=== PATIENT | female | born 1975 | race Caucasian/White ===

== ENCOUNTER 2019-08-21 17:31 | Observation (INO) | payer OTHER, SELFPAY ==
--- NOTE | ~2019-08-21 | CT_ITS ---
EXAMINATION: CT brain wo con INDICATION: Headache COMPARISON: None TECHNIQUE: Standard unenhanced head CT. The dose-length product (DLP) was 605.33 mGy-cm. The mA was a djusted according to patient size. Iterative reconstruction technique was employed. FINDINGS: There is no intracranial hemorrhage, acute infarction, or abnormal mass lesion. The ventric les are normal. There is no abnormal mass effect or midline shift. The fischer-white matter differentiat ion is normal. The basal cisterns are patent. The orbits are normal. The paranasal sinuses, mastoids and calvarium are normal. IMPRESSION: 1. No acute intracranial abnormality. Reviewed, dictated and finalized at location A.
--- NOTE | ~2019-08-21 | US_ITS ---
EXAMINATION: US renal BI DATE: 08/22/2019 07:49 INDICATION: Acute renal insufficiency TECHNIQUE: Multiple ultrasound grayscale images of the kidneys were obtained. COMPARISON: None. FINDINGS: The right kidney measures 9.3 x 5.2 x 5.4 cm. The left kidney measures 9.8 x 5.4 x 4.9 cm. The kidney s demonstrate normal echogenicity. There is no hydronephrosis in either kidney. No stones identified . Bladder appears normal but is partially decompressed which mildly limits evaluation. IMPRESSION: 1. Normal kidneys without hydronephrosis. Reviewed, dictated and finalized at location A.
[2019-08-21 17:35] VITALS: BP 182/90; PULSE 83; RESP 20; TEMP 36.7; O2SAT 100
--- NOTE | 2019-08-21 18:02 | ED.GENADULT ---
HPI - General Adult General Chief complaint: Unspecified <Nikolas Lyn PA-C - Last Filed: 08/21/19 19:54> Stated complaint: abnormal labs <Nikolas Lyn PA-C - Last Filed: 08/21/19 19:54> Time Seen by Provider: 08/21/19 17:54 <Nikolas Lyn PA-C - Last Filed: 08/21/19 19:54> Source: patient and family <CIAN Gaytan Last Filed: 08/21/19 19:54> Mode of arrival: ambulatory <Nikolas Lyn PA-C - Last Filed: 08/21/19 19:54> Limitations: no limitations <Nikolas yLn PA-C - Last Filed: 08/21/19 19:54> History of Present Illness HPI narrative: Patient is a 43-year-old female who presents from home after signing out AMA from the hospital today patient had gone and for having had nausea and vomiting for over a week noting multiple episodes of emesis a day noting that she is also been taking approximately 6 Aleve per day patient on arrival to emergency department notes that she signed out AMA was told him that she was in acute renal failure at the other hospital patient. Patient denies any current pain or similar occurrence in the past. Patient denies any hematemesis rectal bleeding or melena. <Nikolas Lyn PA-C - Last Filed: 08/21/19 19:54> Related Data Home medications: Home Medications Medication Instructions Recorded Confirmed No Home Medications 08/21/19 08/21/19 <Nikolas Lyn PA-C - Last Filed: 08/21/19 19:54> Allergies/adverse reactions: Allergies Allergy/AdvReac Type Severity Reaction Status Date / Time meperidine Allergy Mild NAUSEA/VOMI Verified 11/11/18 13:57 TING <Nikolas Lyn PA-C - Last Filed: 08/21/19 19:54> Review of Systems Review of Systems: All systems reviewed & are unremarkable except as noted in HPI and below <Nikolas Lyn PA-C - Last Filed: 08/21/19 19:54> PMFSH Past Medical History Medical History: Medical History (Updated 08/22/19 @ 13:48 by Yoselin Laureano PA-C) Hyperlipidemia <Nikolas Lyn PA-C - Last Filed: 08/21/19 19:54> Family History Family History: Family History Father Hypertension <Nikolas Lyn PA-C - Last Filed: 08/21/19 19:54> Social History Social History: Social History Smoking packs per day: 1.5 Smoking cigarettes per day: 30.0 Years smoked: 22 Smoking pack-years: 33.00 Smoking status: Current every day smoker Tobacco type: cigarettes Alcohol intake: current Drinks per week: 16 Substance use: current Substance use type: marijuana Last use: 08/21/2019 Gender identity (if verbalized by the patient): Female Spiritual care concerns: No <CAIN Gaytan Last Filed: 08/21/19 19:54> Exam Narrative: Exam Narrative: GENERAL: Well-appearing, well-nourished, and in no acute distress. HEAD: Normocephalic, atraumatic. EYES: PERRLA and EOMI. ENT: Nares clear, no rhinorrhea or epistaxis. Mucous membranes moist. CHEST: Clear to auscultation. No respiratory distress. No wheezes rales or rhonchi HEART: Regular rate and rhythm. No murmur heard. Normal peripheral pulses. ABDOMEN: Soft, nontender, nondistended EXTREMITIES: Normal range of motion. No edema. SKIN: Warm, dry, no rash. NEURO: No focal deficits. Alert and oriented x3. Cranial nerves II through XII grossly intact PSYCH: Normal mood and affect. <CAIN Gaytan Last Filed: 08/21/19 19:54> Course Course Emergency Course: Patient in the room at this time aware of case findings treatment plan and diagnosis agreeing to come into hospital for nephrology consult admitted to the hospitalist service will have ultrasound in the morning with continued evaluation <CAIN Gaytan Last Filed: 08/21/19 19:54> CERTIFIED PHLEBOTOMIST/PA Physician Supervision For this patient encounter, I reviewed the CERTIFIED PHLEBOTOMIST or PA documentation, treatment pl
[2019-08-21] MEDS: SODIUM CHLORIDE 0.9% IV 1,000 ML 999 ML IV CONT (18:12)
[2019-08-21 18:15] LABS: Basophils Absolute Auto 0.1 K/mm3 (0.0-0.1); Basophils Percent Auto 0.8 % (0.2-1.2); Eosinophils Absolute Auto 0.1 K/mm3 (0-0.3); Eosinophils Percent Auto 0.8 % (0-4.4); Hematocrit 51.5 % (37.0-47.0); Hemoglobin 17.8 g/dL (12.0-15.0); Immature Granulocyte Absolute 0.06 K/mm3 (0.00-0.031); Immature Granulocyte Percent A 0.4 % (0-0.5); Lymphocytes Absolute Auto 2.77 K/mm3 (0.9-3.2); Lymphocytes Percent Auto 19.1 % (18.3-44.2); Mean Corpuscular HGB Conc 34.6 g/dl (32-36); Mean Corpuscular Hemoglobin 34.6 pg (26-34); Mean Corpuscular Volume 100.2 fl (80-100); Mean Platelet Volume 10.7 fl (7.4-10.4); Monocytes Absolute Auto 1.1 K/mm3 (0.1-0.6); Monocytes Percent Auto 7.5 % (2.6-8.5); Neutrophils Absolute Auto 10.4 K/mm3 (1.3-6.7); Neutrophils Percent Auto 71.4 % (45.5-73.1); Platelet Count Result 294 k/mm3 (150-375); Red Blood Count 5.14 M/mm3 (4.2-5.4); White Blood Count 14.5 K/mm3 (4.5-10.0)
[2019-08-21 18:20] LABS: Add Urine Microscopic? YES; Appearance Urine Clear (Clear); Bacteria Urine Trace /hpf; Bilirubin Urine Negative (Negative); Blood Urine Negative (Negative); Color Urine Yellow (Yellow); Glucose Urine UA Negative (Negative); Ketones Urine Negative (Negative); Leukocyte Esterase Ur Trace LEU/UL (Negative); Mucus Urine Rare /lpf; Nitrate Urine Negative (Negative); Protein Urine Negative (Negative); RBC Urine 0-2 /hpf (0-2); Specific Grav Ur 1.012 (1.001-1.035); Squamous Epithelial Cell Urine Many /hpf (Few); Urobilinogen Urine Negative mg/dL (<2.0); WBC Urine 21-30 /hpf
[2019-08-21 18:24] LABS: INR 0.9; Prothrombin Time 12.2 Seconds (11.1-14.7)
[2019-08-21 18:25] LABS: Partial Thromboplastin Time 24.8 SECONDS (22.3-36.8)
[2019-08-21 18:27] LABS: Lactic Acid Reflex 0.9 mmol/L (0.7-2.1)
[2019-08-21 18:28] LABS: Alanine Aminotransferase 15 U/L (4-35); Albumin Level 4.6 g/dL (3.5-5.1); Alkaline Phosphatase 79 U/L (38-126); Aspartate Amino Transferase 35 U/L (14-36); Bilirubin,Total 1.4 mg/dL (0.2-1.3); Blood Urea Nitrogen 20 mg/dL (7-17); Calcium 12.8 mg/dL (8.4-10.2); Carbon Dioxide 30 mmol/L (22-30); Chloride 100 mmol/L (98-107); Estimated CRCL calculation 16 ml/min; Estimated Glomerular Filt Rate 15; Glucose 94 mg/dL (65-105); Lipase 199 U/L (23-300); Potassium 2.8 mmol/L (3.4-5.0); Sodium 138 mmol/L (137-145)
[2019-08-21 18:30] VITALS: BP 188/83; PULSE 59; RESP 20; O2SAT 100
--- NOTE | 2019-08-21 19:10 | ECG_ITS ---
Measurements Intervals Artie Rate: 66 P: 68 KS: 160 QRS: 32 QRSD: 93 T: 51 QT: 398 QTc: 417 Interpretive Statements SINUS RHYTHM NORMAL ECG Electronically Signed On 08-22-2019 6:45:18 CDT by Madhu Black D.O.
[2019-08-21] MEDS: hydrALAZINE HCL 20 MG/ML VIAL 10 MG IV PUSH (19:25)
[2019-08-21 19:30] VITALS: BP 162/69; PULSE 64; RESP 16; O2SAT 100
[2019-08-21 20:15] VITALS: BP 165/90; PULSE 80; RESP 15; O2SAT 99
[2019-08-21 20:33] VITALS: BP 174/80; PULSE 74; RESP 16; TEMP 36.5; O2SAT 100
[2019-08-21 20:39] VITALS: BMI 17.9
--- NOTE | 2019-08-21 20:45 | ADMGEN ---
This patient, Kavita Rosen, was admitted to Medical Room 342-01. Patient/family oriented to hospital policies and general routines including ID bracelet, bed and alarms, visiting hours, pain management, procedures, bathroom and other care routines, personal items, smoking policy, room service/diet, and visiting hours. Valuables list has been completed. Information on how to activate the Rapid Response Team has been discussed. Patient/Family are encouraged to report perceived risks to care and to ask questions if they do not understand what they are told or what they should do.
[2019-08-21 20:59] VITALS: PULSE 80
[2019-08-21] MEDS: FAMOTIDINE 20 MG/2 ML VIAL IV PUSH (22:07)
[2019-08-22] VITALS (13 sets, daily range): BP systolic 144–179; BP diastolic 75–91; PULSE 58–89; RESP 14–16; TEMP 36.6–37.1; O2SAT 98–100; BMI 17.9
[2019-08-22] MEDS: hydrALAZINE HCL 20 MG/ML VIAL 10 MG IV PUSH (01:11)
[2019-08-22] MEDS: SODIUM CHLORIDE 0.9% IV 1,000 ML 150 ML IV CONT ×2 (01:11→08:29)
--- NOTE | 2019-08-22 01:34 | PM.IMHP ---
H&P: HPI History of Present Illness Chief complaint: Acute kidney injury, hypokalemia Narrative: This is a pleasant 43 year old female with known hyperlipidemia who presented to the hospital after having nausea and vomiting for the past week. She relates that over 1 week ago she started to have daily migraine headaches and has been taking up to 6 Aleve tablets daily. She was previously taking 4 Aleve tablets daily for chronic back pain for months. The pateint was apparently seen at [facility] earlier and told she was in acute renal failure and signed out AMA. She denies having any previous history of kidney issues, diabetes, or recent exposure to contrast material. Tonight she also denies any fever, chills, shortness of breath, chest pain, abdominal pain, dysuria, hematuria, or LE swelling. The patient was also found to have severely elevated blood pressure today in the ER and treated with Hydralazine. She has no previous history of high blood pressure. She denies any decreased urine output lately. The patient has been admitted to the hospital for acute renal failure and nephrology has been consulted. Review of Systems Review of Systems: All systems reviewed & are unremarkable except as noted in HPI and below [facility] Past Medical History Medical History (Updated 08/22/19 @ 03:32 by Giuseppe Subramanian MD) Hyperlipidemia Family History Family History Father Hypertension Social History Social History Smoking packs per day: 1.5 Smoking cigarettes per day: 30.0 Years smoked: 22 Smoking pack-years: 33.00 Smoking status: Current every day smoker Tobacco type: cigarettes Alcohol intake: current Drinks per week: 16 Substance use: current Substance use type: marijuana Last use: 08/21/2019 Gender identity (if verbalized by the patient): Female Spiritual care concerns: No Meds Home Medications and Allergies Home Medications Medication Instructions Recorded Confirmed Type No Home Medications 08/21/19 08/21/19 History Allergies Allergy/AdvReac Type Severity Reaction Status Date / Time meperidine Allergy Mild NAUSEA/VOMI Verified 11/11/18 13:57 TING Vital Signs Vital Signs - 24 hr 08/21/19 17:35 08/21/19 18:30 08/21/19 19:30 Temperature 36.7 C Pulse Rate 83 59 L 64 Respiratory Rate 20 20 16 Blood Pressure 182/90 H 188/83 H 162/69 H Pulse Oximetry 100 100 100 08/21/19 20:15 08/21/19 20:33 08/21/19 20:59 Temperature 36.5 C Pulse Rate 80 74 80 Respiratory Rate 15 16 Blood Pressure 165/90 H 174/80 H Pulse Oximetry 99 100 08/22/19 00:00 08/22/19 01:06 Temperature Pulse Rate 63 Respiratory Rate Blood Pressure 178/88 H Pulse Oximetry Exam Const: General: cooperative, no acute distress, alert and awake Nutritional Appearance: well nourished Orientation/consciousness: patient oriented x3 HENMT: Head: normal to inspection General nose exam: Normal external nose present Face and sinus: normal facial exam Mouth: Yes Normal oral and palatal mucosa present and Yes oropharynx normal Eyes: Pupils: Equal, round and reactive pupils present EOM: EOMs intact bilaterally Neck: Neck: supple and no JVD Thyroid: thyroid normal Lymphatic: lymphadenopathy not noted Resp: Effort & Inspection: normal respiratory effort Auscultation: clear to auscultation bilaterally Cardio: Rate: regular rate Rhythm: regular rhythm Heart sounds: no murmurs GI: Inspection: normal to inspection Auscultation: normal bowel sounds Skin: General skin exam: normal color and no rashes or lesions noted Neuro: General: patient oriented x3 Cranial nerves: Yes CN's II-XII intact bilaterally and Yes Equal, round and reactive pupils present Speech: normal speech Motor exam (neuro): 5/5 motor strength present throughout Sensory Exam: normal sensation Extrem: Gen
[2019-08-22 01:37] LABS: Magnesium 1.8 mg/dL (1.6-2.3); Potassium 3.5 mmol/L (3.4-5.0)
[2019-08-22 05:56] LABS: Basophils Absolute Auto 0.1 K/mm3 (0.0-0.1); Eosinophils Absolute Auto 0.1 K/mm3 (0-0.3); Eosinophils Percent Auto 1.9 % (0-4.4); Hematocrit 40.2 % (37.0-47.0); Hemoglobin 13.7 g/dL (12.0-15.0); Immature Granulocyte Absolute 0.06 K/mm3 (0.00-0.031); Immature Granulocyte Percent A 0.9 % (0-0.5); Lymphocytes Absolute Auto 1.72 K/mm3 (0.9-3.2); Lymphocytes Percent Auto 24.6 % (18.3-44.2); Mean Corpuscular HGB Conc 34.1 g/dl (32-36); Mean Corpuscular Hemoglobin 34.2 pg (26-34); Mean Corpuscular Volume 100.2 fl (80-100); Mean Platelet Volume 10.4 fl (7.4-10.4); Monocytes Absolute Auto 0.7 K/mm3 (0.1-0.6); Monocytes Percent Auto 10.3 % (2.6-8.5); Neutrophils Absolute Auto 4.3 K/mm3 (1.3-6.7); Neutrophils Percent Auto 61.3 % (45.5-73.1); Platelet Count Result 225 k/mm3 (150-375); Red Blood Count 4.01 M/mm3 (4.2-5.4); Red Cell Distribution Width 13.9 % (11.5-14.5)
[2019-08-22 06:41] LABS: Blood Urea Nitrogen 19 mg/dL (7-17); Calcium 10.1 mg/dL (8.4-10.2); Carbon Dioxide 21 mmol/L (22-30); Chloride 110 mmol/L (98-107); Estimated CRCL calculation 16 ml/min; Estimated Glomerular Filt Rate 16; Glucose 78 mg/dL (65-105); Potassium 3.2 mmol/L (3.4-5.0); Sodium 138 mmol/L (137-145)
[2019-08-22] MEDS: LORAZEPAM INJ 2 MG/ML VIAL 1 MG IV PUSH (07:31)
[2019-08-22] MEDS: FAMOTIDINE 20 MG/2 ML VIAL IV PUSH ×2 (08:04→20:15)
[2019-08-22] MEDS: THIAMINE HCL 200 MG/2 ML VIAL 100 MG IV PUSH (08:04)
[2019-08-22] MEDS: POTASSIUM CHLORIDE 20 MEQ TABLET 40 MEQ PO (08:04)
[2019-08-22 10:54] LABS: Ethanol < 10 mg/dL (<10)
[2019-08-22 12:04] LABS: Amphetamine Screen Urine Negative (Negative); Barbiturate Screen Urine Negative (Negative); Benzodiazepines Screen Urine Negative (Negative); Cannabinoid Screen Urine Positive (Negative); Cocaine Screen Urine Negative (Negative); Methadone Screen Urine Negative (Negative); Opiate Screen Urine Negative (Negative); Phencyclidine Screen Urine Negative (Negative)
--- NOTE | 2019-08-22 13:21 | PM.IMPN ---
Progress Note: A&P Assessment and Plan (1) Acute kidney injury: Code(s): N17.9 - Acute kidney failure, unspecified Status: Acute Assessment and Plan: Cr 3.2; suspect multifactorial may be related to recent N/V, NSAIDs. Unsure of chronicity; does not appear she has had any lab work in quite some time. Renal ultrasound is unremarkable. Nephrology consulted - appreciate recommendations. Continue IV hydration, avoid nephrotoxic agents and trend renal function. (2) Headache: Code(s): R51 - Headache Status: Acute Assessment and Plan: Patient notes intermittent headaches over the last 2 weeks. She reports light sensitivity and associated nausea and vomiting consistent with migraine. Denies history of migraines in the past. CT brain shows no acute intracranial findings. Negative meningeal signs, no leukocytosis or fever. Continue supportive care with IV hydration, tylenol, zofran. (3) Elevated blood pressure reading: Code(s): R03.0 - Elevated blood-pressure reading, without diagnosis of hypertension Status: Acute Assessment and Plan: May be longstanding uncontrolled HTN? Patient does not have a PCP. May be elevated secondary to pain. Continue IV hydralazine PRN for now and monitor BP; may very well need oral antihypertensives initiated prior to discharge. (4) Abnormal urinalysis: Code(s): R82.90 - Unspecified abnormal findings in urine Status: Acute Assessment and Plan: With many squamous cells may represent contamination. Patient asymptomatic. No antibiotics indicated at this time; urine culture pending. (5) Alcohol abuse: Code(s): F10.10 - Alcohol abuse, uncomplicated Status: Chronic Assessment and Plan: CIWA protocol. Thiamine supplementation; benzos PRN for high CIWA. No evidence of withdrawal today. (6) Acute hypokalemia: Code(s): E87.6 - Hypokalemia Status: Acute Assessment and Plan: Still low at 3.2 this morning and replaced. Recheck in AM. Subjective Date/time seen: 08/22/19 0930 Interval history: Ms. Rosen is a 43yo F admitted for acute renal failure. Patient complains of a headache today. She reports significant intermittent headaches over the last 2 weeks with associated nausea and vomiting. Relays no relieving or aggravating factors but has taken up to 8 tabs of Aleve daily over the last 2 weeks. She denies nausea or vomiting today. She is having trouble staying awake during my encounter. She was seen at [facility] ED this week (she cannot tell me which day) and apparently left AMA from the ED. Waiting to review records. Reports she does not have a PCP. Review of Systems Review of Systems: Narrative: Twelve systems were reviewed with pertinent positives and negatives as per HPI. Exam Narrative: Exam Narrative: General: Female resting in bed in no acute distress, falls asleep between my questions. HEENT: Normocephalic, EOMI, oral mucosa moist. Cardiovascular: Rate and rhythm are regular. Respiratory: Lungs clear to auscultation all [place]. Non-labored breathing. Abdomen: Soft, non-tender, non-distended, bowel sounds present. Extremities: Peripheral pulses intact. No edema. Neuro: No focal neurological deficits. Speech is clear. Objective Data Vital Signs Vital Signs: Last Vital Signs Temp 97.9 F 08/22/19 06:00 Pulse 69 08/22/19 12:00 Resp 16 08/22/19 08:04 BP 154/91 H 08/22/19 06:00 Pulse Ox 98 08/22/19 08:04 Intake/Output Intake/Output: Intake & Output 08/19/19 08/20/19 08/21/19 08/22/19 23:59 23:59 23:59 23:59 Intake Total 1100 1990 Output Total 1125 Balance 1100 865 Meds/Results Medications: Active Medications Generic Name Dose Route Start Last Admin Trade Name Kev Nelson
--- NOTE | 2019-08-22 15:24 | PM.CNNEP ---
Assessment and Plan Assessment and plan (1) Acute kidney injury: Code(s): N17.9 - Acute kidney failure, unspecified Status: Acute (2) Acute hypokalemia: Code(s): E87.6 - Hypokalemia Status: Acute (3) Uncontrolled hypertension: Code(s): I10 - Essential (primary) hypertension Status: Acute (4) Nausea and vomiting: Qualifiers: Vomiting Intractability: unspecified Vomiting type: unspecified Qualified Code(s): R11.2 - Nausea with vomiting, unspecified Code(s): R11.2 - Nausea with vomiting, unspecified Status: Acute Assessment and Plan: . Additional Plan Kavita has acute renal failure as evidence by labs on admission. I am not entirely clear what precipitated this issue but given her history of recent high dose NAID use, the possibility of acute/chronic intersitital nephritis is of concern. However, given her elevated blood pressure on presentation to the ER, it is also possible this may be playing a role (although the renal failure in of itself could also cause high blood pressure as well). Her urinalysis is concerning for a possible urinary tract infection so a urine culture is pending. If her urine culture is negative and her blood pressure is better controlled, I am considering giving the patient steroids on the presumptive diagnosis of acute interstitial nephritis. If she does indeed have acute interstitial nephritis, is difficult to say how fast she would respond to the steroids in general. Is her kidney function continues to deteriorate, I will proceed with ordering an extensive serological evaluation to rule out any type of intrinsic, infiltrative, or inflammatory kidney disorder that may be present as well. As already mentioned, the patient was quite insistent that she needed to go home and I did try to explain to her the seriousness of her medical problems with regard to her renal failure and the possibility that it could get worse or her overall clinical condition could deteriorate as well particularly if she left the hospital and her kidney function continue to deteriorate. She seemed to voiced understanding but still was somewhat insistent that she want to go home. I will continue follow patient with you while she remains hospitalized and make further recommendations during hospital course Thank you for allowing me to participate in the care this patient. History of Present Illness Reason for Consult Consult date: 08/22/19 Reason for consult: acute renal failure Chief Complaint Chief complaint: Acute kidney injury, hypokalemia History of Present Illness Narrative: The patient is a 43 year old female with a past medical history as outlined below who presented [facility] ER with complaints of nausea and vomiting. She relates the above symptoms for the last week in association with persistent headache/migraine. Due to the migraine/headaches, she reports taking up to 6 Aleve tablets daily. Prior to this, she was taking 4 Aleve tablets daily for chronic back pain for several months. Apparently, she was at [facility] earlier for the same above symptoms and was told she was in acute renal failure but she signed out AMA prior to further evaluation of her kidney dysfunction. At the behest of her family, she presented to [facility] ER for further evaluation of this issue. Prior to being told about her current renal dysfunction, the patient reports no previous history of kidney disease or kidney failure. She denies any history of hypertension, diabetes, coronary artery disease, congestive heart failure, peripheral vascular disease, liver disease, pulmonary disorders, or any autoimmune disease. She denies any history of foamy urine, CVA/flank pain, urinary incontinence, dysuria, hematuria, or nephrolithiasis. Workup and evaluation in the emergency room found the patient be quite hypertensive on presentation and routine blood test demonstr
[2019-08-22] MEDS: PANTOPRAZOLE 40 MG TABLET PO (15:25)
[2019-08-22] MEDS: SODIUM CHLORIDE 0.9% IV 1,000 ML 125 ML IV CONT ×2 (15:40→23:12)
[2019-08-22 15:53] LABS: Creatinine Urine 34.3 mg/dL; Total Protein Urine Random 18 mg/dL
[2019-08-22 16:01] LABS: Sodium Urine Random 55 meq/L
[2019-08-23] VITALS: PULSE 61
[2019-08-23 04:00] VITALS: PULSE 63
[2019-08-23 04:26] VITALS: BP 177/81; PULSE 70; RESP 20; TEMP 36.9; O2SAT 99
[2019-08-23] MEDS: hydrALAZINE HCL 20 MG/ML VIAL 10 MG IV PUSH (04:33)
[2019-08-26 15:31] LABS: Myoglobin, Urine <27 mcg/L (<28)
== END 2019-08-23 05:47 | disposition left against medical advice (07) ==
LOC: ANHED 19:07 → ANH3MED 22:01
PROVIDERS: Emergency Medicine Emergency Medical Services; Family Medicine; Internal Medicine Nephrology; Admitting Provider Internal Medicine; Emergency Provider General Practice; Visit Provider Physician Assistant
DX: N17.9 Acute kidney failure, unspecified (principal); E78.5 Hyperlipidemia, unspecified; F17.210 Nicotine dependence, cigarettes, uncomplicated; E87.6 Hypokalemia; R11.2 Nausea with vomiting, unspecified; I10 Essential (primary) hypertension; F10.10 Alcohol abuse, uncomplicated; F12.10 Cannabis abuse, uncomplicated; R82.90 Unspecified abnormal findings in urine; R51 Headache; Z79.899 Other long term (current) drug therapy
CPT/HCPCS: 36415; 70450; 76775; 80048; 80053; 80069; 80307; 81001; 81003; 82570; 82595; 83520; 83605; 83690; 83735; 83874; 84132; 84155; 84156; 84165; 84166; 84300; 85025; 85610; 85730; 85999; 86021; 86038; 86160; 86334; 86335; 87081; 87086; 87088; 87880; 93005; 96361; 96365; 96374; 96375; 96376; 99285; A9270; G0378; G0379; J0131; J0360; J2060; J2270; J2405; J3411; J3475; J3480; J7030; J7512

== ENCOUNTER 2019-08-23 08:31 | Observation (INO) | payer OTHER, SELFPAY ==
[2019-08-23] VITALS (11 sets, daily range): BP systolic 154–232; BP diastolic 69–120; PULSE 64–87; RESP 16–18; TEMP 36.1–36.5; O2SAT 99–100; BMI 18.3
--- NOTE | 2019-08-23 08:44 | ED.GENADULT ---
HPI - General Adult General Chief complaint: Unspecified Stated complaint: Left AMA today, Request Readmission Time Seen by Provider: 08/23/19 08:32 Source: RN notes reviewed History of Present Illness HPI narrative: Patient presents emergency department from home for renal failure. Patient states that she was admitted to the hospital 2 days ago and just left AGAINST MEDICAL ADVICE approximately 2 hours ago from the hospital. She states she left AMA at that time because she missed her children 1 to go home and see them. She states that her significant other stated that she needed to come back for further evaluation this patient returned. She states she is willing to stay she denies any alcohol use or drug use when she returned home she states she did smoke cigarettes she denies any fevers or chills chest pain shortness of breath abdominal pain nausea or vomiting or any other symptom Related Data Home Medications Medication Instructions Recorded Confirmed No Home Medications 08/21/19 08/21/19 Allergies Allergy/AdvReac Type Severity Reaction Status Date / Time meperidine AdvReac Mild Hives Verified 08/23/19 08:44 Review of Systems Review of Systems: Narrative: Gen.: Denies fevers or chills ENT: Denies congestion Respiratory: Denies shortness of breath or cough CV: Denies chest pain or palpitations GI: Denies abdominal pain nausea, emesis or diarrhea see HPI Musculoskeletal: Denies back pain or muscle pain Neuro: Denies numbness, tingling, weakness or focal weakness Skin: Denies rash Except as documented, all other systems reviewed and negative PMFSH Past Medical History Medical History Hyperlipidemia Social History Social History Smoking packs per day: 1.5 Smoking cigarettes per day: 30.0 Years smoked: 22 Smoking pack-years: 33.00 Smoking status: Current every day smoker Tobacco type: cigarettes Alcohol intake: current Drinks per week: 16 Substance use: current Substance use type: marijuana Last use: 08/21/2019 Gender identity (if verbalized by the patient): Female Spiritual care concerns: No Exam Narrative: Exam Narrative: APPEARANCE: No acute distress, nontoxic, resting in bed EYES: EOMI HEENT: Normocephalic, atraumatic, OMM RESPIRATORY: No respiratory distress Clear to auscultation bilaterally with no rhonchi wheezing or rales. CARDIOVASCULAR: Regular rate and rhythm without murmurs rubs or gallops. ABDOMINAL: Soft, nontender, nondistended, no rebound or guarding MUSCULOSKELETAl: Moves all extremities. No clubbing, cyanosis or edema. NEURO: Awake and alert. Following commands, speech normal, no focal deficits SKIN:: Warm, dry. No rashes lesions or abrasions PSYCHIATRIC: Normal affect/mood, Course Course Emergency Course: Reviewed old records Discussed with Dr. santiago presentation work-up states he will see patient on the floor recommends no fluids at this time Discussed Dr Monroe presentation work-up. Agrees with admission at this time Discussed with patient and family results of workup and diagnosis. Discussed need for admission. Patient and family understand and agree to current treatment plan Vital Signs Vital signs: Vital Signs Temperature 97.4 F L 08/23/19 08:36 Pulse Rate 75 08/23/19 08:36 Respiratory Rate 18 08/23/19 08:36 Blood Pressure 189/83 H 08/23/19 08:36 Pulse Oximetry 100 08/23/19 08:36 Temperature 97.4 F L 08/23/19 08:36 Pulse Rate 87 08/23/19 08:41 Respiratory Rate 18 08/23/19 08:36 Blood Pressure 189/83 H 08/23/19 08:36 Pulse Oximetry 100 08/23/19 08:36 Medical Decision Making Vital Signs Vital Signs: Vital Signs Temperature 97.4 F L 08/23/19 08:36 Pulse Rate 75 08/23/19 08:36 Respiratory Rate 18 08/23/19 08:36 Blood Pressure 189/83 H 08/23/19 08:36 Pulse Oximetry 100 08/23/19 08
[2019-08-23 08:51] LABS: Basophils Absolute Auto 0.1 K/mm3 (0.0-0.1); Basophils Percent Auto 0.6 % (0.2-1.2); Eosinophils Percent Auto 0.3 % (0-4.4); Hemoglobin 14.2 g/dL (12.0-15.0); Immature Granulocyte Absolute 0.04 K/mm3 (0.00-0.031); Immature Granulocyte Percent A 0.4 % (0-0.5); Lymphocytes Absolute Auto 1.14 K/mm3 (0.9-3.2); Lymphocytes Percent Auto 11.7 % (18.3-44.2); Mean Corpuscular HGB Conc 33.8 g/dl (32-36); Mean Corpuscular Hemoglobin 34.2 pg (26-34); Mean Corpuscular Volume 101.2 fl (80-100); Mean Platelet Volume 10.3 fl (7.4-10.4); Monocytes Absolute Auto 0.9 K/mm3 (0.1-0.6); Monocytes Percent Auto 8.9 % (2.6-8.5); Neutrophils Absolute Auto 7.6 K/mm3 (1.3-6.7); Neutrophils Percent Auto 78.1 % (45.5-73.1); Platelet Count Result 247 k/mm3 (150-375); Red Blood Count 4.15 M/mm3 (4.2-5.4); Red Cell Distribution Width 14.4 % (11.5-14.5); White Blood Count 9.8 K/mm3 (4.5-10.0)
[2019-08-23 09:18] LABS: Ethanol < 10 mg/dL (<10)
[2019-08-23 09:22] LABS: Add Urine Microscopic? NO; Appearance Urine Clear (Clear); Bilirubin Urine Negative (Negative); Blood Urine Negative (Negative); Color Urine Straw (Yellow); Glucose Urine UA Negative (Negative); Ketones Urine Negative (Negative); Leukocyte Esterase Ur Negative LEU/UL (Negative); Nitrate Urine Negative (Negative); Protein Urine Negative (Negative); Urobilinogen Urine Negative mg/dL (<2.0)
[2019-08-23 09:36] LABS: Alanine Aminotransferase 13 U/L (4-35); Albumin Level 3.7 g/dL (3.5-5.1); Alkaline Phosphatase 56 U/L (38-126); Aspartate Amino Transferase 26 U/L (14-36); Bilirubin,Total 0.6 mg/dL (0.2-1.3); Blood Urea Nitrogen 16 mg/dL (7-17); Calcium 9.8 mg/dL (8.4-10.2); Carbon Dioxide 20 mmol/L (22-30); Chloride 114 mmol/L (98-107); Estimated CRCL calculation 17 ml/min; Estimated Glomerular Filt Rate 17; Glucose 80 mg/dL (65-105); Potassium 3.4 mmol/L (3.4-5.0); Sodium 142 mmol/L (137-145)
--- NOTE | 2019-08-23 10:43 | P.PNNP_ITS ---
Progress Note: A&P Assessment and Plan (1) Acute kidney injury: Code(s): N17.9 - Acute kidney failure, unspecified Status: Acute Assessment and Plan: * etiology not clear * suspicion falls on acute/chronic interstitial nephritis given heavy use of NSAIDs therapy for the last several months * however, it could also be related to hypertension as it is unclear how long this has been present * furthermore -- is this really TRIP or did she have component of CKD as well?? - will try to obtain any old records, if available * urine sediment is bland * will check serologies (but acute glomerulonephritis/vasculitis/autoimmune disorder seems unlikely with no blood or protein on urinalysis) * start trial of steroids on the assumption of interstitial nephritis * if kidney function deteriorates or fails to improve, consider renal biopsy (although BP would need to better controlled first) (2) Acute hypokalemia: Code(s): E87.6 - Hypokalemia Status: Acute Assessment and Plan: * replete as needed * follow trend (3) Uncontrolled hypertension: Code(s): I10 - Essential (primary) hypertension Status: Acute Assessment and Plan: * unclear how long this has been an issue * would start oral BP medications - nifedipine xl 30mg qday * IV hydralazine PRN as well * suspect may need another agent Will continue to follow Additional Plan PLEASE SEE MY CONSULTATION FROM YESTERDAY (08/22/19) Subjective Date/time seen: 08/23/19 10:43 Patient apparently left against medical advice early this AM but then returned to ER at the urging of her family given her renal failure; no apparent issues or problems to report at this time. Exam Narrative: Exam Narrative: General: WD/WN female in NAD Heart: normal S1 and S2; no rub Lungs: clear to auscultation Abdomen: soft, nontender, nondistended, positive bowel sounds Extremities: no cyanosis or clubbing; no edema Skin: warm and dry Objective Data Vital Signs Vital Signs: Vital Signs Temp Pulse Resp BP Pulse Ox 08/23/19 08:41 87 08/23/19 08:36 36.3 C L 75 18 189/83 H 100 Labs Labs: Laboratory Tests 08/23/19 08:44 08/23/19 09:14
--- NOTE | 2019-08-23 11:35 | ADMGEN ---
This patient, Kavita Rosen, was admitted to 2 Medical Room 250-01. Patient/family oriented to hospital policies and general routines including ID bracelet, bed and alarms, visiting hours, pain management, procedures, bathroom and other care routines, personal items, smoking policy, room service/diet, and visiting hours. Valuables list has been completed. Information on how to activate the Rapid Response Team has been discussed. Patient/Family are encouraged to report perceived risks to care and to ask questions if they do not understand what they are told or what they should do.
[2019-08-23] MEDS: hydrALAZINE HCL 20 MG/ML VIAL 10 MG IV PUSH ×2 (13:42→20:33)
--- NOTE | 2019-08-23 14:47 | PM.IMHP ---
H&P: HPI History of Present Illness Chief complaint: Left AMA this morning Narrative: Date of Service 08/23/19 1430 The supervising physician for this history and physical is Dr. Maximino Montalvo. Ms. Rosen is a 43yo F who presents to the ED for evaluation after leaving AMA early this morning. She was admitted yesterday for acute renal failure when Cr was 3.3 on arrival. She was seen by Dr Meng yesterday during her previous admission and he again has agreed to see her in consultation. She complains of intermittent headaches over the last 2 weeks that were previously accompanied by nausea and vomiting. She complains of a headache this afternoon but notes the nausea and vomiting have resolved. She denies any head trauma, neck pain, vision changes, speech changes, arm or leg weakness, or trouble ambulating. She reports taking Aleve daily for a long period of time due to back aches and pains, and more recently was taking up to 8 tablets of Aleve daily due to these headaches. Blood pressures are again noted to be elevated, up to 204/100 this afternoon. She denies a previous history of hypertension but notes she has not been to a doctor in quite some time. She is being admitted again for evaluation and management of acute renal failure and I suspect she may require a 2 midnight stay for same. Review of Systems Review of Systems: Narrative: She describes significant headache, intermittent headaches over the last 2 weeks. She denies any chest pain, shortness of breath, cough, fevers or chills, or sick contacts at home. She denies any nausea, vomiting, diarrhea, constipation, hematochezia, or melena. Last BM was this morning. No dysuria or hematuria. No chest pain or shortness of breath. Twelve systems were reviewed with pertinent positives and negatives as per HPI. [facility] Past Medical History Medical History (Updated 08/23/19 @ 15:43 by Yoselin Laureano PA-C) Elevated blood pressure reading Surgical History Surgical History (Updated 08/23/19 @ 15:22 by Yoselin Laureano PA-C) H/O dilation and curettage History of ear surgery 2002 - Patient reports a surgery to R ear Family History Family History (Updated 08/23/19 @ 15:22 by Yoselin Laureano PA-C) Father Hypertension Sibling Diabetes mellitus Grandparent Esophageal cancer Social History Social History (Updated 08/23/19 @ 15:26 by Yoselin Laureano PA-C) Social History: Ms. Rosen lives at home in [place] with her significant other, Pete, and her two teenage sons. 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 She reports drinking 4 shots of Fireball whiskey every night and her last drink was 08/20/19. She reports using marijuana daily, mostly by smoking but also sometimes ingestion. She smokes 1.5 packs per day since age 20yo. She does not have a primary care provider. She designates Pete to be her surrogate decision maker and wishes to be full code status. Smoking packs per day: 1.5 Smoking cigarettes per day: 30.0 Years smoked: 23 Smoking pack-years: 34.50 Smoking status: Current every day smoker Tobacco type: cigarettes Alcohol intake: current Drinks per week: 28 Alcohol use details: 4 shots per day Substance use: current Substance use type: marijuana Last use: 08/20/2019 Living arrangements: with family Occupation/Education: unemployed Gender identity (if verbalized by the patient): Female Spiritual care concerns: No Meds Home Medications and Allergies Home Medications Medication Instructions Recorded Confirmed Type No Home Medications 08/21/19 08/23/19 History Allergies Allergy/AdvReac Type Severity Reaction Status Date / Time meperidine AdvReac Mild Hives Verified 08/23/19 11:46 Vital Signs Vital Signs - 24 hr 08/23/19 08:36 08/23/19 08:41 08/23/19 12:00 Temperature 97.4 F L 97.6 F Pulse Rate 75 87 66 Respiratory Rate 18 16 Blood Pressure 189/83 H 154/78 H
[2019-08-23] MEDS: ONDANSETRON INJ 4 MG/2 ML VIAL IV PUSH ×2 (15:20→17:37)
[2019-08-23] MEDS: NIFEdipine 30 MG TAB.ER.24 PO (15:33)
[2019-08-23] MEDS: LORAZEPAM 0.5 MG TABLET PO ×2 (17:06→19:25)
[2019-08-23] MEDS: POTASSIUM CHLORIDE 20 MEQ TABLET 40 MEQ PO (18:18)
[2019-08-23] MEDS: METOPROLOL TARTRATE 25 MG TABLET PO (18:18)
[2019-08-23] MEDS: predniSONE 20 MG, predniSONE 10 MG 30 MG PO (18:18)
[2019-08-23] MEDS: ACETAMINOPHEN 325 MG TABLET 650 MG PO (20:31)
[2019-08-23 22:20] LABS: Amphetamine Screen Urine Negative (Negative); Barbiturate Screen Urine Negative (Negative); Benzodiazepines Screen Urine Negative (Negative); Cannabinoid Screen Urine Positive (Negative); Cocaine Screen Urine Negative (Negative); Methadone Screen Urine Negative (Negative); Opiate Screen Urine Positive (Negative); Phencyclidine Screen Urine Negative (Negative)
[2019-08-24] VITALS (7 sets, daily range): BP systolic 156–178; BP diastolic 74–92; PULSE 64–88; RESP 16–18; TEMP 36.2–36.8; O2SAT 100
[2019-08-24] MEDS: ACETAMINOPHEN 325 MG TABLET 650 MG PO ×2 (00:47→06:03)
[2019-08-24] MEDS: SODIUM CHLORIDE 0.9% IV 1,000 ML 100 ML IV CONT (02:30)
[2019-08-24] MEDS: ONDANSETRON INJ 4 MG/2 ML VIAL IV PUSH (03:38)
[2019-08-24] MEDS: METOPROLOL TARTRATE 25 MG TABLET PO (04:51)
[2019-08-24 06:00] LABS: Basophils Percent Auto 0.5 % (0.2-1.2); Hematocrit 39.5 % (37.0-47.0); Hemoglobin 13.3 g/dL (12.0-15.0); Immature Granulocyte Absolute 0.03 K/mm3 (0.00-0.031); Immature Granulocyte Percent A 0.4 % (0-0.5); Lymphocytes Absolute Auto 0.91 K/mm3 (0.9-3.2); Lymphocytes Percent Auto 10.8 % (18.3-44.2); Mean Corpuscular HGB Conc 33.7 g/dl (32-36); Mean Corpuscular Hemoglobin 34.1 pg (26-34); Mean Corpuscular Volume 101.3 fl (80-100); Mean Platelet Volume 10.4 fl (7.4-10.4); Monocytes Absolute Auto 0.5 K/mm3 (0.1-0.6); Monocytes Percent Auto 6.4 % (2.6-8.5); Neutrophils Absolute Auto 6.9 K/mm3 (1.3-6.7); Neutrophils Percent Auto 81.9 % (45.5-73.1); Platelet Count Result 206 k/mm3 (150-375); Red Cell Distribution Width 14.2 % (11.5-14.5); White Blood Count 8.5 K/mm3 (4.5-10.0)
[2019-08-24 06:09] LABS: Blood Urea Nitrogen 15 mg/dL (7-17); Calcium 9.4 mg/dL (8.4-10.2); Carbon Dioxide 18 mmol/L (22-30); Chloride 114 mmol/L (98-107); Estimated CRCL calculation 19 ml/min; Estimated Glomerular Filt Rate 19; Glucose 74 mg/dL (65-105); Magnesium 1.6 mg/dL (1.6-2.3); Potassium 3.8 mmol/L (3.4-5.0); Sodium 140 mmol/L (137-145)
[2019-08-24 06:13] LABS: Complement C3 54 mg/dL (88-165)
[2019-08-24] MEDS: predniSONE 20 MG, predniSONE 10 MG 30 MG PO ×2 (08:51→16:55)
[2019-08-24] MEDS: NIFEdipine 30 MG TAB.ER.24 PO (08:51)
[2019-08-24] MEDS: MAGNESIUM SULF 2 GM/WATER 50ML 2 GM/50 ML BAG IVPB (09:16)
--- NOTE | 2019-08-24 09:52 | PM.IMPN ---
Progress Note: A&P Assessment and Plan (1) Acute renal insufficiency: Code(s): N28.9 - Disorder of kidney and ureter, unspecified Status: Acute Assessment and Plan: Cr improved to 2.7 this AM. Fluids were briefly started by printing supplies sales representative early this AM 2/2 vomiting; stop IV fluids. Again appreciate Dr Meng's input. He has started oral prednisone and ordered further studies. Suspect could be multifactorial related to NSAIDs, elevated BP. Unsure if HTN contributed to TRIP or vice versa. Renal ultrasound from 08/21 is unremarkable. (2) Uncontrolled hypertension: Code(s): I10 - Essential (primary) hypertension Status: Acute Assessment and Plan: Unsure of chronicity. Continue nifedipine; systolics 170s this AM prior to AM meds, improved to 150s with oral CCB. Metoprolol given last night, will see if we can hold off on both oral drugs for now and monitor her response to nifedipine first. Continue IV hydralazine PRN. Will monitor BP closely and adjust treatment as needed. (3) Headache: Qualifiers: Headache chronicity pattern: episodic headache Headache type: unspecified Intractability: not intractable Qualified Code(s): R51 - Headache Code(s): R51 - Headache Status: Acute Assessment and Plan: She initially described headaches over the last 2 weeks, on further questioning has been actually having headaches for a long time , worse in last week. CT brain on arrival previous admission demonstrates no acute intracranial abnormality. No focal neurological deficits. May be related to elevated BP vs. migraines. Continue supportive care with antiemetics and analgesia. (4) Acute hypokalemia: Code(s): E87.6 - Hypokalemia Status: Acute Assessment and Plan: Stable at 3.8 this AM. Mg 1.6 and replaced. Monitor electrolytes. (5) Alcohol abuse: Code(s): F10.10 - Alcohol abuse, uncomplicated Status: Chronic Assessment and Plan: Patient reports 4 shots per day of whiskey. Last drink 08/19. No signs or symptoms of acute withdrawal. I think this anxiety is more baseline than acute. She denies ever having symptoms of withdrawal, including seizures, in the past. Monitor with CIWA protocol, folic acid and thiamine supplementation, benzodiazepine PRN for elevated CIWA/agitation. (6) Tobacco dependence: Code(s): F17.200 - Nicotine dependence, unspecified, uncomplicated Status: Chronic Assessment and Plan: Smoking cessation advised. Patient expresses desire to quit. Declines nicotine patch. (7) Marijuana use: Code(s): F12.90 - Cannabis use, unspecified, uncomplicated Status: Chronic Assessment and Plan: Patient smokes marijuana daily. Discussed that her N/V may be related to marijuana use. Subjective Date/time seen: 08/24/19 09:00 Interval history: Ms. Rosen is a 43yo F admitted for acute renal insufficiency and hypertension. Some issues overnight with elevated blood pressures, headache with associated nausea and vomiting. She is feeling much better this morning. She rates her headache this AM at a 2/10 and no nausea at this time. No chest pain, shortness of breath, or cough. Spoke with her significant other, Pete, on speakerphone in the room during my encounter and provided an update with the patient's permission. Review of Systems Review of Systems: Narrative: Headache improved. N/V resolved. No chest pain. Twelve systems were reviewed with pertinent positives and negatives as per HPI. Exam Narrative: Exam Narrative: General: Well-appearing, thin female resting sitting up in bed in no acute distress. Anxious but pleasant. HEENT: Normocephalic, atraumatic, EOMI, oral mucosa moist. Neck:
--- NOTE | 2019-08-24 16:29 | PM.PNNEP ---
Progress Note: A&P Assessment and Plan (1) Acute kidney injury: Code(s): N17.9 - Acute kidney failure, unspecified Status: Acute Assessment and Plan: etiology not clear suspicion falls on acute/chronic interstitial nephritis given heavy use of NSAIDs therapy for the last several months however, it could also be related to hypertensive nephrosclerosis as it is unclear how long her blood pressure has been poorly controlled furthermore -- is this really TRIP or did she have component of CKD as well?? - no records as has not seen a physician or had blood work that she can recall urine sediment is bland follow-up on serologies (but acute glomerulonephritis/vasculitis/autoimmune disorder seems unlikely with no blood or protein on urinalysis) started trial of steroids on the assumption of interstitial nephritis if kidney function deteriorates or fails to improve, consider renal biopsy (although BP would need to better controlled first) (2) Acute hypokalemia: Code(s): E87.6 - Hypokalemia Status: Acute Assessment and Plan: replete as needed follow trend (3) Uncontrolled hypertension: Code(s): I10 - Essential (primary) hypertension Status: Acute Assessment and Plan: unclear how long this has been an issue on nifedipine IV hydralazine PRN as well suspect may need another agent Patient states that she is leaving and asking me for BP medication prescriptions -- I do not feel comfortable giving her blood pressure medication prescriptions since I am told she is leaving against medical advise since there is no official discharge order (I personally do not think she should be discharged at this time since I am unclear if her kidney function will improve and what medication regimen she really needs to keep her BP controlled). Subjective Date/time seen: 08/24/19 16:29 The patient appears to be doing reasonably well -- however, she want to leave/go home much as she did on her last admission. BP does appear to be doing somewhat better as is kidney function by vitals and labs; she was dressed and ready to leave on my visit (although she did not tell me that she was not being discharged). Exam Narrative: Exam Narrative: General: WD/WN female in NAD Heart: normal S1 and S2; no rub Lungs: clear to auscultation Abdomen: soft, nontender, nondistended, positive bowel sounds Extremities: no cyanosis or clubbing; no edema Skin: warm and dry Objective Data Vital Signs Vital Signs: Vital Signs Temp Pulse Resp BP Pulse Ox 08/24/19 14:00 36.8 C 68 16 168/74 H 100 08/24/19 10:00 36.2 C L 64 16 156/78 H 100 08/24/19 06:00 36.2 C L 70 16 174/88 H 100 08/24/19 04:51 68 08/24/19 02:00 36.2 C L 68 16 169/82 H 100 08/23/19 21:59 158/70 H 08/23/19 20:35 36.1 C L 64 18 180/88 H 100 08/23/19 18:18 76 08/23/19 18:00 36.4 C L 75 18 176/84 H 100 Intake/Output Intake/Output: Intake & Output 08/21/19 08/22/19 08/23/19 08/24/19 23:59 23:59 23:59 23:59 Intake Total 810 1490 Output Total 600 1300 Balance 210 190 Meds/Results Medications: Active Medications Generic Name Dose Route Start Last Admin Trade Name Freq PRN Reason Stop Dose Admin Acetaminophen 650 mg 08/23/19 14:48 08/24/19 06:03 Tylenol Tablet PO 650 mg Q4H PRN Administration Pain Rated 5 or Less Acetaminophen/Codeine Phosphate 1 tab 08/23/19 17:45 08/24/19 03:38 Tylenol #3 PO 1 tab Q4H PRN Administration pain of 6 or greater Hydralazine HCl 10 mg 08/23/19 12:24 08/23/19 20:33 Apresoline Hcl Inj IV PUSH 10 mg Q6H PRN Administration Blood Pressure - High Lorazepam 0.5 mg 08/23/19 16:55 08/23/19 17:06 Ativan Tab PO 0.5 mg Q6H PRN Administration Anxiety Nifedipine 30 mg 08/23/19 14:00 08/24/19 08:51 Procardia Xl PO 30 mg QAM CARRIE Administration Ondansetron HCl 4 mg 05
[2019-08-25] VITALS (8 sets, daily range): BP systolic 151–180; BP diastolic 83–91; PULSE 54–86; RESP 14–19; TEMP 36.5–36.8; O2SAT 97–100
[2019-08-25 06:20] LABS: Albumin Level 4.1 g/dL (3.5-5.1); Blood Urea Nitrogen 16 mg/dL (7-17); Calcium 9.1 mg/dL (8.4-10.2); Carbon Dioxide 20 mmol/L (22-30); Chloride 109 mmol/L (98-107); Estimated CRCL calculation 22 ml/min; Estimated Glomerular Filt Rate 22; Glucose 98 mg/dL (65-105); Phosphorus 2.7 mg/dL (2.5-4.5); Potassium 3.5 mmol/L (3.4-5.0); Sodium 138 mmol/L (137-145)
--- NOTE | 2019-08-25 09:50 | PC.NURSE ---
Patient refused to have a morning assessment performed. Gave morning medications, flushed IV and was informed by the patient to leave.
--- NOTE | 2019-08-25 09:50 | PM.IMPN ---
Progress Note: A&P Assessment and Plan (1) Acute renal insufficiency: Code(s): N28.9 - Disorder of kidney and ureter, unspecified Status: Acute Assessment and Plan: She is very upset. I explained in detail that I am not comfortable discharging her today based on her creatinine and blood pressure and that it would be safest to keep her overnight until we see more improvement. I explain that if she would like to leave against medical advise today, that she would not be given any prescriptions, including the antihypertensives she needs. I discussed at length the risks of her leaving. When I ask if she will allow me to perform a physical examination, she refuses. She tells me she is not able to sleep here, she feels she is being tortured stuck in the room , and that the deodorant is terrible . She is tearful, agitated, and tells me to leave the room. It should be noted that Ms. Rosen left AMA from [facility] ED 08/20; left AMA from admission here at [facility] 08/22. She is alert and oriented x3 but her insight and judgment regarding her medical conditions are quite poor despite repeat teaching. Improving - Creatinine improved to 2.4 this AM from 3.3 on arrival. Again appreciate Dr Meng's input. He has started oral prednisone and ordered further studies. Suspect could be multifactorial related to NSAIDs, elevated BP. Unsure if HTN contributed to TRIP or vice versa. Agree with Dr Meng that it is also possible she may have an undiagnosed component of CKD, no previous labs for comparison. Renal ultrasound from 08/21 is unremarkable. (2) Uncontrolled hypertension: Code(s): I10 - Essential (primary) hypertension Status: Acute Assessment and Plan: Unsure of chronicity. Continue nifedipine and added back metoprolol this AM. Continue IV hydralazine PRN. Will monitor BP closely and adjust treatment as needed. (3) Headache: Qualifiers: Headache chronicity pattern: episodic headache Headache type: unspecified Intractability: not intractable Qualified Code(s): R51 - Headache Code(s): R51 - Headache Status: Acute Assessment and Plan: CT brain on arrival previous admission demonstrates no acute intracranial abnormality. No focal neurological deficits. May be related to elevated BP vs. migraines. Continue supportive care with antiemetics and analgesia. (4) Acute hypokalemia: Code(s): E87.6 - Hypokalemia Status: Acute Assessment and Plan: K 3.5 this AM. Monitor. (5) Alcohol abuse: Code(s): F10.10 - Alcohol abuse, uncomplicated Status: Chronic Assessment and Plan: Patient reports 4 shots per day of whiskey. Last drink 08/19. No signs or symptoms of acute withdrawal. I think this anxiety is more baseline than acute. She denies ever having symptoms of withdrawal, including seizures, in the past. Monitor with CIWA protocol, folic acid and thiamine supplementation, benzodiazepine PRN for elevated CIWA/agitation. (6) Tobacco dependence: Code(s): F17.200 - Nicotine dependence, unspecified, uncomplicated Status: Chronic Assessment and Plan: Smoking cessation advised. Patient expresses desire to quit. Declines nicotine patch. (7) Marijuana use: Code(s): F12.90 - Cannabis use, unspecified, uncomplicated Status: Chronic Assessment and Plan: Patient smokes marijuana daily. Discussed that her N/V may be related to marijuana use. Subjective Date/time seen: 08/25/19 09:50 Interval history: Ms. Rosen is a 43yo F admitted for acute renal insufficiency and hypertension. No acute events overnight. See above. Review of Systems Review of Systems: ROS unobtainable: Yes unobtainable due to medical conditio
[2019-08-25] MEDS: predniSONE 20 MG, predniSONE 10 MG 30 MG PO ×2 (09:51→16:19)
[2019-08-25] MEDS: METOPROLOL TARTRATE 25 MG TABLET PO ×2 (09:51→21:05)
[2019-08-25] MEDS: NIFEdipine 30 MG TAB.ER.24 PO (09:51)
--- NOTE | 2019-08-25 09:51 | PC.NURSE ---
Educated patient on new medication metoprolol and need to take her blood pressure medications with her elevated blood pressure. Patient angry with this RN and Patricia Baird, Graduate Nurse at bedside and requested we leave room and leave her alone . Reinforced need for patient to remain hospitalized with kidney function and elevated blood pressure.
--- NOTE | 2019-08-25 12:34 | PC.NURSE ---
Left message with Yoselin MCKEON in regards to the patients complaint of a headache over the left eye. Patient reports it feels like a sharp shooting pain over my eye . Message was left for PRN pain medication since patient received Tylenol with Codeine for pain at 1056.
--- NOTE | 2019-08-25 12:45 | PC.NURSE ---
Received a phone call from LINDA Cardoso due to the patient getting sick with [place] and Ativan we will not be able to give either as a PRN medication for the patient's reported headache. Yoselin also stated that with the patient's elevated kidney values the patient is not able to receive NSAIDs at this time. Gave the patient an ice pack to help with the pain and informed the patient she could receive the next dose of Tylenol with codeine at the 4 hour mariia but at this time there is nothing that we can give her. The patient became distraught and began crying. Comfort measures were provided, darkened the room and helped apply the ice pack for pain management.
--- NOTE | 2019-08-25 13:31 | PM.PNNEP ---
Progress Note: A&P Assessment and Plan (1) Acute kidney injury: Code(s): N17.9 - Acute kidney failure, unspecified Status: Acute Assessment and Plan: etiology not clear suspicion falls on acute/chronic interstitial nephritis given heavy use of NSAIDs therapy for the last several months however, it could also be related to hypertensive nephrosclerosis as it is unclear how long her blood pressure has been poorly controlled furthermore -- is this really TRIP or did she have component of CKD as well?? - no records as has not seen a physician or had recent blood work that she can recall urine sediment is bland follow-up on serologies (but acute glomerulonephritis/vasculitis/autoimmune disorder seems unlikely with no blood or protein on urinalysis) started trial of steroids on the assumption of interstitial nephritis creatinine has improved to some degree (2) Acute hypokalemia: Code(s): E87.6 - Hypokalemia Status: Acute Assessment and Plan: replete as needed follow trend (3) Uncontrolled hypertension: Code(s): I10 - Essential (primary) hypertension Status: Acute Assessment and Plan: unclear how long this has been an issue on nifedipine IV hydralazine PRN as well suspect may need another agent Will continue to follow. Subjective Date/time seen: 08/25/19 12:31 As noted wanted to leave the hospital yesterday as well as today but was quite upset when she was told that if she left, it would be against medical advice; states she has a pain in her left eye now that is coming and going. Exam Narrative: Exam Narrative: General: WD/WN female in NAD Heart: normal S1 and S2; no rub Lungs: clear to auscultation Abdomen: soft, nontender, nondistended, positive bowel sounds Extremities: no cyanosis or clubbing; no edema Skin: warm and intact Objective Data Vital Signs Vital Signs: Vital Signs Temp Pulse Resp BP Pulse Ox 08/25/19 10:00 36.8 C 54 L 14 164/91 H 100 08/25/19 09:51 86 08/25/19 06:00 36.5 C 70 16 179/90 H 100 08/25/19 02:00 36.7 C 56 L 16 180/83 H 99 08/24/19 22:00 36.6 C 68 16 170/92 H 100 08/24/19 17:30 36.6 C 88 18 178/88 H 100 08/24/19 14:00 36.8 C 68 16 168/74 H 100 Intake/Output Intake/Output: Intake & Output 08/22/19 08/23/19 08/24/19 08/25/19 23:59 23:59 23:59 23:59 Intake Total 810 2696 668 Output Total 600 2200 Balance 210 496 668 Meds/Results Medications: Active Medications Generic Name Dose Route Start Last Admin Trade Name Freq PRN Reason Stop Dose Admin Acetaminophen 650 mg 08/23/19 14:48 08/24/19 06:03 Tylenol Tablet PO 650 mg Q4H PRN Administration Pain Rated 5 or Less Acetaminophen/Codeine Phosphate 1 tab 08/23/19 17:45 08/25/19 10:56 Tylenol #3 PO 1 tab Q4H PRN Administration pain of 6 or greater Hydralazine HCl 10 mg 08/23/19 12:24 08/23/19 20:33 Apresoline Hcl Inj IV PUSH 10 mg Q6H PRN Administration Blood Pressure - High Lorazepam 0.5 mg 08/23/19 16:55 08/23/19 17:06 Ativan Tab PO 0.5 mg Q6H PRN Administration Anxiety Metoprolol Tartrate 25 mg 08/25/19 09:00 08/25/19 09:51 Lopressor PO 25 mg Q12HR CARRIE Administration Nifedipine 30 mg 08/23/19 14:00 08/25/19 09:51 Procardia Xl PO 30 mg QAM CARRIE Administration Ondansetron HCl 4 mg 08/23/19 14:48 08/24/19 03:38 Zofran Inj IV PUSH 4 mg Q6H PRN Administration Nausea And Vomiting Prednisone 20 mg/ Prednisone 30 mg 08/23/19 17:00 08/25/19 09:51 10 mg PO 30 mg BID CARRIE Administration Labs Labs: Laboratory Tests 08/24/19 05:19 08/25/19 05:04
[2019-08-25] MEDS: ACETAMINOPHEN 325 MG TABLET 650 MG PO (19:48)
[2019-08-26] VITALS (9 sets, daily range): BP systolic 153–200; BP diastolic 81–102; PULSE 49–70; RESP 16–17; TEMP 36.4–37.1; O2SAT 99–100
[2019-08-26 05:36] LABS: Albumin Level 3.7 g/dL (3.5-5.1); Blood Urea Nitrogen 16 mg/dL (7-17); Calcium 8.5 mg/dL (8.4-10.2); Carbon Dioxide 23 mmol/L (22-30); Chloride 110 mmol/L (98-107); Estimated CRCL calculation 25 ml/min; Estimated Glomerular Filt Rate 26; Glucose 96 mg/dL (65-105); Magnesium 1.9 mg/dL (1.6-2.3); Phosphorus 2.4 mg/dL (2.5-4.5); Sodium 138 mmol/L (137-145)
[2019-08-26] MEDS: MORPHINE SULFATE 2 MG/ML INJ IV PUSH (05:53)
[2019-08-26] MEDS: hydrALAZINE HCL 20 MG/ML VIAL 10 MG IV PUSH ×2 (06:07→10:49)
[2019-08-26] MEDS: METOPROLOL TARTRATE 25 MG TABLET PO (08:16)
[2019-08-26] MEDS: predniSONE 20 MG, predniSONE 10 MG 30 MG PO (08:16)
[2019-08-26] MEDS: NIFEdipine 30 MG TAB.ER.24 PO (08:16)
--- NOTE | 2019-08-26 09:02 | PM.PNNEP ---
Progress Note: A&P Assessment and Plan (1) Acute kidney injury: Code(s): N17.9 - Acute kidney failure, unspecified Status: Acute Assessment and Plan: etiology not clear suspicion falls on acute/chronic interstitial nephritis given heavy use of NSAIDs therapy for the last several months however, it could also be related to hypertensive nephrosclerosis as it is unclear how long her blood pressure has been poorly controlled furthermore -- is this really TRIP or did she have component of CKD as well?? - no records as has not seen a physician or had recent blood work that she can recall urine sediment is bland follow-up on serologies (but acute glomerulonephritis/vasculitis/autoimmune disorder seems unlikely with no blood or protein on urinalysis) started trial of steroids on the assumption of interstitial nephritis creatinine has been improving -- due to steroids versus better BP control? (2) Uncontrolled hypertension: Code(s): I10 - Essential (primary) hypertension Status: Acute Assessment and Plan: unclear how long this has been an issue on nifedipine and metoprolol - will change nifedipine to bid dosing IV hydralazine PRN suspect may need another agent Will continue to follow. (3) Acute hypokalemia: Code(s): E87.6 - Hypokalemia Status: Acute Assessment and Plan: replete as needed follow trend Would not be opposed to discharge later today if BP continues to improve -- continues current BP medications on discharge along with steroid taper over the next 10 days (which would complete two weeks total). Will continue to follow. Subjective Date/time seen: 08/26/19 09:02 BP still elevated but she has yet to receive her AM BP medications; otherwise, no apparent distress voiced at this timle Exam Narrative: Exam Narrative: General: WD/WN female in NAD Heart: normal S1 and S2; no rub Lungs: clear to auscultation Abdomen: soft, nontender, nondistended, positive bowel sounds Extremities: no cyanosis or clubbing; no edema Skin: No rash or nodules Objective Data Vital Signs Vital Signs: Vital Signs Temp Pulse Resp BP Pulse Ox 08/26/19 08:21 60 185/84 H 08/26/19 08:16 60 08/26/19 06:05 200/93 H 08/26/19 05:40 36.4 C 63 16 178/90 H 99 08/26/19 02:00 36.6 C 49 L 16 172/81 H 99 08/25/19 22:00 36.6 C 66 16 165/87 H 97 08/25/19 21:05 66 08/25/19 18:00 36.6 C 65 15 162/85 H 100 08/25/19 14:00 36.8 C 58 L 19 151/91 H 100 08/25/19 10:00 36.8 C 54 L 14 164/91 H 100 08/25/19 09:51 86 Intake/Output Intake/Output: Intake & Output 08/23/19 08/24/19 08/25/19 08/26/19 23:59 23:59 23:59 23:59 Intake Total 810 2696 1413 400 Output Total 600 2200 Balance 304 272 1474 400 Meds/Results Medications: Active Medications Generic Name Dose Route Start Last Admin Trade Name Freq PRN Reason Stop Dose Admin Acetaminophen 650 mg 08/23/19 14:48 08/25/19 19:48 Tylenol Tablet PO 650 mg Q4H PRN Administration Pain Rated 5 or Less Acetaminophen/Codeine Phosphate 1 tab 08/23/19 17:45 08/26/19 03:30 Tylenol #3 PO 1 tab Q4H PRN Administration pain of 6 or greater Hydralazine HCl 10 mg 08/23/19 12:24 08/26/19 06:07 Apresoline Hcl Inj IV PUSH 10 mg Q6H PRN Administration Blood Pressure - High Lorazepam 0.5 mg 08/23/19 16:55 08/23/19 17:06 Ativan Tab PO 0.5 mg Q6H PRN Administration Anxiety Metoprolol Tartrate 25 mg 08/25/19 09:00 08/26/19 08:16 Lopressor PO 25 mg Q12HR CARRIE Administration Nifedipine 30 mg 08/26/19 17:00 Procardia Xl PO BID CARRIE Ondansetron HCl 4 mg 08/23/19 14:48 08/24/19 03:38 Zofran Inj IV PUSH 4 mg Q6H PRN Administration Nausea And Vomiting Prednisone 20 mg/ Prednisone 30 mg 08/23/19 17:00 08/26/19 08:16 10 mg PO 30 mg BID CARRIE Administration Labs Labs:
--- NOTE | 2019-08-26 17:51 | PM.DS ---
DS: Admitting Diagnosis Admitting Diagnosis Admitting Diagnosis: Disorder of kidney and ureter, unspecified DS: Discharge Diagnosis Discharge Diagnosis (1) Acute renal insufficiency: Code(s): N28.9 - Disorder of kidney and ureter, unspecified Status: Acute Assessment and Plan: Date of Service 08/26/19: Ms. Rosen is a 43yo F who presented to the ED after leaving AMA earlier in the morning. She was admitted due to uncontrolled hypertension and acute renal insufficiency. She presented to ER 08/21/19 and was admitted overnight for same, left against medical advice 08/22 and walked home. A few hours later her brought her back to the ED to receive treatment. Her Cr improved from 3.3 to 2.1 prior to discharge. She noted taking high doses of Aleve due to headaches. She was again seen by Dr Meng and started on oral prednisone with the suspicion of interstitial nephritis secondary to NSAID therapy. Blood pressures were elevated up to 200s systolic and she was started on oral antihypertensives which she responded well to. Since patient does not have a PCP, the chronicity of her elevated blood pressures and renal dysfunction is unclear. Ms. Rosen uses tobacco and marijuana daily in addition to 4 shots of whiskey each night. She was educated on the importance of smoking cessation and cutting back on alcohol consumption. Patient was quite anxious and noted multiple times she was interested in again leaving AMA. Many detailed discussions were held with the patient regarding the importance of proper treatment of her hypertension and renal dysfunction to prevent subsequent complications. She is alert and oriented x3 but her insight and judgment regarding her medical conditions are quite poor despite repeat teaching. She was given a list of PCPs in the area and I stressed the importance of her calling as soon as possible to establish care for further management of hypertension and monitoring kidney function. She was hemodynamically stable for discharge 08/26/19 with an improved BP of 153/85 and improvement in Cr. She was given instructions to obtain repeat BMP in 1 week. Consultations: -- Nephrology - Dr Meng Improving - Creatinine improved to 2.1 this AM from 3.3 on arrival. Again appreciate Dr Meng's input. He has started oral prednisone and ordered further studies. Suspect could be multifactorial related to NSAIDs, elevated BP. Unsure if HTN contributed to TRIP or vice versa. Agree with Dr Meng that it is also possible she may have an undiagnosed component of CKD, no previous labs for comparison. Renal ultrasound from 08/21 is unremarkable. (2) Uncontrolled hypertension: Code(s): I10 - Essential (primary) hypertension Status: Acute Assessment and Plan: Unsure of chronicity. Started on nifedipine and added metoprolol to which she responded well. Instructed patient to get a BP cuff for home and record a log to show PCP. (3) Headache: Qualifiers: Headache type: unspecified Headache chronicity pattern: episodic headache Intractability: not intractable Qualified Code(s): R51 - Headache Code(s): R51 - Headache Status: Acute Assessment and Plan: CT brain on arrival previous admission demonstrates no acute intracranial abnormality. No focal neurological deficits. May be related to elevated BP vs. migraines. (4) Acute hypokalemia: Code(s): E87.6 - Hypokalemia Status: Acute Assessment and Plan: Low on arrival and replaced. K stable at 4.0 day of discharge. (5) Alcohol abuse: Code(s): F10.10 - Alcohol abuse, uncomplicated Status: Chronic Assessment and Plan: Patient reports 4 shots per day of whiskey. Last drink 08/19. No signs or symptoms of acute withdrawal. I think this anxiety is more b
[2019-08-26 21:13] LABS: ANCA Screen Negative (Negative)
[2019-08-28 05:00] LABS: Albumin 3.6 g/dL (3.8-4.8); Alpha 1 Globulin 0.3 g/dL (0.2-0.3); Alpha 2 Globulin 0.5 g/dL (0.5-0.9); Beta 1 Globulin 0.3 g/dL (0.4-0.6); Gamma Globulin 0.7 g/dL (0.8-1.7); Protein, Total 5.6 g/dL (6.1-8.1)
[2019-08-28 08:37] LABS: Anti Glomerular Basement Memb <1.0 AI (<1.0)
[2019-08-29 01:20] LABS: Creatinine, Random Urine 24 mg/dL (20-275); Total Protein/Creatinine Ratio 667 mg/g creat (21-161)
[2019-08-30 02:24] LABS: Cryoglobulin, QL Negative (Negative)
== END 2019-08-26 13:19 | disposition home or self-care (01) ==
LOC: ANHED 10:06 → ANH2MED 13:22
PROVIDERS: Internal Medicine Nephrology; Admitting Provider Family Medicine; Emergency Provider Emergency Medicine; Visit Provider Physician Assistant
DX: N28.9 Disorder of kidney and ureter, unspecified (principal); I10 Essential (primary) hypertension; R51 Headache; E87.6 Hypokalemia; F10.10 Alcohol abuse, uncomplicated; F12.90 Cannabis use, unspecified, uncomplicated; F17.210 Nicotine dependence, cigarettes, uncomplicated; Z79.1 Long term (current) use of non-steroidal anti-inflammatories (NSAID)
CPT/HCPCS: 36415; 80048; 80053; 80069; 80307; 81003; 82570; 82595; 83520; 83735; 84155; 84156; 84165; 84166; 85025; 86021; 86038; 86160; 86334; 86335; 96361; 96365; 96374; 96375; 96376; 99285; A9270; G0378; G0379; J0131; J0360; J2270; J2405; J3475; J7030; J7512

== ENCOUNTER 2019-09-03 07:28 | Outpatient (CLI) | payer OTHER, SELFPAY ==
[2019-09-03 08:27] LABS: Albumin Level 4.4 g/dL (3.5-5.1); Blood Urea Nitrogen 29 mg/dL (7-17); Calcium 9.1 mg/dL (8.4-10.2); Carbon Dioxide 26 mmol/L (22-30); Chloride 107 mmol/L (98-107); Estimated Glomerular Filt Rate 41; Glucose 62 mg/dL (65-105); Phosphorus 2.1 mg/dL (2.5-4.5); Potassium 4.7 mmol/L (3.4-5.0); Sodium 140 mmol/L (137-145)
[2019-09-03 08:55] LABS: Creatinine Urine 34.3 mg/dL; Total Protein Urine Random 115 mg/dL
== END 2019-09-03 07:29 | disposition home or self-care (01) ==
PROVIDERS: Referring Provider Internal Medicine Nephrology; Visit Provider Physician Assistant
DX: N28.9 Disorder of kidney and ureter, unspecified (principal)
CPT/HCPCS: 36415; 80069; 82570; 84156

== ENCOUNTER 2019-09-18 09:52 | Outpatient (CLI) | payer OTHER, SELFPAY ==
[2019-09-18 10:31] LABS: Albumin Level 4.5 g/dL (3.5-5.1); Blood Urea Nitrogen 24 mg/dL (7-17); Calcium 9.8 mg/dL (8.4-10.2); Carbon Dioxide 29 mmol/L (22-30); Chloride 103 mmol/L (98-107); Estimated Glomerular Filt Rate 41; Glucose 87 mg/dL (65-105); Phosphorus 3.4 mg/dL (2.5-4.5); Potassium 4.6 mmol/L (3.4-5.0); Sodium 136 mmol/L (137-145)
[2019-09-18 11:04] LABS: Creatinine Urine 155.5 mg/dL; Total Protein Urine Random 14 mg/dL
== END 2019-09-18 09:53 | disposition home or self-care (01) ==
LOC: ANHLAB 09:55
PROVIDERS: PCP Family Medicine; Visit Provider Internal Medicine Nephrology
DX: N17.8 Other acute kidney failure (principal); N18.3 Chronic kidney disease, stage 3 (moderate)
CPT/HCPCS: 36415; 80069; 82570; 84156

== ENCOUNTER 2019-12-19 07:53 | Outpatient (CLI) | payer OTHER, SELFPAY ==
--- NOTE | ~2019-12-19 | XR_ITS ---
XR cervical spine 4-5V 12/19/2019 08:45 Indication: Neck pain Procedure: 4 view cervical spine Comparison: No prior studies for comparison. Findings: Normal cervical alignment. No fracture or traumatic malalignment. No prevertebral soft tiss ue swelling. Odontoid process within normal limits. Lung apices are normal. Impression: 1: No significant abnormality of the cervical spine. Reviewed, dictated and finalized at location B. Impression: 1: No significant abnormality of the cervical spine.
[2019-12-19 08:37] LABS: Basophils Absolute Auto 0.1 K/mm3 (0.0-0.1); Eosinophils Absolute Auto 0.2 K/mm3 (0-0.3); Eosinophils Percent Auto 3.2 % (0-4.4); Hematocrit 40.6 % (37.0-47.0); Hemoglobin 14.1 g/dL (12.0-15.0); Immature Granulocyte Absolute 0.03 K/mm3 (0.00-0.031); Immature Granulocyte Percent A 0.4 % (0-0.5); Immature Reticulocyte Fraction 9.2 % (3.0-15.9); Lymphocytes Absolute Auto 1.74 K/mm3 (0.9-3.2); Lymphocytes Percent Auto 25.2 % (18.3-44.2); Mean Corpuscular HGB Conc 34.7 g/dl (32-36); Mean Corpuscular Hemoglobin 35.5 pg (26-34); Mean Corpuscular Volume 102.3 fl (80-100); Mean Platelet Volume 9.6 fl (7.4-10.4); Monocytes Absolute Auto 0.6 K/mm3 (0.1-0.6); Monocytes Percent Auto 8.3 % (2.6-8.5); Neutrophils Absolute Auto 4.3 K/mm3 (1.3-6.7); Neutrophils Percent Auto 61.9 % (45.5-73.1); Platelet Count Result 249 k/mm3 (150-375); Red Blood Count 3.97 M/mm3 (4.2-5.4); Red Cell Distribution Width 11.5 % (11.5-14.5); Reticulocyte Hemoglobin Conten 38.7 pg (28.2-35.7); Reticulocyte Percent 1.54 % (0.7-4.3); Reticulocytes Absolute 0.06 B/L (32.2-175.7); White Blood Count 6.9 K/mm3 (4.5-10.0)
[2019-12-19 08:39] LABS: Add Urine Microscopic? YES; Appearance Urine Cloudy (Clear); Bacteria Urine Trace /hpf; Bilirubin Urine Negative (Negative); Blood Urine Negative (Negative); Color Urine Yellow (Yellow); Glucose Urine UA Negative (Negative); Ketones Urine Negative (Negative); Leukocyte Esterase Ur Negative LEU/UL (NEGATIVE); Nitrate Urine Negative (Negative); Protein Urine 1+ mg/dL (Negative); RBC Urine 0-2 /hpf (0-2); Specific Grav Ur 1.017 (1.001-1.035); Squamous Epithelial Cell Urine Many /hpf (Few); Urobilinogen Urine Negative mg/dL (<2.0); WBC Urine 0-3 /hpf (0-3)
[2019-12-19 08:48] LABS: Alanine Aminotransferase 15 U/L (4-35); Albumin Level 4.4 g/dL (3.5-5.1); Alkaline Phosphatase 59 U/L (38-126); Anion Gap 5 mmol/L (8-16); Aspartate Amino Transferase 27 U/L (14-36); Bilirubin,Total 0.5 mg/dL (0.2-1.3); Blood Urea Nitrogen 20 mg/dL (7-17); CRP < 0.5 mg/dL (<1.0); Calcium 9.6 mg/dL (8.4-10.2); Carbon Dioxide 28 mmol/L (22-30); Chloride 105 mmol/L (98-107); Cholesterol 228 mg/dL (0-200); Creatine Kinase 51 U/L (30-135); Estimated Glomerular Filt Rate 50; Glucose 77 mg/dL (65-105); HDL Direct 94 mg/dL; Lactate Dehydrogenase 329 U/L (313-618); Potassium 4.1 mmol/L (3.4-5.0); Sodium 138 mmol/L (137-145); Triglycerides 128 mg/dL (<150); Uric Acid 4.6 mg/dL (2.5-7.5)
[2019-12-19 08:57] LABS: LDL Cholesterol Direct 121 mg/dL; Transferrin 300 mg/dL (206-381)
[2019-12-19 09:09] LABS: Erythrocyte Sedimentation Rate 5 mm/hr (0-20)
[2019-12-19 09:11] LABS: Iron 116 ug/dL (37-170)
[2019-12-19 09:16] LABS: Total Triiodothyronine (T3) 0.94 NG/ML (0.97-1.69)
[2019-12-19 09:21] LABS: Percent Iron Saturation 29 % (20-50)
[2019-12-19 09:32] LABS: Vitamin D 25 Hydroxy 32.6 ng/mL
[2019-12-19 09:34] LABS: Creatinine Urine 123.3 mg/dL
[2019-12-19 09:39] LABS: MALB Creatinine Ratio 33.3 mg/g (0-30); Microalbumin Urine Random 41.1 mg/L (0-16.7)
[2019-12-19 09:46] LABS: Hepatitis B Surface Antigen Negative (Negative)
[2019-12-19 09:48] LABS: Complement C3 72 mg/dL (88-165); Rheumatoid Factor < 8.6 IU/ML (<12)
[2019-12-19 09:51] LABS: Folic Acid 5.1 ng/mL (2.76->20)
[2019-12-19 10:04] LABS: Hepatitis C Virus Antibody Negative (Negative)
[2019-12-19 11:26] LABS: Free T4 Free Thyroxine 0.82 ng/mL (0.78-2.19)
[2019-12-23 20:19] LABS: Scleroderma 70 Antibody <1.0
[2019-12-23 21:38] LABS: Anti Centromere B Antibody <1.0; Chromatin Antibody <1.0; RNP Antibodies <1.0; SS-A <1.0; SS-B <1.0
[2019-12-24 00:11] LABS: Anti Cyclic Citrullinated Pept <16 Units (<20)
[2019-12-24 10:14] LABS: Vitamin B6 30.7 ng/mL (2.1-21.7)
[2019-12-24 10:47] LABS: Histone Antibody <1.0 U (<1.0)
[2019-12-24 19:18] LABS: Alpha-Tocopherol 16.1 mg/L (5.7-19.9); Beta-Gamma Tocopherol 1.3 mg/L (<=4.3)
[2019-12-25 13:01] LABS: Complement Total CH50 41 U/mL (31-60)
[2019-12-27 13:38] LABS: Vitamin B2 6.8 nmol/L (6.2-39.0)
== END 2019-12-19 07:54 | disposition home or self-care (01) ==
LOC: ANHLAB 07:55
PROVIDERS: PCP Family Medicine; Visit Provider Nurse Practitioner
DX: M54.2 Cervicalgia (principal)
CPT/HCPCS: 36415; 72050; 80053; 80061; 81001; 82043; 82306; 82550; 82607; 82728; 82746; 83516; 83540; 83550; 83615; 84207; 84252; 84425; 84439; 84443; 84446; 84466; 84480; 84550; 85025; 85046; 85652; 86038; 86140; 86160; 86162; 86200; 86225; 86235; 86430; 86803; 87340

== ENCOUNTER 2020-01-10 09:41 | Outpatient (CLI) | payer OTHER, SELFPAY ==
[2020-01-10 10:47] LABS: Potassium 4.7 mmol/L (3.4-5.0)
[2020-01-10 10:54] LABS: Albumin Level 4.6 g/dL (3.5-5.1); Anion Gap 7 mmol/L (8-16); Blood Urea Nitrogen 22 mg/dL (7-17); Calcium 9.7 mg/dL (8.4-10.2); Carbon Dioxide 29 mmol/L (22-30); Chloride 106 mmol/L (98-107); Estimated Glomerular Filt Rate 49; Glucose 80 mg/dL (65-105); Phosphorus 3.2 mg/dL (2.5-4.5); Sodium 142 mmol/L (137-145)
[2020-01-10 11:47] LABS: Creatinine Urine 95.1 mg/dL; Total Protein Urine Random 15 mg/dL
== END 2020-01-10 09:42 | disposition home or self-care (01) ==
PROVIDERS: PCP Family Medicine; Visit Provider Internal Medicine Nephrology
DX: I12.9 Hypertensive chronic kidney disease with stage 1 through stage 4 chronic kidney disease, or unspecified chronic kidney disease (principal); N18.30 Chronic kidney disease, stage 3 unspecified; N17.8 Other acute kidney failure
CPT/HCPCS: 36415; 80069; 82570; 84156

== ENCOUNTER 2020-04-16 06:54 | Outpatient (NON) | payer OTHER, SELFPAY ==
[2020-04-16 18:47] LABS: SARS-CoV-2 RNA PCR Negative
== END 2020-04-16 06:55 ==
LOC: ANHCOVIDDT 06:54
PROVIDERS: PCP Family Medicine; Visit Provider Family Medicine
DX: Z20.822 Contact with and (suspected) exposure to COVID-19 (principal)
CPT/HCPCS: C9803; U0003; U0005

== ENCOUNTER 2020-04-28 01:05 | Emergency (ER) | payer OTHER, SELFPAY ==
[2020-04-28 01:12] VITALS: BP 175/92; PULSE 75; RESP 16; TEMP 36.8; O2SAT 100
--- NOTE | 2020-04-28 01:41 | ECG_ITS ---
Measurements Intervals [place] Rate: 69 P: 46 MA: 151 QRS: 43 QRSD: 86 T: 46 QT: 397 QTc: 426 Interpretive Statements SINUS RHYTHM BASELINE ARTIFACT- I, III, AVL, AVF, V2-V4 BORDERLINE ECG Electronically Signed On 04-28-2020 6:30:55 VASCULAR TECHNOLOGIST SONOGRAPHER by Madhu Black D.O.
[2020-04-28] MEDS: METOPROLOL TARTRATE 25 MG TABLET PO (01:57)
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
[2020-04-28 02:25] LABS: Basophils Absolute Auto 0.1 K/mm3 (0.0-0.1); Basophils Percent Auto 0.7 % (0.2-1.2); Eosinophils Absolute Auto 0.1 K/mm3 (0-0.3); Eosinophils Percent Auto 1.2 % (0-4.4); Hematocrit 41.7 % (37.0-47.0); Hemoglobin 14.6 g/dL (12.0-15.0); Immature Granulocyte Absolute 0.02 K/mm3 (0.00-0.031); Immature Granulocyte Percent A 0.3 % (0-0.5); Lymphocytes Absolute Auto 1.88 K/mm3 (0.9-3.2); Lymphocytes Percent Auto 28.2 % (18.3-44.2); Mean Corpuscular Hemoglobin 34.8 pg (26-34); Mean Corpuscular Volume 99.5 fl (80-100); Monocytes Absolute Auto 0.8 K/mm3 (0.1-0.6); Monocytes Percent Auto 11.5 % (2.6-8.5); Neutrophils Absolute Auto 3.9 K/mm3 (1.3-6.7); Neutrophils Percent Auto 58.1 % (45.5-73.1); Platelet Count Result 221 k/mm3 (150-375); Red Blood Count 4.19 M/mm3 (4.2-5.4); Red Cell Distribution Width 12.3 % (11.5-14.5); White Blood Count 6.7 K/mm3 (4.5-10.0)
[2020-04-28 02:44] LABS: Alanine Aminotransferase 16 U/L (4-35); Alkaline Phosphatase 68 U/L (38-126); Anion Gap 7 mmol/L (8-16); Aspartate Amino Transferase 29 U/L (14-36); Bilirubin,Total 0.2 mg/dL (0.2-1.3); Blood Urea Nitrogen 18 mg/dL (7-17); Calcium 9.2 mg/dL (8.4-10.2); Carbon Dioxide 26 mmol/L (22-30); Chloride 104 mmol/L (98-107); Estimated CRCL calculation 51 ml/min; Estimated Glomerular Filt Rate > 60; Glucose 90 mg/dL (65-105); Potassium 3.5 mmol/L (3.4-5.0); Sodium 137 mmol/L (137-145)
[2020-04-28 02:46] LABS: Add Urine Microscopic? YES; Appearance Urine Clear (Clear); Bacteria Urine Trace /hpf; Bilirubin Urine Negative (Negative); Blood Urine Negative (Negative); Color Urine Straw (Yellow); Glucose Urine UA Negative (Negative); Ketones Urine Negative (Negative); Leukocyte Esterase Ur Negative LEU/UL (Negative); Mucus Urine Rare /lpf; Nitrate Urine Negative (Negative); Protein Urine 2+ mg/dL (Negative); RBC Urine 0-2 /hpf (0-2); Specific Grav Ur 1.013 (1.001-1.035); Squamous Epithelial Cell Urine Many /hpf (Few); Urobilinogen Urine Negative mg/dL (<2.0); WBC Urine 0-3 /hpf
[2020-04-28 02:57] LABS: Troponin I < 0.012 ng/mL (0.000-0.034)
[2020-04-28 03:09] LABS: Albumin Level 4.2 g/dL (3.5-5.1)
[2020-04-28 03:17] VITALS: BP 138/86; PULSE 78; RESP 16; TEMP 36.7; O2SAT 100
== END 2020-04-28 03:18 | disposition home or self-care (01) ==
PROVIDERS: Emergency Provider Emergency Medicine; Family Provider Internal Medicine; PCP Family Medicine
DX: I10 Essential (primary) hypertension (principal); F17.210 Nicotine dependence, cigarettes, uncomplicated
CPT/HCPCS: 36415; 80053; 81001; 84484; 85025; 93005; 99284; A9270

== ENCOUNTER 2020-07-05 10:34 | Emergency (ER) | payer OTHER, SELFPAY ==
--- NOTE | 2020-07-05 10:43 | ED.EAR ---
HPI - Ear Problem General Chief complaint: Ear Stated complaint: ear pain Source: patient, RN notes reviewed and old records reviewed Mode of arrival: ambulatory Limitations: no limitations History of Present Illness HPI Narrative: 44 year old female who presents to [facility] care with complaints of muffled hearing to her right ear for one month duration and pain to right ear which started last night. Patient states history of tympanoplasty to her right ear in 2002. Patient states that she has felt feverish and has taken Tylenol, can not take any Ibuprofen or Aleve because of her kidneys. Patient states that she continues to use tobacco daily but has cut use to 1/2 pack daily down from 1 1/2 per day. states that she drinks alcohol daily, no longer uses Marijuana because she can't afford the cost. Patient states that she has noted some yellowish drainage from her ear. MD Complaint: ear pain Location: right ear Duration: constant Severity: severe (8/10 sharp) Relieving factors: nothing Discharge from ear: Reports yes - purulent Associated symptoms ear: fever and decreased hearing Treatment prior to arrival: none Related Data Home Medications Medication Instructions Recorded Confirmed nifedipine 30 mg PO DAILY 07/05/20 07/05/20 Allergies Allergy/AdvReac Type Severity Reaction Status Date / Time meperidine AdvReac Mild Hives Verified 07/05/20 10:43 Review of Systems Review of Systems: Narrative: CONSTITUTIONAL: Reports that she has felt feverish, chills, or sweats. EYES: Denies visual changes, redness, or discharge. ENT: Denies rhinorrhea, congestion, sore throat, positive right ear otalgia. CARDIOVASCULAR: Denies chest pain, palpitations, or edema. RESPIRATORY: Denies cough or dyspnea. GASTROINTESTINAL: Denies abdominal pain, nausea, vomiting, or diarrhea. GENITOURINARY: Denies dysuria or hematuria. SKIN: Denies rash or itching. MUSCULOSKELETAL: Denies back pain, joint pain, or myalgia. NEUROLOGIC: Denies headache, numbness, or weakness. PSYCHIATRIC: Denies anxiety or depression. All systems reviewed & are unremarkable except as noted in HPI and below PMFSH Past Medical History Medical History (Updated 07/05/20 @ 11:13 by Brii Negrete NP) Elevated blood pressure reading Marijuana use Renal insufficiency Surgical History Surgical History H/O dilation and curettage History of ear surgery 2002 - Patient reports a surgery to R ear Family History Family History Father Hypertension Sibling Diabetes mellitus Grandparent Esophageal cancer Social History Social History (Updated 07/05/20 @ 14:37 by Brii Negrete NP) Social History: Ms. Rosen lives at home in [place] with her significant other, Pete, and her two teenage sons. 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 She reports drinking 4 shots of Fireball whiskey every night and her last drink was 08/20/19. She reports using marijuana daily, mostly by smoking but also sometimes ingestion. She smokes 1.5 packs per day since age 20yo. She does not have a primary care provider. She designates Pete to be her surrogate decision maker and wishes to be full code status. Smoking packs per day: 1.5 Smoking cigarettes per day: 30.0 Years smoked: 23 Smoking pack-years: 34.50 Smoking status: Current every day smoker Tobacco type: cigarettes Alcohol intake: current Drinks per week: 28 Alcohol use details: states daily tobacco use Substance use: former Substance use type: marijuana Other substance usage details: 07/05/2020 not using marijuana due to cost Last use: 08/20/2019 Living arrangements: with family Gender identity (if verbalized by the patient): Female Spiritual care concerns: No Comments At time of signature, agree with nursing past medical, surgical, social and fam
[2020-07-05 10:44] VITALS: BP 134/76; PULSE 69; RESP 12; TEMP 37.4; O2SAT 100
== END 2020-07-05 11:14 | disposition home or self-care (01) ==
PROVIDERS: Emergency Provider Registered Nurse; PCP Family Medicine
DX: H66.011 Acute suppurative otitis media with spontaneous rupture of ear drum, right ear (principal); F17.210 Nicotine dependence, cigarettes, uncomplicated
CPT/HCPCS: 99213; G0463

== ENCOUNTER 2020-07-08 13:07 | Outpatient (CLI) | payer OTHER, SELFPAY | END 2020-07-08 13:08 | disposition home or self-care (01) | LOC: ANHCOVIDVC 13:07 | PROVIDERS: PCP Family Medicine | DX: Z23 Encounter for immunization (principal) | CPT/HCPCS: 0001A; 91300 ==

== ENCOUNTER 2020-07-12 17:24 | Emergency (ER) | payer OTHER, SELFPAY ==
--- NOTE | 2020-07-12 18:48 | PC.NURSE ---
Patient walked out of ED without difficulty. Patient states I am not staying any longer.
== END 2020-07-12 18:48 | disposition left against medical advice (07) ==
PROVIDERS: PCP Family Medicine
DX: Z53.21 Procedure and treatment not carried out due to patient leaving prior to being seen by health care provider (principal)
CPT/HCPCS: 99199

== ENCOUNTER 2020-07-13 07:38 | Emergency (ER) | payer OTHER, SELFPAY ==
[2020-07-13] VITALS (9 sets, daily range): BP systolic 109–139; BP diastolic 68–102; PULSE 62–96; RESP 13–18; TEMP 36.3–36.8; O2SAT 97–100
--- NOTE | ~2020-07-13 | CT_ITS ---
EXAMINATION: CT abdomen pelvis w con EXAM DATE: 07/13/2020 08:47 INDICATION: Low abdominal pain with rectal bleeding. Hematochezia. Nausea. TECHNIQUE: Spiral CT of the abdomen and pelvis was performed following intravenous injection of 100 m L Omnipaque 350. Axial, coronal and sagittal images of the abdomen and pelvis were reviewed. The do se-length product (DLP) for this examination was 158.80 mGy-cm. The exposure was tailored according to patient size (auto mA exposure control), and iterative reconstruction (ASIR) was used as additiona l dose reduction technique. There is no prior study for comparison. FINDINGS: There is hepatic steatosis without suspicious focal lesion identified. Spleen, adrenal glan ds, pancreas are unremarkable. Gallbladder is unremarkable. No biliary obstruction. Portal and spl enic veins are patent. Kidneys enhance symmetrically. There is no hydronephrosis. The uterus is a nteverted and morphologically normal. The bladder is unremarkable. There is no retroperitoneal or pelvic lymphadenopathy. There is mild scattered arteriosclerotic disease. The appendix is normal. The stomach and small bowel are unremarkable. There is severe edema of the descending and sigmoid colon, consistent with colitis. There is mild scattered aortic arterial sclero sis but mesenteric vessels enhance as expected, no evidence of thrombus or occlusion. No pneumatosis intestinalis. No free intraperitoneal gas. The heart is normal in size. There are no pericardial o r pleural effusions. Mild basilar emphysema. The bones are unremarkable. IMPRESSION: 1. Severe descending and sigmoid colonic colitis, most likely infectious etiology. 2. Hepatic steatosis. 3. Mild emphysema. Reviewed, dictated and finalized at location A. IMPRESSION: 1. Severe descending and sigmoid colonic colitis, most likely infectious etiol ogy. 2. Hepatic steatosis. 3. Mild emphysema.
--- NOTE | 2020-07-13 08:17 | ED.ABDPAIN ---
HPI - Abdominal Pain General Chief Complaint: Abdominal Pain Stated Complaint: abd pain Time Seen by Provider: 07/13/20 07:50 Source: patient Mode of arrival: ambulatory Limitations: no limitations History of Present Illness HPI narrative: 44 years old white female presents to the ED with lower abdominal pain started 24 hours ago. Sharp, constant, associated with rectal bleeding, possible bloody diarrhea. Patient denies any fever, chills, nausea, vomiting. Patient been on Augmentin for ear infection for the last 6 days. Patient denies history of abdominal surgery, she does smoke, drink and use marijuana occasionally Related Data Home Medications Medication Instructions Recorded Confirmed nifedipine 30 mg PO DAILY 07/05/20 07/13/20 Allergies Allergy/AdvReac Type Severity Reaction Status Date / Time meperidine Allergy Mild Hives Verified 07/13/20 08:45 Review of Systems Review of Systems: Narrative: CONSTITUTIONAL: Denies fever, chills, or sweats. EYES: Denies visual changes, redness, or discharge. ENT: Denies rhinorrhea, congestion, sore throat, or otalgia. CARDIOVASCULAR: Denies chest pain, palpitations, or edema. RESPIRATORY: Denies cough or dyspnea. GASTROINTESTINAL: Denies abdominal pain, nausea, vomiting, or diarrhea. GENITOURINARY: Denies dysuria or hematuria. SKIN: Denies rash or itching. MUSCULOSKELETAL: Denies back pain, joint pain, or myalgia. NEUROLOGIC: Denies headache, numbness, or weakness. PSYCHIATRIC: Denies anxiety or depression. [facility] Past Medical History Medical History Elevated blood pressure reading Marijuana use Renal insufficiency Surgical History Surgical History H/O dilation and curettage History of ear surgery 2002 - Patient reports a surgery to R ear Family History Family History Father Hypertension Sibling Diabetes mellitus Grandparent Esophageal cancer Social History Social History Social History: Ms. Rosen lives at home in [place] with her significant other, Pete, and her two teenage sons. 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 She reports drinking 4 shots of Fireball whiskey every night and her last drink was 08/20/19. She reports using marijuana daily, mostly by smoking but also sometimes ingestion. She smokes 1.5 packs per day since age 20yo. She does not have a primary care provider. She designates Pete to be her surrogate decision maker and wishes to be full code status. Smoking packs per day: 1.5 Smoking cigarettes per day: 30.0 Years smoked: 23 Smoking pack-years: 34.50 Smoking status: Current every day smoker Tobacco type: cigarettes Alcohol intake: current Drinks per week: 28 Substance use: former Substance use type: marijuana Other substance usage details: 07/05/2020 not using marijuana due to cost Last use: 08/20/2019 Gender identity (if verbalized by the patient): Female Spiritual care concerns: No Exam Narrative: Exam Narrative: General appearance: Well-developed, well-nourished Skin: Normal color Head: Normocephalic, nontraumatic Eyes: Clear conjunctiva ENT: Oropharynx normal, ears normal, nose normal Neck: Supple, nontender Chest and respiratory: Airway patent, no respiratory distress, no accessory muscle use Heart: Regular rate/rhythm Abdomen: Soft, severe tenderness across lower abdomen, no organomegaly, quiet bowel sounds, rectal exam showed rectal exam showed fresh red blood with liquid stool, no hemorrhoids Vascular: Normal peripheral pulses, normal capillary refill. Musculoskeletal: Normal range of motion, nontender back Neurologic: Alert and oriented ?3, [employer] is normal as tested, no gross motor deficit
[2020-07-13 08:29] LABS: Alanine Aminotransferase 28 U/L (4-35); Albumin Level 4.5 g/dL (3.5-5.1); Alkaline Phosphatase 85 U/L (38-126); Anion Gap 5 mmol/L (8-16); Aspartate Amino Transferase 39 U/L (14-36); Bilirubin,Total 0.7 mg/dL (0.2-1.3); Blood Urea Nitrogen 17 mg/dL (7-17); Calcium 9.5 mg/dL (8.4-10.2); Carbon Dioxide 26 mmol/L (22-30); Chloride 106 mmol/L (98-107); Estimated CRCL calculation 47 ml/min; Estimated Glomerular Filt Rate 54; Glucose 129 mg/dL (65-105); Lipase 49 U/L (23-300); Potassium 3.9 mmol/L (3.4-5.0); Sodium 137 mmol/L (137-145)
[2020-07-13] MEDS: SODIUM CHLORIDE 0.9% IV 1,000 ML 999 ML IV CONT (08:31)
[2020-07-13] MEDS: ONDANSETRON INJ 4 MG/2 ML VIAL IV PUSH (08:32)
[2020-07-13] MEDS: HYDROmorphone HCL INJ (*CRX) 1 MG/ML SYR 0.5 MG IV PUSH (08:34)
[2020-07-13 08:37] LABS: Add Urine Microscopic? YES; Appearance Urine Cloudy (Clear); Bilirubin Urine Negative (Negative); Blood Urine Negative (Negative); Color Urine Amber (Yellow); Glucose Urine UA Negative (Negative); Ketones Urine Negative (Negative); Leukocyte Esterase Ur Trace LEU/UL (Negative); Nitrate Urine Negative (Negative); Protein Urine 2+ mg/dL (Negative); Specific Grav Ur 1.023 (1.001-1.035); Urobilinogen Urine Negative mg/dL (<2.0)
--- NOTE | 2020-07-13 08:40 | PC.NURSE ---
Pt to CT at this time.
[2020-07-13 08:47] LABS: Lactic Acid Reflex 1.2 mmol/L (0.7-2.1)
[2020-07-13 08:47] LABS: RBC Urine 0-2 /hpf (0-2)
[2020-07-13 08:48] LABS: Squamous Epithelial Cell Urine Few /hpf (Few)
[2020-07-13 09:13] LABS: Basophils Percent Auto 0.4 % (0.2-1.2); Eosinophils Absolute Auto 0.1 K/mm3 (0-0.3); Hematocrit 44.1 % (37.0-47.0); Hemoglobin 15.3 g/dL (12.0-15.0); Immature Granulocyte Absolute 0.04 K/mm3 (0.00-0.031); Immature Granulocyte Percent A 0.4 % (0-0.5); Lymphocytes Absolute Auto 1.32 K/mm3 (0.9-3.2); Lymphocytes Percent Auto 13.2 % (18.3-44.2); Mean Corpuscular HGB Conc 34.7 g/dl (32-36); Mean Corpuscular Hemoglobin 35.4 pg (26-34); Mean Corpuscular Volume 102.1 fl (80-100); Mean Platelet Volume 9.3 fl (7.4-10.4); Monocytes Absolute Auto 0.9 K/mm3 (0.1-0.6); Monocytes Percent Auto 9.2 % (2.6-8.5); Neutrophils Absolute Auto 7.6 K/mm3 (1.3-6.7); Neutrophils Percent Auto 75.8 % (45.5-73.1); Platelet Count Result 265 k/mm3 (150-375); Red Blood Count 4.32 M/mm3 (4.2-5.4); Red Cell Distribution Width 13.2 % (11.5-14.5)
[2020-07-13] MEDS: metroNIDAZOLE 500 MG/ISO 100ML 500 MG/100 ML BAG 100 MG IVPB (10:07)
--- NOTE | 2020-07-13 11:20 | PC.NURSE ---
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 Dr. Loera made aware, will discuss further with pt.
== END 2020-07-13 11:50 | disposition left against medical advice (07) ==
LOC: ANHED 09:28 → ANH3MEDSUR 11:29
PROVIDERS: Emergency Provider Emergency Medicine; PCP Family Medicine
DX: K52.9 Noninfective gastroenteritis and colitis, unspecified (principal); K76.0 Fatty (change of) liver, not elsewhere classified; J43.9 Emphysema, unspecified; F17.210 Nicotine dependence, cigarettes, uncomplicated
CPT/HCPCS: 36415; 74177; 80053; 81001; 81025; 83605; 83690; 85025; 96361; 96365; 96375; 99284; J1170; J2405; J7030; Q9967

== ENCOUNTER 2020-07-24 11:00 | Outpatient (CLI) | payer OTHER, SELFPAY ==
[2020-07-24 11:46] LABS: Albumin Level 4.3 g/dL (3.5-5.1); Anion Gap 8 mmol/L (8-16); Blood Urea Nitrogen 15 mg/dL (7-17); Calcium 9.1 mg/dL (8.4-10.2); Carbon Dioxide 27 mmol/L (22-30); Chloride 106 mmol/L (98-107); Estimated Glomerular Filt Rate > 60; Glucose 115 mg/dL (65-105); Phosphorus 3.3 mg/dL (2.5-4.5); Potassium 3.3 mmol/L (3.4-5.0); Sodium 141 mmol/L (137-145)
[2020-07-24 11:56] LABS: Parathyroid Intact 65.1 pg/mL (7.5-53.5)
[2020-07-24 12:24] LABS: Creatinine Urine 116.1 mg/dL; Total Protein Urine Random 93 mg/dL
[2020-07-24 12:31] LABS: Vitamin D 25 Hydroxy 18.6 ng/mL
== END 2020-07-24 11:01 | disposition home or self-care (01) ==
PROVIDERS: PCP Family Medicine; Visit Provider Internal Medicine Nephrology
DX: I12.9 Hypertensive chronic kidney disease with stage 1 through stage 4 chronic kidney disease, or unspecified chronic kidney disease (principal); N18.30 Chronic kidney disease, stage 3 unspecified; R80.8 Other proteinuria
CPT/HCPCS: 36415; 80069; 82306; 82570; 83970; 84156

== ENCOUNTER 2020-07-30 16:08 | Outpatient (CLI) | payer OTHER, SELFPAY | END 2020-07-30 16:09 | disposition home or self-care (01) | LOC: ANHCOVIDVC 16:09 | PROVIDERS: PCP Family Medicine | DX: Z23 Encounter for immunization (principal) | CPT/HCPCS: 0002A; 91300 ==

== ENCOUNTER → 2020-11-02 07:09 | Outpatient (CLI) | payer OTHER, SELFPAY ==
[2020-11-02 18:17] LABS: SARS-CoV-2 RNA PCR Negative
== END ==
PROVIDERS: PCP Family Medicine; Visit Provider Family Medicine
DX: R68.89 Other general symptoms and signs (principal); Z20.822 Contact with and (suspected) exposure to COVID-19
CPT/HCPCS: C9803; U0003; U0005

== ENCOUNTER 2020-11-16 12:15 | Emergency (ER) | payer OTHER, SELFPAY ==
[2020-11-16 12:23] VITALS: BP 134/76; PULSE 78; RESP 17; TEMP 36.8; O2SAT 100
--- NOTE | 2020-11-16 13:12 | ED.GENADULT ---
HPI - General Adult General Chief complaint: Upper Respiratory Infection Stated complaint: sore throat Source: patient Mode of arrival: ambulatory Limitations: no limitations Related Data Home Medications Medication Instructions Recorded Confirmed nifedipine 30 mg PO DAILY 07/05/20 11/16/20 Allergies Allergy/AdvReac Type Severity Reaction Status Date / Time meperidine Allergy Mild Hives Verified 07/13/20 08:45 Review of Systems Review of Systems: Denies fever, poor p.o. intake, myalgias, flu-like symptoms, ear drainage, sinus trouble, headache, nasal congestion, rhinorrhea, lymphadenopathy, dizziness, LOC, inability to swallow, drooling, hoarseness, halitosis, abdominal pain, nausea, vomiting, cough, wheezing, sob, chest pain, heart murmurs, and heart palpations. [facility] Past Medical History Medical History Elevated blood pressure reading Marijuana use Renal insufficiency Surgical History Surgical History H/O dilation and curettage History of ear surgery 2002 - Patient reports a surgery to R ear Family History Family History Father Hypertension Sibling Diabetes mellitus Grandparent Esophageal cancer Social History Social History Social History: Ms. Rosen lives at home in [place] with her significant other, Pete, and her two teenage sons. 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 She reports drinking 4 shots of Fireball whiskey every night and her last drink was 08/20/19. She reports using marijuana daily, mostly by smoking but also sometimes ingestion. She smokes 1.5 packs per day since age 20yo. She does not have a primary care provider. She designates Pete to be her surrogate decision maker and wishes to be full code status. Smoking packs per day: 1.5 Smoking cigarettes per day: 30.0 Years smoked: 23 Smoking pack-years: 34.50 Smoking status: Current every day smoker Tobacco type: cigarettes Alcohol intake: current Drinks per week: 28 Alcohol use details: states daily tobacco use Substance use: former Substance use type: marijuana Other substance usage details: 07/05/2020 not using marijuana due to cost Last use: 08/20/2019 Gender identity (if verbalized by the patient): Female Spiritual care concerns: No Comments I have reviewed and agree with the patient's past medical, surgical, social, and family hx as documented by the RN. There is no relevant family history pertinent to the presenting complaint. Exam Narrative: GENERAL: Well-appearing, well-nourished, and in no acute distress. HEAD: Normocephalic, atraumatic. No sinus tenderness or facial swelling appreciated. EYES: PERRLA and EOMI. No evidence of erythema, swelling, or drainage. ENT: Bilateral external ears and ear canals normal. Bilateral TMs are normal. No TM perforation. Nares clear, no rhinorrhea or epistaxis. Bilateral turbinates without erythema/ swelling. Uvula is midline without erythema and swelling. No evidence of petechial rash, cobblestoning, ulcers, exudates, peritonsillar abscess, tenting, or drooling. Breath odor and voice normal. Bilateral tonsils are moderately erythematous and edematous.Buccal mucosa is moist and pink. Multiple creamy white lesions appreciated on dorsal surface and tip of tongue and hard palate. Creamy white lesions easily scrape off revealing scant bleeding consistent with oral candidiasis. Oral candidiasis appears to be moderate. NECK: Supple. No Lymphadenopathy or nuchal rigidity appreciated. CHEST: Bilateral lung heaton are clear to auscultation. No respiratory distress. No evidence of cough or pleuritic cp upon examination. HEART: Regular rate and rhythm. No murmur, gallop, or rub heard. EXTREMITIES: Norm
== END 2020-11-16 13:25 | disposition home or self-care (01) ==
PROVIDERS: Emergency Provider Nurse Practitioner Family; PCP Family Medicine
DX: B37.0 Candidal stomatitis (principal); F17.210 Nicotine dependence, cigarettes, uncomplicated
CPT/HCPCS: 87081; 87880; 99213; G0463

== ENCOUNTER 2020-12-14 10:35 | Emergency (ER) | payer OTHER, SELFPAY ==
[2020-12-14 10:48] VITALS: BP 120/84; PULSE 79; RESP 18; TEMP 36.7; O2SAT 99
--- NOTE | 2020-12-14 11:15 | ED.URI ---
HPI - URI/Sore Throat General Chief Complaint: Upper Respiratory Infection Stated Complaint: Sore Throat,Ear Pain,Diarrhea Time Seen by Provider: 12/14/20 10:59 Source: patient and RN notes reviewed Mode of arrival: ambulatory Limitations: no limitations History of Present Illness HPI Narrative: Patient presents today complaining of 1 month history of sore throat and thrush, diarrhea with watery stool 2-3 times per day, body aches, headache, right ear pain. Patient was seen at [facility] on 11/16/2020 for same complaints. At that time she was diagnosed with thrush and placed on nystatin. Patient states overall symptoms have improved very slightly, but the rest of her symptoms persist. She denies fever, abdominal pain, blood or mucus in her stool. Reports she vomited once yesterday, but has been able to keep down food and drink since the vomiting episode. Patient states she has attempted to call her doctor's office several times over the past month to make appointment, but has been unable to get into contact with anyone. MD elicited complaint: sore throat and other (Body aches, headache, diarrhea, oral pain) Related Data Home Medications Medication Instructions Recorded Confirmed nifedipine 30 mg PO DAILY 07/05/20 12/14/20 Allergies Allergy/AdvReac Type Severity Reaction Status Date / Time meperidine Allergy Mild Hives Verified 12/14/20 11:03 Review of Systems Review of Systems: CONSTITUTIONAL: Denies fever, chills, or sweats.+ Body aches EYES: Denies visual changes, redness, or discharge. ENT: Denies rhinorrhea, congestion, or otalgia.+ Sore throat, right ear pain, tongue pain CARDIOVASCULAR: Denies chest pain, palpitations, or edema. RESPIRATORY: Denies cough or dyspnea. GASTROINTESTINAL: Denies abdominal pain, nausea. + Vomiting, diarrhea GENITOURINARY: Denies dysuria or hematuria. SKIN: Denies rash, itching, or wounds. MUSCULOSKELETAL: Denies back pain, joint pain, or myalgia. NEUROLOGIC: Denies numbness, tingling, or weakness+ headache. PSYCH: Denies depression or anxiety. [facility] Past Medical History Medical History Elevated blood pressure reading Marijuana use Renal insufficiency Surgical History Surgical History H/O dilation and curettage History of ear surgery 2002 - Patient reports a surgery to R ear Family History Family History Father Hypertension Sibling Diabetes mellitus Grandparent Esophageal cancer Social History Social History Social History: Ms. Rosen lives at home in [place] with her significant other, Pete, and her two teenage sons. 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 She reports drinking 4 shots of Fireball whiskey every night and her last drink was 08/20/19. She reports using marijuana daily, mostly by smoking but also sometimes ingestion. She smokes 1.5 packs per day since age 20yo. She does not have a primary care provider. She designates Pete to be her surrogate decision maker and wishes to be full code status. Smoking packs per day: 1.5 Smoking cigarettes per day: 30.0 Years smoked: 23 Smoking pack-years: 34.50 Smoking status: Current every day smoker Tobacco type: cigarettes Alcohol intake: current Drinks per week: 28 Alcohol use details: states daily tobacco use Substance use: former Substance use type: marijuana Other substance usage details: 07/05/2020 not using marijuana due to cost Last use: 08/20/2019 Gender identity (if verbalized by the patient): Female Spiritual care concerns: No Comments At time of signature, I have reviewed and agree with nursing past medical, surgical, social and family history unless otherwise noted. Please see nursing chart for jorge luist
== END 2020-12-14 11:39 | disposition home or self-care (01) ==
PROVIDERS: Emergency Provider Nurse Practitioner; PCP Family Medicine
DX: H65.01 Acute serous otitis media, right ear (principal); B37.0 Candidal stomatitis; R19.7 Diarrhea, unspecified; F17.210 Nicotine dependence, cigarettes, uncomplicated
CPT/HCPCS: 87081; 87880; 99213; G0463

== ENCOUNTER → 2020-12-15 08:17 | Outpatient (CLI) | payer OTHER, SELFPAY ==
[2020-12-15 22:41] LABS: SARS-CoV-2 RNA PCR Negative
== END ==
PROVIDERS: PCP Family Medicine; Visit Provider Family Medicine
DX: Z20.822 Contact with and (suspected) exposure to COVID-19 (principal)
CPT/HCPCS: C9803; U0003; U0005

== ENCOUNTER 2020-12-21 10:05 | Outpatient (CLI) | payer OTHER, SELFPAY ==
[2020-12-21 10:53] LABS: Basophils Absolute Auto 0.1 K/mm3 (0.0-0.1); Eosinophils Absolute Auto 0.1 K/mm3 (0-0.3); Eosinophils Percent Auto 1.6 % (0-4.4); Hemoglobin 16.7 g/dL (12.0-15.0); Immature Granulocyte Absolute 0.02 K/mm3 (0.00-0.031); Immature Granulocyte Percent A 0.3 % (0-0.5); Lymphocytes Absolute Auto 1.89 K/mm3 (0.9-3.2); Lymphocytes Percent Auto 32.9 % (18.3-44.2); Mean Corpuscular HGB Conc 34.8 g/dl (32-36); Mean Corpuscular Hemoglobin 36.7 pg (26-34); Mean Corpuscular Volume 105.5 fl (80-100); Monocytes Absolute Auto 0.7 K/mm3 (0.1-0.6); Monocytes Percent Auto 11.5 % (2.6-8.5); Neutrophils Percent Auto 52.7 % (45.5-73.1); Platelet Count Result 205 k/mm3 (150-375); Red Blood Count 4.55 M/mm3 (4.2-5.4); Red Cell Distribution Width 12.9 % (11.5-14.5); White Blood Count 5.7 K/mm3 (4.5-10.0)
[2020-12-21 11:07] LABS: Alanine Aminotransferase 90 U/L (4-35); Albumin Level 4.3 g/dL (3.5-5.1); Alkaline Phosphatase 101 U/L (38-126); Anion Gap 12 mmol/L (8-16); Aspartate Amino Transferase 199 U/L (14-36); Bilirubin,Total 0.7 mg/dL (0.2-1.3); Blood Urea Nitrogen 7 mg/dL (7-17); Calcium 9.1 mg/dL (8.4-10.2); Carbon Dioxide 26 mmol/L (22-30); Chloride 104 mmol/L (98-107); Cholesterol 179 mg/dL (0-200); Estimated Glomerular Filt Rate > 60; Glucose 67 mg/dL (65-110); HDL Direct 75 mg/dL; Potassium 4.4 mmol/L (3.4-5.0); Sodium 142 mmol/L (137-145); Triglycerides 442 mg/dL (<150)
[2020-12-21 11:17] LABS: LDL Cholesterol Direct 70 mg/dL
[2020-12-21 11:47] LABS: Free T4 Free Thyroxine 0.69 ng/mL (0.78-2.19); Vitamin D 25 Hydroxy 36.1 ng/mL
[2020-12-21 11:48] LABS: HIV 1/2 Ab P24 Ag Result Negative (Negative)
[2020-12-21 11:55] LABS: Prealbumin 56.2 mg/dL (17.6-36.0)
[2020-12-21 11:56] LABS: Hepatitis B Surface Antigen Negative (Negative)
[2020-12-21 12:01] LABS: HAV RESULT Negative (Negative); Hepatitis B Core IgM Result Negative (Negative)
[2020-12-21 12:13] LABS: Hepatitis C Virus Antibody Negative (Negative)
[2020-12-21 13:32] LABS: Hemoglobin A1C 4.5 % (<5.7)
[2020-12-21 15:09] LABS: Rapid Plasma Reagin Non-Reactive (NonReactive)
[2020-12-24 08:49] LABS: Endomysial Ab (IgA) Screen Negative (Negative)
[2020-12-29 13:33] LABS: Tissue Transglutaminase IgA Ab <1.0 U/mL (<15.0)
[2021-01-20 15:07] LABS: Endomysial Additional Testing Not Indicated
== END 2020-12-21 10:06 | disposition home or self-care (01) ==
LOC: ANHLAB 10:07
PROVIDERS: PCP Family Medicine; Visit Provider Family Medicine
DX: K90.9 Intestinal malabsorption, unspecified (principal); Z11.3 Encounter for screening for infections with a predominantly sexual mode of transmission; Z00.00 Encounter for general adult medical examination without abnormal findings
CPT/HCPCS: 36415; 80053; 80061; 80074; 82306; 83036; 83516; 84134; 84439; 84443; 84480; 85025; 86255; 86592; 86695; 86696; 86703; G0432

== ENCOUNTER 2021-01-08 12:48 | Outpatient (RCR) | payer OTHER, SELFPAY ==
[2021-01-07 13:21] LABS: Albumin Level 4.1 g/dL (3.5-5.1); Anion Gap 5 mmol/L (8-16); Blood Urea Nitrogen 10 mg/dL (7-17); Calcium 8.9 mg/dL (8.4-10.2); Carbon Dioxide 29 mmol/L (22-30); Chloride 106 mmol/L (98-107); Estimated Glomerular Filt Rate > 60; Glucose 87 mg/dL (65-110); Phosphorus 3.5 mg/dL (2.5-4.5); Potassium 3.8 mmol/L (3.4-5.0); Sodium 140 mmol/L (137-145)
[2021-01-08 13:35] LABS: Creatinine Urine 239.8 mg/dL; Total Protein Urine Random 26 mg/dL; Ur Ttl Prot Creatinine Ratio 0.11 mg/mg (0-0.20)
== END 2021-04-07 23:59 | disposition home or self-care (01) ==
LOC: ANHLAB 12:48
PROVIDERS: PCP Family Medicine; Visit Provider Internal Medicine Nephrology
DX: N18.2 Chronic kidney disease, stage 2 (mild) (principal); I12.9 Hypertensive chronic kidney disease with stage 1 through stage 4 chronic kidney disease, or unspecified chronic kidney disease
CPT/HCPCS: 36415; 80069; 82570; 84156

== ENCOUNTER 2021-02-04 07:27 | Emergency (ER) | payer OTHER, SELFPAY ==
--- NOTE | ~2021-02-04 | US_ITS ---
EXAMINATION: US venous doppler [facility] DATE: 02/04/2021 08:14 INDICATION: Lower limb swelling TECHNIQUE: Grayscale ultrasound images without and with compression and Doppler ultrasound images of the bilateral lower extremity veins were obtained. COMPARISON: None. FINDINGS: The visualized portions of right common femoral vein, profunda (deep) femoral vein, femoral vein, pop liteal vein, posterior tibial veins, peroneal veins, gastrocnemius vein and greater saphenous vein ou tflow are patent. The visualized portions of left common femoral vein, profunda femoral vein, femoral vein, popliteal v ein, posterior tibial veins, peroneal veins, gastrocnemius vein and greater saphenous vein outflow ar e patent. IMPRESSION: 1. No deep venous thrombosis in either lower limb. Reviewed, dictated and finalized at location A.
[2021-02-04 07:48] VITALS: BP 118/87; PULSE 74; RESP 14; TEMP 36.9; O2SAT 100
[2021-02-04 08:39] LABS: Basophils Absolute Auto 0.1 K/mm3 (0.0-0.1); Basophils Percent Auto 1.3 % (0.2-1.2); Eosinophils Absolute Auto 0.1 K/mm3 (0-0.3); Eosinophils Percent Auto 2.5 % (0-4.4); Hematocrit 42.8 % (37.0-47.0); Immature Granulocyte Absolute 0.02 K/mm3 (0.00-0.031); Immature Granulocyte Percent A 0.4 % (0-0.5); Lymphocytes Percent Auto 28.6 % (18.3-44.2); Mean Corpuscular Hemoglobin 37.6 pg (26-34); Mean Corpuscular Volume 107.3 fl (80-100); Mean Platelet Volume 9.9 fl (7.4-10.4); Monocytes Absolute Auto 0.7 K/mm3 (0.1-0.6); Monocytes Percent Auto 13.3 % (2.6-8.5); Neutrophils Absolute Auto 2.8 K/mm3 (1.3-6.7); Neutrophils Percent Auto 53.9 % (45.5-73.1); Platelet Count Result 229 k/mm3 (150-375); Red Blood Count 3.99 M/mm3 (4.2-5.4); Red Cell Distribution Width 12.7 % (11.5-14.5); White Blood Count 5.3 K/mm3 (4.5-10.0)
[2021-02-04 08:47] LABS: INR 0.8; Partial Thromboplastin Time 25.6 SECONDS (22.3-36.8); Prothrombin Time 10.7 Seconds (11.1-14.7)
[2021-02-04 08:50] LABS: Alanine Aminotransferase 41 U/L (4-35); Albumin Level 4.4 g/dL (3.5-5.1); Alkaline Phosphatase 90 U/L (38-126); Anion Gap 9 mmol/L (8-16); Aspartate Amino Transferase 69 U/L (14-36); Bilirubin,Total 0.7 mg/dL (0.2-1.3); Blood Urea Nitrogen 8 mg/dL (7-17); Calcium 9.8 mg/dL (8.4-10.2); Carbon Dioxide 26 mmol/L (22-30); Chloride 105 mmol/L (98-107); Estimated CRCL calculation 59 ml/min; Estimated Glomerular Filt Rate > 60; Glucose 61 mg/dL (65-110); Potassium 3.2 mmol/L (3.4-5.0); Sodium 140 mmol/L (137-145)
[2021-02-04 09:01] VITALS: BP 101/69; PULSE 72; RESP 12; O2SAT 100
--- NOTE | 2021-02-04 09:07 | ED.GENADULT ---
HPI - General Adult General Chief complaint: Extremity Injury, Lower Stated complaint: leg pain/numbness Time Seen by Provider: 02/04/21 07:34 History of Present Illness HPI narrative: Patient is a 45-year-old female who presents to the ER with swelling to her legs bilaterally. Worsening over the last week. Patient works 12 hours a day standing and then goes home and lives in a car with her feet in a seated position. She has no chest pain or chest pressure or shortness of breath. No history of CHF, denies orthopnea. No fevers or chills or sweats. She notes that her feet and legs have tingling where the swelling is and has become pink. She is concerned she may have some frostbite. No blisters or vesicles. No involvement of the hands. Related Data Home Medications Medication Instructions Recorded Confirmed nifedipine 30 mg PO DAILY 07/05/20 12/14/20 Allergies Allergy/AdvReac Type Severity Reaction Status Date / Time meperidine Allergy Mild Hives Verified 12/14/20 11:03 Review of Systems Review of Systems: All systems reviewed & are unremarkable except as noted in HPI and below Constitutional: Constitutional: Denies chills, Denies fever(s) and Denies weakness ENT: Denies nasal congestion and Denies sore throat Cardiovascular: Cardiovascular: Denies chest pain and Denies radiating jaw, neck or arm pain Respiratory: Respiratory: Denies cough, Denies dyspnea and Denies wheezing Musculoskeletal: Musculoskeletal: Denies arthralgias and Denies joint swelling Comments: Leg edema Integumentary/Breasts: Skin/Breast: Reports erythema, Denies rash and Denies skin ulcer Neurologic: Denies focal weakness and Denies numbness Comments: Paresthesia of the feet and legs [facility] Past Medical History Medical History Elevated blood pressure reading Marijuana use Renal insufficiency Surgical History Surgical History H/O dilation and curettage History of ear surgery 2002 - Patient reports a surgery to R ear Family History Family History Father Hypertension Sibling Diabetes mellitus Grandparent Esophageal cancer Social History Social History Social History: Ms. Rosen lives at home in [place] with her significant other, Pete, and her two teenage sons. 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 She reports drinking 4 shots of Fireball whiskey every night and her last drink was 08/20/19. She reports using marijuana daily, mostly by smoking but also sometimes ingestion. She smokes 1.5 packs per day since age 20yo. She does not have a primary care provider. She designates Pete to be her surrogate decision maker and wishes to be full code status. Smoking packs per day: 1.5 Smoking cigarettes per day: 30.0 Years smoked: 23 Smoking pack-years: 34.50 Smoking status: Current every day smoker Tobacco type: cigarettes Alcohol intake: current Drinks per week: 28 Alcohol use details: states daily tobacco use Substance use: former Substance use type: marijuana Other substance usage details: 07/05/2020 not using marijuana due to cost Last use: 08/20/2019 Gender identity (if verbalized by the patient): Female Spiritual care concerns: No Exam Narrative: GENERAL: Well-appearing, well-nourished, and in no acute distress. HEAD: Normocephalic, atraumatic. CHEST: Clear to auscultation. No respiratory distress. HEART: Regular rate and rhythm. Normal peripheral pulses. EXTREMITIES: Normal range of motion. 2+ edema. [place] tissue to the feet bilaterally extending to the shins. No warmth. SKIN: Warm, dry, no rash. NEURO: No focal deficits. Alert and oriented x3. PSYCH: Normal mood and affect. Course Course Emergency Course: D
== END 2021-02-04 09:25 | disposition home or self-care (01) ==
PROVIDERS: Emergency Provider Emergency Medicine; PCP Family Medicine
DX: R60.0 Localized edema (principal); F17.210 Nicotine dependence, cigarettes, uncomplicated
CPT/HCPCS: 36415; 80053; 85025; 85610; 85730; 93970; 99284

== ENCOUNTER 2021-05-09 17:21 | Emergency (ER) | payer OTHER, SELFPAY ==
[2021-05-09 17:31] VITALS: BP 142/72; PULSE 88; RESP 18; TEMP 36.8; O2SAT 100
--- NOTE | 2021-05-09 17:55 | ED.SKABFB ---
HPI - Skin/Abscess/Foreign Bdy General Chief complaint: Skin/Abscess/Foreign Body Stated complaint: Rectum pain Time Seen by Provider: 05/09/21 17:35 Source: patient, RN notes reviewed and old records reviewed Mode of arrival: ambulatory Limitations: no limitations History of Present Illness HPI narrative: 45-year-old female who presents to [facility] with 1 and half week duration of large sore lesion on the inner aspect of her left buttock which has opened and is draining with a foul odor. Patient also has some drying scabbed areas on her lower buttock area with no open wounds noted. Patient states that area on left inner buttock is very painful, it measure [id number] with inner tissue red with no drainage noted at present. Patient reports that she has been putting Neosporin ointment on area, denies any known fevers, chills, or sweats. MD complaint: abscess/boil and lesion (scabbed) Onset (ago): day(s) (10) Related Data Home Medications Medication Instructions Recorded Confirmed nifedipine 30 mg PO DAILY 07/05/20 05/09/21 Allergies Allergy/AdvReac Type Severity Reaction Status Date / Time meperidine Allergy Intermediate Hives Verified 05/09/21 17:36 Review of Systems Review of Systems: CONSTITUTIONAL: Denies fever, chills, or sweats. EYES: Denies visual changes, redness, or discharge. ENT: Denies rhinorrhea, congestion, sore throat, or otalgia. CARDIOVASCULAR: Denies chest pain, palpitations, or edema. RESPIRATORY: Denies cough or dyspnea. GASTROINTESTINAL: Denies abdominal pain, nausea, vomiting, or diarrhea. GENITOURINARY: Denies dysuria or hematuria. SKIN: Positive for open abscess to left inner buttock and scabbed lesions on lower buttock. no active drainage noted, MUSCULOSKELETAL: Denies back pain, joint pain, or myalgia. NEUROLOGIC: Denies headache, numbness, or weakness. PSYCHIATRIC: Denies anxiety or depression. All systems reviewed & are unremarkable except as noted in HPI and below PMFSH Past Medical History Medical History Elevated blood pressure reading Marijuana use Renal insufficiency Surgical History Surgical History H/O dilation and curettage History of ear surgery 2002 - Patient reports a surgery to R ear Family History Family History Father Hypertension Sibling Diabetes mellitus Grandparent Esophageal cancer Social History Social History Social History: Ms. Rosen lives at home in [place] with her significant other, Pete, and her two teenage sons. 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 She reports drinking 4 shots of Fireball whiskey every night and her last drink was 08/20/19. She reports using marijuana daily, mostly by smoking but also sometimes ingestion. She smokes 1.5 packs per day since age 20yo. She does not have a primary care provider. She designates Pete to be her surrogate decision maker and wishes to be full code status. Smoking packs per day: 1.5 Smoking cigarettes per day: 30.0 Years smoked: 23 Smoking pack-years: 34.50 Smoking status: Current every day smoker Tobacco type: cigarettes Alcohol intake: current Drinks per week: 28 Alcohol use details: states daily tobacco use Substance use: former Substance use type: marijuana Other substance usage details: 07/05/2020 not using marijuana due to cost Last use: 08/20/2019 Gender identity (if verbalized by the patient): Female Spiritual care concerns: No Exam Narrative: GENERAL: Well-appearing, well-nourished, and in no acute distress. HEAD: Normocephalic, atraumatic. EYES: PERRLA and EOMI. ENT: Nares clear, no rhinorrhea or epistaxis. Mucous membranes moist. NECK: Supple. no lymphadenopathy CHEST: Clear to auscultat
== END 2021-05-09 18:07 | disposition home or self-care (01) ==
PROVIDERS: Emergency Provider Registered Nurse; PCP Family Medicine
DX: L02.31 Cutaneous abscess of buttock (principal); F17.210 Nicotine dependence, cigarettes, uncomplicated
CPT/HCPCS: 99213; G0463

== ENCOUNTER 2021-05-10 16:22 | Outpatient (CLI) | payer OTHER, SELFPAY ==
[2021-05-10 17:23] LABS: INR 0.9; Prothrombin Time 11.9 Seconds (11.1-14.7)
[2021-05-10 17:26] LABS: Alanine Aminotransferase 28 U/L (4-35); Albumin Level 4.7 g/dL (3.5-5.1); Alkaline Phosphatase 96 U/L (38-126); Anion Gap 12 mmol/L (8-16); Aspartate Amino Transferase 56 U/L (14-36); Bilirubin,Total 0.5 mg/dL (0.2-1.3); Blood Urea Nitrogen 16 mg/dL (7-17); Calcium 9.3 mg/dL (8.4-10.2); Carbon Dioxide 23 mmol/L (22-30); Chloride 103 mmol/L (98-107); Estimated Glomerular Filt Rate > 60; Glucose 94 mg/dL (65-110); Potassium 3.6 mmol/L (3.4-5.0); Sodium 138 mmol/L (137-145)
[2021-05-10 17:32] LABS: Basophils Absolute Auto 0.1 K/mm3 (0.0-0.1); Basophils Percent Auto 0.8 % (0.2-1.2); Eosinophils Absolute Auto 0.1 K/mm3 (0-0.3); Eosinophils Percent Auto 0.9 % (0-4.4); Hematocrit 43.1 % (37.0-47.0); Hemoglobin 14.6 g/dL (12.0-15.0); Immature Granulocyte Absolute 0.02 K/mm3 (0.00-0.031); Immature Granulocyte Percent A 0.2 % (0-0.5); Lymphocytes Absolute Auto 2.25 K/mm3 (0.9-3.2); Lymphocytes Percent Auto 24.6 % (18.3-44.2); Mean Corpuscular HGB Conc 33.9 g/dl (32-36); Mean Corpuscular Hemoglobin 35.1 pg (26-34); Mean Corpuscular Volume 103.6 fl (80-100); Mean Platelet Volume 9.6 fl (7.4-10.4); Monocytes Absolute Auto 0.8 K/mm3 (0.1-0.6); Monocytes Percent Auto 8.4 % (2.6-8.5); Neutrophils Percent Auto 65.1 % (45.5-73.1); Platelet Count Result 276 k/mm3 (150-375); Red Blood Count 4.16 M/mm3 (4.2-5.4); Red Cell Distribution Width 12.8 % (11.5-14.5); White Blood Count 9.1 K/mm3 (4.5-10.0)
[2021-05-10 19:01] LABS: Iron 117 ug/dL (37-170)
[2021-05-10 19:10] LABS: Percent Iron Saturation 27 % (20-50)
[2021-05-10 20:31] LABS: Hepatitis B Surface Antigen Negative (Negative)
[2021-05-10 20:36] LABS: HAV RESULT Negative (Negative)
[2021-05-10 20:54] LABS: Hepatitis B Surface Anti Res Positive; Hepatitis C Virus Antibody Negative (Negative)
[2021-05-12 05:11] LABS: GGT 220 U/L (3-55)
[2021-05-12 14:20] LABS: Alpha-1-Antitrypsin, QN 164 mg/dL (83-199); Ceruloplasmin 33 mg/dL (18-53)
[2021-05-14 05:18] LABS: Hepatitis B Core Ab Total Nonreactive (Nonreactive)
[2021-05-14 23:47] LABS: Actin Antibody (IgG) <20 U (<20)
== END 2021-05-10 16:23 | disposition home or self-care (01) ==
LOC: ANHLAB 16:29
PROVIDERS: PCP Family Medicine
DX: R74.8 Abnormal levels of other serum enzymes (principal)
CPT/HCPCS: 36415; 80053; 82103; 82105; 82248; 82390; 82728; 82977; 83516; 83540; 83550; 85025; 85610; 86038; 86704; 86706; 86709; 86803; 87340

== ENCOUNTER 2021-05-12 08:35 | Outpatient (CLI) | payer OTHER, SELFPAY ==
--- NOTE | ~2021-05-12 | US_ITS ---
EXAMINATION: US abdomen complete EXAM DATE: 05/12/2021 09:11 INDICATION: elevated liver enzymes. TECHNIQUE: Multiple grayscale and Doppler images of the complete abdomen were obtained (by a technolo gist who performed the scan) and subsequently reviewed. Comparison is made to prior examination from 08/22/2019. FINDINGS: The abdominal aorta is normal in caliber. Visualized portion IVC is patent. The pancreatic head a nd body are normal in appearance. The pancreatic tail is not visualized. There is echogenic liver parenchyma, hepatic steatosis. There are no focal liver lesions identified. There is no evidence of intrahepatic biliary duct dilation. Portal venous flow was seen in the he patopedal, normal direction and has normal Doppler waveform. Common bile duct measures 5 mm, which is normal. The gallbladder wall is normal in thickness, with ex pected amount of distention. No sonographic evidence of pericholecystic fluid. There is no cholelit hiases. Technologist performing exam reports patient did not demonstrate sonographic Allen's sign. Please note that this sign is less reliable in patients who have received pain medication. Right kidney: There is normal contour and echogenicity. It measures 10.5 x 4.6 x 4.3 centimeters. There are no focal renal lesions identified. There is no hydronephrosis. Left kidney: There is normal contour and echogenicity. It measures 9.8 x 4.0 x 3.9 centimeters. Th ere are no focal renal lesions identified. There is no hydronephrosis. The spleen measures 8 centimeters and is morphologically normal. IMPRESSION: Hepatic steatosis. Reviewed, dictated and finalized at location B. NG SUPERVISOR IMPRESSION: Hepatic steatosis.
== END 2021-05-12 08:36 | disposition home or self-care (01) ==
PROVIDERS: PCP Family Medicine
DX: R74.8 Abnormal levels of other serum enzymes (principal); K76.0 Fatty (change of) liver, not elsewhere classified
CPT/HCPCS: 76700

== ENCOUNTER 2021-12-09 10:03 | Emergency (ER) | payer BC, OTHER, SELFPAY ==
--- NOTE | 2021-12-09 10:10 | ED.GENADULT ---
HPI - General Adult General Chief complaint: Upper Respiratory Infection Stated complaint: Vomiting,Sore Throat,Fatigue Time Seen by Provider: 12/09/21 10:06 History of Present Illness HPI narrative: Mrs Rosen is a 45 y/o female. PMHx Current everyday cigarette smoker, Marijuana use, HTN, TRIP. Presents to local [facility] clinic today with acute complaints of CANTU, Sore throat, cough, nasal congestion, and subjective fever at home. Manifestations ongoing now for > 1 week. No focal weakness, visual changes, or syncope. Mild nasal congestion. 'White' productive cough. Denies chest pain, palpitations, dyspnea. Client endorses a mild and intermittent degree of N/V/D, none since last HS. No abdominal pain, flank pain, urinary concerns. No hematuria or bloody stool. She is unsure of potential ill contacts or viral illness. She is without additional acute c/o upon PE. Related Data Home Medications Medication Instructions Recorded Confirmed nifedipine 30 mg tablet,extended 30 mg PO DAILY 07/05/20 12/09/21 release Allergies Allergy/AdvReac Type Severity Reaction Status Date / Time meperidine Allergy Intermediate Hives Verified 12/09/21 10:25 Review of Systems Review of Systems: CONSTITUTIONAL: + fever. No chills, sweats. EYES: Denies visual changes, redness, discharge. ENT: + rhinorrhea, congestion, sore throat. No otalgia. CARDIOVASCULAR: Denies chest pain, palpitations, edema. RESPIRATORY: Denies dyspnea, wheezing. + cough GASTROINTESTINAL: Denies abdominal pain. + N/V/D. GENITOURINARY: Denies dysuria, hematuria, abnormal discharge SKIN: Denies rash or itching. MUSCULOSKELETAL: Denies acute back pain, joint pain, or myalgia. NEUROLOGIC: + CANTU, Denies numbness, or focal weakness. PSYCHIATRIC: Denies anxiety or depression. [facility] Past Medical History Medical History Elevated blood pressure reading Marijuana use Renal insufficiency Surgical History Surgical History H/O dilation and curettage History of ear surgery 2002 - Patient reports a surgery to R ear Family History Family History Father Hypertension Sibling Diabetes mellitus Grandparent Esophageal cancer Social History Social History Social History: Ms. Rosen lives at home in [place] with her significant other, Pete, and her two teenage sons. 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 She reports drinking 4 shots of Fireball whiskey every night and her last drink was 08/20/19. She reports using marijuana daily, mostly by smoking but also sometimes ingestion. She smokes 1.5 packs per day since age 20yo. She does not have a primary care provider. She designates Pete to be her surrogate decision maker and wishes to be full code status. Smoking packs per day: 1.5 Smoking cigarettes per day: 30.0 Years smoked: 23 Smoking pack-years: 34.50 Smoking status: Current every day smoker Tobacco type: cigarettes Alcohol intake: current Drinks per week: 28 Alcohol use details: states daily tobacco use Substance use: former Substance use type: marijuana Other substance usage details: 07/05/2020 not using marijuana due to cost Last use: 08/20/2019 Gender identity (if verbalized by the patient): Female Spiritual care concerns: No Exam Narrative: GENERAL: This is a well-nourished, well-developed adult, in no apparent distress. HEAD: normocephalic, atraumatic. EYES: PERRL. Sclera clear/white. No nystagmus. EARS: External ears normal, auditory canals clear and without drainage, TMs normal. NOSE: External nose normal. Positive Rhinorrhea, no obstruction, nares patent. THROAT: Mucous membranes moist, posterior pharynx is erythematous. No exudates. NECK: Neck supple, non
[2021-12-09 10:14] VITALS: BP 104/72; PULSE 84; RESP 16; TEMP 36.4; O2SAT 100
== END 2021-12-09 11:04 | disposition home or self-care (01) ==
PROVIDERS: Emergency Provider Nurse Practitioner Adult Health; PCP Family Medicine
DX: J06.9 Acute upper respiratory infection, unspecified (principal); B34.9 Viral infection, unspecified; Z20.822 Contact with and (suspected) exposure to COVID-19; F17.210 Nicotine dependence, cigarettes, uncomplicated; F12.90 Cannabis use, unspecified, uncomplicated; I10 Essential (primary) hypertension
CPT/HCPCS: 87081; 87426; 87804; 87880; 99213; C9803; G0463

== ENCOUNTER 2021-12-15 16:52 | Inpatient (IN) | payer BC, OTHER, SELFPAY ==
[2021-12-15] VITALS (17 sets, daily range): BP systolic 89–119; BP diastolic 62–89; PULSE 65–88; RESP 9–23; TEMP 36.2–36.9; O2SAT 84–100; BMI 18.8; BMI 19.7
--- NOTE | ~2021-12-15 | US_ITS ---
EXAMINATION: US carotid duplex BI DATE: 12/16/2021 12:49 INDICATION: Syncope TECHNIQUE: Grayscale, color Doppler, and pulsed Doppler images of the cervical carotid arteries were obtained. The degree of vessel stenosis is placed in one of the following categories: normal, <50%, 5 0-69%, >=70% but less than near-occlusion, near-occlusion, or total occlusion. Note that percent sten osis relative to normal distal artery lumen diameter is indirectly measured from velocity measurement s as described by Eldon, et al. Radiology 2003; [id number]. COMPARISON: None. FINDINGS: RIGHT: The right common carotid artery (CCA) peak systolic velocity (PSV) is 58 cm/s. The right internal car otid artery (ICA) PSV is 76 cm/s. The right ICA end-diastolic velocity (EDV) is 361.3 cm/s. The right ICA/CCA PSV ratio is 1.1. Grayscale and color Doppler images demonstrate no appreciable stenosis or plaque in the ICA. The external carotid artery (ECA) PSV is 69 cm/s. There is antegrade flow in the r ight vertebral artery. LEFT: The left CCA PSV is 65 cm/s. The left ICA PSV is 73 cm/s. The left ICA EDV is 38 cm/s. The left ICA/C CA PSV ratio is 1.1. Grayscale and color Doppler images yield an estimate of <50% diameter reduction from minimal plaque in the ICA. The ECA PSV is 64 cm/s. There is antegrade flow in the left vertebral artery. IMPRESSION: 1. No evident plaque or stenosis in the right internal carotid artery. 2. <50% stenosis from minimal plaque in the left internal carotid artery. Reviewed, dictated and finalized at [facility].
--- NOTE | ~2021-12-15 | MR_ITS ---
EXAMINATION: MR hip LT wo con DATE: 12/17/2021 15:24 INDICATION: Possible AVN, left hip TECHNIQUE: Magnetic resonance imaging (MRI) of the pelvis and left hip hip was performed without intr avenous contrast. COMPARISON: CT abdomen and pelvis 12/15/2021 FINDINGS: Bones/cartilage: Serpiginous low signal T2 abnormality, with associated 10 x 18 mm subchondral T2 hyperintensity and T 1 hypointensity in the superior and anterior aspect of the left femoral head and superficial subtle c ortical irregularity. Otherwise no suspicious focal or diffuse marrow signal. Labrum: Degenerative signal change in the bilateral jun. Linear defect in the left anterior labrum, likely tear. No definite labral defect seen on the right although this exam was not tailored to evaluate the right labrum. Fluid: No significant joint effusion or bursal fluid collection. Soft tissues: Small volume free pelvic fluid, within physiologic range. Normal appendix. 2.4 cm simple right ovaria n cyst. 2.3 cm circumscribed right adnexal lesion, hyperintense on T1, hypointense on T2, correspondi ng to the calcified adnexal mass on CT at [facility] representing an exophytic fibroid. IMPRESSION: 1. Findings most consistent with a small focus of AVN in the superoanterior left femoral head, with s ubtle cortical irregularity concerning for early cortical collapse. 2. No evidence of AVN in the contralateral hip or the acetabula. Reviewed, dictated and finalized at [facility]. IMPRESSION: 1. Findings most consistent with a small focus of AVN in the superoanterior lef t femoral head, with subtle cortical irregularity concerning for early cortical collapse. 2. No evidence of AVN in the contralateral hip or the acetabula.
--- NOTE | ~2021-12-15 | CT_ITS ---
EXAMINATION: CT brain wo con DATE: 12/15/2021 18:32 INDICATION: Fall. Head injury. Loss of consciousness. TECHNIQUE: Computed tomography (CT) of the head was performed without intravenous contrast. The mA wa s adjusted according to patient size. Iterative reconstruction technique was employed. Exam dose: 60 5.33 mGy-cm total exam DLP. COMPARISON: 08/21/2019 CT brain FINDINGS: No intracranial mass lesion or hemorrhage or cerebrovascular accident. No midline shift or mass effect. Normal ventricular size. No subdural or epidural hematoma is detected. No skull fracture or bone destruction. Included mastoid air cells and paranasal sinuses are normally developed and aerated. IMPRESSION: No significant abnormality Reviewed, dictated and finalized at [facility]. Reviewed, dictated and finalized at [facility]. IMPRESSION: No significant abnormality
--- NOTE | ~2021-12-15 | CT_ITS ---
EXAMINATION: CT abdomen pelvis w con DATE: 12/15/2021 18:33 INDICATION: Epigastric abdominal pain, nausea and vomiting. Weakness. Fall. TECHNIQUE: Computed tomography (CT) of the abdomen and pelvis was performed without intravenous contr ast. Automated exposure control and iterative reconstruction technique were employed. Exam dose: 231 .57 mGy-cm total exam DLP. COMPARISON: 05/12/2021 complete abdominal ultrasound 07/13/2020 CT abdomen pelvis FINDINGS: The lung bases are clear. Normal heart size. No pericardial or pleural effusion. Diffuse hepatic steatosis. No hepatic, splenic, pancreatic, adrenal or renal space-occupying mass les ion is detected Approximately 3 mm nonobstructing upper pole left renal calculus. Adjacent subtle pinpoint nonobstruc ting upper pole left renal calculus is also suggested. No other urinary tract calculus or hydroureter onephrosis. There is atherosclerotic calcification of the abdominal aorta and iliac and femoral arter ies. No abdominal aortic aneurysm. No intraperitoneal or retroperitoneal or pelvic mass lesion or melissa nopathy or ascites. Small sliding hiatal hernia Normal appendix. Slight sigmoid diverticulosis; no evidence of diverticulitis. No bowel obstruction, bowel wall thickening, pneumatosis or intraperitoneal free air. Approximately 1.3 x 1 2 cm right adnexal prominently calcified soft tissue mass, possibly a serosal f ibroid. The uterus and ovaries and adnexal areas are otherwise unremarkable. The urinary bladder is unremarkable. Small fat-containing umbilical hernia. There is a new approximately 3.4 mm deep x 15 x 7 mm wide subcortical lucent defect of the left humer al head with surrounding sclerosis, benign in appearance, which may be secondary to avascular necrosi s. Consider MR hip examination as clinically appropriate. No suspicious osteolytic or osteoblastic lesions are noted otherwise. 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 Reviewed, dictated and finalized at [facility].
--- NOTE | 2021-12-15 16:54 | ECG_ITS ---
Measurements Intervals [place] Rate: 72 P: 17 TX: 115 QRS: 24 QRSD: 89 T: -25 QT: 459 QTc: 503 Interpretive Statements SINUS RHYTHM WITH SHORT TX INTERVAL INCOMPLETE RIGHT BUNDLE BRANCH BLOCK ST-T WAVE ABNORMALITY IN ANTEROLAT/INF LEADS BASELINE ARTIFACT- I, II, III, AVR, AVL, AVF, V6 ABNORMAL ECG COMPARED TO ECG 04/28/2020 01:56:37 NO SIGNIFICANT CHANGES Electronically Signed On 12-15-2021 21:36:43 CDT by Madhu Black D.O.
[2021-12-15 17:31] LABS: Basophils Absolute Auto 0.1 K/mm3 (0.0-0.1); Basophils Percent Auto 0.6 % (0.2-1.2); Eosinophils Percent Auto 0.4 % (0-4.4); Hematocrit 41.8 % (37.0-47.0); Hemoglobin 15.5 g/dL (12.0-15.0); Immature Granulocyte Absolute 0.03 K/mm3 (0.00-0.031); Immature Granulocyte Percent A 0.4 % (0-0.5); Lymphocytes Absolute Auto 2.09 K/mm3 (0.9-3.2); Lymphocytes Percent Auto 24.6 % (18.3-44.2); Mean Corpuscular HGB Conc 37.1 g/dl (32-36); Mean Corpuscular Hemoglobin 38.8 pg (26-34); Mean Corpuscular Volume 104.5 fl (80-100); Mean Platelet Volume 9.8 fl (7.4-10.4); Monocytes Absolute Auto 0.9 K/mm3 (0.1-0.6); Monocytes Percent Auto 10.5 % (2.6-8.5); Neutrophils Absolute Auto 5.4 K/mm3 (1.3-6.7); Neutrophils Percent Auto 63.5 % (45.5-73.1); Platelet Count Result 196 k/mm3 (150-375); Red Cell Distribution Width 12.8 % (11.5-14.5); White Blood Count 8.5 K/mm3 (4.5-10.0)
--- NOTE | 2021-12-15 17:31 | ED.SYNCOPE ---
HPI - Syncope General Chief Complaint: Syncope Stated Complaint: SYNCOPAL EVENT, FACIAL INJURY, N/V,COUGH X1WK Time Seen by Provider: 12/15/21 17:23 History of Present Illness HPI narrative: Patient is a 45-year-old female here for evaluation after syncope episode earlier today. Patient states that she was going from seated to standing outside today, when she suddenly felt unwell with some pain under her left ribs and passed out, striking her head against pavement. This was an unwitnessed syncopal event, patient is unsure how long she was out for, but she regained consciousness without intervention. States that she went inside, sat down for a little bit, and continued to feel weak, so decided to be evaluated. States that over the past week she has also felt generally weak, has had decreased p.o. intake, nausea,vomiting, cough. She was told by an urgent care that she had an upper respiratory infection and was given a Z-Steven and prednisone without improvement of her symptoms. COVID test was negative. She is a daily drinker, no history of withdrawal sz or symptoms. Tetanus is UTD. Related Data Home Medications Medication Instructions Recorded Confirmed nifedipine 30 mg tablet,extended 30 mg PO DAILY 07/05/20 12/15/21 release azithromycin 250 mg tablet See Rx Instructions .Route .COMPLEX 12/15/21 12/15/21 (Zithromax Z-Steven) Allergies Allergy/AdvReac Type Severity Reaction Status Date / Time meperidine Allergy Intermediate Hives Verified 12/15/21 17:33 Review of Systems Review of Systems: Gen: Reports weakness and syncope. Eyes: Denies eye pain or visual change ENT: Denies congestion Respiratory: Denies shortness of breath or cough CV: Denies chest pain or palpitations GI: Denies abdominal pain nausea, emesis or diarrhea : denies burning, urgency, frequency or hematuria Musculoskeletal: Denies back pain or muscle pain Neuro: Denies numbness, tingling, weakness or focal weakness Skin: Denies rash Except as documented, all other systems reviewed and negative [facility] Past Medical History Medical History (Updated 12/16/21 @ 12:12 by Annetta Tsai PA-C) Alcohol abuse Alcoholic fatty liver Essential hypertension Marijuana use Tobacco dependence Surgical History Surgical History H/O dilation and curettage History of ear surgery 2002 - Patient reports a surgery to R ear Family History Family History (Updated 12/15/21 @ 22:10 by Fiordaliza West DO) Father Hypertension Sibling Diabetes mellitus Grandparent Esophageal cancer Social History Social History (Updated 12/15/21 @ 23:24 by Fiordaliza West DO) Social History: She lives with her father and stepmother. She has 2 sons age 19 and 21. She drinks 2-4 shot today. She reports using marijuana daily, mostly by smoking but also sometimes ingestion. She smokes 1.5 packs per day since age 20yo but has cut down to 1 pack of cigarettes per day. She does not have a primary care provider. Code status: Full code Surrogate decision maker: Father Smoking packs per day: 1.5 Smoking cigarettes per day: 30.0 Years smoked: 25 Smoking pack-years: 37.50 Smoking status: Current every day smoker Tobacco type: cigarettes Alcohol intake: current Drinks per week: 12 Alcohol use details: states daily tobacco use Substance use: never Substance use type: marijuana Other substance usage details: 07/05/2020 not using marijuana due to cost Last use: 08/20/2019 Gender identity (if verbalized by the patient): Female Spiritual care concerns: No Exam Narrative: APPEARANCE: Well appearing, no pain in distress, well-nourished. Head: Normocephalic and atraumatic. EYES: PERRLA/EOMI, conjunctivae clear NOSE: No nasal drainage EARS: External ear normal in appearance THROAT: tooth 8-9 are chipped in center, top of teeth 25-24 chipped. Oropharynx is clear. Mucous membranes
[2021-12-15 17:51] LABS: Alanine Aminotransferase 65 U/L (6-35); Albumin Level 4.1 g/dL (3.5-5.1); Alkaline Phosphatase 125 U/L (38-126); Anion Gap 17 mmol/L (8-16); Aspartate Amino Transferase 162 U/L (14-36); Bilirubin,Total 2.8 mg/dL (0.2-1.3); Blood Urea Nitrogen 8 mg/dL (7-17); Calcium 9.3 mg/dL (8.4-10.2); Carbon Dioxide 32 mmol/L (22-30); Chloride 80 mmol/L (98-107); Estimated CRCL calculation 42 ml/min; Estimated Glomerular Filt Rate 49; Glucose 104 mg/dL (65-110); Potassium 2.4 mmol/L (3.4-5.0); Sodium 129 mmol/L (137-145)
[2021-12-15] MEDS: ASPIRIN 81 MG CHEWABLE TABLET 324 MG PO (17:51)
[2021-12-15] MEDS: ONDANSETRON INJ 4 MG/2 ML VIAL IV PUSH (17:51)
[2021-12-15 18:18] LABS: Lipase 35 U/L (23-300)
[2021-12-15 18:36] LABS: Troponin I 0.042 ng/mL (0.000-0.034)
[2021-12-15] MEDS: POTASSIUM CHLORIDE INJ 40 MEQ in SODIUM CHLORIDE 0.9% IV 500 ML 130 MEQ IVPB (18:53)
[2021-12-15] MEDS: SODIUM CHLORIDE 0.9% IV 1,000 ML 999 ML IV CONT ×3 (18:53→22:40)
[2021-12-15 19:16] LABS: Alveolar/Arterial O2 Gradient 46.5 mmHg; Base Excess ABG 5.5 mEq/l (+/-2.0); Fractional Inspired Oxygen 21 %; HCO3 ABG 28.4 mEq/l (22.0-26.0); Oxygen Content ABG 18.1 %vol (16.0-22.0); Oxygen Saturation ABG 93.3 % (95.0-100.0); PCO2 ABG 36.2 mmHg (35.0-45.0); PO2 ABG 59.9 mmHg (80.0-100.0); PO2 FiO2 Ratio Arterial Blood 2.85 %; Total Hemoglobin 14.7 g/dL (12.0-18.0)
[2021-12-15 19:18] LABS: Device ROOM AIR; Modified Allen's Test Pass; Oxyhemoglobin 87.6 % THb (90.0-100.0); Site Drawn RIGHT RADIAL; pH ABG 7.513 (7.350-7.450)
[2021-12-15] MEDS: POTASSIUM CHLORIDE 20 MEQ PACKET (FOR LIQUID) PO (19:19)
[2021-12-15 19:23] LABS: Partial Thromboplastin Time 26.2 SECONDS (22.3-36.8)
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
[2021-12-15 20:21] LABS: Ethanol < 10 mg/dL (<10)
[2021-12-15 20:22] LABS: Magnesium 1.4 mg/dL (1.6-2.3); Phosphorus 3.2 mg/dL (2.5-4.5)
[2021-12-15 20:43] LABS: Troponin I 0.044 ng/mL (0.000-0.034)
[2021-12-15 21:22] LABS: Lactic Acid Reflex 5.6 mmol/L (0.7-2.0)
--- NOTE | 2021-12-15 21:25 | ADMGEN ---
This patient, Kavita Rosen, was admitted to IMU Room 214-01. Patient/family oriented to hospital policies and general routines including ID bracelet, bed and alarms, visiting hours, pain management, procedures, bathroom and other care routines, personal items, smoking policy, room service/diet, and visiting hours. Information on how to activate the Rapid Response Team has been discussed. Patient/Family are encouraged to report perceived risks to care and to ask questions if they do not understand what they are told or what they should do.
[2021-12-15] MEDS: POTASSIUM CHLORIDE 20 MEQ TABLET PO (22:30)
[2021-12-15] MEDS: PANTOPRAZOLE SODIUM IV 40 MG VIAL IV PUSH (22:32)
[2021-12-15] MEDS: traMADol HCL (*CRX) 50 MG TABLET PO (22:37)
[2021-12-15] MEDS: THIAMINE HCL 200 MG/2 ML VIAL 100 MG IV PUSH (22:38)
[2021-12-15] MEDS: ENOXAPARIN 60 MG/0.6 ML SYRINGE 50 MG SUB-Q (22:40)
[2021-12-15] MEDS: NICOTINE (*PBKC) 21 MG PATCH 1 PATCH TRANSDERM (22:45)
[2021-12-15] MEDS: BELLADONNA ALK/PHENOB ELIX 10 ML, MAG HYDROX/ALUMINUM HYD/SIMETH 30 ML, LIDOCAINE HCL 2... PO (22:55)
[2021-12-15] MEDS: MAGNESIUM SULF 4 GM/WATER100ML 4 GM/100 ML BAG IVPB (23:06)
[2021-12-16] VITALS (10 sets, daily range): BP systolic 91–117; BP diastolic 56–78; PULSE 59–78; RESP 18–20; TEMP 36.2–36.9; O2SAT 94–100; BMI 19.7
--- NOTE | 2021-12-16 | ECHO_ITS ---
Patient Info Name: Kavita Rosen Age: 45 years : 1975 Gender: Female Ht: 64 in Wt: 114 lbs BSA: 1.52 m2 HR: 64 bpm BP: 91 / 61 mmHg Heart Rhythm: Sinus Rhythm Technical Quality: Good Exam Date: 12/16/2021 2:17 PM Exam Location: [facility] Patient Status: Inpatient Admit Date: 12/15/2021 Staff Ordering Physician: Mary Wagner MD Family Reunification Specialist: Aliya Carranza RDCS Attending Provider: Mary Wagner MD Exam Type: CA echo doppler color flow Study Info Indications R55 - Syncope and collapse Complete two-dimensional, color flow and Doppler transthoracic echocardiogram is performed. Summary 1. Complete two-dimensional, color flow and Doppler transthoracic echocardiogram is performed. 2. Unremarkable 2D /Doppler echocardiogram. Left Ventricle Left ventricular chamber dimension is normal. Left ventricular systolic function is normal, estimated at 60-65%. The left ventricular diastolic function is normal. Right Ventricle Right ventricular chamber dimension is normal. Left Atria Left atrial chamber dimension is normal. Right Atria Right atrial chamber dimension is normal. Aortic Valve The aortic valve is normal. Pulmonic Valve The pulmonic valve is normal. Mitral Valve The mitral valve has normal leaflets. Tricuspid Valve The tricuspid valve leaflets are normal. Pericardium/Pleural The pericardium appears normal. Aorta The aortic root size at the sinus of Valsalva is normal. Left Ventricular Outflow Tract Name Value Normal LVOT 2D LVOT Diameter 1.9 cm LVOT Doppler LVOT Peak Gradient 4 mmHg LVOT Mean Gradient 2 mmHg LVOT VTI 21 cm LVOT VTI/AV VTI Ratio 0.8 LVOT Stroke Volume 56 ml LVOT CO 3.6 l/min LVOT CI 2.3 l/min/m2 Pulmonic Valve Name Value Normal RVOT Doppler RVOT Peak Gradient 2 mmHg PV Doppler PV Peak Gradient 2 mmHg Mitral Valve Name Value Normal MV Doppler MV Decel [place] 426 cm/s2 MV PHT 61 ms MV Area (PHT) 3.6 cm2 4.0-5.0 MV Diastolic Function MV E Peak Velocity 90 cm/s MV A Peak Velocity 70 cm/s
[2021-12-16 00:05] LABS: Reflex Lactic Acid Yes or No Add Lactic
[2021-12-16 00:18] LABS: Anion Gap 11 mmol/L (8-16); Blood Urea Nitrogen 7 mg/dL (7-17); Calcium 7.4 mg/dL (8.4-10.2); Carbon Dioxide 22 mmol/L (22-30); Chloride 100 mmol/L (98-107); Estimated CRCL calculation 58 ml/min; Estimated Glomerular Filt Rate > 60; Glucose 95 mg/dL (65-110); Potassium 3.4 mmol/L (3.4-5.0); Sodium 133 mmol/L (137-145)
[2021-12-16 00:34] LABS: Troponin I 0.041 ng/mL (0.000-0.034)
[2021-12-16 03:52] LABS: Lactic Acid 3.1 mmol/L (0.7-2.0)
[2021-12-16 05:33] LABS: Basophils Percent Auto 0.7 % (0.2-1.2); Eosinophils Percent Auto 0.5 % (0-4.4); Hematocrit 30.8 % (37.0-47.0); Hemoglobin 11.1 g/dL (12.0-15.0); Immature Granulocyte Absolute 0.01 K/mm3 (0.00-0.031); Immature Granulocyte Percent A 0.2 % (0-0.5); Lymphocytes Absolute Auto 1.92 K/mm3 (0.9-3.2); Lymphocytes Percent Auto 34.5 % (18.3-44.2); Mean Corpuscular Hemoglobin 39.5 pg (26-34); Mean Corpuscular Volume 109.6 fl (80-100); Monocytes Absolute Auto 0.7 K/mm3 (0.1-0.6); Monocytes Percent Auto 13.1 % (2.6-8.5); Neutrophils Absolute Auto 2.8 K/mm3 (1.3-6.7); Platelet Count Result 147 k/mm3 (150-375); Red Blood Count 2.81 M/mm3 (4.2-5.4); Red Cell Distribution Width 12.8 % (11.5-14.5); White Blood Count 5.6 K/mm3 (4.5-10.0)
[2021-12-16 05:49] LABS: Alanine Aminotransferase 43 U/L (6-35); Albumin Level 2.4 g/dL (3.5-5.1); Alkaline Phosphatase 88 U/L (38-126); Anion Gap 5 mmol/L (8-16); Aspartate Amino Transferase 106 U/L (14-36); Bilirubin,Total 2.5 mg/dL (0.2-1.3); Blood Urea Nitrogen 7 mg/dL (7-17); Calcium 7.1 mg/dL (8.4-10.2); Carbon Dioxide 24 mmol/L (22-30); Chloride 105 mmol/L (98-107); Estimated CRCL calculation 53 ml/min; Estimated Glomerular Filt Rate > 60; Glucose 77 mg/dL (65-110); Magnesium 3.3 mg/dL (1.6-2.3); Potassium 3.5 mmol/L (3.4-5.0); Sodium 134 mmol/L (137-145)
[2021-12-16 06:49] LABS: Folic Acid 3.7 ng/mL (2.76->20)
[2021-12-16] MEDS: POTASSIUM PHOS/SODIUM PHOS 250 MG TABLET PO (09:14)
[2021-12-16] MEDS: PANTOPRAZOLE SODIUM IV 40 MG VIAL IV PUSH ×2 (09:15→19:48)
[2021-12-16] MEDS: POTASSIUM CHLORIDE 20 MEQ PACKET (FOR LIQUID) 40 MEQ PO (09:16)
[2021-12-16] MEDS: THIAMINE HCL 200 MG/2 ML VIAL 100 MG IV PUSH (09:34)
[2021-12-16 11:58] LABS: Hepatitis B Surface Antigen Negative (Negative)
[2021-12-16 12:14] LABS: Hepatitis C Virus Antibody Negative (Negative)
[2021-12-16 13:02] LABS: SPREG INTERNAL CONTROL Positive; Serum Qual hCG Negative
[2021-12-16 14:01] LABS: Hepatitis B Core IgM Result Negative (Negative)
--- NOTE | 2021-12-16 14:03 | PM.CNCAR ---
Assessment and Plan Assessment and plan (1) Syncope: Qualifiers: Syncope type: unspecified Qualified Code(s): R55 - Syncope and collapse Code(s): R55 - Syncope and collapse Status: Acute Plan This is a 45-year-old lady who has a history of alcoholism hypertension who has been drinking heavily as well. She has some sort of gastrointestinal illness for tumor 3 weeks with nausea poor p.o. intake. She had a syncopal episode at her home from which she spontaneously recovered. She has some nonspecific T-wave abnormalities on her ECG as well as a significant level of hypokalemia and on presentation. That has been corrected with intravenous potassium. No arrhythmias have been seen on telemetry thus far that would explain this event. An echocardiogram will be done later today for further evaluation of this. At this point I would recommend simple conservative supportive care and I will determine if any further cardiac investigation is necessary pending any abnormality seen on telemetry and her echocardiographic findings. Efren Hoffmann MD [facility] History of Present Illness History of Present Illness Consult date/time: 12/16/21 14:03 Reason For Visit: hypokalemia, troponin elevation Narrative: This is a 45-year-old woman I am seeing at the request of the hospitalist because of hypokalemia and elevation of her troponin. She came to the hospital yesterday after experiencing a syncopal episode at her parent's home which is somewhere in [place]. She does not have any prior cardiac problems that she is aware of. She does have a history of hypertension and alcoholism. She has been feeling poorly for about 2 weeks or so with a lot of nausea and difficulty keeping down much food or fluid. She has not had any diarrhea she thinks she has had a fever off and on but has really taken her temperature. Denies any history of palpitations chest pain orthopnea PND or edema. She has never had a syncopal episode previously. She states that she was at her parent's home and was outside the front porch to have a cigarette. She suddenly felt poorly and can not describe any more than that and then the next thing she recalls she was waking up after falling face 1st onto the concrete porch. She has some trauma to her lips because of this. She out awakened and went in the house and told her mother about this she put her in the private car and brought her over here at [facility] for evaluation. Upon arrival here she was somewhat argumentative and otherwise was hemodynamically stable. Her electrocardiogram shows sinus rhythm with some nonspecific T-wave abnormalities. Her lab data was remarkable for significant hypokalemia at 2.4. She had troponin levels done for some reason that are mom modestly elevated just barely out of normal range at 0.4 but are all flat. In this setting I am seeing her in consultation she is on telemetry in room 214 has had nothing but normal sinus rhythm since arrival. Since arrival her potassium has been supplemented she has been given some IV fluids her potassium level is now 3.5. She does not have any other complaints at this time. An echocardiogram has been ordered which has not yet been performed. She has a history of cigarette smoking as mentioned above she also drinks 4-6 alcoholic beverages daily. Review of Systems Constitutional: Constitutional: Reports no additional constitutional complaints Eyes: Eyes: Reports no additional eye complaints ENT: Reports system reviewed and no additional complaints, except as documented Cardiovascular: Cardiovascular: Reports no additional cardiovascular complaints Respiratory: Respiratory: Reports cough Gastrointestinal: Gastrointestinal: Reports nausea Musculoskeletal: Musculoskeletal: Reports no additional musculoskeletal complaints Integumentary/Breasts: Skin/Breast: Reports system reviewed and no additional complaints, except as docu Neurologic: Re
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
[2021-12-16 14:37] LABS: HAV RESULT Negative (Negative)
[2021-12-16] MEDS: traMADol HCL (*CRX) 50 MG TABLET PO ×2 (15:05→21:52)
--- NOTE | 2021-12-16 15:46 | PM.CNOR ---
Assessment and Plan Assessment and plan (1) Avascular necrosis of left femoral head: Code(s): M87.052 - Idiopathic aseptic necrosis of left femur Status: Acute (2) Alcohol abuse: Code(s): F10.10 - Alcohol abuse, uncomplicated Status: Chronic (3) Tobacco dependence: Code(s): F17.200 - Nicotine dependence, unspecified, uncomplicated Status: Chronic (4) Acute kidney injury: Code(s): N17.9 - Acute kidney failure, unspecified Status: Acute History of Present Illness HPI Consult date: 12/16/21 Chief complaint: hypokalemia, troponin elevation Narrative: Patient found to have a lesion on the left femoral head as an incidental finding on a CT scan performed in the emergency department. Denies hip pain. No trauma. Some back pain and intermittent leg pain. Examination Patient is alert and oriented. Thin. No tenderness about the hip. No mass or lesions. Full painless range of motion. Normal leg lengths. No atrophy. Skin without rash or lesions. Bearing full weight without gait aids. No limp. Negative Trendelenburg. Diagnostics I reviewed the CT scan and agree that there is a defect at the femoral head subchondral bone concerning for avascular necrosis. Impression Likely avascular necrosis left hip. Risk factors include alcoholism. Currently asymptomatic. I recommend an MRI to characterize the extent of the lesion, and confirm the diagnosis. Depending on the findings, treatment modalities can be considered to prevent progression and possible femoral head collapse. Review of Systems Review of Systems: All systems reviewed & are unremarkable except as noted in HPI and below PMFSH Past Medical History Medical History (Updated 12/16/21 @ 14:37 by Gonsalo Lund MD) Alcohol abuse Alcoholic fatty liver Essential hypertension Marijuana use Nausea and vomiting in adult Tobacco dependence Surgical History Surgical History H/O dilation and curettage History of ear surgery 2002 - Patient reports a surgery to R ear Family History Family History (Updated 12/15/21 @ 22:10 by Fiordaliza West DO) Father Hypertension Sibling Diabetes mellitus Grandparent Esophageal cancer Social History Social History (Updated 12/15/21 @ 23:24 by Fiordaliza West DO) Social History: She lives with her father and stepmother. She has 2 sons age 19 and 21. She drinks 2-4 shot today. She reports using marijuana daily, mostly by smoking but also sometimes ingestion. She smokes 1.5 packs per day since age 20yo but has cut down to 1 pack of cigarettes per day. She does not have a primary care provider. Code status: Full code Surrogate decision maker: Father Smoking packs per day: 1.5 Smoking cigarettes per day: 30.0 Years smoked: 25 Smoking pack-years: 37.50 Smoking status: Current every day smoker Tobacco type: cigarettes Alcohol intake: current Drinks per week: 12 Alcohol use details: states daily tobacco use Substance use: never Substance use type: marijuana Other substance usage details: 07/05/2020 not using marijuana due to cost Last use: 08/20/2019 Gender identity (if verbalized by the patient): Female Spiritual care concerns: No Meds Home Medications and Allergies Home Medications Medication Instructions Recorded Confirmed Type metoprolol tartrate 25 mg tablet 25 mg PO BID #60 tabs 04/28/20 12/15/21 Rx nifedipine 30 mg tablet,extended 30 mg PO DAILY 07/05/20 12/15/21 History release promethazine 25 mg tablet 25 mg PO TID PRN nausea and 12/09/21 12/15/21 Rx vomiting #10 tabs azithromycin 250 mg tablet See Rx Instructions .Route .COMPLEX 12/15/21 12/15/21 History (Zithromax Z-Steven) Allergies Allergy/AdvReac Type Severity Reaction Status Date / Time meperidine Allergy Intermediate Hives Verified 12/15/21 17:33 Vital Signs Vital S
--- NOTE | 2021-12-16 17:16 | PM.IMPN ---
Progress Note: A&P Assessment and Plan (1) Syncope: Qualifiers: Syncope type: unspecified Qualified Code(s): R55 - Syncope and collapse Code(s): R55 - Syncope and collapse Status: Acute Assessment and Plan: Possibly due to orthostasis versus cardiac event. Patient does have QT prolongation and several electrolyte abnormality sec could contribute to cardiac arrhythmia. 12/16/2021 interval history: 45-year-old female with history of alcohol abuse was brought emergency depart after she had syncopal episode with collapse striking her face and injury to bridge of the nose and lips, patient states he was sitting on the floor when she stood up patient fell forward to her face most likely orthostatic hypotension due to alcohol and poor p.o. intake, to further evaluate patient had bilateral carotid ultrasound essentially normal, patient also has elevated tropes very mild and flat seen by cardiology does not recommend any ischemic workup, patient with abdominal pain nausea or vomit seen by GI suspect esophagitis secondary to excessive alcohol recommending PPI and antiemetic, on CT scan of the abdomen incidental finding avascular necrosis of left femoral head patient has no complaint of hip pain seen by orthopedic surgeon ordered MRI of the hip to further evaluate and further recommendation to follow. (2) Elevated troponin: Code(s): R77.8 - Other specified abnormalities of plasma proteins Status: Acute Assessment and Plan: Elevated troponin with ST changes in lateral leads. Will continue to trend troponins. Cardiology has been consulted. Patient received 1 dose of therapeutic Lovenox in the ER. (3) Lactic acidosis: Code(s): E87.2 - Acidosis Status: Acute Assessment and Plan: Likely due to combination of starvation ketosis and alcoholic acidosis. Will give aggressive IV fluid hydration. (4) Acute hypokalemia: Code(s): E87.6 - Hypokalemia Status: Acute Assessment and Plan: The patient received 40 mEq of IV potassium in the ER in 20 mEq p.o.. I have ordered another 20 mg potassium and will repeat a level had midnight. Will check magnesium and phosphorus level. (5) QT prolongation: Code(s): R94.31 - Abnormal electrocardiogram [ECG] [EKG] Status: Acute Assessment and Plan: Possibly related to the patient's multiple electrolyte abnormalities. Could be a contributing factor to the patient's syncopal episode. Will avoid QT prolonging medications. Will repeat EKG in a.m.. (6) Dysphagia: Code(s): R13.10 - Dysphagia, unspecified Status: Acute Assessment and Plan: Dysphagia with sensation of globus with reports of what sounds like some GERD symptoms. Will consult GI for further recommendations. Will place patient on Protonix IV q.12 hours. (7) Acute kidney injury: Code(s): N17.9 - Acute kidney failure, unspecified Status: Acute Assessment and Plan: Due to volume depletion. Will give 1 L fluid bolus and continue maintenance fluids. Repeat electrolyte panel in a.m.. (8) Alcohol abuse: Code(s): F10.10 - Alcohol abuse, uncomplicated Status: Chronic Assessment and Plan: Will place patient on CIWA protocol. Librium as needed for symptoms of withdrawal. Thiamine supplementation. Will check B12 folate level in a.m.. (9) Alcoholic fatty liver: Code(s): K70.0 - Alcoholic fatty liver Status: Acute Assessment and Plan: Patient has elevated transaminases likely due to chronic alcoholic fatty liver disease and given increased transaminases from baseline likely some component of acute alcohol intoxication. Will repeat CMP in a.m.. (10) Tobacco dependence: Code(s): F17.200 - Nicotine dependence, unspecified, uncomplicated Status: Chronic Assessment and Plan: Tobacco cessation education has been provided. Nicotine patch will be made
[2021-12-16] MEDS: ACETAMINOPHEN 500 MG TABLET PO (19:47)
[2021-12-16] MEDS: chlordiazePOXIDE (*CRX) 25 MG CAPSULE PO (21:52)
[2021-12-17] VITALS (12 sets, daily range): BP systolic 122–131; BP diastolic 74–82; PULSE 64–76; RESP 16–20; TEMP 36.1–36.4; O2SAT 98–100
[2021-12-17] MEDS: NICOTINE (*PBKC) 21 MG PATCH 1 PATCH TRANSDERM (01:04)
[2021-12-17 04:43] LABS: Hematocrit 32.2 % (37.0-47.0); Hemoglobin 11.5 g/dL (12.0-15.0); Mean Corpuscular HGB Conc 35.7 g/dl (32-36); Mean Corpuscular Volume 109.2 fl (80-100); Mean Platelet Volume 9.7 fl (7.4-10.4); Platelet Count Result 132 k/mm3 (150-375); Red Blood Count 2.95 M/mm3 (4.2-5.4); Red Cell Distribution Width 12.9 % (11.5-14.5); White Blood Count 5.1 K/mm3 (4.5-10.0)
[2021-12-17 04:59] LABS: Alanine Aminotransferase 35 U/L (6-35); Albumin Level 2.5 g/dL (3.5-5.1); Alkaline Phosphatase 79 U/L (38-126); Anion Gap 8 mmol/L (8-16); Aspartate Amino Transferase 67 U/L (14-36); Bilirubin,Total 1.7 mg/dL (0.2-1.3); Blood Urea Nitrogen 5 mg/dL (7-17); Calcium 7.2 mg/dL (8.4-10.2); Carbon Dioxide 26 mmol/L (22-30); Chloride 100 mmol/L (98-107); Estimated CRCL calculation 61 ml/min; Estimated Glomerular Filt Rate > 60; Glucose 74 mg/dL (65-110); Magnesium 2.2 mg/dL (1.6-2.3); Potassium 3.4 mmol/L (3.4-5.0); Sodium 134 mmol/L (137-145)
[2021-12-17 05:52] LABS: SARS-CoV-2 RNA PCR Negative
--- NOTE | 2021-12-17 06:15 | PC.NURSE ---
This patient, Kavita Rosen, was transferred to [facility] in [place] on 12/17/21 at 0612. Personal belongings sent with patient. Report given to ERWIN Bradshaw. Appropriate documentation sent with patient.
[2021-12-17] MEDS: traMADol HCL (*CRX) 50 MG TABLET PO ×3 (06:36→20:04)
--- NOTE | 2021-12-17 06:42 | PC.NURSE ---
This patient, Kavita Rosen, was received from [ IMU] on 12/17/21 at 0642. Patient/family oriented to unit policies and routines
[2021-12-17] MEDS: chlordiazePOXIDE (*CRX) 25 MG CAPSULE PO ×3 (07:00→20:17)
--- NOTE | 2021-12-17 09:01 | ECG_ITS ---
Measurements Intervals [place] Rate: 63 P: 59 VT: 155 QRS: 26 QRSD: 88 T: 3 QT: 462 QTc: 476 Interpretive Statements SINUS RHYTHM NONSPECIFIC ST & T-WAVE ABNORMALITY- ANTEROLAT/INF LEADS BASELINE WANDER- I, II BORDERLINE ECG COMPARED TO ECG 12/15/2021 17:31:15 NO SIGNIFICANT CHANGES Electronically Signed On 12-17-2021 10:16:11 CDT by Madhu Black D.O.
[2021-12-17] MEDS: THIAMINE HCL 200 MG/2 ML VIAL 100 MG IV PUSH (09:02)
[2021-12-17] MEDS: POTASSIUM CHLORIDE 20 MEQ TABLET 40 MEQ PO (09:03)
[2021-12-17] MEDS: PANTOPRAZOLE SODIUM IV 40 MG VIAL IV PUSH ×2 (09:03→20:04)
--- NOTE | 2021-12-17 11:01 | PM.PNCARD ---
Progress Note: A&P Assessment and Plan (1) Syncope: Qualifiers: Syncope type: unspecified Qualified Code(s): R55 - Syncope and collapse Code(s): R55 - Syncope and collapse Status: Acute Plan 45-year-old lady who has long history of alcoholism presenting with after a syncopal episode and couple of weeks a very poor p.o. intake. Also hypokalemic on admission. No dysrhythmias that would explain this event have been noticed. Echocardiogram has been requested and has not yet been performed. No other specific cardiac recommendations or concerns at this time Efren Hoffmann MD [facility] Subjective Date/time seen: Date of service: 12/17/21 11:02 Interval history: Follow-up visit in this 45-year-old lady with: Syncopal episode occurring in the setting of a lot of nausea poor p.o. intake for several weeks because of excessive ethanol consumption. Patient also found to be significantly hypokalemic on admission. Has been stable since admission no active cardiovascular complaints. Echocardiogram is pending. Exam Const: General: comfortable and no acute distress Other: Well-developed well-nourished 45-year-old woman visiting with mother HENMT: Mouth: Yes moist mucous membranes Eyes: Sclera: sclerae normal Pupils: Equal, round and reactive pupils present Neck: Neck: supple and no JVD Resp: Effort & Inspection: normal respiratory effort Auscultation: clear to auscultation bilaterally Cardio: Rate: regular rate Rhythm: regular rhythm Other: PMI nondisplaced no murmur no gallop GI: GI Palp: Yes Soft to palpation Auscultation: normal bowel sounds Skin: General skin exam: normal color Neuro: Other: Alert and oriented x3 Extrem: Other: No edema Objective Data Vital Signs Vital Signs: Vital Signs - 24 hr 12/16/21 12:00 12/16/21 12:00 12/16/21 14:00 Temperature 36.3 C L Pulse Rate 59 L 66 72 Pulse Rate [Bilateral Pedal (Dorsalis Pedis) Palpation] Respiratory Rate 18 Blood Pressure 117/72 Pulse Oximetry 98 Oxygen Delivery 12/16/21 16:00 12/16/21 20:35 12/16/21 20:00 Temperature 36.2 C L 36.4 C Pulse Rate 72 65 Pulse Rate [Bilateral Pedal (Dorsalis Pedis) Palpation] Respiratory Rate 18 18 Blood Pressure 109/78 109/64 Pulse Oximetry 99 100 Oxygen Delivery Room Air 12/17/21 00:00 12/17/21 04:44 12/17/21 06:37 Temperature 36.2 C L 36.4 C L Pulse Rate 72 70 Pulse Rate [Bilateral Pedal (Dorsalis Pedis) Palpation] 64 Respiratory Rate 18 16 Blood Pressure 123/74 131/82 Pulse Oximetry 100 99 Oxygen Delivery 12/17/21 10:07 Temperature Pulse Rate Pulse Rate [Bilateral Pedal (Dorsalis Pedis) Palpation] Respiratory Rate Blood Pressure Pulse Oximetry 98 Oxygen Delivery Room Air Intake/Output Intake/Output: Intake & Output 12/14/21 12/15/21 12/16/21 12/17/21 23:59 23:59 23:59 23:59 Intake Total 2520 1450 138 Output Total 400 Balance 2520 1050 138 Meds/Results Medications: Active Medications Generic Name Dose Route Start Last Admin Trade Name Freq PRN Reason Stop Dose Admin Acetaminophen 500 mg 12/15/21 22:12 12/16/21 19:47 Acetaminophen 500 Mg Tablet PO 500 mg Q6H PRN Administration Mild Pain (1-3) or Fever Chlordiazepoxide HCl 25 mg 12/15/21 20:13 12/17/21 07:00 Chlordiazepoxide (*Crx) 25 Mg Capsule PO 25 mg Q6H PRN Administration Withdrawal Nicotine 1 patch 12/15/21 20:12 12/17/21 01:04 Nicotine (*Pbkc) 21 Mg Patch TRANSDERM 1 patch QAM PRN Administration Nicotine withdrawal Pantoprazole Sodium 40 mg 12/15/21 21:40 12/17/21 09:03 Pantoprazole Sodium Iv 40 Mg Vial IV PUSH 40 mg Q12HR CARRIE Administration Perflutren Lipid Microsphere 0 ml 12/16/21 11:36 Perflutren Lipid Microspheres 1.5 Ml Vial Diluted To 10 Ml Total Volume IV PUSH 12/18/21 11:37 ONCE PRN adequate visualization Protocol Thiamine HCl 100 mg 12/15/21
--- NOTE | 2021-12-17 11:57 | PM.IMPN ---
Progress Note: A&P Assessment and Plan (1) Syncope: Qualifiers: Syncope type: unspecified Qualified Code(s): R55 - Syncope and collapse Code(s): R55 - Syncope and collapse Status: Acute Assessment and Plan: Possibly due to orthostasis versus cardiac event. Patient does have QT prolongation and several electrolyte abnormality sec could contribute to cardiac arrhythmia. 12/17/2021 interval history: 45-year-old female with history of alcohol abuse was brought emergency depart after she had syncopal episode with collapse striking her face and injury to bridge of the nose and lips, patient states she was sitting on the floor when she stood up patient fell forward to her face most likely orthostatic hypotension due to alcohol and poor p.o. intake, to further evaluate patient had bilateral carotid ultrasound essentially normal,cardiac echo is pending, patient also has elevated tropes very mild and flat seen by cardiology does not recommend any ischemic workup, patient with abdominal pain nausea or vomit seen by GI suspect esophagitis secondary to excessive alcohol recommending PPI and antiemetic, on CT scan of the abdomen incidental finding avascular necrosis of left femoral head patient has no complaint of hip pain seen by orthopedic surgeon ordered MRI of the hip to further evaluate and further recommendation to follow. (2) Elevated troponin: Code(s): R77.8 - Other specified abnormalities of plasma proteins Status: Acute Assessment and Plan: Elevated troponin with ST changes in lateral leads. Will continue to trend troponins. Cardiology has been consulted. Patient received 1 dose of therapeutic Lovenox in the ER. (3) Lactic acidosis: Code(s): E87.2 - Acidosis Status: Acute Assessment and Plan: Likely due to combination of starvation ketosis and alcoholic acidosis. Will give aggressive IV fluid hydration. (4) Acute hypokalemia: Code(s): E87.6 - Hypokalemia Status: Acute Assessment and Plan: The patient received 40 mEq of IV potassium in the ER in 20 mEq p.o.. I have ordered another 20 mg potassium and will repeat a level had midnight. Will check magnesium and phosphorus level. (5) QT prolongation: Code(s): R94.31 - Abnormal electrocardiogram [ECG] [EKG] Status: Acute Assessment and Plan: Possibly related to the patient's multiple electrolyte abnormalities. Could be a contributing factor to the patient's syncopal episode. Will avoid QT prolonging medications. Will repeat EKG in a.m.. (6) Dysphagia: Code(s): R13.10 - Dysphagia, unspecified Status: Acute Assessment and Plan: Dysphagia with sensation of globus with reports of what sounds like some GERD symptoms. Will consult GI for further recommendations. Will place patient on Protonix IV q.12 hours. (7) Acute kidney injury: Code(s): N17.9 - Acute kidney failure, unspecified Status: Acute Assessment and Plan: Due to volume depletion. Will give 1 L fluid bolus and continue maintenance fluids. Repeat electrolyte panel in a.m.. (8) Alcohol abuse: Code(s): F10.10 - Alcohol abuse, uncomplicated Status: Chronic Assessment and Plan: Will place patient on CIWA protocol. Librium as needed for symptoms of withdrawal. Thiamine supplementation. Will check B12 folate level in a.m.. (9) Alcoholic fatty liver: Code(s): K70.0 - Alcoholic fatty liver Status: Acute Assessment and Plan: Patient has elevated transaminases likely due to chronic alcoholic fatty liver disease and given increased transaminases from baseline likely some component of acute alcohol intoxication. Will repeat CMP in a.m.. (10) Tobacco dependence: Code(s): F17.200 - Nicotine dependence, unspecified, uncomplicated Status: Chronic Assessment and Plan: Tobacco cessation education has been provided. N
--- NOTE | 2021-12-17 12:32 | WPDGIPROGNO ---
Progress Note: A&P Assessment and Plan (1) Nausea and vomiting in adult: Code(s): R11.2 - Nausea with vomiting, unspecified Status: Acute Assessment and Plan: probably from alcohol abuse, wonder if could have esophagitis, ulcer, etc also poor oral intake better here with medical treatment iv protonix egd on Sunday (2) Anorexia: Code(s): R63.0 - Anorexia Status: Acute Assessment and Plan: alcoholism and starvation encourage to eat hypokalemia resolved (3) Lactic acidosis: Code(s): E87.2 - Acidosis Status: Acute Assessment and Plan: improved (4) Alcohol abuse: Code(s): F10.10 - Alcohol abuse, uncomplicated Status: Chronic Assessment and Plan: will need treatment thiamine, monitor for withdrawal (5) Alcoholic fatty liver: Code(s): K70.0 - Alcoholic fatty liver Status: Acute (6) Elevated liver enzymes: Code(s): R74.8 - Abnormal levels of other serum enzymes Status: Acute Assessment and Plan: coming down (7) Acute hypokalemia: Code(s): E87.6 - Hypokalemia Status: Acute Subjective Date/time seen: 12/17/21 12:32 Interval history: no more nausea but still abdominal discomfort, complaining of pain around her mouth (she has facial injury from recent fall), still poor appetite but trying to eat more. Family members at bedside Review of Systems Review of Systems: All systems reviewed & are unremarkable except as noted in HPI and below Exam Const: Other: Appears older than stated age, thin body habitus HENMT: Other: Bruising swelling to upper and lower lip, broken front tooth, mucous membranes are dry, no oral pharyngeal erythema Eyes: Other: Pupils are equal and reactive, no scleral icterus Neck: Neck: supple Chest: Other: Abrasion to left shoulder, no reproducible tenderness palpation Resp: Other: Decreased breath sounds at the bases bilaterally, wheezing anteriorly Cardio: Other: Regular rate, regular rhythm GI: Other: Distended, generalized tenderness, normoactive bowel sounds Skin: Other: The bleeding is swelling to upper and lower lips, abrasion to left anterior chest Neuro: Other: Alert oriented, speech is clear but slow, no facial asymmetry, moves all extremities equally Extrem: Other: No clubbing, cyanosis or edema Psych: Other: Flat affect, poor attitude, judgment insight poor Objective Data Vital Signs Vital Signs: Vital Signs - 24 hr 12/16/21 14:00 12/16/21 16:00 12/16/21 20:35 Temperature 97.1 F L 97.6 F Pulse Rate 72 72 65 Pulse Rate [Bilateral Pedal (Dorsalis Pedis) Palpation] Respiratory Rate 18 18 Blood Pressure 109/78 109/64 Pulse Oximetry 99 100 Oxygen Delivery 12/16/21 20:00 12/17/21 00:00 12/17/21 04:44 Temperature 97.2 F L Pulse Rate 72 Pulse Rate [Bilateral Pedal (Dorsalis Pedis) Palpation] 64 Respiratory Rate 18 Blood Pressure 123/74 Pulse Oximetry 100 Oxygen Delivery Room Air 12/17/21 06:37 12/17/21 10:07 Temperature 97.5 F L Pulse Rate 70 Pulse Rate [Bilateral Pedal (Dorsalis Pedis) Palpation] Respiratory Rate 16 Blood Pressure 131/82 Pulse Oximetry 99 98 Oxygen Delivery Room Air Intake/Output Intake/Output: Intake & Output 12/14/21 12/15/21 12/16/21 12/17/21 23:59 23:59 23:59 23:59 Intake Total 2520 1450 138 Output Total 400 Balance 2520 1050 138 Meds/Results Medications: Active Medications Generic Name Dose Route Start Last Admin Trade Name Freq PRN Reason Stop Dose Admin Acetaminophen 500 mg 12/15/21 22:12 12/16/21 19:47 Acetaminophen 500 Mg Tablet PO 500 mg Q6H PRN Administration Mild Pain (1-3) or Fever Chlordiazepoxide HCl 25 mg 12/15/21 20:13 12/17/21 07:00 Chlordiazepoxide (*Crx) 25 Mg Capsule PO 25 mg Q6H PRN Administration Withdrawal Nicotine 1 patch 12/15/21 20:12 12/17/21 01:04 Nicotine (*Pbkc)
[2021-12-17] MEDS: ALBUTEROL SULFATE NEB 2.5 MG/3 ML INH INHALATION (20:51)
[2021-12-18] VITALS (8 sets, daily range): BP systolic 111–139; BP diastolic 69–79; PULSE 64–108; RESP 18–20; TEMP 35.8–36.4; O2SAT 96–99
[2021-12-18] MEDS: chlordiazePOXIDE (*CRX) 25 MG CAPSULE PO ×3 (05:26→19:12)
[2021-12-18] MEDS: traMADol HCL (*CRX) 50 MG TABLET PO ×3 (05:26→19:08)
[2021-12-18 06:34] LABS: Hematocrit 35.9 % (37.0-47.0); Hemoglobin 12.5 g/dL (12.0-15.0); Mean Corpuscular HGB Conc 34.8 g/dl (32-36); Mean Corpuscular Hemoglobin 39.1 pg (26-34); Mean Corpuscular Volume 112.2 fl (80-100); Mean Platelet Volume 10.1 fl (7.4-10.4); Platelet Count Result 150 k/mm3 (150-375); Red Cell Distribution Width 12.9 % (11.5-14.5); White Blood Count 5.4 K/mm3 (4.5-10.0)
[2021-12-18 06:50] LABS: Alanine Aminotransferase 33 U/L (6-35); Albumin Level 2.8 g/dL (3.5-5.1); Alkaline Phosphatase 88 U/L (38-126); Anion Gap 10 mmol/L (8-16); Aspartate Amino Transferase 65 U/L (14-36); Bilirubin,Total 1.8 mg/dL (0.2-1.3); Blood Urea Nitrogen 5 mg/dL (7-17); Calcium 7.7 mg/dL (8.4-10.2); Carbon Dioxide 29 mmol/L (22-30); Chloride 97 mmol/L (98-107); Estimated CRCL calculation 61 ml/min; Estimated Glomerular Filt Rate > 60; Glucose 72 mg/dL (65-110); Magnesium 1.6 mg/dL (1.6-2.3); Sodium 136 mmol/L (137-145)
--- NOTE | 2021-12-18 09:34 | WPDGIPROGNO ---
Progress Note: A&P Assessment and Plan (1) Nausea and vomiting in adult: Code(s): R11.2 - Nausea with vomiting, unspecified Status: Acute Assessment and Plan: probably from alcohol abuse, wonder if could have esophagitis, ulcer, etc also poor oral intake iv protonix egd tomorrow (2) Anorexia: Code(s): R63.0 - Anorexia Status: Acute Assessment and Plan: alcoholism and starvation encourage to eat hypokalemia resolved egd in am (3) Alcohol abuse: Code(s): F10.10 - Alcohol abuse, uncomplicated Status: Chronic Assessment and Plan: advise to quit and get help as outpatient thiamine, monitor for withdrawal (4) Alcoholic fatty liver: Code(s): K70.0 - Alcoholic fatty liver Status: Acute (5) Elevated liver enzymes: Code(s): R74.8 - Abnormal levels of other serum enzymes Status: Acute Assessment and Plan: coming down from alcohol abuse hepatitis panel negative (6) Acute hypokalemia: Code(s): E87.6 - Hypokalemia Status: Acute Assessment and Plan: treated Subjective Date/time seen: 12/18/21 09:34 Interval history: still nauseous with epigastric discomfort and poor appetite, she is anxious Review of Systems Review of Systems: All systems reviewed & are unremarkable except as noted in HPI and below Exam Const: Other: Appears older than stated age, thin body habitus HENMT: Other: Bruising swelling to upper and lower lip, broken front tooth, mucous membranes are dry, no oral pharyngeal erythema Eyes: Other: Pupils are equal and reactive, no scleral icterus Neck: Neck: supple Resp: Auscultation: clear to auscultation bilaterally Cardio: Other: Regular rate, regular rhythm GI: GI Palp: Yes Soft to palpation and No Guarding due to palpation present (GI) Auscultation: normal bowel sounds Skin: Other: trauma in upper and lower lips, abrasion to left anterior chest Neuro: Other: Alert oriented, speech is clear, no facial asymmetry, moves all extremities equally Extrem: Other: No clubbing, cyanosis or edema Psych: Other: Flat affect Objective Data Vital Signs Vital Signs: Vital Signs - 24 hr 12/17/21 10:07 12/17/21 12:00 12/17/21 13:56 Temperature 97.0 F L Pulse Rate 65 Pulse Rate [Bilateral Pedal (Dorsalis Pedis) Palpation] 76 Respiratory Rate 20 Blood Pressure 122/77 Pulse Oximetry 98 100 Oxygen Delivery Room Air 12/17/21 16:00 12/17/21 20:00 12/17/21 20:42 Temperature Pulse Rate 72 Pulse Rate [Bilateral Pedal (Dorsalis Pedis) Palpation] 72 72 Respiratory Rate 16 Blood Pressure Pulse Oximetry Oxygen Delivery 12/17/21 20:53 12/17/21 23:16 12/17/21 23:59 Temperature 97.4 F L Pulse Rate 74 68 Pulse Rate [Bilateral Pedal (Dorsalis Pedis) Palpation] 68 Respiratory Rate 16 17 Blood Pressure 129/79 Pulse Oximetry 98 Oxygen Delivery 12/18/21 04:00 12/18/21 08:00 12/18/21 08:00 Temperature 96.4 F L Pulse Rate 66 Pulse Rate [Bilateral Pedal (Dorsalis Pedis) Palpation] 68 80 Respiratory Rate 18 Blood Pressure 139/78 Pulse Oximetry 98 Oxygen Delivery Intake/Output Intake/Output: Intake & Output 12/15/21 12/16/21 12/17/21 12/18/21 23:59 23:59 23:59 23:59 Intake Total 2520 1450 496 218 Output Total 400 Balance 2520 1050 496 218 Meds/Results Medications: Active Medications Generic Name Dose Route Start Last Admin Trade Name Freq PRN Reason Stop Dose Admin Acetaminophen 500 mg 12/15/21 22:12 12/16/21 19:47 Acetaminophen 500 Mg Tablet PO 500 mg Q6H PRN Administration Mild Pain (1-3) or Fever Albuterol 2.5 mg 12/17/21 14:33 12/17/21 20:51 Albuterol Sulfate Neb 2.5 Mg/3 Ml Inh INHALATION 2.5 mg Q6HRT PRN Administration Shortness Of Breath Chlordiazepoxide HCl 25 mg 12/15/21 20:13 12/18/21 05:26 Chlordiazepoxide (*Crx) 25 Mg Capsule PO 25 mg
[2021-12-18] MEDS: NICOTINE (*PBKC) 21 MG PATCH 1 PATCH TRANSDERM (09:40)
[2021-12-18] MEDS: ACETAMINOPHEN 500 MG TABLET PO (09:43)
[2021-12-18] MEDS: MAGNESIUM OXIDE 400 MG TABLET PO (09:43)
[2021-12-18] MEDS: PANTOPRAZOLE 40 MG TABLET PO (11:54)
[2021-12-18] MEDS: THIAMINE HCL 100 MG TABLET PO (11:54)
[2021-12-18] MEDS: ALBUTEROL SULFATE NEB 2.5 MG/3 ML INH INHALATION (12:00)
--- NOTE | 2021-12-18 12:28 | PM.IMPN ---
Progress Note: A&P Assessment and Plan (1) Syncope: Qualifiers: Syncope type: unspecified Qualified Code(s): R55 - Syncope and collapse Code(s): R55 - Syncope and collapse Status: Acute Assessment and Plan: Possibly due to orthostasis versus cardiac event. Patient does have QT prolongation and several electrolyte abnormality sec could contribute to cardiac arrhythmia. 12/18/2021 interval history: 45-year-old female with history of alcohol abuse was brought emergency depart after she had syncopal episode with collapse striking her face and injury to bridge of the nose and lips, patient states she was sitting on the floor when she stood up patient fell forward to her face most likely orthostatic hypotension due to alcohol and poor p.o. intake, to further evaluate patient had bilateral carotid ultrasound essentially normal,cardiac echo showed normal LV function with EF of 65%, patient also has elevated tropes very mild and flat seen by cardiology does not recommend any ischemic workup, patient with abdominal pain nausea or vomit seen by GI suspect esophagitis secondary to excessive alcohol recommending PPI and antiemetic, patient is tolerating her diet, on CT scan of the abdomen incidental finding avascular necrosis of left femoral head patient has no complaint of hip pain seen by orthopedic surgeon ordered MRI of the hip which showed similar results as CT scan of the hip, patient will be seen by her orthopedic and further recommendation to follow. (2) Elevated troponin: Code(s): R77.8 - Other specified abnormalities of plasma proteins Status: Acute Assessment and Plan: Elevated troponin with ST changes in lateral leads. Will continue to trend troponins. Cardiology has been consulted. Patient received 1 dose of therapeutic Lovenox in the ER. (3) Lactic acidosis: Code(s): E87.2 - Acidosis Status: Acute Assessment and Plan: Likely due to combination of starvation ketosis and alcoholic acidosis. Will give aggressive IV fluid hydration. (4) Acute hypokalemia: Code(s): E87.6 - Hypokalemia Status: Acute Assessment and Plan: The patient received 40 mEq of IV potassium in the ER in 20 mEq p.o.. I have ordered another 20 mg potassium and will repeat a level had midnight. Will check magnesium and phosphorus level. (5) QT prolongation: Code(s): R94.31 - Abnormal electrocardiogram [ECG] [EKG] Status: Acute Assessment and Plan: Possibly related to the patient's multiple electrolyte abnormalities. Could be a contributing factor to the patient's syncopal episode. Will avoid QT prolonging medications. Will repeat EKG in a.m.. (6) Dysphagia: Code(s): R13.10 - Dysphagia, unspecified Status: Acute Assessment and Plan: Dysphagia with sensation of globus with reports of what sounds like some GERD symptoms. Will consult GI for further recommendations. Will place patient on Protonix IV q.12 hours. (7) Acute kidney injury: Code(s): N17.9 - Acute kidney failure, unspecified Status: Acute Assessment and Plan: Due to volume depletion. Will give 1 L fluid bolus and continue maintenance fluids. Repeat electrolyte panel in a.m.. (8) Alcohol abuse: Code(s): F10.10 - Alcohol abuse, uncomplicated Status: Chronic Assessment and Plan: Will place patient on CIWA protocol. Librium as needed for symptoms of withdrawal. Thiamine supplementation. Will check B12 folate level in a.m.. (9) Alcoholic fatty liver: Code(s): K70.0 - Alcoholic fatty liver Status: Acute Assessment and Plan: Patient has elevated transaminases likely due to chronic alcoholic fatty liver disease and given increased transaminases from baseline likely some component of acute alcohol intoxication. Will repeat CMP in a.m.. (10) Tobacco dependence: Code(s): F17.200 - Nicotine dependen
[2021-12-19] VITALS (13 sets, daily range): BP systolic 103–141; BP diastolic 67–88; PULSE 64–87; RESP 12–18; TEMP 36.1–36.9; O2SAT 96–100
[2021-12-19] MEDS: traMADol HCL (*CRX) 50 MG TABLET PO ×3 (06:22→20:35)
[2021-12-19] MEDS: chlordiazePOXIDE (*CRX) 25 MG CAPSULE PO ×3 (06:22→20:35)
[2021-12-19 07:28] LABS: Hematocrit 35.2 % (37.0-47.0); Mean Corpuscular HGB Conc 34.1 g/dl (32-36); Mean Corpuscular Hemoglobin 38.5 pg (26-34); Mean Corpuscular Volume 112.8 fl (80-100); Platelet Count Result 159 k/mm3 (150-375); Red Blood Count 3.12 M/mm3 (4.2-5.4); Red Cell Distribution Width 13.3 % (11.5-14.5); White Blood Count 5.5 K/mm3 (4.5-10.0)
[2021-12-19 07:39] LABS: Alanine Aminotransferase 29 U/L (6-35); Albumin Level 2.6 g/dL (3.5-5.1); Alkaline Phosphatase 83 U/L (38-126); Anion Gap 5 mmol/L (8-16); Aspartate Amino Transferase 55 U/L (14-36); Bilirubin,Total 1.1 mg/dL (0.2-1.3); Blood Urea Nitrogen 7 mg/dL (7-17); Calcium 8.2 mg/dL (8.4-10.2); Carbon Dioxide 30 mmol/L (22-30); Chloride 100 mmol/L (98-107); Estimated CRCL calculation 61 ml/min; Estimated Glomerular Filt Rate > 60; Glucose 75 mg/dL (65-110); Magnesium 1.4 mg/dL (1.6-2.3); Sodium 135 mmol/L (137-145)
[2021-12-19] MEDS: NICOTINE (*PBKC) 21 MG PATCH 1 PATCH TRANSDERM (08:06)
[2021-12-19] MEDS: MAGNESIUM OXIDE 400 MG TABLET PO (08:06)
[2021-12-19] MEDS: THIAMINE HCL 100 MG TABLET PO (08:06)
[2021-12-19] MEDS: PANTOPRAZOLE 40 MG TABLET PO (08:06)
[2021-12-19] MEDS: MAGNESIUM SULF 2 GM/WATER 50ML 2 GM/50 ML BAG IVPB (10:05)
[2021-12-19] MEDS: SODIUM CHLORIDE 0.9% IV 1,000 ML 100 ML IV CONT ×2 (10:05→20:36)
--- NOTE | 2021-12-19 11:01 | WPDANESEPPF ---
Anes - Initial Pre Proc Eval Procedure: Operation Date: 12/19/21 13:00 Proposed Procedures p Esophagogastroduodenoscopy EGD - Gonsalo Lund MD Date/Time: 12/19/21 11:01 Surgeon: Mary Wagner MD Pre Op Diagnosis: hypokalemia, troponin elevation Patient Data Age: 45 Gender: F Height: 1.63 m Weight: 54.4 kg Last Vital Signs Temp 97.0 F L 12/19/21 10:50 Pulse 75 12/19/21 10:50 Resp 18 12/19/21 10:50 BP 141/88 H 12/19/21 10:50 Pulse Ox 100 12/19/21 10:50 O2 Del Method Room Air 12/19/21 10:50 Allergies Allergy/AdvReac Type Severity Reaction Status Date / Time meperidine Allergy Intermediate Hives Verified 12/19/21 10:49 Home Medications Medication Instructions Recorded Confirmed Type metoprolol tartrate 25 mg tablet 25 mg PO BID #60 tabs 04/28/20 12/19/21 Rx nifedipine 30 mg tablet,extended 30 mg PO DAILY 07/05/20 12/19/21 History release promethazine 25 mg tablet 25 mg PO TID PRN nausea and 12/09/21 12/19/21 Rx vomiting #10 tabs azithromycin 250 mg tablet See Rx Instructions .Route .COMPLEX 12/15/21 12/19/21 History (Zithromax Z-Steven) Laboratory Tests 12/19/21 12/19/21 06:39 06:39 WBC 5.5 K/mm3 K/mm3 (4.5-10.0) RBC 3.12 M/mm3 L M/mm3 (4.2-5.4) Hgb 12.0 g/dL g/dL (12.0-15.0) Hct 35.2 % L % (37.0-47.0) MCV 112.8 fl H fl (80-100) MCH 38.5 pg H pg (26-34) MCHC 34.1 g/dl g/dl (32-36) RDW 13.3 % % (11.5-14.5) Plt Count 159 k/mm3 k/mm3 (150-375) MPV 10.0 fl fl (7.4-10.4) Sodium 135 mmol/L L mmol/L (137-145) Potassium 4.0 mmol/L mmol/L (3.4-5.0) Chloride 100 mmol/L mmol/L (98-107) Carbon Dioxide 30 mmol/L mmol/L (22-30) Anion Gap 5 mmol/L L mmol/L (8-16) BUN 7 mg/dL mg/dL (7-17) Creatinine 0.90 mg/dL mg/dL (0.7-1.0) Estim Creat Clear Calc 61 ml/min ml/min Estimated GFR > 60 (59 - ) Glucose 75 mg/dL mg/dL (65-110) Calcium 8.2 mg/dL L mg/dL (8.4-10.2) Magnesium 1.4 mg/dL L mg/dL (1.6-2.3) Total Bilirubin 1.1 mg/dL mg/dL (0.2-1.3) AST 55 U/L H U/L (14-36) ALT 29 U/L U/L (6-35) Alkaline Phosphatase 83 U/L U/L (38-126) Total Protein 5.0 g/dL L g/dL (6.3-8.2) Albumin 2.6 g/dL L g/dL (3.5-5.1) Patient hx anesthesia problems: none Family hx anesthesia problems: none Results Review: All pre-operative results and documents have been reviewed as part of the pre-operative evaluation. [facility] Past Medical History Medical History (Updated 12/17/21 @ 12:34 by Gonsalo Lund MD) Alcohol abuse Alcoholic fatty liver Anorexia Elevated liver enzymes Essential hypertension Marijuana use Nausea and vomiting in adult Tobacco dependence Surgical History Surgical History H/O dilation and curettage History of ear surgery 2002 - Patient reports a surgery to R ear Family History Family History (Updated 12/15/21 @ 22:10 by Fiordaliza West DO) Father Hypertension Sibling Diabetes mellitus Grandparent Esophageal cancer Social History Social History (Updated 12/15/21 @ 23:24 by Fiordaliza West DO) Social History: She lives with her father and stepmother. She has 2 sons age 19 and 21. She drinks 2-4 shot today. She reports using marijuana daily, mostly by smoking but also sometimes ingestion. She smokes 1.5 packs per day since age 20yo but has cut down to 1 pack of cigarettes per day. She does not have a primary care provider. Code status: Full code Surrogate decision maker: Father Smoking packs per day: 1.5 Smoking cigarettes per day: 30.0 Years smoked: 25 Smoking pack-years: 37.50 Smoking status: Current every day smoker Tobacco type: cigarettes Alcohol intake: current Drinks per week: 12 Alcohol use
[2021-12-19] MEDS: LACTATED RINGERS 1,000 ML 150 ML IV CONT (11:04)
--- NOTE | 2021-12-19 11:54 | PCNFU ---
Nutrition Follow-Up Complete: Inadequate oral intake related to nausea and vomiting as evidenced by admitting diagnosis. Goal:Tolerate diet order with intakes improved to at least 50% - Pt was meeting goal, now is NPO Pt current nutrition is NPO. Nutrition recommendation: Advance diet as medically able Last recorded weight is 54.4 kg. Bowel Motility:+2 12/16/21; +0 12/17/21 Labs Reviewed: Alb 2.6, Na 135 Meds Noted: Librium, Protonix, Thiamine Skin: WNL Additional Notes: Had EGD, mild gastritis found. Monitor diet advancement, intakes, labs. Follow up in 3 days.
--- NOTE | 2021-12-19 16:20 | PM.IMPN ---
Progress Note: A&P Assessment and Plan (1) Syncope: Qualifiers: Syncope type: unspecified Qualified Code(s): R55 - Syncope and collapse Code(s): R55 - Syncope and collapse Status: Acute Assessment and Plan: Possibly due to orthostasis versus cardiac event. Patient does have QT prolongation and several electrolyte abnormality sec could contribute to cardiac arrhythmia. 12/19/2021 interval history: 45-year-old female with history of alcohol abuse was brought emergency depart after she had syncopal episode with collapse striking her face and injury to bridge of the nose and lips, patient states she was sitting on the floor when she stood up patient fell forward to her face most likely orthostatic hypotension due to alcohol and poor p.o. intake, to further evaluate patient had bilateral carotid ultrasound essentially normal,cardiac echo showed normal LV function with EF of 65%, patient also has elevated tropes very mild and flat seen by cardiology does not recommend any ischemic workup, patient with abdominal pain nausea or vomit seen by GI suspect esophagitis secondary to excessive alcohol recommending PPI and antiemetic, patient is tolerating her diet, Patient had EGD today it did not show significant gastritis or any sourse of bleeding, on CT scan of the abdomen incidental finding avascular necrosis of left femoral head patient has no complaint of hip pain seen by orthopedic surgeon ordered MRI of the hip which showed similar results as CT scan of the hip, patient will be seen by her orthopedic and further recommendation to follow (2) Elevated troponin: Code(s): R77.8 - Other specified abnormalities of plasma proteins Status: Acute Assessment and Plan: Elevated troponin with ST changes in lateral leads. Will continue to trend troponins. Cardiology has been consulted. Patient received 1 dose of therapeutic Lovenox in the ER. (3) Lactic acidosis: Code(s): E87.2 - Acidosis Status: Acute Assessment and Plan: Likely due to combination of starvation ketosis and alcoholic acidosis. Will give aggressive IV fluid hydration. (4) Acute hypokalemia: Code(s): E87.6 - Hypokalemia Status: Acute Assessment and Plan: The patient received 40 mEq of IV potassium in the ER in 20 mEq p.o.. I have ordered another 20 mg potassium and will repeat a level had midnight. Will check magnesium and phosphorus level. (5) QT prolongation: Code(s): R94.31 - Abnormal electrocardiogram [ECG] [EKG] Status: Acute Assessment and Plan: Possibly related to the patient's multiple electrolyte abnormalities. Could be a contributing factor to the patient's syncopal episode. Will avoid QT prolonging medications. Will repeat EKG in a.m.. (6) Dysphagia: Code(s): R13.10 - Dysphagia, unspecified Status: Acute Assessment and Plan: Dysphagia with sensation of globus with reports of what sounds like some GERD symptoms. Will consult GI for further recommendations. Will place patient on Protonix IV q.12 hours. (7) Acute kidney injury: Code(s): N17.9 - Acute kidney failure, unspecified Status: Acute Assessment and Plan: Due to volume depletion. Will give 1 L fluid bolus and continue maintenance fluids. Repeat electrolyte panel in a.m.. (8) Alcohol abuse: Code(s): F10.10 - Alcohol abuse, uncomplicated Status: Chronic Assessment and Plan: Will place patient on CIWA protocol. Librium as needed for symptoms of withdrawal. Thiamine supplementation. Will check B12 folate level in a.m.. (9) Alcoholic fatty liver: Code(s): K70.0 - Alcoholic fatty liver Status: Acute Assessment and Plan: Patient has elevated transaminases likely due to chronic alcoholic fatty liver disease and given increased transaminases from baseline likely some component of acute alcohol intoxication. Will repeat C
[2021-12-20] VITALS (9 sets, daily range): BP systolic 110–133; BP diastolic 79–97; PULSE 60–89; RESP 16–20; TEMP 36.1–37; O2SAT 96–97
[2021-12-20 06:22] LABS: Hematocrit 34.7 % (37.0-47.0); Hemoglobin 11.8 g/dL (12.0-15.0); Mean Corpuscular Hemoglobin 38.3 pg (26-34); Mean Corpuscular Volume 112.7 fl (80-100); Mean Platelet Volume 9.9 fl (7.4-10.4); Platelet Count Result 164 k/mm3 (150-375); Red Blood Count 3.08 M/mm3 (4.2-5.4); Red Cell Distribution Width 13.2 % (11.5-14.5); White Blood Count 4.7 K/mm3 (4.5-10.0)
[2021-12-20 06:40] LABS: Alanine Aminotransferase 24 U/L (6-35); Albumin Level 2.3 g/dL (3.5-5.1); Alkaline Phosphatase 75 U/L (38-126); Anion Gap 6 mmol/L (8-16); Aspartate Amino Transferase 48 U/L (14-36); Bilirubin,Total 0.9 mg/dL (0.2-1.3); Blood Urea Nitrogen 4 mg/dL (7-17); Calcium 7.6 mg/dL (8.4-10.2); Carbon Dioxide 29 mmol/L (22-30); Chloride 102 mmol/L (98-107); Estimated CRCL calculation 55 ml/min; Estimated Glomerular Filt Rate > 60; Glucose 74 mg/dL (65-110); Magnesium 1.6 mg/dL (1.6-2.3); Potassium 4.1 mmol/L (3.4-5.0); Sodium 137 mmol/L (137-145)
[2021-12-20] MEDS: NICOTINE (*PBKC) 21 MG PATCH 1 PATCH TRANSDERM (08:27)
[2021-12-20] MEDS: THIAMINE HCL 100 MG TABLET PO (08:27)
[2021-12-20] MEDS: PANTOPRAZOLE 40 MG TABLET PO (08:27)
[2021-12-20] MEDS: MAGNESIUM OXIDE 400 MG TABLET PO (08:27)
[2021-12-20] MEDS: traMADol HCL (*CRX) 50 MG TABLET PO (08:30)
[2021-12-20] MEDS: ALBUTEROL SULFATE NEB 2.5 MG/3 ML INH INHALATION ×2 (08:40→15:00)
[2021-12-20] MEDS: SODIUM CHLORIDE 0.9% IV 1,000 ML 100 ML IV CONT (09:20)
--- NOTE | 2021-12-20 10:19 | WPDANESPN ---
Anes - Prog Note Post-Op Date/Time: 12/20/21 10:19 Cardiovascular status: normal Respiratory status: normal Airway patency: baseline Mental status: baseline Post-Op hydration status: normal Vital Signs: Last Vital Signs Temp 98.6 F 12/20/21 05:18 Pulse 65 12/20/21 09:00 Resp 16 12/20/21 09:00 BP 131/80 12/20/21 05:18 Pulse Ox 97 12/20/21 05:18 O2 Del Method Room Air 12/19/21 11:43 Pain Score (VAS): 5 I/O: Intake & Output 12/19/21 12/20/21 12/20/21 23:59 07:59 15:59 Intake Total 1480 1250 240 Balance 1480 1250 240 Laboratory Tests 12/20/21 06:00 12/20/21 06:00 12/20/21 12/20/21 06:00 06:00 WBC 4.7 RBC 3.08 L Hgb 11.8 L Hct 34.7 L MCV 112.7 H MCH 38.3 H MCHC 34.0 RDW 13.2 Plt Count 164 MPV 9.9 Sodium 137 Potassium 4.1 Chloride 102 Carbon Dioxide 29 Anion Gap 6 L BUN 4 L Creatinine 1.00 Estim Creat Clear Calc 55 Estimated GFR > 60 Glucose 74 Calcium 7.6 L Magnesium 1.6 Total Bilirubin 0.9 AST 48 H ALT 24 Alkaline Phosphatase 75 Total Protein 5.0 L Albumin 2.3 L Post-procedural complaints: none Patient Feedback: Patient satisfied with anesthetic care.
[2021-12-20] MEDS: ACETAMINOPHEN 500 MG TABLET PO (12:15)
--- NOTE | 2021-12-20 12:56 | PM.IMPN ---
Progress Note: A&P Assessment and Plan (1) Syncope: Qualifiers: Syncope type: unspecified Qualified Code(s): R55 - Syncope and collapse Code(s): R55 - Syncope and collapse Status: Acute Assessment and Plan: Possibly due to orthostasis versus cardiac event. Patient does have QT prolongation and several electrolyte abnormality sec could contribute to cardiac arrhythmia. 12/20/2021 interval history: 45-year-old female with history of alcohol abuse was brought emergency depart after she had syncopal episode with collapse striking her face and injury to bridge of the nose and lips, patient states she was sitting on the floor when she stood up patient fell forward to her face most likely orthostatic hypotension due to alcohol and poor p.o. intake, to further evaluate patient had bilateral carotid ultrasound essentially normal,cardiac echo showed normal LV function with EF of 65%, patient also has elevated tropes very mild and flat seen by cardiology does not recommend any ischemic workup, patient with abdominal pain nausea or vomit seen by GI suspect esophagitis secondary to excessive alcohol recommending PPI and antiemetic, patient is tolerating her diet, Patient had EGD it did not show significant gastritis or any source of bleeding, on CT scan of the abdomen incidental finding avascular necrosis of left femoral head patient has complaint of left hip pain LLQ was seen by orthopedic surgeon ordered MRI of the hip which showed similar results as CT scan of the hip, patient will be seen by her orthopedic and further recommendation to follow (2) Elevated troponin: Code(s): R77.8 - Other specified abnormalities of plasma proteins Status: Acute Assessment and Plan: Elevated troponin with ST changes in lateral leads. Will continue to trend troponins. Cardiology has been consulted. Patient received 1 dose of therapeutic Lovenox in the ER. (3) Lactic acidosis: Code(s): E87.2 - Acidosis Status: Acute Assessment and Plan: Likely due to combination of starvation ketosis and alcoholic acidosis. Will give aggressive IV fluid hydration. (4) Acute hypokalemia: Code(s): E87.6 - Hypokalemia Status: Acute Assessment and Plan: The patient received 40 mEq of IV potassium in the ER in 20 mEq p.o.. I have ordered another 20 mg potassium and will repeat a level had midnight. Will check magnesium and phosphorus level. (5) QT prolongation: Code(s): R94.31 - Abnormal electrocardiogram [ECG] [EKG] Status: Acute Assessment and Plan: Possibly related to the patient's multiple electrolyte abnormalities. Could be a contributing factor to the patient's syncopal episode. Will avoid QT prolonging medications. Will repeat EKG in a.m.. (6) Dysphagia: Code(s): R13.10 - Dysphagia, unspecified Status: Acute Assessment and Plan: Dysphagia with sensation of globus with reports of what sounds like some GERD symptoms. Will consult GI for further recommendations. Will place patient on Protonix IV q.12 hours. (7) Acute kidney injury: Code(s): N17.9 - Acute kidney failure, unspecified Status: Acute Assessment and Plan: Due to volume depletion. Will give 1 L fluid bolus and continue maintenance fluids. Repeat electrolyte panel in a.m.. (8) Alcohol abuse: Code(s): F10.10 - Alcohol abuse, uncomplicated Status: Chronic Assessment and Plan: Will place patient on CIWA protocol. Librium as needed for symptoms of withdrawal. Thiamine supplementation. Will check B12 folate level in a.m.. (9) Alcoholic fatty liver: Code(s): K70.0 - Alcoholic fatty liver Status: Acute Assessment and Plan: Patient has elevated transaminases likely due to chronic alcoholic fatty liver disease and given increased transaminases from baseline likely some component of acute alcohol intoxication. Will rep
--- NOTE | 2021-12-20 13:00 | WPDGIPROGNO ---
Progress Note: A&P Assessment and Plan (1) Anorexia: Code(s): R63.0 - Anorexia Status: Acute Assessment and Plan: no major findings in egd only mild gastritis, ppi daily encourage to eat more she is an alcoholic will follow [place], call if questions (2) Elevated liver enzymes: Code(s): R74.8 - Abnormal levels of other serum enzymes Status: Acute Assessment and Plan: coming down (3) Nausea and vomiting in adult: Code(s): R11.2 - Nausea with vomiting, unspecified Status: Acute Assessment and Plan: antiemetics prn (4) Alcohol abuse: Code(s): F10.10 - Alcohol abuse, uncomplicated Status: Chronic (5) Alcoholic fatty liver: Code(s): K70.0 - Alcoholic fatty liver Status: Acute Subjective Date/time seen: 12/20/21 13:00 Interval history: egd with mild gastritis and small HH, no other findings. She is still complaining of headache, feeling weak and some nausea. Review of Systems Review of Systems: All systems reviewed & are unremarkable except as noted in HPI and below Exam Const: Other: Appears older than stated age, thin body habitus HENMT: Other: Bruising swelling to upper and lower lip, broken front tooth, mucous membranes are dry, no oral pharyngeal erythema Eyes: Other: Pupils are equal and reactive, no scleral icterus Neck: Neck: supple Resp: Auscultation: clear to auscultation bilaterally Cardio: Other: Regular rate, regular rhythm GI: GI Palp: Yes Soft to palpation and No Guarding due to palpation present (GI) Auscultation: normal bowel sounds Skin: Other: trauma in upper and lower lips, abrasion to left anterior chest Neuro: Other: Alert oriented, speech is clear, no facial asymmetry, moves all extremities equally Extrem: Other: No clubbing, cyanosis or edema Psych: Other: Flat affect Objective Data Vital Signs Vital Signs: Vital Signs - 24 hr 12/19/21 14:00 12/19/21 16:00 12/19/21 21:20 Temperature 97 F L 98.4 F Pulse Rate 78 76 Pulse Rate [Bilateral Pedal (Dorsalis Pedis) Palpation] 78 Respiratory Rate 12 18 Blood Pressure 133/87 103/67 Pulse Oximetry 98 96 Oxygen Delivery 12/19/21 20:00 12/20/21 00:00 12/20/21 04:00 Temperature Pulse Rate Pulse Rate [Bilateral Pedal (Dorsalis Pedis) Palpation] 64 60 60 Respiratory Rate Blood Pressure Pulse Oximetry Oxygen Delivery 12/20/21 05:18 12/20/21 08:40 12/20/21 09:00 Temperature 98.6 F Pulse Rate 66 66 65 Pulse Rate [Bilateral Pedal (Dorsalis Pedis) Palpation] Respiratory Rate 18 16 16 Blood Pressure 131/80 Pulse Oximetry 97 Oxygen Delivery 12/20/21 08:00 12/20/21 08:00 Temperature Pulse Rate Pulse Rate [Bilateral Pedal (Dorsalis Pedis) Palpation] Respiratory Rate Blood Pressure 133/97 H Pulse Oximetry 96 Oxygen Delivery Room Air Intake/Output Intake/Output: Intake & Output 12/17/21 12/18/21 12/19/21 12/20/21 23:59 23:59 23:59 23:59 Intake Total 569 137 2485 1610 Balance 864 354 1927 1610 Meds/Results Medications: Active Medications Generic Name Dose Route Start Last Admin Trade Name Freq PRN Reason Stop Dose Admin Acetaminophen 500 mg 12/15/21 22:12 12/20/21 12:15 Acetaminophen 500 Mg Tablet PO 500 mg Q6H PRN Administration Mild Pain (1-3) or Fever Albuterol 2.5 mg 12/17/21 14:33 12/20/21 08:40 Albuterol Sulfate Neb 2.5 Mg/3 Ml Inh INHALATION 2.5 mg Q6HRT PRN Administration Shortness Of Breath Chlordiazepoxide HCl 25 mg 12/15/21 20:13 12/19/21 20:35 Chlordiazepoxide (*Crx) 25 Mg Capsule PO 25 mg Q6H PRN Administration Withdrawal Sodium Chloride 1,000 mls @ 100 mls/hr 12/19/21 09:00 12/20/21 09:20 Normal Saline Iv IV CONT 100 mls/hr .Q10H CARRIE Administration Magnesium Oxide 400 mg 12/18/21 09:00 12/20/21 08:27 Magnesium Oxide 400 Mg Tablet PO 400 mg QAM CARRIE Administr
[2021-12-20] MEDS: chlordiazePOXIDE (*CRX) 25 MG CAPSULE PO (14:25)
--- NOTE | 2021-12-20 15:48 | PM.PNORT ---
Progress Note: A&P Assessment and Plan (1) Avascular necrosis of left femoral head: Code(s): M87.052 - Idiopathic aseptic necrosis of left femur Status: Acute Assessment and Plan: The MRI shows a small avascular necrosis lesion in the left femoral head. No definite collapse. Her hip pain is most likely soft tissue pain resulting from a recent fall with contusion. She has no history of significant prior hip or groin pain. The AVN may indeed be asymptomatic at this time. I discussed the condition with the patient and her family. The time line for progression of disease is quite varied. No further treatment is indicated at this time. If she develops progressive arthritis in the future, total hip arthroplasty may be indicated. Follow-up x-rays in 6 months recommended. Subjective Subjective Date/Time Seen: 12/20/21 15:48 Objective Data Vital Signs Vital Signs: Vital Signs - 24 hr 12/19/21 16:00 12/19/21 21:20 12/19/21 20:00 Temperature 36.9 C Pulse Rate 76 Pulse Rate [Bilateral Pedal (Dorsalis Pedis) Palpation] 78 64 Respiratory Rate 18 Blood Pressure 103/67 Pulse Oximetry 96 Oxygen Delivery 12/20/21 00:00 12/20/21 04:00 12/20/21 05:18 Temperature 37.0 C Pulse Rate 66 Pulse Rate [Bilateral Pedal (Dorsalis Pedis) Palpation] 60 60 Respiratory Rate 18 Blood Pressure 131/80 Pulse Oximetry 97 Oxygen Delivery 12/20/21 08:40 12/20/21 09:00 12/20/21 08:00 Temperature Pulse Rate 66 65 Pulse Rate [Bilateral Pedal (Dorsalis Pedis) Palpation] Respiratory Rate 16 16 Blood Pressure 133/97 H Pulse Oximetry Oxygen Delivery 12/20/21 08:00 12/20/21 12:00 12/20/21 14:00 Temperature 36.1 C L Pulse Rate 89 Pulse Rate [Bilateral Pedal (Dorsalis Pedis) Palpation] 89 Respiratory Rate 20 Blood Pressure 110/79 110/79 Pulse Oximetry 96 97 Oxygen Delivery Room Air Intake/Output Intake/Output: Intake & Output 12/17/21 12/18/21 12/19/21 12/20/21 23:59 23:59 23:59 23:59 Intake Total 642 605 6722 1610 Balance 299 571 0574 1610 Meds/Results Medications: Active Medications Generic Name Dose Route Start Last Admin Trade Name Abhishekq PRN Reason Stop Dose Admin Acetaminophen 500 mg 12/15/21 22:12 12/20/21 12:15 Acetaminophen 500 Mg Tablet PO 500 mg Q6H PRN Administration Mild Pain (1-3) or Fever Albuterol 2.5 mg 12/17/21 14:33 12/20/21 08:40 Albuterol Sulfate Neb 2.5 Mg/3 Ml Inh INHALATION 2.5 mg Q6HRT PRN Administration Shortness Of Breath Chlordiazepoxide HCl 25 mg 12/15/21 20:13 12/20/21 14:25 Chlordiazepoxide (*Crx) 25 Mg Capsule PO 25 mg Q6H PRN Administration Withdrawal Sodium Chloride 1,000 mls @ 100 mls/hr 12/19/21 09:00 12/20/21 09:20 Normal Saline Iv IV CONT 100 mls/hr .Q10H CARRIE Administration Magnesium Oxide 400 mg 12/18/21 09:00 12/20/21 08:27 Magnesium Oxide 400 Mg Tablet PO 400 mg QAM CARRIE Administration Nicotine 1 patch 12/15/21 20:12 12/20/21 08:27 Nicotine (*Pbkc) 21 Mg Patch TRANSDERM 1 patch QAM PRN Administration Nicotine withdrawal Ondansetron HCl 4 mg 12/19/21 14:51 Ondansetron Inj 4 Mg/2 Ml Vial IV PUSH Q6H PRN Nausea And Vomiting Pantoprazole Sodium 40 mg 12/18/21 09:00 12/20/21 08:27 Pantoprazole 40 Mg Tablet PO 40 mg QAM CARRIE Administration Thiamine HCl 100 mg 12/18/21 09:00 12/20/21 08:27 Thiamine Hcl 100 Mg Tablet PO 100 mg QAM CARRIE Administration Tramadol HCl 50 mg 12/15/21 22:12 12/20/21 08:30 Tramadol Hcl (*Crx) 50 Mg Tablet PO 50 mg Q6H PRN Administration Pain Rated 4-10 Radiology Results: ITS Impressions Head CT 12/15/21 18:34 IMPRESSION: No significant abnormality Abdomen/Pelvis CT 12/15/21 18:36 IMPRESSION: Hepatic steatosis Nonobstructive minimal left nephrolithiasis Small sliding hiatal hernia Normal appendix Minimal sigmoid d
--- NOTE | 2021-12-20 16:09 | P.DS_ITS ---
DS: Admitting Diagnosis Discharge Date 12/20/2021 Admitting Diagnosis syncope DS: Discharge Diagnosis Discharge Diagnosis (1) Syncope: Qualifiers: Syncope type: unspecified Qualified Code(s): R55 - Syncope and collapse Code(s): R55 - Syncope and collapse Status: Acute Assessment and Plan: Possibly due to orthostasis versus cardiac event. Patient does have QT prolongation and several electrolyte abnormality sec could contribute to cardiac arrhythmia. 12/20/2021 interval history: 45-year-old female with history of alcohol abuse was brought emergency depart after she had syncopal episode with collapse striking her face and injury to bridge of the nose and lips, patient states she was sitting on the floor when she stood up patient fell forward to her face most likely orthostatic hypotension due to alcohol and poor p.o. intake, to further evaluate patient had bilateral carotid ultrasound essentially normal,cardiac echo showed normal LV function with EF of 65%, patient also has elevated tropes very mild and flat seen by cardiology does not recommend any ischemic workup, patient with abdominal pain nausea or vomit seen by GI suspect esophagitis secondary to excessive alcohol recommending PPI and antiemetic, patient is tolerating her diet, Patient had EGD it did not show significant gastritis or any source of bleeding, on CT scan of the abdomen incidental finding avascular necrosis of left femoral head patient has complaint of left hip pain LLQ was seen by orthopedic surgeon ordered MRI of the hip which showed similar results as CT scan of the hip, patient will be seen by her orthopedic and further recommendation to follow (2) Elevated troponin: Code(s): R77.8 - Other specified abnormalities of plasma proteins Status: Acute Assessment and Plan: Elevated troponin with ST changes in lateral leads. Will continue to trend troponins. Cardiology has been consulted. Patient received 1 dose of therapeutic Lovenox in the ER. (3) Lactic acidosis: Code(s): E87.2 - Acidosis Status: Acute Assessment and Plan: Likely due to combination of starvation ketosis and alcoholic acidosis. Will give aggressive IV fluid hydration. (4) Acute hypokalemia: Code(s): E87.6 - Hypokalemia Status: Acute Assessment and Plan: The patient received 40 mEq of IV potassium in the ER in 20 mEq p.o.. I have ordered another 20 mg potassium and will repeat a level had midnight. Will check magnesium and phosphorus level. (5) QT prolongation: Code(s): R94.31 - Abnormal electrocardiogram [ECG] [EKG] Status: Acute Assessment and Plan: Possibly related to the patient's multiple electrolyte abnormalities. Could be a contributing factor to the patient's syncopal episode. Will avoid QT prolonging medications. Will repeat EKG in a.m.. (6) Dysphagia: Code(s): R13.10 - Dysphagia, unspecified Status: Acute Assessment and Plan: Dysphagia with sensation of globus with reports of what sounds like some GERD symptoms. Will consult GI for further recommendations. Will place patient on Protonix IV q.12 hours. (7) Acute kidney injury: Code(s): N17.9 - Acute kidney failure, unspecified Status: Acute Assessment and Plan: Due to volume depletion. Will give 1 L fluid bolus and continue maintenance fluids. Repeat electrolyte panel in a.m.. (8) Alcohol abuse: Code(s): F10.10 - Alcohol abuse, uncomplicated Status: Chronic Assessment and Plan: Will mayra
== END 2021-12-20 17:00 | disposition home or self-care (01) | DRG 423 ==
LOC: ANHED 19:33 → ANHIMU 20:55 → ANH3MEDSUR 12-17 06:26
PROVIDERS: Internal Medicine; Internal Medicine Gastroenterology; Physician Assistant; Admitting Provider Family Medicine; Emergency Provider Emergency Medicine; PCP Family Medicine; Visit Provider Family Medicine
PROC: 0DJ08ZZ Inspection of Upper Intestinal Tract, Via Natural or Artificial Opening Endoscopic (ICD-10-PCS; CPT 43235; principal; 2021-12-19 13:00)
DX: E88.89 Other specified metabolic disorders (principal); N17.9 Acute kidney failure, unspecified; E87.2 Acidosis; K70.0 Alcoholic fatty liver; M87.052 Idiopathic aseptic necrosis of left femur; R13.10 Dysphagia, unspecified; E87.6 Hypokalemia; E86.0 Dehydration; E87.1 Hypo-osmolality and hyponatremia; I95.1 Orthostatic hypotension; R63.0 Anorexia; T73.0XXA Starvation, initial encounter; F10.20 Alcohol dependence, uncomplicated; R94.31 Abnormal electrocardiogram [ECG] [EKG]; Z20.822 Contact with and (suspected) exposure to COVID-19; R77.8 Other specified abnormalities of plasma proteins; S01.511A Laceration without foreign body of lip, initial encounter; I10 Essential (primary) hypertension; F17.210 Nicotine dependence, cigarettes, uncomplicated; K44.9 Diaphragmatic hernia without obstruction or gangrene; K29.70 Gastritis, unspecified, without bleeding; S00.81XA Abrasion of other part of head, initial encounter; W18.09XA Striking against other object with subsequent fall, initial encounter; K21.9 Gastro-esophageal reflux disease without esophagitis; S40.212A Abrasion of left shoulder, initial encounter
CPT/HCPCS: 36415; 36600; 70450; 73721; 74177; 80048; 80053; 80074; 80307; 82607; 82746; 82805; 83605; 83690; 83735; 84100; 84484; 84703; 85025; 85027; 85610; 85730; 88305; 93005; 93306; 93880; 94640; 96361; 96374; 99285; A9270; C9113; C9803; J1650; J2405; J2704; J3411; J3475; J3480; J7030; J7040; J7120; Q9967; U0003; U0005

== ENCOUNTER 2022-02-10 15:56 | Outpatient (CLI) | payer BC, OTHER, SELFPAY ==
--- NOTE | ~2022-02-10 | XR_ITS ---
XR knee LT min 4V DATE: 02/10/2022 16:31 INDICATION: Left knee pain TECHNIQUE: Standing AP, lateral and PA views. [place] view. COMPARISON: None FINDINGS: No fracture or dislocation or significant joint effusion. Joint spaces are well preserved. No radiopaque intra-articular loose body or chondrocalcinosis. No periosteal reaction or bone destruc tion. IMPRESSION: No significant abnormality Reviewed, dictated and finalized at location A. PERSON IMPRESSION: No significant abnormality
== END 2022-02-10 15:57 | disposition home or self-care (01) ==
PROVIDERS: PCP Family Medicine; Visit Provider Nurse Practitioner Adult Health
DX: M25.562 Pain in left knee (principal)
CPT/HCPCS: 73564

== ENCOUNTER 2022-03-28 09:59 | Inpatient (IN) | payer OTHER, BC, SELFPAY ==
[2022-03-28] VITALS (19 sets, daily range): BP systolic 89–104; BP diastolic 46–83; PULSE 73–118; RESP 14–25; TEMP 36.3–36.4; O2SAT 97–100
--- NOTE | ~2022-03-28 | US_ITS ---
EXAMINATION: US paracentesis abd w/image DATE: 03/30/2022 11:27 INDICATION: Ascites. TECHNIQUE: The procedure and its risks and benefits were discussed with the patient. Potential risks discussed included bleeding and infection. The skin was prepped and draped in sterile fashion. 1% lid ocaine was used for local anesthesia. Under ultrasound guidance, a 5 Fr catheter with trochar was adv anced into the ascites in the infrahepatic lateral right mid abdomen. Fluid was aspirated into vacuum bottles. The catheter was removed, and a dressing was applied. There were no immediate complications . FINDINGS: Ultrasound images demonstrate ascites and the catheter within the fluid. IMPRESSION: 1. Successful ultrasound-guided paracentesis yielding 400 mL of dark yellowish-orange fluid. Reviewed, dictated and finalized at location A. MOWER REPA[employer] MECH[employer]IC IMPRESSION: 1. Successful ultrasound-guided paracentesis yielding 400 mL of dark yellowish -orange fluid.
--- NOTE | ~2022-03-28 | CT_ITS ---
EXAMINATION: CT abdomen pelvis w con INDICATION: Abdominal pain TECHNIQUE: Computed tomographic images of the abdomen and pelvis were obtained after the administrati on of 100 cc of Omnipaque 350 intravenous contrast. The dose-length product (DLP) was 217.98 mGy-cm. Automated exposure control and iterative reconstruction technique were employed. COMPARISON: 12/15/2021 FINDINGS: There are small pleural effusions. There is dependent atelectasis of the visualized lung ba ses. Smooth interlobular septal thickening is seen in the left lung base, suggestive of mild pulmonar y edema. There is diffuse wall thickening of the distal esophagus. The liver is diffusely low in atte nuation when compared with the spleen. There is an area of sparing in liver segment IVb. There is wal l thickening of the gallbladder. Also seen is wall thickening of the ascending and transverse colon. The spleen, pancreas, and adrenal glands are normal. There is mild periportal lymphadenopathy. A carlyle ateral draining vein is now seen exiting the anterior aspect of the left hepatic lobe and coursing in to the anterior abdominal wall. The kidneys are unremarkable. There is no free intraperitoneal gas or evidence of bowel obstruction. There is calcified atherosclerosis of the aorta and many of the other arteries. The appendix is normal. There is a small to moderate volume of pelvic ascites. There is a chronic mobile calcified pelvic density now residing in the left pelvis. IMPRESSION: 1. Diffusely low attenuation of the liver which could reflect steatosis or hepatitis. 2. Wall thickening of the ascending and transverse colon and gallbladder which may be due to liver di sease. 3. Small to moderate volume of pelvic ascites. 4. Small pleural effusions with mild pulmonary edema seen in the left lower lobe. 5. Diffuse wall thickening of the distal esophagus with esophageal varices, consistent with liver dis ease. Reviewed, dictated and finalized at location B. EL LOGGER IMPRESSION: 1. Diffusely low attenuation of the liver which could reflect steatosis or hepa titis. 2. Wall thickening of the ascending and transverse colon and gallbladder which may be due to liver disease. 3. Small to moderate volume of pelvic ascites. 4. Small pleural effusions with mild pulmonary edema seen in the left lower lob e. 5. Diffuse wall thickening of the distal esophagus with esophageal varices, con sistent with liver disease.
--- NOTE | 2022-03-28 10:03 | ECG_ITS ---
Measurements Intervals [place] Rate: 94 P: 88 CA: 132 QRS: 17 QRSD: 83 T: -31 QT: 465 QTc: 583 Interpretive Statements SINUS RHYTHM BASELINE ARTIFACT NONSPECIFIC ST AND T-WAVE ABNORMALITY ABNORMAL ECG COMPARED TO ECG 12/17/2021 09:21:46 NO SIGNIFICANT CHANGES Electronically Signed On 03-28-2022 17:54:30 COAL SCREENER by Shivam Barnes M.D.
[2022-03-28 10:20] LABS: Basophils Absolute Auto 0.1 K/mm3 (0.0-0.1); Basophils Percent Auto 0.4 % (0.2-1.2); Eosinophils Percent Auto 0.2 % (0-4.4); Hematocrit 37.8 % (37.0-47.0); Hemoglobin 13.4 g/dL (12.0-15.0); Immature Granulocyte Absolute 0.05 K/mm3 (0.00-0.031); Immature Granulocyte Percent A 0.4 % (0-0.5); Lymphocytes Absolute Auto 1.57 K/mm3 (0.9-3.2); Lymphocytes Percent Auto 13.3 % (18.3-44.2); Mean Corpuscular HGB Conc 35.4 g/dl (32-36); Mean Corpuscular Hemoglobin 38.3 pg (26-34); Mean Platelet Volume 10.4 fl (7.4-10.4); Monocytes Absolute Auto 1.1 K/mm3 (0.1-0.6); Monocytes Percent Auto 9.3 % (2.6-8.5); Neutrophils Percent Auto 76.4 % (45.5-73.1); Platelet Count Result 181 k/mm3 (150-375); Red Cell Distribution Width 12.9 % (11.5-14.5); White Blood Count 11.8 K/mm3 (4.5-10.0)
[2022-03-28 10:31] LABS: Alanine Aminotransferase 43 U/L (6-35); Albumin Level 3.8 g/dL (3.5-5.1); Alkaline Phosphatase 229 U/L (38-126); Anion Gap 14 mmol/L (8-16); Aspartate Amino Transferase 139 U/L (14-36); Bilirubin,Total 5.4 mg/dL (0.2-1.3); Blood Urea Nitrogen 22 mg/dL (7-17); Calcium 8.6 mg/dL (8.4-10.2); Carbon Dioxide 36 mmol/L (22-30); Chloride 78 mmol/L (98-107); Estimated Glomerular Filt Rate 33; Glucose 109 mg/dL (65-110); Potassium < 2.0 mmol/L (3.4-5.0); Sodium 128 mmol/L (137-145)
[2022-03-28] MEDS: ONDANSETRON INJ 4 MG/2 ML VIAL IV PUSH ×3 (10:53→20:26)
[2022-03-28 10:54] LABS: Atypical Lymphocytes Present; Hypochromasia 1+ (NORMAL); Macrocytosis 1+ (NORMAL); Platelet Estimate Adequate (Adequate); Schistocytes None Seen (NORMAL)
[2022-03-28] MEDS: POTASSIUM CHLORIDE INJ 40 MEQ in SODIUM CHLORIDE 0.9% IV 500 ML 130 MEQ IVPB ×2 (10:59→17:21)
[2022-03-28] MEDS: SODIUM CHLORIDE 0.9% IV 1,000 ML 999 ML IV CONT ×2 (11:11→15:40)
[2022-03-28] MEDS: LORazepam INJ (*CRX) 2 MG/ML VIAL 1 MG IV PUSH ×2 (11:11→20:27)
[2022-03-28 11:20] LABS: Magnesium 1.6 mg/dL (1.6-2.3)
[2022-03-28 11:21] LABS: Ethanol 41 mg/dL (<10)
[2022-03-28 11:41] LABS: Influenza A QL RT-PCR Negative (Negative); Influenza B QL RT-PCR Negative (Negative); SARS-CoV-2 RNA PCR Negative
--- NOTE | 2022-03-28 12:07 | ED.GENADULT ---
HPI - General Adult General Chief complaint: Syncope Stated complaint: sick , syncope Time Seen by Provider: 03/28/22 10:36 Source: patient Mode of arrival: ambulatory Limitations: no limitations History of Present Illness HPI narrative: 46-year-old with a history of alcoholism, recurrent hypokalemia here with complaints of recurrent syncopal episodes. Patient states that she drinks about fifth of hard liquor daily. She also complains of abdominal pain, nausea. No significant vomiting but has diarrhea. She denies any fever or chills. She states that she has 3 shots prior to coming to the ER. Related Data Home Medications Medication Instructions Recorded Confirmed nifedipine 30 mg tablet,extended 30 mg PO DAILY 07/05/20 12/19/21 release Allergies Allergy/AdvReac Type Severity Reaction Status Date / Time meperidine Allergy Intermediate Hives Verified 03/28/22 10:52 Review of Systems Review of Systems: All systems reviewed & are unremarkable except as noted in HPI and below Constitutional: Constitutional: Reports no additional constitutional complaints Eyes: Eyes: Reports no additional eye complaints ENT: Reports system reviewed and no additional complaints, except as documented Cardiovascular: Cardiovascular: Reports no additional cardiovascular complaints Respiratory: Respiratory: Reports no additional respiratory complaints Gastrointestinal: Gastrointestinal: Reports as per HPI Musculoskeletal: Musculoskeletal: Reports no additional musculoskeletal complaints Integumentary/Breasts: Skin/Breast: Reports system reviewed and no additional complaints, except as docu Neurologic: Reports system reviewed and no additional complaints, except as documented Psychiatric: Psychiatric: Reports no additional psychiatric complaints Endocrine: Endocrine: Reports no additional endocrine complaints PMFSH Past Medical History Medical History Alcohol abuse Alcoholic fatty liver Anorexia Elevated liver enzymes Essential hypertension Marijuana use Nausea and vomiting in adult Tobacco dependence Surgical History Surgical History H/O dilation and curettage History of ear surgery 2002 - Patient reports a surgery to R ear Family History Family History Father Hypertension Sibling Diabetes mellitus Grandparent Esophageal cancer Social History Social History Social History: She lives with her father and stepmother. She has 2 sons age 19 and 21. She drinks 2-4 shot today. She reports using marijuana daily, mostly by smoking but also sometimes ingestion. She smokes 1.5 packs per day since age 20yo but has cut down to 1 pack of cigarettes per day. She does not have a primary care provider. Code status: Full code Surrogate decision maker: Father Smoking packs per day: 1.5 Smoking cigarettes per day: 30.0 Years smoked: 25 Smoking pack-years: 37.50 Smoking status: Current every day smoker Tobacco type: cigarettes Alcohol intake: current Drinks per week: 12 Alcohol use details: states daily tobacco use Substance use: never Substance use type: marijuana Other substance usage details: 07/05/2020 not using marijuana due to cost Last use: 08/20/2019 Gender identity (if verbalized by the patient): Female Spiritual care concerns: No Exam Narrative: GENERAL: Well-appearing, and in anxious, HEAD: Normocephalic, atraumatic. EYES: PERRLA and EOMI. NECK: Supple. CHEST: Clear to auscultation. No respiratory distress. HEART: Regular rate and rhythm. No murmur heard. Normal peripheral pulses. ABDOMEN: Soft, nontender, nondistended, normal active bowel sounds. EXTREMITIES: Normal range of motion. No edema. SKIN: Warm, dry, no rash. NEURO: No focal deficits. Ericka
[2022-03-28] MEDS: MORPHINE SULFATE (*CRX) 4 MG/ML INJ IV PUSH ×2 (12:09→14:00)
[2022-03-28] MEDS: SODIUM CHLORIDE 0.9% IV 1,000 ML 125 ML IV CONT ×2 (14:00→17:21)
--- NOTE | 2022-03-28 15:15 | PM.IMHP ---
H&P: HPI History of Present Illness Date/Time: 03/28/22 15:15 Chief Complaint: Weakness, possible loss of consciousness. Narrative: This is a 46-year-old female smoker with history of alcohol abuse, hypertension, and syncope who presented to the emergency department for evaluation of weakness and possible loss of consciousness. She has not felt well for several weeks with intermittent nausea and vomiting and occasional diarrhea. She has been having problems with heartburn which is unusual for her and she endorses abdominal bloating as well. She has not been eating or drinking much aside from alcohol due to her symptoms. Over the last week she has been getting lightheaded and dizzy and today she believes that she passed out, falling forward into her bed. It is my understanding that she stood up to go into her room and she felt extremely weak and lightheaded and woke up on the bed. She denies fever, chills, sweats, chest pain, pleuritic pain, shortness a breath, hematemesis, and melena. She drinks a 5th of fireball a day and she last drank at 07:00. Workup in the ED was significant for an acute kidney injury likely due to dehydration and multiple electrolyte abnormalities including a sodium of 128 and a potassium of less than 2.0. Her LFTs were elevated as well. Blood pressures have been persistently soft but are improving with IV fluids. She is being admitted in this setting for further treatment. Review of Systems Review of Systems: Twelve systems were reviewed. She denies recent cold and flu symptoms. She has been having a cough but she attributes that to a burning sensation that she has in her throat. No known sick contacts. She denies dysuria. She has had some chills but no fever or sweats. She has no known history of alcohol withdrawal seizures. She denies tremors, sweats, and hallucinations. No melena or hematemesis. Except as documented, all other systems were reviewed and are negative PMF Past Medical History Medical History (Updated 03/28/22 @ 21:31 by Miriam Galvan PA-C) Alcohol abuse Alcoholic fatty liver Anorexia Essential hypertension Marijuana use Tobacco dependence Surgical History Surgical History (Updated 03/28/22 @ 15:26 by Miriam Galvan PA-C) History of dilation and curettage History of ear surgery 2002 - Patient reports a surgery to R ear History of esophagogastroduodenoscopy (12/2021) Gastritis, hiatal hernia. Family History Family History Father Hypertension Sibling Diabetes mellitus Grandparent Esophageal cancer Social History Social History (Updated 03/28/22 @ 21:28 by Miriam Galvan PA-C) Social History: Code status: Full code Surrogate decision maker: Almaz Salamanca, stepmother. Smoking packs per day: 3 Smoking cigarettes per day: 60.0 Years smoked: 30 Smoking pack-years: 90.00 Smoking status: Current every day smoker Tobacco type: cigarettes Alcohol intake: current Alcohol use details: Drinks about a 5th of fireball a day. Substance use: current Substance use type: marijuana Lack of Transportation: No Lack of Food: Never True Current Housing: I Have Housing Concerned About Future Housing: No Difficulty Paying Gas/Electric Bills: No Difficulty Paying for Meds: No Currently Unemployed: No Education: High School Diploma/GED Difficulty w/ Childcare or Family Care: No Additional living arrangements comments: Stays with parents most of the time. Additional occupation/education comments: Not currently employed. Spiritual care concerns: No Meds Home Medications and Allergies Home Medications Medication Instructions Recorded Confirmed Type metoprolol tartrate 25 mg tablet 25 mg PO BID #60 tabs 04/28/20 03/28/22 Rx nifedipine 30 mg tablet,extended 30 mg PO DAILY 07/05/20 03/28/22 History release promethazine 25 mg tablet 25 mg PO TID PRN nausea and
[2022-03-28 15:58] LABS: INR 1.2; Prothrombin Time 14.2 Seconds (11.1-14.7)
[2022-03-28 15:59] LABS: Partial Thromboplastin Time 28.7 SECONDS (22.3-36.8)
[2022-03-28 16:00] LABS: Anion Gap 7 mmol/L (8-16); Blood Urea Nitrogen 21 mg/dL (7-17); Calcium 7.3 mg/dL (8.4-10.2); Carbon Dioxide 34 mmol/L (22-30); Chloride 92 mmol/L (98-107); Estimated Glomerular Filt Rate 41; Glucose 111 mg/dL (65-110); Magnesium 1.3 mg/dL (1.6-2.3); Potassium 2.2 mmol/L (3.4-5.0); Sodium 133 mmol/L (137-145)
--- NOTE | 2022-03-28 16:03 | PC.NURSE ---
Provider called and message left with KCL level.
[2022-03-28] MEDS: POTASSIUM CHLORIDE 20 MEQ PACKET (FOR LIQUID) 40 MEQ PO (17:21)
[2022-03-28] MEDS: MAGNESIUM SULFATE 3GM/D5W100ML 3 GM/100 ML BAG IVPB (17:24)
[2022-03-28] MEDS: ACETAMINOPHEN 325 MG TABLET 650 MG PO (20:27)
[2022-03-28 22:36] LABS: Anion Gap 5 mmol/L (8-16); Blood Urea Nitrogen 19 mg/dL (7-17); Calcium 6.8 mg/dL (8.4-10.2); Carbon Dioxide 32 mmol/L (22-30); Chloride 97 mmol/L (98-107); Estimated Glomerular Filt Rate 49; Glucose 97 mg/dL (65-110); Potassium 2.3 mmol/L (3.4-5.0); Sodium 134 mmol/L (137-145)
[2022-03-28] MEDS: POTASSIUM CHLORIDE 20 MEQ TABLET PO (23:40)
[2022-03-29] VITALS (8 sets, daily range): BP systolic 76–96; BP diastolic 50–65; PULSE 67–87; RESP 14–20; TEMP 36.2–36.4; O2SAT 97–100
[2022-03-29] MEDS: CALCIUM CARBONATE (TUMS) 500 MG (200 MG ELEMENTAL) 400 MG PO (01:35)
[2022-03-29] MEDS: POTASSIUM CHLORIDE INJ 40 MEQ in SODIUM CHLORIDE 0.9% IV 500 ML 130 MEQ IVPB (01:54)
[2022-03-29] MEDS: ONDANSETRON INJ 4 MG/2 ML VIAL IV PUSH ×3 (04:46→20:54)
[2022-03-29] MEDS: chlordiazePOXIDE (*CRX) 25 MG CAPSULE 50 MG PO ×5 (04:46→23:32)
[2022-03-29] MEDS: SODIUM CHLORIDE 0.9% IV 1,000 ML 999 ML IV CONT (06:09)
[2022-03-29] MEDS: SUCRALFATE SUSP 100 MG/ML 10 ML UDC 1000 MG PO ×4 (06:10→20:49)
[2022-03-29 06:35] LABS: Basophils Percent Auto 0.4 % (0.2-1.2); Eosinophils Absolute Auto 0.1 K/mm3 (0-0.3); Eosinophils Percent Auto 0.5 % (0-4.4); Hematocrit 27.3 % (37.0-47.0); Hemoglobin 9.4 g/dL (12.0-15.0); Immature Granulocyte Absolute 0.06 K/mm3 (0.00-0.031); Immature Granulocyte Percent A 0.6 % (0-0.5); Lymphocytes Absolute Auto 1.45 K/mm3 (0.9-3.2); Lymphocytes Percent Auto 14.2 % (18.3-44.2); Mean Corpuscular HGB Conc 34.4 g/dl (32-36); Mean Corpuscular Hemoglobin 37.5 pg (26-34); Mean Corpuscular Volume 108.8 fl (80-100); Mean Platelet Volume 10.6 fl (7.4-10.4); Monocytes Absolute Auto 0.8 K/mm3 (0.1-0.6); Monocytes Percent Auto 8.1 % (2.6-8.5); Neutrophils Absolute Auto 7.8 K/mm3 (1.3-6.7); Neutrophils Percent Auto 76.2 % (45.5-73.1); Platelet Count Result 114 k/mm3 (150-375); Red Blood Count 2.51 M/mm3 (4.2-5.4); Red Cell Distribution Width 12.9 % (11.5-14.5); White Blood Count 10.2 K/mm3 (4.5-10.0)
[2022-03-29 06:42] LABS: Alanine Aminotransferase 33 U/L (6-35); Albumin Level 2.3 g/dL (3.5-5.1); Alkaline Phosphatase 157 U/L (38-126); Anion Gap 2 mmol/L (8-16); Aspartate Amino Transferase 107 U/L (14-36); Bilirubin,Total 3.7 mg/dL (0.2-1.3); Blood Urea Nitrogen 17 mg/dL (7-17); Calcium 6.9 mg/dL (8.4-10.2); Carbon Dioxide 29 mmol/L (22-30); Chloride 101 mmol/L (98-107); Estimated Glomerular Filt Rate 49; Glucose 73 mg/dL (65-110); Potassium 3.4 mmol/L (3.4-5.0); Sodium 132 mmol/L (137-145)
[2022-03-29 07:13] LABS: Hypochromasia 2+ (NORMAL); Target Cells 1+ (NORMAL)
[2022-03-29 07:14] LABS: Macrocytosis 1+ (NORMAL); Schistocytes None Seen (NORMAL)
[2022-03-29] MEDS: SODIUM CHLORIDE 0.9% IV 1,000 ML 75 ML IV CONT ×2 (08:58→20:57)
[2022-03-29] MEDS: PANTOPRAZOLE SODIUM IV 40 MG VIAL IV PUSH ×2 (09:05→20:49)
[2022-03-29] MEDS: THIAMINE HCL 100 MG TABLET PO (09:06)
[2022-03-29] MEDS: FOLIC ACID 1 MG TABLET PO (09:07)
[2022-03-29] MEDS: NICOTINE (*PBKC) 21 MG PATCH 1 PATCH TRANSDERM (09:11)
[2022-03-29] MEDS: ACETAMINOPHEN 325 MG TABLET 650 MG PO (09:27)
[2022-03-29 12:26] LABS: Iron 113 ug/dL (37-170); Percent Iron Saturation 81 % (20-50)
[2022-03-29 14:00] LABS: Hematocrit 29.7 % (37.0-47.0)
[2022-03-29 14:01] LABS: Lipase 32 U/L (23-300)
--- NOTE | 2022-03-29 16:06 | PM.IMPN ---
Progress Note: A&P Assessment and Plan (1) Acute kidney injury: Code(s): N17.9 - Acute kidney failure, unspecified Status: Acute Assessment and Plan: Secondary to dehydration Continue IV fluids. Monitor strict I/O. (2) Dehydration: Code(s): E86.0 - Dehydration Status: Acute Assessment and Plan: Secondary to N/V/D (3) Hypokalemia: Code(s): E87.6 - Hypokalemia Status: Acute Assessment and Plan: K 2.0 on admission. Secondary to N/V/D. Improved with replacement. Trend BMP. Monitor telemetry (4) Hypomagnesemia: Code(s): E83.42 - Hypomagnesemia Status: Acute Assessment and Plan: As above. Magnesium 1.4 to 3.0 after replacement. Monitor. (5) Hyponatremia: Code(s): E87.1 - Hypo-osmolality and hyponatremia Status: Acute Assessment and Plan: Sodium 128 on admission, secondary to acute hypovolemia Improved with IV hydration. Monitor neuro status (6) Alcoholic hepatitis: Qualifiers: Ascites presence: with ascites Qualified Code(s): K70.11 - Alcoholic hepatitis with ascites Code(s): K70.10 - Alcoholic hepatitis without ascites Status: Chronic Assessment and Plan: CT shows diffuse steatosis or hepatitis; mild to moderate ascites. LFT elevated on admission. Trend LFTs Consult GI and appreciate recommendations. diagnostic US guided paracentesis ordered, nash culture and gram stain r/o infection (7) Gastritis: Qualifiers: Gastritis type: alcoholic Chronicity: acute Gastritis bleeding: presence of bleeding unspecified Qualified Code(s): K29.20 - Alcoholic gastritis without bleeding Code(s): K29.70 - Gastritis, unspecified, without bleeding Status: Acute Assessment and Plan: Gastritis noted on previous EGD. Continue PPI IV BID and carafate AC/HS (8) Alcohol abuse: Code(s): F10.10 - Alcohol abuse, uncomplicated Status: Chronic Assessment and Plan: Counseled to quit. CIWA monitoring, PRN lorazepam, scheduled librium Care coordination consult for cessation services. (9) Hypotension: Code(s): I95.9 - Hypotension, unspecified Status: Acute Assessment and Plan: Likely secondary to liver cirrhosis. albumin 2.3, platelets 114, LFTs elevated, ascites on CT. Antihypertensives were stopped prior to admission. Continue NS@75 mL/hour. (10) Syncope: Qualifiers: Syncope type: unspecified Qualified Code(s): R55 - Syncope and collapse Code(s): R55 - Syncope and collapse Status: Acute Assessment and Plan: Presumed secondary to dehydration and hypovolemia. Echocardiogram from December 2021 negative Time Spent With Patient Time with patient: 25 - 35 minutes Subjective Date/time seen: 03/29/22 16:06 She c/o abdominal pain, nausea, vomiting and anorexia. No melena, hematechezia or hematemesis. She reports weight loss in the past month since symptoms started. Review of Systems Review of Systems: All systems reviewed & are unremarkable except as noted in HPI and below Exam Narrative: General: Thin, ill-appearing female sitting up in bed. No acute distress. HEENT: Normocephalic. PERRL, EOMI. Mild scleral icterus. Dry mucous membranes. Neck: Supple. Respiratory: Lungs are clear to auscultation bilaterally. RR unlabored. Cardiovascular: Regular rate and rhythm with S1-S2. No murmurs or gallops. Gastrointestinal: Abdomen is soft, distended and diffusely tender to palpation. positive bowel sounds. No guarding or rebound tenderness. Skin: Warm and dry. No cyanosis. Extremities: No cyanosis, clubbing, or edema. Radial and pedal pulses intact. Neurological: Alert and oriented x3. Cranial nerves 2-12 are grossly intact. No gross focal deficits to casual conversation. Psychiatric: Cooperative. flat affect. Objective Data Vital Signs Vital Signs: V
[2022-03-29] MEDS: MORPHINE SULFATE (*CRX) 2 MG/ML INJ IV PUSH ×2 (16:31→20:55)
[2022-03-29] MEDS: LORazepam INJ (*CRX) 2 MG/ML VIAL 1 MG IV PUSH (22:02)
[2022-03-30] VITALS (9 sets, daily range): BP systolic 71–103; BP diastolic 50–73; PULSE 63–83; RESP 14–26; TEMP 36.3–36.8; O2SAT 91–97
[2022-03-30] MEDS: MORPHINE SULFATE (*CRX) 2 MG/ML INJ IV PUSH (02:24)
[2022-03-30] MEDS: LORazepam INJ (*CRX) 2 MG/ML VIAL 1 MG IV PUSH ×3 (03:39→17:46)
[2022-03-30] MEDS: SODIUM CHLORIDE 0.9% IV 250 ML BAG IVPB (04:29)
[2022-03-30] MEDS: MIDODRINE HCL 2.5 MG TABLET 5 MG PO (05:48)
[2022-03-30] MEDS: MIDODRINE HCL 10 MG TABLET PO (05:48)
[2022-03-30 06:59] LABS: Alanine Aminotransferase 33 U/L (6-35); Albumin Level 2.3 g/dL (3.5-5.1); Alkaline Phosphatase 154 U/L (38-126); Anion Gap 3 mmol/L (8-16); Aspartate Amino Transferase 101 U/L (14-36); Bilirubin,Total 2.9 mg/dL (0.2-1.3); Blood Urea Nitrogen 12 mg/dL (7-17); Carbon Dioxide 27 mmol/L (22-30); Chloride 103 mmol/L (98-107); Estimated Glomerular Filt Rate 49; Glucose 73 mg/dL (65-110); Potassium 2.9 mmol/L (3.4-5.0); Sodium 133 mmol/L (137-145)
[2022-03-30 07:00] LABS: Basophils Absolute Auto 0.1 K/mm3 (0.0-0.1); Basophils Percent Auto 0.7 % (0.2-1.2); Eosinophils Absolute Auto 0.1 K/mm3 (0-0.3); Eosinophils Percent Auto 1.3 % (0-4.4); Hematocrit 29.9 % (37.0-47.0); Hemoglobin 10.1 g/dL (12.0-15.0); Immature Granulocyte Absolute 0.03 K/mm3 (0.00-0.031); Immature Granulocyte Percent A 0.4 % (0-0.5); Lymphocytes Absolute Auto 1.84 K/mm3 (0.9-3.2); Mean Corpuscular HGB Conc 33.8 g/dl (32-36); Mean Corpuscular Hemoglobin 37.5 pg (26-34); Mean Corpuscular Volume 111.2 fl (80-100); Mean Platelet Volume 10.2 fl (7.4-10.4); Monocytes Absolute Auto 0.6 K/mm3 (0.1-0.6); Monocytes Percent Auto 9.4 % (2.6-8.5); Neutrophils Absolute Auto 4.2 K/mm3 (1.3-6.7); Neutrophils Percent Auto 61.2 % (45.5-73.1); Platelet Count Result 127 k/mm3 (150-375); Red Blood Count 2.69 M/mm3 (4.2-5.4); Red Cell Distribution Width 13.1 % (11.5-14.5); White Blood Count 6.8 K/mm3 (4.5-10.0)
--- NOTE | 2022-03-30 07:17 | PM.IMPN ---
Progress Note: A&P Assessment and Plan (1) Acute kidney injury: Code(s): N17.9 - Acute kidney failure, unspecified Status: Acute Assessment and Plan: Secondary to dehydration Monitor strict I/O. 03/30/22 Stable. BUN 12, creatinine 1.2, GFR 49 (2) Dehydration: Code(s): E86.0 - Dehydration Status: Acute Assessment and Plan: Secondary to N/V/D Improving. Continue IV fluids as needed for poor oral intake. Monitor I/O. (3) Hypokalemia: Code(s): E87.6 - Hypokalemia Status: Acute Assessment and Plan: K 2.0 on admission. Secondary to N/V/D. Improved with replacement. Trend BMP. Monitor telemetry 03/30/22 K 2.9. Give 40 mEQ PO, 40 mEQ IV KCl and add 20 mEQ to IV fluids. magnesium level 2.0. (4) Hypomagnesemia: Code(s): E83.42 - Hypomagnesemia Status: Acute Assessment and Plan: As above. Magnesium 1.4 to 3.0 after replacement. Stable (5) Hyponatremia: Code(s): E87.1 - Hypo-osmolality and hyponatremia Status: Acute Assessment and Plan: Sodium 128 on admission, secondary to acute hypovolemia Improved with IV hydration. Monitor neuro status 03/30/22 improving with IV fluids. Sodium 133 today. Low sodium diet for liver disease. Patient lethargic and c/o nausea that appears more related to frequent morphine and ativan use, as well as liver disease/alcohol withdrawal. (6) Alcoholic hepatitis: Qualifiers: Ascites presence: with ascites Qualified Code(s): K70.11 - Alcoholic hepatitis with ascites Code(s): K70.10 - Alcoholic hepatitis without ascites Status: Chronic Assessment and Plan: CT shows diffuse steatosis or hepatitis; mild to moderate ascites. LFT elevated on admission. Trend LFTs Consult GI and appreciate recommendations. 03/29/22 diagnostic US guided paracentesis ordered, nash culture and gram stain r/o infection. MELD score 20 03/30/22 LFTs trending down- Tbili, 2.9, AST 101, ALT 33, Alk phos 154. Paracentesis - 400 mL hazy fluid and fluid analysis pending. Stop morphine. Likely progressed to liver cirrhosis given evidence of esophageal varices, low platelets, elevated LFTs. (7) Gastritis: Qualifiers: Chronicity: acute Gastritis bleeding: presence of bleeding unspecified Gastritis type: alcoholic Qualified Code(s): K29.20 - Alcoholic gastritis without bleeding Code(s): K29.70 - Gastritis, unspecified, without bleeding Status: Acute Assessment and Plan: Gastritis noted on previous EGD. Continue PPI IV BID and carafate AC/HS Stable. continue current management. (8) Alcohol abuse: Code(s): F10.10 - Alcohol abuse, uncomplicated Status: Chronic Assessment and Plan: Counseled to quit drinking CIWA monitoring, PRN lorazepam, scheduled librium Care coordination consult for cessation services. Referral to [facility] pending. CIWA 3 to 12 per nursing notes. Wean librium 25 mg Q6 hours today, then 25 mg BID (03/31), then 25 mg at HS (04/01), then stop. (9) Hypotension: Code(s): I95.9 - Hypotension, unspecified Status: Acute Assessment and Plan: Likely secondary to liver cirrhosis. albumin 2.3, platelets 114, LFTs elevated, ascites on CT. Antihypertensives were stopped prior to admission. 03/30 Increase IV fluids D5NS w/20 KCl @100 mL/hour. With low albumin judicious use of IV fluids to prevent worsening ascites. Midodrine 5 mg PO and 250 mL NS bolus given overnight. Will also trial albumin 25% 25 gm x1. Attempt to wean IV fluids as BP allows. Spironolactone for ascites added by GI. (10) Syncope: Qualifiers: Syncope type: unspecified Qualified Code(s): R55 - Syncope and collapse Code(s): R55 - Syncope and collapse Status: Acute Assessment and Plan: Presumed secondary to dehydration and hypovolemia. Echocardiogram from December 2021 negative Time Spent
[2022-03-30 08:12] LABS: Glucose Point of Care 72 mg/dl (65-105)
[2022-03-30 08:20] LABS: Macrocytosis 1+ (NORMAL); Platelet Estimate Decreased (Adequate); Schistocytes None Seen (NORMAL)
[2022-03-30 08:21] LABS: Ammonia 29 umol/L (9-30)
[2022-03-30] MEDS: NICOTINE (*PBKC) 21 MG PATCH 1 PATCH TRANSDERM (08:48)
[2022-03-30] MEDS: KCL 20 MEQ/D5/0.9% SOD CHL 1,000 ML 100 ML IV CONT (08:48)
[2022-03-30] MEDS: POTASSIUM CHLORIDE INJ 40 MEQ in SODIUM CHLORIDE 0.9% IV 500 ML 130 MEQ IVPB (08:48)
[2022-03-30] MEDS: PANTOPRAZOLE SODIUM IV 40 MG VIAL IV PUSH ×2 (08:49→20:57)
[2022-03-30] MEDS: ALBUMIN HUMAN 25% 25 GM/100 ML 100 ML IVPB (08:56)
[2022-03-30] MEDS: ONDANSETRON INJ 4 MG/2 ML VIAL IV PUSH ×2 (11:58→16:38)
[2022-03-30] MEDS: ACETAMINOPHEN 325 MG TABLET 650 MG PO ×2 (11:58→16:37)
[2022-03-30] MEDS: POTASSIUM CHLORIDE 20 MEQ TABLET 40 MEQ PO (11:59)
[2022-03-30] MEDS: CALCIUM CARBONATE (TUMS) 500 MG (200 MG ELEMENTAL) 400 MG PO ×2 (11:59→16:38)
[2022-03-30] MEDS: MULTIVITAMINS THERAPEUTIC TAB (*BKC) 1 TABLET PO (11:59)
[2022-03-30] MEDS: THIAMINE HCL 100 MG TABLET PO (11:59)
[2022-03-30] MEDS: chlordiazePOXIDE (*CRX) 25 MG CAPSULE PO ×3 (11:59→23:11)
[2022-03-30] MEDS: FOLIC ACID 1 MG TABLET PO (12:00)
[2022-03-30] MEDS: SUCRALFATE SUSP 100 MG/ML 10 ML UDC 1000 MG PO (12:00)
[2022-03-30 13:14] LABS: Appearance Peritoneal Fluid Hazy (Clear); Source Peritoneal Fluid Peritoneal Fluid
[2022-03-30 13:15] LABS: Color Peritoneal Fluid Other (Colorless); Lymphocytes Peritoneal Fluid 14 %; Monocytes Peritoneal Fluid 75 %; Neutrophils Peritoneal Fluid 11 % (0-25); Nucleated Cells Peritoneal Flu 117 /uL (0-500); RBC Peritoneal Fluid 4627 /uL (0-100000)
--- NOTE | 2022-03-30 15:48 | WPDGICN ---
Assessment and Plan Assessment and plan (1) Alcoholic hepatitis: Qualifiers: Ascites presence: with ascites Qualified Code(s): K70.11 - Alcoholic hepatitis with ascites Code(s): K70.10 - Alcoholic hepatitis without ascites Status: Chronic Assessment and Plan: Patient with elevated LFTs consistent with alcoholic liver disease. She definitely has alcoholic hepatitis and suspicious for cirrhosis given the suspected CT scan suggestion of esophageal varices. This were not evident on recent EGD in December. alcohol abstinence Will be necessary for this patient strongly encouraged.. Consider alcohol rehabilitation. (2) Alcohol abuse: Code(s): F10.10 - Alcohol abuse, uncomplicated Status: Chronic (3) Hyponatremia: Code(s): E87.1 - Hypo-osmolality and hyponatremia Status: Acute Assessment and Plan: Likely related to alcoholic liver disease. Fluid restriction may be necessary. (4) Ascites: Code(s): R18.8 - Other ascites Status: Acute Assessment and Plan: Patient with ascites evident on imaging studies. Plan for low-salt diet. Continue diuresis initially with Aldactone. Adjust diuretics as tolerated by blood pressure and electrolytes. GI Consult Note Consult date/time: 03/30/22 15:48 Reason for consult: Cirrhosis of liver HPI: Kavita Rosen is a 46 year old female I am asked to see at the request of the hospitalist service because of cirrhosis of liver. Patient has a history of frequent alcohol intake. She drinks fire balls nightly. She has had significant alcohol intake for an extended period of time. Patient presented the hospital after passing out at home. She states she continues to drink because she feels poorly when she stops. In the ER CT scan revealed significant ascites. Patient hospitalized in December which time EGD revealed gastritis. Patient noted to have modest elevation of LFTs consistent with alcoholic liver disease. CT scan suggests she may also have esophageal varices. These were not described time of EGD in December. No significant history of bleeding obtained from the patient. Review of Systems Review of Systems: Review of systems noncontributory. [facility] Past Medical History Medical History (Updated 03/30/22 @ 15:51 by Richie Escalona MD) Alcohol abuse Alcoholic fatty liver Anorexia Essential hypertension Marijuana use Tobacco dependence Surgical History Surgical History (Updated 03/28/22 @ 15:26 by Miriam Galvan PA-C) History of dilation and curettage History of ear surgery 2002 - Patient reports a surgery to R ear History of esophagogastroduodenoscopy (12/2021) Gastritis, hiatal hernia. Family History Family History Father Hypertension Sibling Diabetes mellitus Grandparent Esophageal cancer Social History Social History (Updated 03/28/22 @ 21:28 by Miriam Galvan PA-C) Social History: Code status: Full code Surrogate decision maker: Almaz Salamanca stepmother. Smoking packs per day: 3 Smoking cigarettes per day: 60.0 Years smoked: 30 Smoking pack-years: 90.00 Smoking status: Current every day smoker Tobacco type: cigarettes Alcohol intake: current Alcohol use details: Drinks about a 5th of fireball a day. Substance use: current Substance use type: marijuana Lack of Transportation: No Lack of Food: Never True Current Housing: I Have Housing Concerned About Future Housing: No Difficulty Paying Gas/Electric Bills: No Difficulty Paying for Meds: No Currently Unemployed: No Education: High School Diploma/GED Difficulty w/ Childcare or Family Care: No Additional living arrangements comments: Stays with parents most of the time. Additional occupation/education comments: Not currently employed. Spiritual care concerns: No Meds Home Medications and
[2022-03-30] MEDS: SPIRONOLACTONE 25 MG TABLET PO (16:37)
[2022-03-30] MEDS: SODIUM CHLORIDE 0.9% IV 1,000 ML 999 ML IV CONT ×2 (21:58→23:53)
[2022-03-30] MEDS: MELATONIN 5 MG TABLET PO (23:54)
[2022-03-31] VITALS (10 sets, daily range): BP systolic 81–100; BP diastolic 56–71; PULSE 70–97; RESP 16–20; TEMP 36.1–36.6; O2SAT 93–98
[2022-03-31] MEDS: KCL 20 MEQ/D5/0.9% SOD CHL 1,000 ML 100 ML IV CONT (04:13)
[2022-03-31] MEDS: chlordiazePOXIDE (*CRX) 25 MG CAPSULE PO ×2 (06:23→22:14)
[2022-03-31 07:07] LABS: Basophils Percent Auto 0.4 % (0.2-1.2); Eosinophils Absolute Auto 0.1 K/mm3 (0-0.3); Eosinophils Percent Auto 0.7 % (0-4.4); Hematocrit 29.8 % (37.0-47.0); Immature Granulocyte Absolute 0.03 K/mm3 (0.00-0.031); Immature Granulocyte Percent A 0.4 % (0-0.5); Immature Platelet Fraction Pct 5.5 % (0.9-11.2); Lymphocytes Absolute Auto 1.78 K/mm3 (0.9-3.2); Lymphocytes Percent Auto 26.1 % (18.3-44.2); Mean Corpuscular HGB Conc 33.6 g/dl (32-36); Mean Corpuscular Hemoglobin 38.9 pg (26-34); Mean Platelet Volume 10.4 fl (7.4-10.4); Monocytes Absolute Auto 0.5 K/mm3 (0.1-0.6); Monocytes Percent Auto 7.9 % (2.6-8.5); Neutrophils Absolute Auto 4.4 K/mm3 (1.3-6.7); Neutrophils Percent Auto 64.5 % (45.5-73.1); Platelet Count Result 144 k/mm3 (150-375); Red Blood Count 2.57 M/mm3 (4.2-5.4); Red Cell Distribution Width 13.5 % (11.5-14.5); White Blood Count 6.8 K/mm3 (4.5-10.0)
[2022-03-31 07:15] LABS: Alanine Aminotransferase 32 U/L (6-35); Albumin Level 2.4 g/dL (3.5-5.1); Alkaline Phosphatase 147 U/L (38-126); Anion Gap 1 mmol/L (8-16); Aspartate Amino Transferase 106 U/L (14-36); Bilirubin,Total 2.8 mg/dL (0.2-1.3); Blood Urea Nitrogen 9 mg/dL (7-17); Calcium 7.2 mg/dL (8.4-10.2); Carbon Dioxide 23 mmol/L (22-30); Chloride 118 mmol/L (98-107); Estimated Glomerular Filt Rate 60; Glucose 84 mg/dL (65-110); Potassium 4.1 mmol/L (3.4-5.0); Sodium 142 mmol/L (137-145)
[2022-03-31 08:18] LABS: Macrocytosis 1+ (NORMAL); Platelet Estimate Adequate (Adequate); Schistocytes None Seen (NORMAL)
--- NOTE | 2022-03-31 10:40 | WPDGIPROGNO ---
Progress Note: A&P Assessment and Plan (1) Alcoholic hepatitis: Qualifiers: Ascites presence: with ascites Qualified Code(s): K70.11 - Alcoholic hepatitis with ascites Code(s): K70.10 - Alcoholic hepatitis without ascites Status: Chronic Assessment and Plan: Patient with alcoholic liver disease. Appears to have alcoholic hepatitis. She may have underlying cirrhosis. Varices of the esophagus for suggested by CT scan imaging but recent EGD revealed only gastritis. Continue supportive care for now. Strict alcohol avoidance encouraged. Supportive care. Advance diet as tolerated. Limit narcotic medications. (2) Alcohol abuse: Code(s): F10.10 - Alcohol abuse, uncomplicated Status: Chronic Assessment and Plan: Alcohol avoidance and rehab potentially support group strongly encouraged for this patient. (3) Gastritis: Qualifiers: Gastritis type: alcoholic Chronicity: acute Gastritis bleeding: presence of bleeding unspecified Qualified Code(s): K29.20 - Alcoholic gastritis without bleeding Code(s): K29.70 - Gastritis, unspecified, without bleeding Status: Acute Assessment and Plan: Patient had gastritis on recent EGD. Previously followed by Dr. Lund. (4) Ascites: Code(s): R18.8 - Other ascites Status: Acute Assessment and Plan: Patient likely would benefit from low-dose diuretics such as Aldactone. Low-salt diet. Daily weights her encouraged. Subjective Date/time seen: 03/31/22 10:40 Patient complains of vague abdominal discomfort today. Had abdominal paracentesis yesterday. Abdomen much less distended. Review of Systems Review of Systems: Review of systems noncontributory. Exam Narrative: Physical exam reveals patient to be alert. Vital signs stable. HEENT exam unremarkable. Patient with mild icterus. Lungs are clear. Heart without murmur. Abdomen bowel sounds present soft only modest distention. No localized tenderness appreciated. Objective Data Vital Signs Vital Signs: Vital Signs - 24 hr 03/30/22 12:00 03/30/22 16:00 03/30/22 12:00 Temperature 97.7 F Pulse Rate 65 83 78 Respiratory Rate 20 Blood Pressure 87/63 L Pulse Oximetry Oxygen Delivery 03/30/22 20:00 03/31/22 00:00 03/30/22 20:00 Temperature 98.2 F 97.6 F Pulse Rate 74 72 72 Respiratory Rate 26 H 16 16 Blood Pressure 71/50 L 96/65 L Pulse Oximetry 94 97 97 Oxygen Delivery Room Air 03/30/22 22:55 03/31/22 03:45 03/31/22 04:00 Temperature 97.9 F Pulse Rate 83 Respiratory Rate 16 Blood Pressure 81/56 L 81/56 L Pulse Oximetry 96 93 Oxygen Delivery Room Air 03/31/22 03:50 03/31/22 03:55 03/31/22 00:00 Temperature Pulse Rate 72 Respiratory Rate Blood Pressure 93/71 L 100/71 Pulse Oximetry Oxygen Delivery 03/31/22 04:00 03/31/22 08:00 03/31/22 09:00 Temperature 97.0 F L Pulse Rate 70 72 Respiratory Rate 16 Blood Pressure 89/63 L Pulse Oximetry 97 Oxygen Delivery Room Air 03/31/22 08:00 Temperature Pulse Rate 74 Respiratory Rate Blood Pressure Pulse Oximetry Oxygen Delivery Intake/Output Intake/Output: Intake & Output 03/28/22 03/29/22 03/30/22 03/31/22 23:59 23:59 23:59 23:59 Intake Total 1999 3180 1100 1550 Output Total 400 Balance 1999 3180 700 1550 Meds/Results Medications: Active Medications Generic Name Dose Route Start Last Admin Trade Name Freq PRN Reason Stop Dose Admin Acetaminophen 650 mg 03/28/22 12:01 03/30/22 16:37 Acetaminophen 325 Mg Tablet PO 650 mg Q4H PRN Administration Mild Pain (1-3) or Fever Calcium Carbonate 400 mg 03/28/22 23:45 03/30/22 16:38 Calcium Carbonate (Tums) 500 Mg (200 Mg Elemental) PO 400 mg Q4H PRN Administration Indigestion Chlordiazepoxide HCl 25 mg 03/31/22 21:00 Chlordiazepoxide (*Crx) 25 Mg Capsule PO Q12HR CARRIE
[2022-03-31] MEDS: ACETAMINOPHEN 325 MG TABLET 650 MG PO (11:14)
[2022-03-31] MEDS: ONDANSETRON HCL ODT 4 MG TABLET PO ×2 (11:14→18:25)
--- NOTE | 2022-03-31 12:28 | PC.NURSE ---
this nurse was notified that pt told business systems developer that she wanted to leave ama. this nurse notified provider, provider stated pt can leave ama but will not be discharged at this time. when entering pts room pt was laying in bed, this nurse asked pt why she wants to leave and educated pt on leaving ama. pt was cursing at this nurse stating she wants morphine and codeine for pain. this nurse stated that pt has prn tylenol and has had some already and the provider came twice to talk to pt already and stated she will not be getting any morphine or codeine. pt became aggravated and tried to throw stuff at nurse. this nurse stated that behavior like that will not be tolerated. this nurse asked pt if she wanted to leave ama or stay. pt stated ill stay but leave me the fuck alone . this nurse left pts room.
--- NOTE | 2022-03-31 12:31 | PM.EVENT ---
Event Note Event Note Event Note: Notified by patient's nurse patient leaving AMA [id number]
--- NOTE | 2022-03-31 13:01 | PC.NURSE ---
this nurse entered pts room due to bed alarm going off. when turning off alarm, pt stated fuck you . this nurse made sure call light was in place and bed alarm on and left room.
--- NOTE | 2022-03-31 13:02 | PC.NURSE ---
this nurse entered pts room due to bed alarm going off due to pt repositioning herself. pt stated i want something for pain. this nurse has informed provider multiple times that pt is requesting something for pain. only thing ordered in tylenol. pt was informed of this multiple times. nurse stated i can bring the tylenol when it is due again. pt stated i dont want no damn tylenol. nurse stated that is what i have ordered. pt pushed bedside table aggressively. nurse asked if pt would like any tums or anything for stomach pain. pt stated no i dont want it, and stated i really want to throw this at you right now. nurse stated you want to throw what?, pt then stated i want to throw my soda pop at you. nurse stated you should rethink that and to not do that. pt stated why! . this nurse asked if pt needed anything, pt stated no. nurse left room, pts call light in reach and bed alarm on.
[2022-03-31] MEDS: SPIRONOLACTONE 50 MG TABLET PO (16:41)
--- NOTE | 2022-03-31 17:25 | PC.NURSE ---
at 1640 this nurse was attempting to give pt meds per ordered, and asked if she would like to have some tylenol. pt kept mumbling to self and unable to understand if pt would take meds or not. when asking pt what she said, pt screamed at nurse stating i dont want the damn tylenol . nurse stated that is fine, you dont have to take it , would you take the sprinolactone? pt then proceeded to state are you a hound or something leave me the fuck alone . educated pt on the reason she has this medication prescribed. pt then stated i told you i didnt want the damn tylenol, but ill take the other pill . other pill was given. pt stated leave me the fuck alone now . as nurse was walking out of room, could hear pt yelling out stating now im awake, you never leave me the fuck alone .
--- NOTE | 2022-03-31 17:30 | PC.NURSE ---
radiology receptionist has brought it to this nurses attention that when she was going to turn off pts bed alarm earlier this day when it was going off, that she walked in pts room to shut the alarm off, went to turn the alarm off on the bed, pt stated leave me alone , radiology receptionist stated i am just turning your alarm off pt then stated to her i dont give a fuck, leave me alone .
[2022-03-31] MEDS: MELATONIN 5 MG TABLET PO (18:25)
[2022-03-31] MEDS: diazePAM (*CRX) 5 MG TABLET PO (22:13)
[2022-03-31] MEDS: PANTOPRAZOLE 40 MG TABLET PO (22:15)
[2022-04-01] MEDS: MELATONIN 5 MG TABLET PO (00:37)
[2022-04-01] MEDS: LORazepam INJ (*CRX) 2 MG/ML VIAL IV PUSH (01:29)
[2022-04-01 04:00] VITALS: BP 109/62; PULSE 73; RESP 16; TEMP 36.4; O2SAT 96
--- NOTE | 2022-04-01 06:52 | PM.IMPN ---
Progress Note: A&P Assessment and Plan (1) Acute kidney injury: Code(s): N17.9 - Acute kidney failure, unspecified Status: Acute Assessment and Plan: Secondary to dehydration Monitor strict I/O. 03/30/22 Stable. BUN 12, creatinine 1.2, GFR 49 03/31/22 stable. Renal function within normal limits. (2) Dehydration: Code(s): E86.0 - Dehydration Status: Acute Assessment and Plan: Secondary to N/V/D Improving. Continue IV fluids as needed for poor oral intake. Monitor I/O. Resolved. (3) Hypokalemia: Code(s): E87.6 - Hypokalemia Status: Acute Assessment and Plan: K 2.0 on admission. Secondary to N/V/D. Improved with replacement. Trend BMP. Monitor telemetry 03/30/22 K 2.9. Give 40 mEQ PO, 40 mEQ IV KCl and add 20 mEQ to IV fluids. magnesium level 2.0. 03/31 K 4.1 Resolved. (4) Hypomagnesemia: Code(s): E83.42 - Hypomagnesemia Status: Acute Assessment and Plan: As above. Magnesium 1.4 to 3.0 after replacement. Stable (5) Hyponatremia: Code(s): E87.1 - Hypo-osmolality and hyponatremia Status: Acute Assessment and Plan: Sodium 128 on admission, secondary to acute hypovolemia Improved with IV hydration. Monitor neuro status 03/30/22 improving with IV fluids. Sodium 133 today. Low sodium diet for liver disease. Patient lethargic and c/o nausea that appears more related to frequent morphine and ativan use, as well as liver disease/alcohol withdrawal. 03/31/22 resolved. (6) Alcoholic hepatitis: Qualifiers: Ascites presence: with ascites Qualified Code(s): K70.11 - Alcoholic hepatitis with ascites Code(s): K70.10 - Alcoholic hepatitis without ascites Status: Chronic Assessment and Plan: CT shows diffuse steatosis or hepatitis; mild to moderate ascites. LFT elevated on admission. Trend LFTs Consult GI and appreciate recommendations. 03/29/22 diagnostic US guided paracentesis ordered, nash culture and gram stain r/o infection. MELD score 20 03/30/22 LFTs trending down- Tbili, 2.9, AST 101, ALT 33, Alk phos 154. Paracentesis - 400 mL hazy fluid and fluid analysis pending. Stop morphine. Likely progressed to liver cirrhosis given evidence of esophageal varices, low platelets, elevated LFTs. 03/31/22 gram stain for ascites fluid negative for bacterial growth. All other labs pending. LFTs unchanged. Continue spironolactone, per GI recommendations. BP soft, but asymptomatic and likely more related to librium and morphine. (7) Gastritis: Qualifiers: Gastritis type: alcoholic Chronicity: acute Gastritis bleeding: presence of bleeding unspecified Qualified Code(s): K29.20 - Alcoholic gastritis without bleeding Code(s): K29.70 - Gastritis, unspecified, without bleeding Status: Acute Assessment and Plan: Gastritis noted on previous EGD. Continue PPI IV BID and carafate AC/HS Stable. continue current management. (8) Alcohol abuse: Code(s): F10.10 - Alcohol abuse, uncomplicated Status: Chronic Assessment and Plan: Counseled to quit drinking CIWA monitoring, PRN lorazepam, scheduled librium Care coordination consult for cessation services. Referral to [facility] pending. CIWA 3 to 12 per nursing notes. Wean librium 25 mg Q6 hours today, then 25 mg BID (03/31), then 25 mg at HS (04/01), then stop. 03/31 weaning librium. PRN PO valium (9) Hypotension: Code(s): I95.9 - Hypotension, unspecified Status: Acute Assessment and Plan: Likely secondary to liver cirrhosis. albumin 2.3, platelets 114, LFTs elevated, ascites on CT. Antihypertensives were stopped prior to admission. 03/30 Increase IV fluids D5NS w/20 KCl @100 mL/hour. With low albumin judicious use of IV fluids to prevent worsening ascites. Midodrine 5 mg PO and 250 mL NS bolus given overnight. Will also trial albumin 25% 25 gm x1. Attempt to wean IV f
[2022-04-01 08:00] VITALS: BP 90/70; PULSE 79; RESP 14; TEMP 37; O2SAT 95
[2022-04-01 08:31] LABS: Basophils Percent Auto 0.6 % (0.2-1.2); Eosinophils Absolute Auto 0.1 K/mm3 (0-0.3); Hemoglobin 9.4 g/dL (12.0-15.0); Immature Granulocyte Absolute 0.03 K/mm3 (0.00-0.031); Immature Granulocyte Percent A 0.4 % (0-0.5); Immature Platelet Fraction Pct 5.3 % (0.9-11.2); Lymphocytes Absolute Auto 1.52 K/mm3 (0.9-3.2); Lymphocytes Percent Auto 21.3 % (18.3-44.2); Mean Corpuscular HGB Conc 32.4 g/dl (32-36); Mean Corpuscular Hemoglobin 38.7 pg (26-34); Mean Corpuscular Volume 119.3 fl (80-100); Mean Platelet Volume 10.7 fl (7.4-10.4); Monocytes Absolute Auto 0.6 K/mm3 (0.1-0.6); Monocytes Percent Auto 8.8 % (2.6-8.5); Neutrophils Absolute Auto 4.9 K/mm3 (1.3-6.7); Neutrophils Percent Auto 67.9 % (45.5-73.1); Platelet Count Result 148 k/mm3 (150-375); Red Blood Count 2.43 M/mm3 (4.2-5.4); Red Cell Distribution Width 14.6 % (11.5-14.5); White Blood Count 7.2 K/mm3 (4.5-10.0)
[2022-04-01 08:40] LABS: Potassium 4.3 mmol/L (3.4-5.0)
[2022-04-01] MEDS: THIAMINE HCL 100 MG TABLET PO (09:13)
[2022-04-01] MEDS: FOLIC ACID 1 MG TABLET PO (09:13)
[2022-04-01] MEDS: ACETAMINOPHEN 325 MG TABLET 650 MG PO (09:13)
[2022-04-01] MEDS: SPIRONOLACTONE 50 MG TABLET PO (09:13)
[2022-04-01] MEDS: MULTIVITAMINS THERAPEUTIC TAB (*BKC) 1 TABLET PO (09:13)
[2022-04-01] MEDS: PANTOPRAZOLE 40 MG TABLET PO (09:13)
[2022-04-01] MEDS: NICOTINE (*PBKC) 21 MG PATCH 1 PATCH TRANSDERM (09:14)
[2022-04-01] MEDS: diazePAM (*CRX) 5 MG TABLET PO (09:16)
[2022-04-01 09:36] LABS: Macrocytosis 1+ (NORMAL); Platelet Estimate Adequate (Adequate); Schistocytes None Seen (NORMAL)
[2022-04-01 11:43] VITALS: BP 84/55; PULSE 77; RESP 12; TEMP 37.1; O2SAT 93
--- NOTE | 2022-04-01 13:09 | PM.DS ---
DS: Admitting Diagnosis Discharge Date 04/01/22 1309 Admitting Diagnosis Acute kidney injury Dehydration Hypokalemia Hypomagnesemia Hyponatremia Alcoholic hepatitis Gastritis Alcohol abuse Hypotension Possible syncope DS: Discharge Diagnosis Discharge Diagnosis (1) Acute kidney injury: Code(s): N17.9 - Acute kidney failure, unspecified Status: Acute Assessment and Plan: Secondary to dehydration Monitor strict I/O. 03/30/22 Stable. BUN 12, creatinine 1.2, GFR 49 03/31/22 stable. Renal function within normal limits. (2) Dehydration: Code(s): E86.0 - Dehydration Status: Acute Assessment and Plan: Secondary to N/V/D Improved with IV fluids as needed for poor oral intake. Resolved. (3) Hypokalemia: Code(s): E87.6 - Hypokalemia Status: Acute Assessment and Plan: K 2.0 on admission. Secondary to N/V/D. Improved with replacement. Trend BMP. Monitor telemetry 03/30/22 K 2.9. Give 40 mEQ PO, 40 mEQ IV KCl and add 20 mEQ to IV fluids. magnesium level 2.0. 03/31 K 4.1. Started on potassium sparing diuretic for ascites Resolved. (4) Hypomagnesemia: Code(s): E83.42 - Hypomagnesemia Status: Acute Assessment and Plan: As above. Magnesium 1.4 to 3.0 after replacement. Stable (5) Hyponatremia: Code(s): E87.1 - Hypo-osmolality and hyponatremia Status: Acute Assessment and Plan: Sodium 128 on admission, secondary to acute hypovolemia Improved with IV hydration. Monitor neuro status 03/30/22 improving with IV fluids. Sodium 133 today. Low sodium diet for liver disease. Patient lethargic and c/o nausea that appears more related to frequent morphine and ativan use, as well as liver disease/alcohol withdrawal. 03/31/22 resolved. (6) Alcoholic hepatitis: Qualifiers: Ascites presence: with ascites Qualified Code(s): K70.11 - Alcoholic hepatitis with ascites Code(s): K70.10 - Alcoholic hepatitis without ascites Status: Chronic Assessment and Plan: CT shows diffuse steatosis or hepatitis; mild to moderate ascites. LFT elevated and monitored during hospitalization Consult GI and appreciate recommendations. 03/29/22 diagnostic US guided paracentesis ordered, nash culture and gram stain r/o infection. 03/30/22 LFTs trending down- Tbili, 2.9, AST 101, ALT 33, Alk phos 154. Paracentesis - 400 mL hazy fluid and fluid analysis pending. Stop morphine. Likely progressed to liver cirrhosis given evidence of esophageal varices, low platelets, elevated LFTs. 03/31/22 gram stain for ascites fluid negative for bacterial growth. All other labs pending. LFTs unchanged. Continue spironolactone, per GI recommendations. BP soft, but asymptomatic and likely more related to librium and morphine. (7) Gastritis: Qualifiers: Chronicity: acute Gastritis bleeding: presence of bleeding unspecified Gastritis type: alcoholic Qualified Code(s): K29.20 - Alcoholic gastritis without bleeding Code(s): K29.70 - Gastritis, unspecified, without bleeding Status: Acute Assessment and Plan: Gastritis noted on previous EGD. treated with PPI IV/PO BID and carafate AC/HS Stable. (8) Alcohol abuse: Code(s): F10.10 - Alcohol abuse, uncomplicated Status: Chronic Assessment and Plan: Counseled to quit drinking CIWA monitoring, PRN lorazepam, scheduled librium Care coordination consult for cessation services. Referral to [facility] pending. CIWA 3 to 12 per nursing notes. Wean librium 25 mg Q6 hours today, then 25 mg BID (03/31), then 25 mg at HS (04/01), then stop. 03/31 weaning librium. PRN PO valium (9) Hypotension: Code(s): I95.9 - Hypotension, unspecified Status: Acute Assessment and Plan: Likely secondary to liver cirrhosis. albumin 2.3, platelets 114, LFTs elevated, ascites on CT. Antihypertensives were stopped prior to admis
[2022-04-02 19:38] LABS: Glucose Peritoneal Fluid 74 mg/dL; LDH Peritoneal Fluid 43 U/L (<63); Total Protein Peritoneal Fluid <3.0 g/dL
[2022-04-03 17:28] LABS: Amylase Peritoneal Fluid <10 U/L
[2022-04-05 12:56] LABS: Albumin Peritoneal Fluid 0.4 g/dL
== END 2022-04-01 16:10 | disposition home or self-care (01) | DRG 469 ==
LOC: ANHED 12:16 → ANH3MEDSUR 13:09
PROVIDERS: Internal Medicine Gastroenterology; Physician Assistant; Admitting Provider Family Medicine; Emergency Provider Family Medicine; PCP Family Medicine; Visit Provider Nurse Practitioner Family
DX: N17.9 Acute kidney failure, unspecified (principal); I95.89 Other hypotension; E83.42 Hypomagnesemia; E87.1 Hypo-osmolality and hyponatremia; K70.0 Alcoholic fatty liver; K70.11 Alcoholic hepatitis with ascites; F10.239 Alcohol dependence with withdrawal, unspecified; E86.0 Dehydration; E87.6 Hypokalemia; Z20.822 Contact with and (suspected) exposure to COVID-19; K29.20 Alcoholic gastritis without bleeding; E86.1 Hypovolemia; R55 Syncope and collapse; I10 Essential (primary) hypertension; F17.210 Nicotine dependence, cigarettes, uncomplicated
CPT/HCPCS: 36415; 49083; 51701; 74177; 80048; 80053; 80307; 81025; 82042; 82140; 82150; 82607; 82728; 82746; 82945; 82948; 83540; 83550; 83615; 83690; 83735; 84132; 84157; 85014; 85018; 85025; 85055; 85610; 85730; 87070; 87075; 87205; 87636; 88108; 88305; 89051; 93005; 96374; 96375; 99285; A9270; C9113; J2060; J2270; J2405; J3475; J3480; J7030; J7040; J7050; P9047; Q9967

== ENCOUNTER 2022-04-19 11:01 | Outpatient (CLI) | payer OTHER, SELFPAY ==
[2022-04-19 11:54] LABS: Ammonia 20 umol/L (9-30)
[2022-04-19 11:55] LABS: INR 1.1
[2022-04-19 12:02] LABS: Alanine Aminotransferase 27 U/L (6-35); Alkaline Phosphatase 251 U/L (38-126); Anion Gap 10 mmol/L (8-16); Aspartate Amino Transferase 136 U/L (14-36); Bilirubin,Total 2.4 mg/dL (0.2-1.3); Blood Urea Nitrogen 14 mg/dL (7-17); Calcium 8.8 mg/dL (8.4-10.2); Carbon Dioxide 33 mmol/L (22-30); Chloride 92 mmol/L (98-107); Estimated Glomerular Filt Rate 35; Glucose 95 mg/dL (65-110); Potassium 3.5 mmol/L (3.4-5.0); Sodium 135 mmol/L (137-145)
[2022-04-19 12:17] LABS: Hematocrit 33.6 % (37.0-47.0); Hemoglobin 11.4 g/dL (12.0-15.0); Mean Corpuscular HGB Conc 33.9 g/dl (32-36); Mean Corpuscular Hemoglobin 36.7 pg (26-34); Mean Platelet Volume 10.9 fl (7.4-10.4); Platelet Count Result 315 k/mm3 (150-375); Red Blood Count 3.11 M/mm3 (4.2-5.4); Red Cell Distribution Width 14.6 % (11.5-14.5); White Blood Count 11.6 K/mm3 (4.5-10.0)
== END 2022-04-19 11:02 | disposition home or self-care (01) ==
LOC: ANHLAB 11:02
PROVIDERS: PCP Family Medicine; Visit Provider Nurse Practitioner
DX: K70.9 Alcoholic liver disease, unspecified (principal); R41.0 Disorientation, unspecified; R18.8 Other ascites; F10.10 Alcohol abuse, uncomplicated; K29.70 Gastritis, unspecified, without bleeding; R63.0 Anorexia
CPT/HCPCS: 36415; 80048; 80076; 82140; 82728; 85027; 85610

== ENCOUNTER 2022-04-21 11:25 | Outpatient (CLI) | payer OTHER, SELFPAY ==
--- NOTE | ~2022-04-21 | XR_ITS ---
Clinical Indication: Alcohol detoxification PA and lateral views of the chest: Comparison: 08/28/2015 Findings: The lungs are clear, without evidence of focal consolidation or pleural effusion. Cardiome diastinal silhouette is within normal limits. Bones and soft tissues are unremarkable. Impression: Normal chest. Reviewed, dictated and finalized at location . L FACE STONER AND POLISHER Impression: Normal chest.
--- NOTE | 2022-04-21 11:59 | ECG_ITS ---
Measurements Intervals [place] Rate: 90 P: 66 LA: 129 QRS: 31 QRSD: 81 T: -23 QT: 365 QTc: 447 Interpretive Statements SINUS RHYTHM BORDERLINE ST-T WAVE ABNORMALITY- ANTEROLAT/INF LEADS BASELINE ARTIFACT- II, AVR, AVL, AVF, V3-V4 BORDERLINE ECG COMPARED TO ECG 03/28/2022 10:15:34 NO SIGNIFICANT CHANGES Electronically Signed On 04-21-2022 12:08:16 BUS WASHER by Madhu Black D.O.
== END 2022-04-21 11:26 | disposition home or self-care (01) ==
PROVIDERS: PCP Family Medicine; Visit Provider Family Medicine
DX: Z01.818 Encounter for other preprocedural examination (principal); R94.31 Abnormal electrocardiogram [ECG] [EKG]
CPT/HCPCS: 71046; 93005

== ENCOUNTER 2022-04-28 08:41 | Outpatient (CLI) | payer OTHER, SELFPAY ==
[2022-04-28 10:43] LABS: Hematocrit 33.4 % (37.0-47.0); Hemoglobin 11.3 g/dL (12.0-15.0); Mean Corpuscular HGB Conc 33.8 g/dl (32-36); Mean Corpuscular Hemoglobin 35.9 pg (26-34); Mean Platelet Volume 10.3 fl (7.4-10.4); Platelet Count Result 279 k/mm3 (150-375); Red Blood Count 3.15 M/mm3 (4.2-5.4); Red Cell Distribution Width 13.3 % (11.5-14.5); White Blood Count 10.8 K/mm3 (4.5-10.0)
[2022-04-28 10:51] LABS: Prothrombin Time 13.1 Seconds (11.1-14.7)
[2022-04-28 11:03] LABS: Alanine Aminotransferase 28 U/L (6-35); Albumin Level 3.8 g/dL (3.5-5.1); Alkaline Phosphatase 317 U/L (38-126); Anion Gap 7 mmol/L (8-16); Aspartate Amino Transferase 97 U/L (14-36); Bilirubin,Total 1.2 mg/dL (0.2-1.3); Blood Urea Nitrogen 14 mg/dL (7-17); Calcium 8.7 mg/dL (8.4-10.2); Carbon Dioxide 33 mmol/L (22-30); Chloride 92 mmol/L (98-107); Estimated Glomerular Filt Rate 49; Glucose 91 mg/dL (65-110); Potassium 2.6 mmol/L (3.4-5.0); Sodium 132 mmol/L (137-145)
== END 2022-04-28 08:42 | disposition home or self-care (01) ==
LOC: ANHLAB 08:42
PROVIDERS: PCP Family Medicine; Visit Provider Nurse Practitioner
DX: K70.11 Alcoholic hepatitis with ascites (principal); N17.9 Acute kidney failure, unspecified
CPT/HCPCS: 36415; 80048; 80076; 85027; 85610

== ENCOUNTER 2022-05-02 10:19 | Outpatient (CLI) | payer OTHER, SELFPAY ==
--- NOTE | ~2022-05-02 | US_ITS ---
EXAMINATION: US abdomen limited DATE: 05/02/2022 10:51 INDICATION: Ascites. Alcoholic liver disease, unspecified. TECHNIQUE: Multiple grayscale and Doppler ultrasound images of the abdomen were obtained. COMPARISON: CT abdomen and pelvis 03/29/2022 FINDINGS: A survey of the 4 quadrants of the abdomen demonstrates no ascites. There is diffuse hepati c steatosis. IMPRESSION: 1. No ascites. The paracentesis was canceled. Reviewed, dictated and finalized at location A. T DESK ASSOCIATE
== END 2022-05-02 10:20 | disposition home or self-care (01) ==
PROVIDERS: PCP Family Medicine; Visit Provider Nurse Practitioner
DX: K70.9 Alcoholic liver disease, unspecified (principal)
CPT/HCPCS: 76705

== ENCOUNTER 2022-06-01 14:25 | Outpatient (CLI) | payer OTHER, SELFPAY ==
[2022-06-01 15:12] LABS: Basophils Absolute Auto 0.1 K/mm3 (0.0-0.1); Basophils Percent Auto 0.7 % (0.2-1.2); Eosinophils Absolute Auto 0.2 K/mm3 (0-0.3); Eosinophils Percent Auto 1.7 % (0-4.4); Hematocrit 40.9 % (37.0-47.0); Hemoglobin 13.4 g/dL (12.0-15.0); Immature Granulocyte Absolute 0.03 K/mm3 (0.00-0.031); Immature Granulocyte Percent A 0.3 % (0-0.5); Lymphocytes Percent Auto 20.4 % (18.3-44.2); Mean Corpuscular HGB Conc 32.8 g/dl (32-36); Mean Corpuscular Volume 103.8 fl (80-100); Mean Platelet Volume 9.6 fl (7.4-10.4); Monocytes Absolute Auto 0.8 K/mm3 (0.1-0.6); Monocytes Percent Auto 7.9 % (2.6-8.5); Neutrophils Absolute Auto 6.8 K/mm3 (1.3-6.7); Platelet Count Result 223 k/mm3 (150-375); Red Blood Count 3.94 M/mm3 (4.2-5.4); Red Cell Distribution Width 13.7 % (11.5-14.5); White Blood Count 9.8 K/mm3 (4.5-10.0)
[2022-06-01 15:17] LABS: Prothrombin Time 12.6 Seconds (11.1-14.7)
[2022-06-01 15:21] LABS: Alanine Aminotransferase 30 U/L (6-35); Albumin Level 3.8 g/dL (3.5-5.1); Alkaline Phosphatase 299 U/L (38-126); Anion Gap 7 mmol/L (8-16); Aspartate Amino Transferase 64 U/L (14-36); Bilirubin,Total 0.9 mg/dL (0.2-1.3); Blood Urea Nitrogen 13 mg/dL (7-17); Calcium 8.8 mg/dL (8.4-10.2); Carbon Dioxide 26 mmol/L (22-30); Chloride 105 mmol/L (98-107); Estimated Glomerular Filt Rate > 60; Glucose 81 mg/dL (65-110); Potassium 3.6 mmol/L (3.4-5.0); Sodium 138 mmol/L (137-145)
[2022-06-06 03:00] LABS: Hepatitis A Antibody Total Reactive (Nonreactive)
== END 2022-06-01 14:26 | disposition home or self-care (01) ==
PROVIDERS: PCP Family Medicine
DX: K76.6 Portal hypertension (principal); K74.00 Hepatic fibrosis, unspecified; Z11.59 Encounter for screening for other viral diseases
CPT/HCPCS: 36415; 80053; 82248; 85025; 85610; 86708

== ENCOUNTER 2022-06-28 11:36 | Outpatient (CLI) | payer OTHER, SELFPAY ==
[2022-06-28 11:59] LABS: Basophils Percent Auto 0.6 % (0.2-1.2); Eosinophils Absolute Auto 0.1 K/mm3 (0-0.3); Eosinophils Percent Auto 2.5 % (0-4.4); Hematocrit 42.3 % (37.0-47.0); Hemoglobin 13.9 g/dL (12.0-15.0); Immature Granulocyte Absolute 0.01 K/mm3 (0.00-0.031); Immature Granulocyte Percent A 0.3 % (0-0.5); Immature Platelet Fraction Pct 4.2 % (0.9-11.2); Lymphocytes Absolute Auto 1.58 K/mm3 (0.9-3.2); Lymphocytes Percent Auto 49.2 % (18.3-44.2); Mean Corpuscular HGB Conc 32.9 g/dl (32-36); Mean Corpuscular Hemoglobin 33.6 pg (26-34); Mean Corpuscular Volume 102.2 fl (80-100); Mean Platelet Volume 9.7 fl (7.4-10.4); Monocytes Absolute Auto 0.3 K/mm3 (0.1-0.6); Monocytes Percent Auto 10.6 % (2.6-8.5); Neutrophils Absolute Auto 1.2 K/mm3 (1.3-6.7); Neutrophils Percent Auto 36.8 % (45.5-73.1); Platelet Count Result 129 k/mm3 (150-375); Red Blood Count 4.14 M/mm3 (4.2-5.4); Red Cell Distribution Width 14.4 % (11.5-14.5); White Blood Count 3.2 K/mm3 (4.5-10.0)
[2022-06-28 12:19] LABS: LDL Cholesterol Direct 71 mg/dL
[2022-06-28 12:21] LABS: Alanine Aminotransferase 30 U/L (6-35); Albumin Level 3.4 g/dL (3.5-5.1); Alkaline Phosphatase 254 U/L (38-126); Amylase 63 U/L (30-110); Anion Gap 5 mmol/L (8-16); Aspartate Amino Transferase 71 U/L (14-36); Bilirubin,Total 1.1 mg/dL (0.2-1.3); Blood Urea Nitrogen 7 mg/dL (7-17); Calcium 8.2 mg/dL (8.4-10.2); Carbon Dioxide 32 mmol/L (22-30); Chloride 103 mmol/L (98-107); Cholesterol 138 mg/dL (0-200); Estimated Glomerular Filt Rate > 60; Glucose 68 mg/dL (65-110); HDL Direct 43 mg/dL; Lipase 40 U/L (23-300); Potassium 2.7 mmol/L (3.4-5.0); Sodium 140 mmol/L (137-145); Triglycerides 111 mg/dL (<150)
[2022-06-28 12:31] LABS: Iron 102 ug/dL (37-170)
[2022-06-28 12:39] LABS: Total Triiodothyronine (T3) 1.12 NG/ML (0.97-1.69)
[2022-06-28 12:41] LABS: Percent Iron Saturation 25 % (20-50)
[2022-06-28 12:48] LABS: Free T4 Free Thyroxine 1.25 ng/mL (0.78-2.19)
[2022-06-28 12:54] LABS: Creatinine Urine 173.4 mg/dL
[2022-06-28 13:02] LABS: MALB Creatinine Ratio < 3.5 mg/g (0-30); Microalbumin Urine Random < 6.0 mg/L (0-16.7)
[2022-06-28 13:14] LABS: Folic Acid 6.1 ng/mL (2.76->20)
[2022-07-01 09:54] LABS: Vitamin B1 6 nmol/L (8-30)
[2022-07-02 12:17] LABS: Vitamin B6 2.2 ng/mL (2.1-21.7)
[2022-07-06 13:38] LABS: Vitamin B2 <5.0 nmol/L (6.2-39.0)
== END 2022-06-28 11:37 | disposition home or self-care (01) ==
PROVIDERS: PCP Family Medicine; Visit Provider Family Medicine
DX: R53.83 Other fatigue (principal); R53.1 Weakness; K21.9 Gastro-esophageal reflux disease without esophagitis; E55.9 Vitamin D deficiency, unspecified; K70.31 Alcoholic cirrhosis of liver with ascites; I10 Essential (primary) hypertension; E78.1 Pure hyperglyceridemia
CPT/HCPCS: 36415; 80053; 80061; 82043; 82150; 82607; 82746; 83540; 83550; 83605; 83690; 84207; 84252; 84425; 84439; 84443; 84446; 84480; 85025; 85055

== ENCOUNTER 2022-07-06 09:45 | Outpatient (CLI) | payer OTHER, SELFPAY ==
[2022-07-06 11:00] LABS: Alanine Aminotransferase 43 U/L (6-35); Albumin Level 3.5 g/dL (3.5-5.1); Alkaline Phosphatase 211 U/L (38-126); Anion Gap 4 mmol/L (8-16); Aspartate Amino Transferase 113 U/L (14-36); Bilirubin,Total 1.2 mg/dL (0.2-1.3); Blood Urea Nitrogen 7 mg/dL (7-17); Carbon Dioxide 33 mmol/L (22-30); Chloride 103 mmol/L (98-107); Estimated Glomerular Filt Rate > 60; Glucose 79 mg/dL (65-110); Potassium 2.6 mmol/L (3.4-5.0); Sodium 140 mmol/L (137-145)
== END 2022-07-06 09:46 | disposition home or self-care (01) ==
PROVIDERS: PCP Family Medicine; Visit Provider Nurse Practitioner Adult Health
DX: E87.6 Hypokalemia (principal)
CPT/HCPCS: 36415; 80053

== ENCOUNTER 2022-07-06 12:44 | Emergency (ER) | payer OTHER, SELFPAY ==
--- NOTE | ~2022-07-06 | CT_ITS ---
EXAMINATION: CT abdomen pelvis w con DATE: 07/06/2022 16:44 INDICATION: Right upper quadrant abdominal pain. TECHNIQUE: Computed tomography (CT) of the abdomen and pelvis was performed with 100 mL Omnipaque 350 intravenous contrast. Automated exposure control and iterative reconstruction technique were employe d. The dose-length product was 192.09 mGy-cm. COMPARISON: CT abdomen and pelvis 03/29/2022 FINDINGS: The visualized portions of the lung bases demonstrate smooth septal thickening, consistent with mild pulmonary edema. No pleural effusion. The heart size is normal. No pericardial effusion. Pa raesophageal varices are noted. There is transient hepatic attenuation difference involving the liver . There is atrophy of medial segment left hepatic lobe, consistent with cirrhosis. There is a paraumb ilical portacaval shunt. There are gallstones in the gallbladder, which is normal in size. Gallbladde r wall thickening is likely secondary to interstitial edema and/or chronic liver disease. The spleen is normal in size. The pancreas and adrenal glands are normal. Right kidney is normal. There is a 3 m m stone in left kidney. There is diffuse wall thickening of the right colon, likely interstitial vesta a from portal venous hypertension. The appendix is normal. There is calcified atherosclerosis of the aorta and many of the other arteries. There is trace ascites. There are no pathologically enlarged ly mph nodes. There is mild periportal and retroperitoneal lymphadenopathy, likely reactive. There is mi ld osteoarthritis of the hips. IMPRESSION: 1. Cirrhosis of the liver with portal venous hypertension. Reviewed, dictated and finalized at location A.
[2022-07-06 12:45] VITALS: BP 126/76; PULSE 80; RESP 16; TEMP 36.2; O2SAT 100
--- NOTE | 2022-07-06 12:54 | ECG_ITS ---
Measurements Intervals [place] Rate: 72 P: 74 PA: 140 QRS: 33 QRSD: 97 T: 59 QT: 429 QTc: 471 Interpretive Statements SINUS RHYTHM COMPARED TO ECG 04/21/2022 12:06:18 NO SIGNIFICANT CHANGES Electronically Signed On 07-06-2022 14:23:25 CDT by Colten Lyons M.D.
[2022-07-06 13:17] LABS: Basophils Percent Auto 0.8 % (0.2-1.2); Eosinophils Absolute Auto 0.1 K/mm3 (0-0.3); Eosinophils Percent Auto 2.1 % (0-4.4); Hematocrit 44.2 % (37.0-47.0); Hemoglobin 14.7 g/dL (12.0-15.0); Immature Granulocyte Absolute 0.02 K/mm3 (0.00-0.031); Immature Granulocyte Percent A 0.4 % (0-0.5); Immature Platelet Fraction Pct 3.8 % (0.9-11.2); Lymphocytes Absolute Auto 2.08 K/mm3 (0.9-3.2); Lymphocytes Percent Auto 43.4 % (18.3-44.2); Mean Corpuscular HGB Conc 33.3 g/dl (32-36); Mean Corpuscular Hemoglobin 33.6 pg (26-34); Mean Corpuscular Volume 101.1 fl (80-100); Mean Platelet Volume 9.6 fl (7.4-10.4); Monocytes Absolute Auto 0.5 K/mm3 (0.1-0.6); Monocytes Percent Auto 9.6 % (2.6-8.5); Neutrophils Absolute Auto 2.1 K/mm3 (1.3-6.7); Neutrophils Percent Auto 43.7 % (45.5-73.1); Platelet Count Result 146 k/mm3 (150-375); Red Blood Count 4.37 M/mm3 (4.2-5.4); Red Cell Distribution Width 15.4 % (11.5-14.5); White Blood Count 4.8 K/mm3 (4.5-10.0)
[2022-07-06 13:30] LABS: Alanine Aminotransferase 44 U/L (6-35); Albumin Level 3.6 g/dL (3.5-5.1); Alkaline Phosphatase 227 U/L (38-126); Anion Gap 6 mmol/L (8-16); Aspartate Amino Transferase 125 U/L (14-36); Bilirubin,Total 1.3 mg/dL (0.2-1.3); Blood Urea Nitrogen 6 mg/dL (7-17); Carbon Dioxide 32 mmol/L (22-30); Chloride 104 mmol/L (98-107); Estimated Glomerular Filt Rate > 60; Glucose 100 mg/dL (65-110); Lipase 53 U/L (23-300); Potassium 2.4 mmol/L (3.4-5.0); Sodium 142 mmol/L (137-145)
[2022-07-06 13:36] LABS: Troponin I < 0.012 ng/mL (0.000-0.034)
[2022-07-06 13:53] VITALS: BP 117/80; PULSE 71; RESP 12; O2SAT 100
[2022-07-06 14:03] LABS: Magnesium 1.6 mg/dL (1.6-2.3)
[2022-07-06 14:10] LABS: INR 1.1; Partial Thromboplastin Time 29.8 SECONDS (22.3-36.8)
[2022-07-06] MEDS: SODIUM CHLORIDE 0.9% IV 1,000 ML 999 ML IV CONT (14:12)
[2022-07-06] MEDS: MAGNESIUM SULF 1 GM/D5W 100 ML 1 GM/100 ML BAG IVPB (14:12)
[2022-07-06] MEDS: POTASSIUM CHLORIDE 20 MEQ PACKET (FOR LIQUID) 40 MEQ PO ×2 (14:12→14:13)
--- NOTE | 2022-07-06 14:17 | ED.GENADULT ---
HPI - General Adult General Chief complaint: Recheck/Abnormal Lab/Rx <Froilan Campos PA-C - Last Filed: 07/08/22 09:38> Stated complaint: low potassium <Froilan Campos PA-C - Last Filed: 07/08/22 09:38> Time Seen by Provider: 07/06/22 14:03 <Froilan Campos PA-C - Last Filed: 07/08/22 09:38> Source: patient <Froilan Campos PA-C - Last Filed: 07/08/22 09:38> Mode of arrival: ambulatory <Froilan Campos PA-C - Last Filed: 07/08/22 09:38> Limitations: no limitations <Froilan Campos PA-C - Last Filed: 07/08/22 09:38> History of Present Illness HPI narrative: This is a 46-year-old female with PMH of ascites, portal hypertension, alcohol abuse, alcoholic hepatitis presents to the ED after getting a call from her doctor that her potassium was very low. Patient states that she does not feel like herself. When asked about this she states that she may be having low potassium because she has been drinking. States that she is been trying to stop drinking in the past few months. Reports a long history of alcohol abuse. States up until about a month ago she had completely cut alcohol out, however has been drinking intermittently since then. When I ask about chest pain or palpitations she denies anything like this. She does report abdominal pain, my liver hurts. When asked about the abdominal pain she points to the left upper quadrant. Past surgical history of D&C, EGDs. <Froilan Campos PA-C - Last Filed: 07/08/22 09:38> Related Data Home medications: Home Medications Medication Instructions Recorded Confirmed furosemide 40 mg tablet 40 mg PO QAM 04/19/22 04/19/22 mirtazapine 15 mg tablet 15 mg PO QHS 04/19/22 04/19/22 <CAIN Blackmon Last Filed: 07/08/22 09:38> Allergies/adverse reactions: Allergies Allergy/AdvReac Type Severity Reaction Status Date / Time meperidine Allergy Intermediate Hives Verified 04/19/22 09:51 <Froilan Campos PA-C - Last Filed: 07/08/22 09:38> Review of Systems Review of Systems: CONSTITUTIONAL: Denies fever, chills, or sweats. EYES: Denies visual changes, redness, or discharge. ENT: Denies rhinorrhea, congestion, sore throat, or otalgia. CARDIOVASCULAR: Denies chest pain, palpitations, or edema. RESPIRATORY: Denies cough or dyspnea. GASTROINTESTINAL: Denies abdominal pain, nausea, vomiting, or diarrhea. GENITOURINARY: Denies dysuria or hematuria. SKIN: Denies rash or itching. MUSCULOSKELETAL: Denies back pain, joint pain, or myalgia. NEUROLOGIC: Denies headache, numbness, dizziness, or weakness. PSYCHIATRIC: Denies anxiety or depression. <Froilan Campos PA-C - Last Filed: 07/08/22 09:38> [facility] Past Medical History Medical History: Medical History (Updated 07/06/22 @ 18:31 by Froilan Campos PA-C) Alcohol abuse Alcoholic fatty liver Anorexia Colon cancer screening Confused Diffuse abdominal pain Essential hypertension Marijuana use Portal hypertension Tobacco dependence <Froilan Campos PA-C - Last Filed: 07/08/22 09:38> Surgical History Surgical History: Surgical History History of dilation and curettage History of ear surgery 2002 - Patient reports a surgery to R ear History of esophagogastroduodenoscopy (12/2021) Gastritis, hiatal hernia. <Froilan Campos PA-C - Last Filed: 07/08/22 09:38> Family History Family History: Family History Father Hypertension Sibling Diabetes mellitus Grandparent Esophageal cancer <Froilan Campos PA-C - Last Filed: 07/08/22 09:38> Social History Social History: Social History Social History: Code status: Full code Surrogate decision maker: Almaz Salamanca, stepmother. Smoking packs per day: 3 Smoking cigarettes per day: 60.0 Years smoked: 30 Smoking pack-years: 90.00 Smoking
[2022-07-06 14:32] LABS: Phosphorus 2.7 mg/dL (2.5-4.5)
[2022-07-06 15:03] LABS: Ammonia 22 umol/L (9-30)
[2022-07-06 15:13] LABS: Ethanol 181 mg/dL (<10)
[2022-07-06] MEDS: ONDANSETRON INJ 4 MG/2 ML VIAL IV PUSH (15:38)
[2022-07-06] MEDS: KCL 20 MEQ/SW 100 ML 100 ML 50 MEQ IVPB (15:39)
[2022-07-06 15:43] VITALS: BP 128/92; PULSE 78; RESP 13; O2SAT 100
[2022-07-06 15:46] VITALS: BP 115/84; PULSE 78; RESP 18; O2SAT 100
[2022-07-06 16:47] LABS: Troponin I 0.014 ng/mL (0.000-0.034)
[2022-07-06 16:57] LABS: Anion Gap 8 mmol/L (8-16); Blood Urea Nitrogen 5 mg/dL (7-17); Calcium 7.8 mg/dL (8.4-10.2); Carbon Dioxide 27 mmol/L (22-30); Chloride 110 mmol/L (98-107); Estimated Glomerular Filt Rate > 60; Glucose 75 mg/dL (65-110); Potassium 4.1 mmol/L (3.4-5.0); Sodium 145 mmol/L (137-145)
[2022-07-06] MEDS: SODIUM CHLORIDE 0.9% IV 250 ML 999 ML (17:36)
[2022-07-06 18:04] VITALS: BP 123/81; PULSE 74; RESP 26; O2SAT 98
[2022-07-06 19:22] LABS: Ethanol 94 mg/dL (<10)
[2022-07-06 19:34] LABS: Troponin I 0.014 ng/mL (0.000-0.034)
[2022-07-06 19:36] LABS: Anion Gap 6 mmol/L (8-16); Blood Urea Nitrogen 4 mg/dL (7-17); Calcium 7.6 mg/dL (8.4-10.2); Carbon Dioxide 28 mmol/L (22-30); Chloride 111 mmol/L (98-107); Estimated Glomerular Filt Rate > 60; Glucose 115 mg/dL (65-110); Sodium 145 mmol/L (137-145)
[2022-07-06 20:24] VITALS: BP 123/77; PULSE 69; RESP 18; TEMP 36.6; O2SAT 99
== END 2022-07-06 20:26 | disposition home or self-care (01) ==
PROVIDERS: Emergency Medicine; Emergency Provider Physician Assistant; PCP Family Medicine
DX: E87.6 Hypokalemia (principal); I10 Essential (primary) hypertension; K76.6 Portal hypertension; K70.11 Alcoholic hepatitis with ascites; F10.10 Alcohol abuse, uncomplicated; Y90.6 Blood alcohol level of 120-199 mg/100 ml; K74.60 Unspecified cirrhosis of liver
CPT/HCPCS: 36415; 74177; 80048; 80053; 80307; 82140; 83690; 83735; 84100; 84484; 85025; 85055; 85610; 85730; 93005; 96365; 96366; 96367; 96368; 96375; 97110; 97530; 99284; A9270; J0131; J2405; J3475; J3480; J7030; J7050; Q9967

== ENCOUNTER 2022-07-17 09:00 | Outpatient (CLI) | payer OTHER, BC, SELFPAY ==
[2022-07-17 10:00] LABS: Alanine Aminotransferase 38 U/L (6-35); Albumin Level 3.9 g/dL (3.5-5.1); Alkaline Phosphatase 222 U/L (38-126); Anion Gap 3 mmol/L (8-16); Aspartate Amino Transferase 74 U/L (14-36); Bilirubin,Total 1.3 mg/dL (0.2-1.3); Blood Urea Nitrogen 10 mg/dL (7-17); Calcium 8.5 mg/dL (8.4-10.2); Carbon Dioxide 30 mmol/L (22-30); Chloride 107 mmol/L (98-107); Estimated Glomerular Filt Rate > 60; Glucose 88 mg/dL (65-110); Potassium 3.2 mmol/L (3.4-5.0); Sodium 140 mmol/L (137-145)
== END 2022-07-17 09:01 | disposition home or self-care (01) ==
LOC: ANHLAB 09:04
PROVIDERS: PCP Family Medicine; Visit Provider Family Medicine
DX: E87.6 Hypokalemia (principal)
CPT/HCPCS: 36415; 80053

== ENCOUNTER 2022-08-03 08:00 | Outpatient (RCR) | payer OTHER, SELFPAY ==
--- NOTE | 2022-06-29 16:59 | PTOPEVAL1 ---
Assessment and note entered by Robby Leon, PT Evaluation Information Assessment Status Evaluation Diagnosis leg discomfort, strengthening Subjective Information Patient reports she feels like her legs are weak and reports having a fall while in the hospital. She feels her ankles do not move like they should and has neuropathy up to her thighs. Reported Pain Level Pain Score 7: Self Report Assessment PT Clinical Summary Kavita is a 46 year old female coming in with a diagnosis of ROXI LE discomfort and weakness. The patient has weakness in the ankle and tightness in calfs and quads. Physical therapy will work with the patient to improve her deficits. Plan of Care Interventions Electrical Stimulation,Gait Training,Hot Pack/Cold Pack,Manual Therapy,Neuro Re-education,Patient/ Caregiver Education,Therapeutic Activities, Therapeutic Exercise,Ultrasound Other Interventions taping, cupping, and IASTM PT Services Indicated Yes Treatment Frequency and 1-2x/wk for 4 weeks Duration These treatments will address the objective and functional deficits as defined above. The patient will be advanced safely and appropriately in order for the patient to progress towards his/her prior level of function. Additional exercises will be introduced and as well as a comprehensive home exercise program upon discharge, if needed, ?to ensure carryover of functional gains achieved in the clinic. This treatment plan has been reviewed and agreement upon by the patient.
--- NOTE | 2022-08-03 08:41 | PTOPDC ---
Assessment and note entered by Robby Leon, PT Evaluation Information Assessment Status Discharge Diagnosis leg discomfort, strengthening Subjective Information Patient reports she still has severe pain in her feet and ankles from neuropathy and that the neuropathy is going up to her knees. Asked if she has gotten back to her walking or jogging program and she states she does not have a treadmill at home. Reported Pain Level Pain Score 8: Self Report Assessment PT Clinical Summary Kavita is a 46 year old female coming in for a diagnosis of leg discomfort and strengthening, she was evaluated on June 29 and attended 8 visits and 1 cancelation. She has met her strengthening goal and met 1/4 range of motion goals. Did not meet pain or functional mobility goal. The patient is hindered by her neuropathy and her self-reported description of neuropathy is getting worse. Recommend talking to the doctor of some medication like gabapentin to help control the pain and may help improve her functional mobility. Discharged from physical therapy. Plan of Care PT Services Indicated No
== END 2022-08-03 12:01 | disposition home or self-care (01) ==
LOC: ANHPT 08:00
PROVIDERS: PCP Family Medicine; Visit Provider Nurse Practitioner Adult Health
DX: M62.81 Muscle weakness (generalized) (principal); W19.XXXD Unspecified fall, subsequent encounter
CPT/HCPCS: 97110; 97161; 97530

== ENCOUNTER 2022-08-09 13:07 | Outpatient (CLI) | payer BC, OTHER, SELFPAY ==
[2022-08-09 13:36] LABS: Alanine Aminotransferase 49 U/L (6-35); Albumin Level 3.9 g/dL (3.5-5.1); Alkaline Phosphatase 230 U/L (38-126); Anion Gap 5 mmol/L (8-16); Aspartate Amino Transferase 199 U/L (14-36); Bilirubin,Total 1.2 mg/dL (0.2-1.3); Blood Urea Nitrogen 11 mg/dL (7-17); Calcium 8.4 mg/dL (8.4-10.2); Carbon Dioxide 32 mmol/L (22-30); Chloride 106 mmol/L (98-107); Estimated Glomerular Filt Rate > 60; Glucose 88 mg/dL (65-110); Potassium 2.9 mmol/L (3.4-5.0); Sodium 143 mmol/L (137-145)
== END 2022-08-09 13:08 | disposition home or self-care (01) ==
LOC: ANHLAB 13:10
PROVIDERS: PCP Family Medicine; Visit Provider Family Medicine
DX: E87.6 Hypokalemia (principal)
CPT/HCPCS: 36415; 80053

== ENCOUNTER 2022-08-10 11:11 | Emergency (ER) | payer BC, OTHER, SELFPAY ==
[2022-08-10] VITALS (27 sets, daily range): BP systolic 121–145; BP diastolic 72–95; PULSE 65–83; RESP 14–26; TEMP 36.6; O2SAT 100
--- NOTE | ~2022-08-10 | CT_ITS ---
Non-contrast Head CT History: Headache COMPARISON: 12/15/2021 Technique: Axial non-contrast imaging of the brain was performed. Dose reduction technique was used on this scan by utilizing automated exposure control and iterative reconstruction technique. The dose -length product (DLP) was 605.33 mGy-cm. Findings: There is no evidence of intracranial hemorrhage, mass lesion, or acute infarct. Brain par enchyma appears normal. The ventricles and subarachnoid spaces are normal in size. The calvarium ap pears normal. The visualized paranasal sinuses and mastoid air cells are clear. Impression: No significant abnormality seen. Reviewed, dictated and finalized at location . Impression: No significant abnormality seen.
--- NOTE | ~2022-08-10 | XR_ITS ---
XR chest 2V 08/10/2022 13:07 Indication: Chest pain. Hypertension. Procedure: 2 view chest Comparison: 04/21/2022 Findings: There is scarring of the right upper lobe, unchanged. Heart size normal. No focal air space disease, pulmonary edema, pleural effusion or suspected pneumothorax. Impression: 1: No acute cardiopulmonary disease. Reviewed, dictated and finalized at location L. Impression: 1: No acute cardiopulmonary disease.
--- NOTE | 2022-08-10 11:21 | PC.NURSE ---
called for triage. not found in lobby.
[2022-08-10 12:00] LABS: Alanine Aminotransferase 48 U/L (6-35); Albumin Level 3.7 g/dL (3.5-5.1); Alkaline Phosphatase 217 U/L (38-126); Anion Gap 7 mmol/L (8-16); Aspartate Amino Transferase 167 U/L (14-36); Bilirubin,Total 1.5 mg/dL (0.2-1.3); Blood Urea Nitrogen 11 mg/dL (7-17); Carbon Dioxide 29 mmol/L (22-30); Chloride 104 mmol/L (98-107); Estimated Glomerular Filt Rate > 60; Glucose 120 mg/dL (65-110); Potassium 2.7 mmol/L (3.4-5.0); Sodium 140 mmol/L (137-145)
--- NOTE | 2022-08-10 12:02 | ED.RECABL ---
HPI - Recheck/Abnormal Lab/Rx General Chief Complaint: Recheck/Abnormal Lab/Rx Stated Complaint: low potassium Time Seen by Provider: 08/10/22 12:01 Source: patient Mode of arrival: ambulatory Limitations: no limitations History of Present Illness HPI narrative: The patient is a 46 yo female with a history of ascites, alcohol abuse, alcoholic hepatitis presenting to the emergency department for evaluation of low potassium levels. Patient with reported outpatient lab draw with potassium low, sent here for evaluation of this. Patient reports generalized weakness. She also reports headache, chest pain, abdominal pain. She reports dysuria. Patient reports dull, aching headache over the front of her head. She has had it for the past week. Patient reports she has been taking Tylenol for this. Patient reports mild, aching chest pain which has been intermittent in nature, not worse with exertion. No radiation of pain to the neck, shoulder, jaw, back. No syncopal events. Denies palpitations. Patient also reports mild burning with urination, denies blood present in urine. She reports pain in the abdomen does wrap around to the bilateral sides. Denies rashes or vesicles. Patient reports history of low potassium in the past. Patient states she does not take any medication for this. When asked why, states that primary care provider thought that it would make her sick. Patient does report 2 shots of alcohol daily. I spoke with the patient directly and reviewed external medical records including ER visit from July 06, 2022 where patient presented for similar findings. Related Data Home Medications Medication Instructions Recorded Confirmed furosemide 40 mg tablet 40 mg PO QAM 04/19/22 04/19/22 mirtazapine 15 mg tablet 15 mg PO QHS 04/19/22 04/19/22 Allergies Allergy/AdvReac Type Severity Reaction Status Date / Time meperidine Allergy Intermediate Hives Verified 08/10/22 11:12 Review of Systems Review of Systems: CONSTITUTIONAL: Denies fever, chills, or sweats. EYES: Denies visual changes, redness, or discharge. ENT: Denies rhinorrhea, congestion, sore throat, or otalgia. CARDIOVASCULAR: Reports intermittent chest pain without palpitations or edema RESPIRATORY: Denies cough or dyspnea. GASTROINTESTINAL: Reports abdominal pain and denies nausea, vomiting, or diarrhea. GENITOURINARY: Reports dysuria, denies hematuria SKIN: Denies rash or itching. MUSCULOSKELETAL: Denies back pain, joint pain, or myalgia. NEUROLOGIC: Reports headache without focal weakness or numbness PMFSH Past Medical History Medical History (Updated 08/10/22 @ 16:18 by Brii Dover MD) Alcohol abuse Alcoholic fatty liver Anorexia Colon cancer screening Confused Diffuse abdominal pain Essential hypertension Marijuana use Portal hypertension Tobacco dependence Surgical History Surgical History History of dilation and curettage History of ear surgery 2002 - Patient reports a surgery to R ear History of esophagogastroduodenoscopy (12/2021) Gastritis, hiatal hernia. Family History Family History Father Hypertension Sibling Diabetes mellitus Grandparent Esophageal cancer Social History Social History Social History: Code status: Full code Surrogate decision maker: Almaz Salamanca, stepmother. Smoking packs per day: 3 Smoking cigarettes per day: 60.0 Years smoked: 30 Smoking pack-years: 90.00 Smoking status: Current every day smoker Tobacco type: cigarettes Alcohol intake: current Alcohol use details: Drinks about a 5th of fireball a day. Substance use: current Substance use type: marijuana Lack of Transportation: No Lack of Food: Never True Current Housing: I Have Housing Concerned About Future Housing: No Difficulty Paying Gas
[2022-08-10 12:11] LABS: Basophils Percent Auto 0.6 % (0.2-1.2); Eosinophils Absolute Auto 0.1 K/mm3 (0-0.3); Eosinophils Percent Auto 1.2 % (0-4.4); Hematocrit 39.9 % (37.0-47.0); Hemoglobin 13.5 g/dL (12.0-15.0); Immature Granulocyte Absolute 0.01 K/mm3 (0.00-0.031); Immature Granulocyte Percent A 0.2 % (0-0.5); Immature Platelet Fraction Pct 4.6 % (0.9-11.2); Lymphocytes Absolute Auto 1.59 K/mm3 (0.9-3.2); Lymphocytes Percent Auto 32.1 % (18.3-44.2); Mean Corpuscular HGB Conc 33.8 g/dl (32-36); Mean Corpuscular Hemoglobin 35.4 pg (26-34); Mean Corpuscular Volume 104.7 fl (80-100); Mean Platelet Volume 9.9 fl (7.4-10.4); Monocytes Absolute Auto 0.5 K/mm3 (0.1-0.6); Monocytes Percent Auto 9.9 % (2.6-8.5); Neutrophils Absolute Auto 2.8 K/mm3 (1.3-6.7); Platelet Count Result 113 k/mm3 (150-375); Red Blood Count 3.81 M/mm3 (4.2-5.4); Red Cell Distribution Width 17.2 % (11.5-14.5)
[2022-08-10 12:29] LABS: Magnesium 1.5 mg/dL (1.6-2.3); Phosphorus 2.8 mg/dL (2.5-4.5)
[2022-08-10] MEDS: POTASSIUM CHLORIDE 20 MEQ TABLET 40 MEQ PO (13:12)
[2022-08-10] MEDS: SODIUM CHLORIDE 0.9% IV 1,000 ML 999 ML IV CONT (13:13)
[2022-08-10] MEDS: THIAMINE HCL 200 MG/2 ML VIAL 100 MG IV PUSH (13:18)
[2022-08-10] MEDS: FOLIC ACID 1 MG/0.2 ML INJ IV PUSH (13:19)
[2022-08-10] MEDS: MAGNESIUM SULF 1 GM/D5W 100 ML 1 GM/100 ML BAG IVPB (13:25)
[2022-08-10] MEDS: ONDANSETRON INJ 4 MG/2 ML VIAL IV PUSH (13:28)
[2022-08-10] MEDS: MORPHINE SULFATE (*CRX) 2 MG/ML INJ IV PUSH (13:28)
--- NOTE | 2022-08-10 13:29 | PC.NURSE ---
bedside pregancy done at 13;20 results negative
[2022-08-10 13:35] LABS: Troponin I < 0.012 ng/mL (0.000-0.034)
[2022-08-10 13:37] LABS: Appearance Urine Cloudy (Clear); Bacteria Urine None Seen /hpf; Bilirubin Urine Negative (Negative); Blood Urine Negative (Negative); Color Urine Yellow (Yellow); Glucose Urine UA Negative (Negative); Ketones Urine Negative (Negative); Leukocyte Esterase Ur Negative LEU/UL (Negative); Nitrate Urine Negative (Negative); Non Pathogenic Casts 0-2; Protein Urine Trace mg/dL (Negative); RBC Urine 0-2 /hpf (0-2); Specific Grav Ur 1.011 (1.001-1.035); Squamous Epithelial Cell Urine Occasional /hpf (Few); WBC Urine 0-5 /hpf
[2022-08-10 13:53] LABS: Add Urine Microscopic? YES
[2022-08-10] MEDS: POTASSIUM CHLORIDE INJ 40 MEQ in SODIUM CHLORIDE 0.9% IV 500 ML 130 MEQ IVPB (14:34)
[2022-08-10 15:43] LABS: Ethanol < 10 mg/dL (<10)
[2022-08-10 15:44] LABS: Alanine Aminotransferase 43 U/L (6-35); Albumin Level 3.2 g/dL (3.5-5.1); Alkaline Phosphatase 209 U/L (38-126); Anion Gap 5 mmol/L (8-16); Aspartate Amino Transferase 144 U/L (14-36); Bilirubin,Total 1.5 mg/dL (0.2-1.3); Blood Urea Nitrogen 9 mg/dL (7-17); Calcium 7.4 mg/dL (8.4-10.2); Carbon Dioxide 27 mmol/L (22-30); Chloride 108 mmol/L (98-107); Estimated Glomerular Filt Rate > 60; Glucose 80 mg/dL (65-110); Potassium 3.3 mmol/L (3.4-5.0); Sodium 140 mmol/L (137-145)
== END 2022-08-10 16:17 | disposition home or self-care (01) ==
PROVIDERS: Emergency Medicine; Emergency Provider Emergency Medicine; PCP Family Medicine
DX: R51.9 Headache, unspecified (principal); R11.2 Nausea with vomiting, unspecified; R74.01 Elevation of levels of liver transaminase levels; E87.6 Hypokalemia; I10 Essential (primary) hypertension; F17.210 Nicotine dependence, cigarettes, uncomplicated
CPT/HCPCS: 36415; 70450; 71046; 80053; 80307; 81001; 83735; 84100; 84443; 84484; 85025; 85055; 96365; 96375; 99284; A9270; J2270; J2405; J3411; J3475; J3480; J7030; J7040

== ENCOUNTER 2022-09-18 13:23 | Observation (INO) | payer BC, OTHER, SELFPAY ==
[2022-09-18] VITALS (19 sets, daily range): BP systolic 129–141; BP diastolic 75–90; PULSE 72–100; RESP 11–27; TEMP 36.7–37; O2SAT 97–100; BMI 18.1
--- NOTE | ~2022-09-18 | CT_ITS ---
EXAMINATION: CT abdomen pelvis w con DATE: 09/18/2022 15:51 INDICATION: Generalized abdominal pain TECHNIQUE: Computed tomography (CT) of the abdomen and pelvis was performed with 100 mL Omnipaque-350 intravenous contrast. Automated exposure control and iterative reconstruction technique were employe d. The dose-length product was 179.13 mGy-cm. COMPARISON: 07/06/2022 and 03/29/2022 FINDINGS: Lung bases are clear. Heart size is normal. No pericardial or pleural effusion. Again seen is relativ e atrophy of the medial segment of the left hepatic lobe with associated transient hepatic attenuatio n difference and some subtle liver surface nodularity consistent with cirrhosis. Portosystemic collat erals consistent with associated secondary portal venous hypertension including paraesophageal varice s and a recanalized umbilical vein. Considering a few small calcified gallstones along the dependent wall of the gallbladder. Persistent localized mild gallbladder wall thickening versus minimal perihil ar cholecystectomy clips at the gallbladder fossa likely related to liver disease. Spleen, pancreas, bilateral adrenal glands and right kidney are normal. No change in a couple nonobstructing stones the larger measuring up to 3 mm at an upper pole calyx of the left kidney. Small bowel and appendix are unremarkable. There is persistent diffuse edematous wall thickening of the colon which is improved in the right colon and has increased in the sigmoid colon. A couple 1.5-2 cm left adnexal cyst. The meera dder, uterus and right adnexa are unremarkable. Again seen is a 2.2 cm mobile calcified intraperitone al mass canal at the right side of the cul-de-sac. No free intraperitoneal gas or fluid. No pathologi cm enlarged abdominal or pelvic lymphadenopathy. Bones are unremarkable. IMPRESSION: 1. Edematous wall thickening of the colon with improvement in the right hemicolon and interval worsen ing at the distal colon. Differential would include hepatic colopathy related to cirrhosis with marycarmen l venous hypertension or colitis which could be infectious, inflammatory or ischemic in etiology. 2. Cholelithiasis. Reviewed, dictated and finalized at location A. IMPRESSION: 1. Edematous wall thickening of the colon with improvement in the right hemicol on and interval worsening at the distal colon. Differential would include hepat ic colopathy related to cirrhosis with portal venous hypertension or colitis wh ich could be infectious, inflammatory or ischemic in etiology. 2. Cholelithiasis.
--- NOTE | ~2022-09-18 | US_ITS ---
EXAMINATION: US pelvic complete DATE: 09/21/2022 12:41 INDICATION: Vaginal bleeding Comparison:No prior studies for comparison. TECHNIQUE: Multiple transabdominal sonographic images of the pelvis performed. FINDINGS: The uterus measures 8.5 x 3.6 x 5.6 cm. The endometrial complex measures 3 mm. The right ovary measures 3.7 x 2.9 x 2.8 cm and the left ovary measures 4.5 x 4.3 x 4.2 cm. There is a 2.6 cm left ovarian cyst. There are small follicles in each ovary. Normal doppler signal in both ov [place]. There is moderate free fluid in the pelvis. There are no abnormal masses seen on either side. IMPRESSION: 1. Left ovarian cyst measuring 2.6 cm. 2: Moderate free fluid in the pelvis. Reviewed, dictated and finalized at location L.
[2022-09-18 15:02] LABS: Basophils Absolute Auto 0.1 K/mm3 (0.0-0.1); Basophils Percent Auto 0.4 % (0.2-1.2); Eosinophils Percent Auto 0.2 % (0-4.4); Hemoglobin 15.1 g/dL (12.0-15.0); Immature Granulocyte Absolute 0.04 K/mm3 (0.00-0.031); Immature Granulocyte Percent A 0.3 % (0-0.5); Immature Platelet Fraction Pct 4.8 % (0.9-11.2); Lymphocytes Absolute Auto 1.59 K/mm3 (0.9-3.2); Lymphocytes Percent Auto 13.8 % (18.3-44.2); Mean Corpuscular HGB Conc 35.1 g/dl (32-36); Mean Corpuscular Hemoglobin 38.2 pg (26-34); Mean Corpuscular Volume 108.9 fl (80-100); Mean Platelet Volume 9.9 fl (7.4-10.4); Monocytes Absolute Auto 0.9 K/mm3 (0.1-0.6); Monocytes Percent Auto 7.9 % (2.6-8.5); Neutrophils Absolute Auto 8.9 K/mm3 (1.3-6.7); Neutrophils Percent Auto 77.4 % (45.5-73.1); Platelet Count Result 145 k/mm3 (150-375); Red Blood Count 3.95 M/mm3 (4.2-5.4); Red Cell Distribution Width 13.7 % (11.5-14.5); White Blood Count 11.5 K/mm3 (4.5-10.0)
[2022-09-18 15:13] LABS: Alanine Aminotransferase 66 U/L (6-35); Albumin Level 4.4 g/dL (3.5-5.1); Alkaline Phosphatase 262 U/L (38-126); Anion Gap 12 mmol/L (8-16); Aspartate Amino Transferase 176 U/L (14-36); Bilirubin,Total 3.5 mg/dL (0.2-1.3); Blood Urea Nitrogen 7 mg/dL (7-17); Calcium 8.5 mg/dL (8.4-10.2); Carbon Dioxide 26 mmol/L (22-30); Chloride 99 mmol/L (98-107); Glucose 86 mg/dL (65-110); Lipase 35 U/L (23-300); Potassium 2.9 mmol/L (3.4-5.0); Sodium 137 mmol/L (137-145)
[2022-09-18 15:15] LABS: Estimated Glomerular Filt Rate > 60
--- NOTE | 2022-09-18 15:15 | ECG_ITS ---
Measurements Intervals [place] Rate: 89 P: [place]: 0 QRS: 18 QRSD: 89 T: 56 QT: 405 QTc: 494 Interpretive Statements Normal sinus rHYTHM MINIMAL ST DEPRESSION [0.025+ mV ST DEPRESSION] ABNORMAL RHYTHM ECG COMPARED TO ECG 07/06/2022 13:03:32, no significant change Electronically Signed On 09-19-2022 14:58:57 CDT by Connie Stephens M.D.
--- NOTE | 2022-09-18 15:26 | ED.ABDPAIN ---
HPI - Abdominal Pain General Chief Complaint: Abdominal Pain <Sada Zamora PA-C - Last Filed: 09/18/22 19:33> Stated Complaint: abd pain <Sada Zamora PA-C - Last Filed: 09/18/22 19:33> Time Seen by Provider: 09/18/22 14:41 <Sada Zamora PA-C - Last Filed: 09/18/22 19:33> History of Present Illness HPI narrative: 46-year-old female with a history of ascites, portal hypertension, alcohol abuse, hypokalemia and alcohol hepatitis reports for evaluation of generalized abdominal pain, low back pain, nausea and vomiting x4 to 5 days. She endorses having 3-4 episodes of vomiting per day since the onset of symptoms with associated nausea. She states she stopped drinking approximately 1 month ago, but drank 1.5 shots of fireball today and yesterday to help with pain. She reports dysuria, no lesions or vesicles. Patient states that she thinks her potassium is low again. She does states she has been taking her daily vitamins and potassium as prescribed by her PCP. She denies abdominal surgeries other than a previous D&C. She does report seeing a small amount of blood in her vomit 4 days ago, and BRBPR 4 days ago and again this morning when she wiped. She denies chest pain or shortness of breath, fever, cough or congestion, melena, coffee-ground emesis. Patient also reporting a white film in her mouth with associated pain. She does endorse a history of thrush, denies sore throat. Per chart review, patient had an EGD on 12/2021 with showing gastritis and a hiatal hernia. <Sada Zamora PA-C - Last Filed: 09/18/22 19:33> Related Data Allergies/Adverse Reactions: Allergies Allergy/AdvReac Type Severity Reaction Status Date / Time meperidine Allergy Intermediate Hives Verified 08/10/22 11:12 <Sada Zamora PA-C - Last Filed: 09/18/22 19:33> Review of Systems Review of Systems: CONSTITUTIONAL: Denies fever, chills EYES: Denies visual changes, redness, or discharge. ENT: Denies rhinorrhea, congestion, sore throat, or otalgia. CARDIOVASCULAR: Denies chest pain, palpitations, or edema. RESPIRATORY: Denies cough or dyspnea. GASTROINTESTINAL: See HPI GENITOURINARY: See HPI SKIN: Denies rash or itching. MUSCULOSKELETAL: See HPI NEUROLOGIC: Denies headache, numbness, dizziness, or weakness. PSYCHIATRIC: Denies anxiety or depression. <Sada Zamora PA-C - Last Filed: 09/18/22 19:33> [facility] Past Medical History Medical History: Medical History Alcohol abuse Alcoholic fatty liver Anorexia Colon cancer screening Confused Diffuse abdominal pain Essential hypertension Marijuana use Portal hypertension Tobacco dependence <Sada Zamora PA-C - Last Filed: 09/18/22 19:33> Surgical History Surgical History: Surgical History History of dilation and curettage History of ear surgery 2002 - Patient reports a surgery to R ear History of esophagogastroduodenoscopy (12/2021) Gastritis, hiatal hernia. <Sada Zamora PA-C - Last Filed: 09/18/22 19:33> Family History Family History: Family History Father Hypertension Sibling Diabetes mellitus Grandparent Esophageal cancer <Sada Zamora PA-C - Last Filed: 09/18/22 19:33> Social History Social History: Social History Social History: Code status: Full code Surrogate decision maker: Almaz Salamanca stepmother. Smoking packs per day: 3 Smoking cigarettes per day: 60.0 Years smoked: 30 Smoking pack-years: 90.00 Smoking status: Current every day smoker Tobacco type: cigarettes Alcohol intake: current Alcohol use details: Drinks about a 5th of fireball a day. Substance use: current Substance use type: marijuana Lack of Transportation: No L
[2022-09-18] MEDS: SODIUM CHLORIDE 0.9% IV 1,000 ML 999 ML IV CONT ×2 (15:37→21:29)
[2022-09-18] MEDS: ONDANSETRON INJ 4 MG/2 ML VIAL IV PUSH ×2 (15:38→19:43)
[2022-09-18] MEDS: KETOROLAC 30 MG/ML VIAL (*BKC) IV PUSH (15:38)
[2022-09-18 15:43] LABS: Appearance Urine Clear (Clear); Bilirubin Urine Negative (Negative); Blood Urine Negative (Negative); Color Urine Dark Yellow (Yellow); Glucose Urine UA Negative (Negative); Ketones Urine Negative (Negative); Leukocyte Esterase Ur Negative LEU/UL (Negative); Nitrate Urine Negative (Negative); Protein Urine Negative (Negative); Specific Grav Ur 1.009 (1.001-1.035); pH Urine 6.5 (5.0-9.0)
[2022-09-18 15:53] LABS: Add Urine Microscopic? NO
[2022-09-18 16:04] LABS: Magnesium 1.4 mg/dL (1.6-2.3)
[2022-09-18 16:18] LABS: Ethanol 144 mg/dL (<10)
[2022-09-18 16:27] LABS: Ammonia 11 umol/L (9-30)
--- NOTE | 2022-09-18 16:50 | ECG_ITS ---
Measurements Intervals [place] Rate: 79 P: [place]: 0 QRS: 8 QRSD: 86 T: 50 QT: 436 QTc: 500 Interpretive Statements PROBABLE SINUS RHYTHM, P WAVES NOT WELL IDENTIFIED ABNORMAL RHYTHM ECG COMPARED TO ECG 09/18/2022 16:19:11 SUPRAVENTRICULAR RHYTHM NOW PRESENT Electronically Signed On 09-19-2022 14:59:50 CDT by Connie Stephens M.D.
[2022-09-18] MEDS: MORPHINE SULFATE (*CRX) 2 MG/ML INJ IV PUSH (17:40)
[2022-09-18] MEDS: MAGNESIUM SULF 1 GM/D5W 100 ML 1 GM/100 ML BAG IVPB (17:40)
[2022-09-18] MEDS: KCL 20 MEQ/SW 100 ML 100 ML 50 MEQ IVPB (17:40)
[2022-09-18] MEDS: PANTOPRAZOLE SODIUM IV 40 MG VIAL 80 MG IV PUSH (17:40)
[2022-09-18] MEDS: HYDROmorphone HCL INJ (*CRX) 1 MG/ML SYR 0.5 MG IV PUSH (18:20)
[2022-09-18] MEDS: PIPERACILLN/TAZ 3.375GM/NS50ML 3.375 GM/50 ML BAG IVPB (19:10)
[2022-09-18 19:17] LABS: INR 1.1
[2022-09-18 19:18] LABS: Partial Thromboplastin Time 33.9 SECONDS (22.3-36.8)
--- NOTE | 2022-09-18 19:44 | PM.IMHP ---
H&P: HPI History of Present Illness Date/Time: 09/18/22 19:44 Chief Complaint: n/v Narrative: This is a 46 yo female with PMHx significant for ETOH dependence last time patient had a drink was this morning had shot of Fireball, tobacco dependence about a pack a day, hepatic Cirrhosis, comes to ED due to n/v, abdominal pain, denies any hematemesis, melena, or BRBPR, feels run down and like her potassium is low again, denies any sob, cough, sputum production, no fevers, no rigors, no chills, her appetite has been poor. Preliminary work up is significant for a potassium level of 2.9 a magnesium level of 1.[address] of abdomen and pelvis was reported as: EXAMINATION: CT abdomen pelvis w con DATE: 09/18/2022 15:51 INDICATION: Generalized abdominal pain TECHNIQUE: Computed tomography (CT) of the abdomen and pelvis was performed with 100 mL Omnipaque-350 intravenous contrast. Automated exposure control and iterative reconstruction technique were employed. The dose-length product was 179.13 mGy-cm. COMPARISON: 07/06/2022 and 03/29/2022 FINDINGS: Lung bases are clear. Heart size is normal. No pericardial or pleural effusion. Again seen is relative atrophy of the medial segment of the left hepatic lobe with associated transient hepatic attenuation difference and some subtle liver surface nodularity consistent with cirrhosis. Portosystemic collaterals consistent with associated secondary portal venous hypertension including paraesophageal varices and a recanalized umbilical vein. Considering a few small calcified gallstones along the dependent wall of the gallbladder. Persistent localized mild gallbladder wall thickening versus minimal perihilar cholecystectomy clips at the gallbladder fossa likely related to liver disease. Spleen, pancreas, bilateral adrenal glands and right kidney are normal. No change in a couple nonobstructing stones the larger measuring up to 3 mm at an upper pole calyx of the left kidney. Small bowel and appendix are unremarkable. There is persistent diffuse edematous wall thickening of the colon which is improved in the right colon and has increased in the sigmoid colon. A couple 1.5-2 cm left adnexal cyst. The bladder, uterus and right adnexa are unremarkable. Again seen is a 2.2 cm mobile calcified intraperitoneal mass canal at the right side of the cul-de-sac. No free intraperitoneal gas or fluid. No pathologically enlarged abdominal or pelvic lymphadenopathy. Bones are unremarkable. IMPRESSION: 1. Edematous wall thickening of the colon with improvement in the right hemicolon and interval worsening at the distal colon. Differential would include hepatic colopathy related to cirrhosis with portal venous hypertension or colitis which could be infectious, inflammatory or ischemic in etiology. 2. Cholelithiasis. Review of Systems Review of Systems: n/v, abdominal pain. Constitutional: Constitutional: Denies chills, Denies fatigue, Denies fever(s), Denies malaise, Denies night sweats, Reports poor appetite and Reports weakness Eyes: Eyes: Denies change in vision ENT: Denies dysphagia, Reports mouth lesions (complain of painful white film in her mouth) and Denies odynophagia Cardiovascular: Cardiovascular: Denies chest pain, Denies leg edema, Denies radiating jaw, neck or arm pain and Denies palpitations Respiratory: Respiratory: Denies cough, Denies excessive phlegm production, Denies pain on inspiration and Denies dyspnea Gastrointestinal: Gastrointestinal: Reports abdominal pain, Denies dyspepsia, Denies heartburn, Denies diarrhea, Reports nausea, Denies odynophagia and Reports vomiting Genitourinary: Genitourinary: Denies dysuria Musculoskeletal: Musculoskeletal: Denies myalgias and Denies limited range of motion Integumentary/Breasts: Skin/Breast: Denies rash Neurologic: Denies vertigo, Denies dizziness, Denies focal weakness and Denies Sensory deficit (Neuro) Psychiatric: Psychiatric: Reports no additional psychi
[2022-09-18] MEDS: OCTREOTIDE ACETATE 50 MCG/ML VIAL IV PUSH (19:45)
[2022-09-18 19:53] LABS: Lactic Acid Reflex 3.4 mmol/L (0.7-2.0)
[2022-09-18 20:01] LABS: Hematocrit 36.6 % (37.0-47.0); Hemoglobin 12.9 g/dL (12.0-15.0)
[2022-09-18] MEDS: PANTOPRAZOLE SODIUM IV 80 MG in SODIUM CHLORIDE 0.9% IV 500 ML 50 MG IV CONT (20:40)
[2022-09-18] MEDS: METOCLOPRAMIDE HCL INJ 10 MG/2 ML VIAL IV PUSH (21:19)
[2022-09-18] MEDS: LORazepam INJ (*CRX) 2 MG/ML VIAL 0.5 MG IV PUSH (21:22)
--- NOTE | 2022-09-18 21:33 | ADMGEN ---
This patient, Kavita Rosen, was admitted to Medical Room 348-01. Patient/family oriented to hospital policies and general routines including ID bracelet, bed and alarms, visiting hours, pain management, procedures, bathroom and other care routines, personal items, smoking policy, room service/diet, and visiting hours. Information on how to activate the Rapid Response Team has been discussed. Patient/Family are encouraged to report perceived risks to care and to ask questions if they do not understand what they are told or what they should do.
[2022-09-18] MEDS: VANCOMYCIN 750 MG/NS 250 ML 750 MG/250 ML BAG 250 MG IVPB (21:48)
[2022-09-18 22:39] LABS: Reflex Lactic Acid Yes or No Add Lactic
[2022-09-18] MEDS: SODIUM CHLORIDE 0.9% IV 1,000 ML 125 ML IV CONT (22:44)
[2022-09-18 23:14] LABS: Lactic Acid 3.7 mmol/L (0.7-2.0)
[2022-09-19] VITALS (14 sets, daily range): BP systolic 94–131; BP diastolic 59–78; PULSE 72–90; RESP 16–22; TEMP 36.2–37.3; O2SAT 94–100; BMI 18.1
[2022-09-19] MEDS: PIPERACILLN/TAZ 3.375GM/NS50ML 3.375 GM/50 ML BAG IVPB ×3 (00:01→14:00)
[2022-09-19 03:41] LABS: Hemoglobin 11.8 g/dL (12.0-15.0)
[2022-09-19] MEDS: ALBUMIN HUMAN 25% 12.5 GM/50ML 50 ML IVPB ×2 (05:08→13:58)
[2022-09-19 05:13] LABS: Anion Gap 8 mmol/L (8-16); Blood Urea Nitrogen 6 mg/dL (7-17); Calcium 6.9 mg/dL (8.4-10.2); Carbon Dioxide 15 mmol/L (22-30); Chloride 116 mmol/L (98-107); Estimated CRCL calculation 59 ml/min; Estimated Glomerular Filt Rate > 60; Glucose 61 mg/dL (65-110); Magnesium 1.6 mg/dL (1.6-2.3); Potassium 3.9 mmol/L (3.4-5.0); Sodium 139 mmol/L (137-145)
[2022-09-19 05:17] LABS: Glucose Point of Care 53 mg/dl (65-105)
[2022-09-19] MEDS: DEXTROSE 50% 25 GM/50 ML SYRINGE IV PUSH (05:34)
[2022-09-19] MEDS: METOCLOPRAMIDE HCL INJ 10 MG/2 ML VIAL IV PUSH ×2 (06:11→20:20)
[2022-09-19] MEDS: HYDROmorphone HCL INJ (*CRX) 1 MG/ML SYR 0.5 MG IV PUSH ×4 (06:12→22:32)
--- NOTE | 2022-09-19 06:30 | WPDGICN ---
Assessment and Plan Assessment and plan (1) N&V (nausea and vomiting): Code(s): R11.2 - Nausea with vomiting, unspecified Status: Acute Assessment and Plan: she has had nausea and vomiting in the past with a negative workup. She does consume cannabis but not on a daily basis. This round of nausea vomiting began at the same time of the onset of her lower abdominal pain, about 4 5 days ago. (2) Hematemesis: Code(s): K92.0 - Hematemesis Status: Acute Assessment and Plan: She reported to the emergency room she had had some blood in her emesis. Her hemoglobin has dropped from 12.9-11.8. She was started on octreotide in case she does have esophageal varices. EGD will be performed today. I explained her that she may have varices which may require banding and that can be uncomfortable. She understands that there is risk of bleeding by the procedure itself but that is uncommon (3) Abdominal pain: Code(s): R10.9 - Unspecified abdominal pain Status: Acute Assessment and Plan: For the past week, especially the last 4 days she has been uncomfortable in her lower abdomen. The CT scan shows thickening of the colon which was present on a previous CT but otherwise no acute findings. (4) Cirrhosis: Qualifiers: Ascites presence: without ascites Hepatic cirrhosis type: alcoholic cirrhosis Qualified Code(s): K70.30 - Alcoholic cirrhosis of liver without ascites Code(s): K74.60 - Unspecified cirrhosis of liver Status: Acute Assessment and Plan: She was diagnosed with cirrhosis she states about 2 years ago. She has an interior block wirer in [place] the name of whom she cannot recall at the present time. She states that they do not have her on any specific medications for her liver disease (5) Colitis: Code(s): K52.9 - Noninfective gastroenteritis and colitis, unspecified Status: Acute Assessment and Plan: this finding on CT scan accompanied by her lower abdominal pain suggest some sort inflammatory condition of the colon will need to be investigated. She did not see blood in her stools. (6) Ascites: Code(s): R18.8 - Other ascites Status: Acute Assessment and Plan: She did have paracentesis about 6 months ago and the fluid was a transudate. She was started ceftriaxone but emergency room but apparently this has been switched to Zosyn. (7) Alcohol abuse: Code(s): F10.10 - Alcohol abuse, uncomplicated Status: Chronic Assessment and Plan: She acknowledges that she has a problem with alcohol abuse but states that she had stopped drinking a few weeks ago until she had couple of shots yesterday. But alcohol level on admission was 144. (8) Hypokalemia: Code(s): E87.6 - Hypokalemia Status: Acute Assessment and Plan: Potassium was 2.9 yesterday. She has had issues with hypokalemia in the past as well. (9) Macrocytic anemia: Code(s): D53.9 - Nutritional anemia, unspecified Status: Acute Assessment and Plan: this is typical of alcohol abuse and not likely B12 or folic acid deficiency although will make sure that those have been checked somewhere along the line. Her MCV actually has been increasing he was 108 sometime in the past in May of this year is 102 and now it is up to 119. (10) Transaminitis: Code(s): R74.01 - Elevation of levels of liver transaminase levels Status: Acute Assessment and Plan: her AST varied from 67-106 in 202. This year it has been as low 64 but now is up to 176. Likewise her bilirubin has been steadily increasing. In July was 1.2 and then a day later 1.5 when she was here In the emergency room with hypokalemia.now is up to 3.5. Plan We will need to observe for worsening hepatic function. We will monitor her electrolytes specifically potassium and calcium EGD today to rule out esophageal varices kaylan
[2022-09-19 06:59] LABS: Glucose Point of Care 97 mg/dl (65-105)
[2022-09-19] MEDS: LORazepam INJ (*CRX) 2 MG/ML VIAL 0.5 MG IV PUSH ×2 (09:23→20:20)
[2022-09-19] MEDS: ONDANSETRON INJ 4 MG/2 ML VIAL IV PUSH ×3 (09:23→18:09)
[2022-09-19] MEDS: NICOTINE (*PBKC) 21 MG PATCH 1 PATCH TRANSDERM (09:27)
[2022-09-19 09:37] LABS: Hematocrit 34.4 % (37.0-47.0); Hemoglobin 11.5 g/dL (12.0-15.0)
[2022-09-19] MEDS: LACTATED RINGERS 1,000 ML 150 ML IV CONT (11:55)
--- NOTE | 2022-09-19 12:40 | WPDANESEPPF ---
Anes - Initial Pre Proc Eval Procedure: Operation Date: 09/19/22 16:00 Proposed Procedures p Esophagogastroduodenoscopy - Migue Herrmann MD Date/Time: 09/19/22 12:40 Surgeon: Richmond Truong MD Pre Op Diagnosis: Cirrhosis Patient Data Age: 46 Gender: F Height: 1.63 m Weight: 48 kg Last Vital Signs Temp 36.6 C 09/19/22 11:54 Pulse 79 09/19/22 11:54 Resp 18 09/19/22 11:54 BP 106/60 09/19/22 11:54 Pulse Ox 97 09/19/22 11:54 O2 Del Method Room Air 09/19/22 11:54 Allergies Allergy/AdvReac Type Severity Reaction Status Date / Time meperidine Allergy Intermediate Hives Verified 08/10/22 11:12 Home Medications Medication Instructions Recorded Confirmed Type multivitamin with iron (Daily 1 tablet PO DAILY #90 tabs 12/20/21 09/18/22 Rx Multiple Vitamins with Iron tablet) ondansetron 4 mg disintegrating 4 mg PO Q8H PRN nausea and 08/10/22 09/18/22 Rx tablet vomiting 7 days #20 tabs potassium bicarbonate-citric acid 20 meq PO DAILY 5 days #5 ea 08/10/22 09/18/22 Rx 20 mEq effervescent tablet Laboratory Tests 09/18/22 09/18/22 09/18/22 14:50 14:51 15:34 WBC 11.5 H K/mm3 (4.5-10.0) RBC 3.95 L M/mm3 (4.2-5.4) Hgb 15.1 H g/dL (12.0-15.0) Hct 43.0 % (37.0-47.0) MCV 108.9 H fl (80-100) MCH 38.2 H pg (26-34) MCHC 35.1 g/dl (32-36) RDW 13.7 % (11.5-14.5) Plt Count 145 L k/mm3 (150-375) MPV 9.9 fl (7.4-10.4) Immature Gran % (Auto) 0.3 % (0-0.5) Neut % (Auto) 77.4 H % (45.5-73.1) Lymph % (Auto) 13.8 L % (18.3-44.2) [place] % (Auto) 7.9 % (2.6-8.5) Eos % (Auto) 0.2 % (0-4.4) Baso % (Auto) 0.4 % (0.2-1.2) Lymph # (Auto) 1.59 K/mm3 (0.9-3.2) [place] # (Auto) 0.9 H K/mm3 (0.1-0.6) Eos # (Auto) 0.0 K/mm3 (0-0.3) Baso # (Auto) 0.1 K/mm3 (0.0-0.1) Abs Immat Gran (auto) 0.04 H K/mm3 (0.00-0.031) Absolute Neuts (auto) 8.9 H K/mm3 (1.3-6.7) Absolute Nucleated RBC 0.0 K/mm3 (0.0-0.012) Nucleated RBC % 0.0 % (0.0-0.2) % Immature Plt Fraction 4.8 % (0.9-11.2) PT INR APTT Sodium 137 mmol/L (137-145) Potassium 2.9 L mmol/L (3.4-5.0) Chloride 99 mmol/L (98-107) Carbon Dioxide 26 mmol/L (22-30) Anion Gap 12 mmol/L (8-16) BUN 7 mg/dL (7-17) Creatinine 0.90 mg/dL (0.7-1.0) Estim Creat Clear Calc Not Reportable Estimated GFR > 60 (59 - ) Glucose 86 mg/dL (65-110) POC Capillary Glucose Lactic Acid Calcium 8.5 mg/dL (8.4-10.2) Magnesium 1.4 L mg/dL (1.6-2.3) Total Bilirubin 3.5 H mg/dL (0.2-1.3) AST 176 H U/L (14-36) ALT 66 H U/L (6-35) Alkaline Phosphatase 262 H U/L (38-126) Ammonia Total Protein 8.0 g/dL (6.3-8.2) Albumin 4.4 g/dL (3.5-5.1) Lipase 35 U/L (23-300) Urine Color Dark yellow (Yellow) Urine Appearance Clear (Clear) Urine pH 6.5 (5.0-9.0) Ur Specific [place] 1.009 (1.001-1.035) Urine Protein Negative mg/dL (Negative) Urine Glucose (UA) Negative mg/dL (Negative) Urine Ketones Negative mg/dL (Negative) Ur Blood (Man) Negative (Negative) Urine Nitrate Negative (Negative) Urine Bilirubin Negative (Negative) Urine Urobilinogen 2.0 H mg/dL (<2.0) Leukocyte Esterase Rfl Negative FARHAD/UL (Negative) Ethyl Alcohol 144 mg/dL (<10) 09/18/22 09/18/22 09/18/22 16:13 18:57 19:34 WBC RBC Hgb 12.9 g/dL (12.0-15.0
--- NOTE | 2022-09-19 13:10 | PC.NURSE ---
pt in GI lab for procedure. 1200 meds not given until pt back in room.
[2022-09-19] MEDS: SODIUM CHLORIDE 0.9% IV 1,000 ML 125 ML IV CONT (14:00)
[2022-09-19 16:17] LABS: Hematocrit 32.9 % (37.0-47.0); Hemoglobin 10.9 g/dL (12.0-15.0); Immature Platelet Fraction Pct 4.6 % (0.9-11.2); Mean Corpuscular HGB Conc 33.1 g/dl (32-36); Mean Corpuscular Hemoglobin 39.4 pg (26-34); Mean Corpuscular Volume 118.8 fl (80-100); Mean Platelet Volume 10.6 fl (7.4-10.4); Platelet Count Result 71 k/mm3 (150-375); Red Blood Count 2.77 M/mm3 (4.2-5.4); Red Cell Distribution Width 13.6 % (11.5-14.5); White Blood Count 6.8 K/mm3 (4.5-10.0)
[2022-09-19 16:24] LABS: Alanine Aminotransferase 32 U/L (6-35); Alkaline Phosphatase 135 U/L (38-126); Anion Gap 9 mmol/L (8-16); Aspartate Amino Transferase 58 U/L (14-36); Bilirubin,Total 4.2 mg/dL (0.2-1.3); Blood Urea Nitrogen 8 mg/dL (7-17); Calcium 6.6 mg/dL (8.4-10.2); Carbon Dioxide 18 mmol/L (22-30); Chloride 110 mmol/L (98-107); Estimated CRCL calculation 53 ml/min; Estimated Glomerular Filt Rate > 60; Glucose 81 mg/dL (65-110); Potassium 3.1 mmol/L (3.4-5.0); Sodium 137 mmol/L (137-145)
[2022-09-19 17:03] LABS: Band Neutrophils Percent 25 % (0-6); Basophils Absolute Manual 0.06 K/mm3 (0.0-0.1); Basophils Percent Manual 1 % (0-1); Lymphocytes Absolute Manual 0.34 K/mm3 (1.1-4.5); Metamyelocytes Percent 1 %; Monocytes Absolute Manual 0.13 K/mm3 (0.1-0.90); Monocytes Percent Manual 2 % (3-9); Neutrophils Absolute Manual 6.18 K/mm3 (1.7-7.2); Neutrophils Percent Manual 66 % (46-73); Total Cells Counted 100
[2022-09-19 17:04] LABS: Macrocytosis 1+ (NORMAL); Platelet Estimate Decreased (Adequate); Schistocytes None Seen (NORMAL)
--- NOTE | 2022-09-19 21:30 | PM.IMPN ---
Progress Note: A&P Assessment and Plan (1) N&V (nausea and vomiting): Code(s): R11.2 - Nausea with vomiting, unspecified Status: Acute Assessment and Plan: Advance diet as tolerated, resolved, likely secondary to soft a DELMER varices, appreciate GI consultation (2) Abdominal pain: Code(s): R10.9 - Unspecified abdominal pain Status: Acute Assessment and Plan: No signs of infection, will discontinue antibiotics and monitor (3) Abnormal LFTs: Code(s): R79.89 - Other specified abnormal findings of blood chemistry Status: Acute Assessment and Plan: Likely alcoholic hepatitis, patient still drinks. (4) Hypomagnesemia: Code(s): E83.42 - Hypomagnesemia Status: Acute Assessment and Plan: Replace as needed (5) Hypokalemia: Code(s): E87.6 - Hypokalemia Status: Acute Assessment and Plan: Replace as needed (6) Alcohol dependence: Code(s): F10.20 - Alcohol dependence, uncomplicated Status: Acute Assessment and Plan: CIWA as needed banana bag (7) Tobacco dependence: Code(s): F17.200 - Nicotine dependence, unspecified, uncomplicated Status: Chronic Assessment and Plan: Nicotine patch as needed (8) Ascites: Code(s): R18.8 - Other ascites Status: Acute Assessment and Plan: Appears to be at baseline Plan DVT prophylaxis with SCDs GI prophylaxis not indicated Code status full code Of note, patient's med rec appears to be incorrect. Office visit from April 2022 states the patient is on spironolactone 25 mg twice daily, lactulose daily, Lasix 40 mg daily, Protonix 40 mg daily, Remeron 15 mg q.h.s.. Have not been able to confirm these medications yet, however, they would make sense in light of the patient's diagnosis. Subjective Date/time seen: 09/19/22 21:30 Interval history: 46-year-old female with severe alcoholic liver disease being seen at with hepatology at [facility] presenting with nausea, vomiting, hematemesis and bright red blood per rectum being treated for esophageal and rectal varices. No overnight events noted. No chest pain or shortness of breath. No nausea, vomiting or diarrhea. No fevers or chills. Patient states she feels much better than when she came in. No bleeding today. EGD this morning. Review of Systems Review of Systems: 12 point review of systems was assessed and was negative except as noted in the HPI Exam Narrative: General: No acute distress, alert and oriented per baseline HEENT: Atraumatic, normocephalic, mucous membranes moist CV: Regular rate and rhythm, S1, S2 Lungs: Clear to auscultation bilaterally, no rales or crackles noted, no wheezes, good air entry Abdomen: Soft, nontender, nondistended Extremities: Normal to inspection Skin: No rashes noted, no lesions or wounds seen Psych: Euthymic, normal affect Objective Data Vital Signs Vital Signs: Vital Signs - 24 hr 09/19/22 00:00 09/19/22 04:00 09/19/22 05:03 Temperature 99.2 F Pulse Rate 72 81 85 Respiratory Rate 16 Blood Pressure 94/59 L Pulse Oximetry 96 Oxygen Delivery 09/19/22 06:18 09/19/22 10:26 09/19/22 11:54 Temperature 97.9 F Pulse Rate 79 Respiratory Rate 18 Blood Pressure 106/60 Pulse Oximetry 98 95 97 Oxygen Delivery Room Air Room Air Room Air 09/19/22 13:15 09/19/22 13:25 09/19/22 13:35 Temperature Pulse Rate 90 80 74 Respiratory Rate 22 H 20 20 Blood Pressure 114/76 111/71 131/78 Pulse Oximetry 98 100 99 Oxygen Delivery Room Air Room Air Room Air 09/19/22 08:00 09/19/22 14:24 09/19/22 16:00 Temperature 97.1 F L Pulse Rate 77 81 88 Respiratory Rate 16 Blood Pressure 119/70 Pulse Oximetry 98 Oxygen Delivery 09/19/22 20:54 Temperature 99 F Pulse Rate 86 Respiratory Rate 18 Blood Pressure 115/67 Pulse Oximetry 94 Oxygen Delivery Intake/Output Intake/O
[2022-09-20] VITALS (10 sets, daily range): BP systolic 94–125; BP diastolic 60–84; PULSE 67–88; RESP 14–20; TEMP 36.6–37.2; O2SAT 92–96
[2022-09-20] MEDS: ONDANSETRON INJ 4 MG/2 ML VIAL IV PUSH ×2 (02:33→09:40)
[2022-09-20] MEDS: HYDROmorphone HCL INJ (*CRX) 1 MG/ML SYR 0.5 MG IV PUSH ×2 (02:34→09:41)
[2022-09-20] MEDS: LORazepam INJ (*CRX) 2 MG/ML VIAL 0.5 MG IV PUSH ×2 (04:34→09:40)
[2022-09-20 05:48] LABS: Glucose Point of Care 108 mg/dl (65-105)
[2022-09-20 06:05] LABS: Basophils Percent Auto 0.8 % (0.2-1.2); Hematocrit 32.9 % (37.0-47.0); Hemoglobin 10.8 g/dL (12.0-15.0); Immature Granulocyte Absolute 0.01 K/mm3 (0.00-0.031); Immature Granulocyte Percent A 0.3 % (0-0.5); Immature Platelet Fraction Pct 4.7 % (0.9-11.2); Lymphocytes Absolute Auto 0.65 K/mm3 (0.9-3.2); Lymphocytes Percent Auto 16.5 % (18.3-44.2); Mean Corpuscular HGB Conc 32.8 g/dl (32-36); Mean Corpuscular Hemoglobin 37.8 pg (26-34); Mean Platelet Volume 10.3 fl (7.4-10.4); Monocytes Absolute Auto 0.4 K/mm3 (0.1-0.6); Monocytes Percent Auto 10.4 % (2.6-8.5); Neutrophils Absolute Auto 2.8 K/mm3 (1.3-6.7); Platelet Count Result 62 k/mm3 (150-375); Red Blood Count 2.86 M/mm3 (4.2-5.4); Red Cell Distribution Width 13.1 % (11.5-14.5); White Blood Count 3.9 K/mm3 (4.5-10.0)
[2022-09-20 06:12] LABS: Alanine Aminotransferase 29 U/L (6-35); Albumin Level 2.8 g/dL (3.5-5.1); Alkaline Phosphatase 126 U/L (38-126); Anion Gap 5 mmol/L (8-16); Aspartate Amino Transferase 46 U/L (14-36); Bilirubin,Total 2.2 mg/dL (0.2-1.3); Blood Urea Nitrogen 9 mg/dL (7-17); Calcium 6.8 mg/dL (8.4-10.2); Carbon Dioxide 21 mmol/L (22-30); Chloride 110 mmol/L (98-107); Estimated CRCL calculation 53 ml/min; Estimated Glomerular Filt Rate > 60; Glucose 94 mg/dL (65-110); Potassium 3.2 mmol/L (3.4-5.0); Sodium 136 mmol/L (137-145)
[2022-09-20] MEDS: PROPRANOLOL HCL 10 MG TABLET PO ×2 (09:41→20:29)
[2022-09-20] MEDS: NICOTINE (*PBKC) 21 MG PATCH 1 PATCH TRANSDERM (09:41)
--- NOTE | 2022-09-20 11:53 | WPDGIPROGNO ---
Progress Note: A&P Assessment and Plan (1) N&V (nausea and vomiting): Code(s): R11.2 - Nausea with vomiting, unspecified Status: Acute Assessment and Plan: she has had nausea and vomiting in the past with a negative workup. She does consume cannabis but not on a daily basis. This round of nausea vomiting began at the same time of the onset of her lower abdominal pain, about 4 5 days ago. she is tolerating her diet so far (2) Hematemesis: Code(s): K92.0 - Hematemesis Status: Acute Assessment and Plan: She reported to the emergency room she had had some blood in her emesis. Her hemoglobin has dropped from 12.9-11.8. She was started on octreotide in case she does have esophageal varices. EGD will be performed today. I explained her that she may have varices which may require banding and that can be uncomfortable. She understands that there is risk of bleeding by the procedure itself but that is uncommon nothing significant found on endoscopy. Small varices unlikely to bleed. (3) Abdominal pain: Code(s): R10.9 - Unspecified abdominal pain Status: Acute Assessment and Plan: For the past week, especially the last 4 days she has been uncomfortable in her lower abdomen. The CT scan shows thickening of the colon which was present on a previous CT but otherwise no acute findings. (4) Cirrhosis: Qualifiers: Ascites presence: without ascites Hepatic cirrhosis type: alcoholic cirrhosis Qualified Code(s): K70.30 - Alcoholic cirrhosis of liver without ascites Code(s): K74.60 - Unspecified cirrhosis of liver Status: Acute Assessment and Plan: She was diagnosed with cirrhosis she states about 2 years ago. She has an geospatial specialist in [place] the name of whom she cannot recall at the present time. She states that they do not have her on any specific medications for her liver disease (5) Colitis: Code(s): K52.9 - Noninfective gastroenteritis and colitis, unspecified Status: Acute Assessment and Plan: this finding on CT scan accompanied by her lower abdominal pain suggest some sort inflammatory condition of the colon will need to be investigated. She did not see blood in her stools. (6) Ascites: Code(s): R18.8 - Other ascites Status: Acute Assessment and Plan: She did have paracentesis about 6 months ago and the fluid was a transudate. She was started ceftriaxone by emergency room but apparently this has been switched to Zosyn. (7) Alcohol abuse: Code(s): F10.10 - Alcohol abuse, uncomplicated Status: Chronic Assessment and Plan: She acknowledges that she has a problem with alcohol abuse but states that she had stopped drinking a few weeks ago until she had couple of shots yesterday. But alcohol level on admission was 144. I discussed alcohol with the patient. She states that she does not think she can quit drinking asking me how my supposed to quit? I asked if she has any support or family nearby she says no. She in fact does not have a home. She has a post office box but lives in her car. (8) Hypokalemia: Code(s): E87.6 - Hypokalemia Status: Acute Assessment and Plan: Potassium was 2.9 yesterday. She has had issues with hypokalemia in the past as well. (9) Macrocytic anemia: Code(s): D53.9 - Nutritional anemia, unspecified Status: Acute Assessment and Plan: this is typical of alcohol abuse and not likely B12 or folic acid deficiency although will make sure that those have been checked somewhere along the line. Her MCV actually has been increasing he was 108 sometime in the past in May of this year is 102 and now it is up to 119. (10) Transaminitis: Code(s): R74.01 - Elevation of levels of liver transaminase levels Status: Acute Assessment and Plan: her AST varied from 67-106 in 2021. This year it has been
[2022-09-20 11:55] LABS: Glucose Point of Care 92 mg/dl (65-105)
--- NOTE | 2022-09-20 13:10 | PC.NURSE ---
1300 - pt called RN into room stating she wants pain medication. RN explained to pt that it is not time for pain medication yet. Pt refusing to take all medication that is not pain or anxiety meds. RN educated pt on the importance/ benefits of taking scheduled medications. [id number] - RN left a voice mail with Dr. Rodarte letting him know that pt is refusing medication.
[2022-09-20] MEDS: PANTOPRAZOLE 40 MG TABLET PO (13:59)
[2022-09-20] MEDS: FOLIC ACID 1 MG TABLET PO (13:59)
[2022-09-20] MEDS: THIAMINE HCL 100 MG TABLET PO (13:59)
[2022-09-20] MEDS: POTASSIUM CHLORIDE 20 MEQ ER TABLET 40 MEQ PO (14:00)
[2022-09-20 16:32] LABS: Glucose Point of Care 101 mg/dl (65-105)
--- NOTE | 2022-09-20 17:01 | PM.IMPN ---
Progress Note: A&P Assessment and Plan (1) Hematemesis: Code(s): K92.0 - Hematemesis Status: Acute Assessment and Plan: Patient presented with complaints of hemetesis. She was guaiac negative in ED. Hgb was 15.1 (but dropped to 12.9 later in the day). She was started on octreotide. No evidence of acute blood loss. EGD showing reflux esophagitis, gastritis and nonbleeding esophageal varices. Hgb dropped to 10 range. Octreotide stopped. Resume PPI. Propranolol added. Diet advanced. (2) N&V (nausea and vomiting): Code(s): R11.2 - Nausea with vomiting, unspecified Status: Acute Assessment and Plan: Still with nausea. Could be related to narcotics so this was stopped. She does use cannabis but not taking now. She is on a regular diet curently. Will follow. Continue Zofran prn. Appreciate GI input (3) Abdominal pain: Code(s): R10.9 - Unspecified abdominal pain Status: Acute Assessment and Plan: Patient with generalized abdominal pain. CT scan shows edematous wall thickening of the colon with improvement in the right hemicolon and interval worsening in the distal colon. This could be related to her cirrhosis. Consider also infectious colitis or ischemic disease. White count was elevated on admission but now it has become leukopenic. She was on antibiotics but these were stopped yesterday. She has been having rectal bleeding. Will resume abx for the perirectal abscess so should cover for colitis as well. Monitor for diarrhea. (4) Abnormal LFTs: Code(s): R79.89 - Other specified abnormal findings of blood chemistry Status: Acute Assessment and Plan: AST 176, ALT 66, AP [address] scan showing atrophy of the medial segment of the left hepatic lobe and subtle liver surface nodularity c/w cirrhosis. LFTs chronically elevated likely related to alcoholic hepatitis since patient still drinks. Levels trending down now. Continue to follow (5) Alcohol dependence: Code(s): F10.20 - Alcohol dependence, uncomplicated Status: Acute Assessment and Plan: Patient on CIWA protocol running 2-4 mostly. She did have a banana bag. Resume thiamine and folate. Ativan available as needed for anxiety or withdrawal. Follow (6) Tobacco dependence: Code(s): F17.200 - Nicotine dependence, unspecified, uncomplicated Status: Chronic Assessment and Plan: Unable to educate the patient today. (7) Cirrhosis: Qualifiers: Ascites presence: without ascites Hepatic cirrhosis type: alcoholic cirrhosis Qualified Code(s): K70.30 - Alcoholic cirrhosis of liver without ascites Code(s): K74.60 - Unspecified cirrhosis of liver Status: Acute Assessment and Plan: With ascites and varices. Unable to educate patient about stopping alchol. (8) Pancytopenia: Code(s): D61.818 - Other pancytopenia Status: Acute Assessment and Plan: [place] related to her cirrhosis and alcoholism. She has a metamyelocytes, bandemia and macrocytosis to suggest bone marrow suppression. Iron studies and B12 level okay in May. Follow (9) Perirectal abscess: Code(s): K61.1 - Rectal abscess Status: Acute Assessment and Plan: In the ED, patient was noted to have a 1.5 cm area of fluctuance to the left glute next to the rectum with surrounding induration and tenderness. This area was I&D with purulent fluid and blood able to be expressed. The area is currently soft and the wound is openly draining. She was on antibiotics but were stopped yesterday. Will resume antibiotics to complete a course. (10) Hypokalemia: Code(s): E87.6 - Hypokalemia Status: Acute Assessment and Plan: Replace as needed (11) Hypomagnesemia: Code(s): E83.42 - Hypomagnesemia Status: Acute Assessment and Plan: Replace as needed Plan DVT prophylaxis with SCDs Code sta
[2022-09-20] MEDS: traMADol HCL (*CRX) 25 MG TABLET PO ×2 (17:36→23:36)
[2022-09-20] MEDS: LORazepam (*CRX) 0.5 MG TABLET PO ×2 (17:36→23:37)
[2022-09-20] MEDS: AMOXICILLIN/CLAVULANATE K 875-125 MG TAB 1 TABLET PO (20:29)
[2022-09-20] MEDS: ONDANSETRON HCL ODT 4 MG TABLET PO (23:37)
[2022-09-20 23:41] LABS: Glucose Point of Care 94 mg/dl (65-105)
[2022-09-21 04:54] VITALS: BP 122/72; PULSE 77; RESP 18; TEMP 36.8; O2SAT 95
[2022-09-21 05:21] LABS: Glucose Point of Care 85 mg/dl (65-105)
[2022-09-21] MEDS: ONDANSETRON HCL ODT 4 MG TABLET PO ×2 (05:34→13:14)
[2022-09-21] MEDS: LORazepam (*CRX) 0.5 MG TABLET PO ×2 (05:34→13:14)
[2022-09-21] MEDS: traMADol HCL (*CRX) 25 MG TABLET PO ×2 (05:35→13:14)
[2022-09-21 06:03] LABS: Basophils Percent Auto 0.4 % (0.2-1.2); Eosinophils Absolute Auto 0.1 K/mm3 (0-0.3); Eosinophils Percent Auto 1.8 % (0-4.4); Hematocrit 33.2 % (37.0-47.0); Hemoglobin 11.3 g/dL (12.0-15.0); Immature Granulocyte Absolute 0.02 K/mm3 (0.00-0.031); Immature Granulocyte Percent A 0.4 % (0-0.5); Immature Platelet Fraction Pct 4.6 % (0.9-11.2); Lymphocytes Absolute Auto 1.04 K/mm3 (0.9-3.2); Lymphocytes Percent Auto 18.9 % (18.3-44.2); Mean Corpuscular Hemoglobin 38.2 pg (26-34); Mean Corpuscular Volume 112.2 fl (80-100); Mean Platelet Volume 10.2 fl (7.4-10.4); Monocytes Absolute Auto 0.5 K/mm3 (0.1-0.6); Monocytes Percent Auto 9.8 % (2.6-8.5); Neutrophils Absolute Auto 3.8 K/mm3 (1.3-6.7); Neutrophils Percent Auto 68.7 % (45.5-73.1); Platelet Count Result 67 k/mm3 (150-375); Red Blood Count 2.96 M/mm3 (4.2-5.4); Red Cell Distribution Width 12.9 % (11.5-14.5); White Blood Count 5.5 K/mm3 (4.5-10.0)
[2022-09-21 06:20] LABS: Alanine Aminotransferase 27 U/L (6-35); Albumin Level 2.7 g/dL (3.5-5.1); Alkaline Phosphatase 127 U/L (38-126); Anion Gap 4 mmol/L (8-16); Aspartate Amino Transferase 52 U/L (14-36); Bilirubin,Total 1.6 mg/dL (0.2-1.3); Blood Urea Nitrogen 10 mg/dL (7-17); Calcium 7.5 mg/dL (8.4-10.2); Carbon Dioxide 24 mmol/L (22-30); Chloride 107 mmol/L (98-107); Estimated CRCL calculation 53 ml/min; Estimated Glomerular Filt Rate > 60; Glucose 80 mg/dL (65-110); Magnesium 1.6 mg/dL (1.6-2.3); Potassium 3.2 mmol/L (3.4-5.0); Sodium 135 mmol/L (137-145)
--- NOTE | 2022-09-21 06:50 | WPDGIPROGNO ---
Progress Note: A&P Assessment and Plan (1) N&V (nausea and vomiting): Code(s): R11.2 - Nausea with vomiting, unspecified Status: Acute Assessment and Plan: she has had nausea and vomiting in the past with a negative workup. She does consume cannabis but not on a daily basis. This round of nausea vomiting began at the same time of the onset of her lower abdominal pain, about 4 5 days ago. she is tolerating her diet so far (2) Hematemesis: Code(s): K92.0 - Hematemesis Status: Acute Assessment and Plan: She reported to the emergency room she had had some blood in her emesis. Her hemoglobin has dropped from 12.9-11.8. She was started on octreotide in case she does have esophageal varices. EGD will be performed today. I explained her that she may have varices which may require banding and that can be uncomfortable. She understands that there is risk of bleeding by the procedure itself but that is uncommon nothing significant found on endoscopy. Small varices unlikely to bleed. (3) Abdominal pain: Code(s): R10.9 - Unspecified abdominal pain Status: Acute Assessment and Plan: For the past week, especially the last 4 days she has been uncomfortable in her lower abdomen. The CT scan shows thickening of the colon which was present on a previous CT but otherwise no acute findings. 09/22/19 I have requested gynecology to see her. She has had vaginal bleeding for about 3 weeks and has not seen a mailroom assistant for quite some time (4) Cirrhosis: Qualifiers: Ascites presence: without ascites Hepatic cirrhosis type: alcoholic cirrhosis Qualified Code(s): K70.30 - Alcoholic cirrhosis of liver without ascites Code(s): K74.60 - Unspecified cirrhosis of liver Status: Acute Assessment and Plan: She was diagnosed with cirrhosis she states about 2 years ago. She has an tissue technician in [place] the name of whom she cannot recall at the present time. She states that they do not have her on any specific medications for her liver disease (5) Colitis: Code(s): K52.9 - Noninfective gastroenteritis and colitis, unspecified Status: Acute Assessment and Plan: this finding on CT scan accompanied by her lower abdominal pain suggest some sort inflammatory condition of the colon will need to be investigated. She did not see blood in her stools. this morning she states her stools are loose. I will obtain stool cultures, but hold off for now on antibiotics. (6) Ascites: Code(s): R18.8 - Other ascites Status: Acute Assessment and Plan: She did have paracentesis about 6 months ago and the fluid was a transudate. She was started ceftriaxone by emergency room but apparently this has been switched to Zosyn. We will have her follow-up with her tissue technician (7) Alcohol abuse: Code(s): F10.10 - Alcohol abuse, uncomplicated Status: Chronic Assessment and Plan: She acknowledges that she has a problem with alcohol abuse but states that she had stopped drinking a few weeks ago until she had couple of shots yesterday. But alcohol level on admission was 144. I discussed alcohol with the patient. She states that she does not think she can quit drinking asking me how my supposed to quit? I asked if she has any support or family nearby she says no. She in fact does not have a home. She has a post office box but lives in her car. case management/ care coordination has seen her and is going to provide some resources for her (8) Hypokalemia: Code(s): E87.6 - Hypokalemia Status: Acute Assessment and Plan: Potassium was 2.9 yesterday. She has had issues with hypokalemia in the past as well. (9) Macrocytic anemia: Code(s): D53.9 - Nutritional anemia, unspecified Status: Acute Assessment and Plan: this is typical of alcohol abuse and not likely B12 or folic acid defi
[2022-09-21 07:02] LABS: Macrocytosis 1+ (NORMAL); Platelet Estimate Decreased (Adequate); Schistocytes None Seen (NORMAL)
--- NOTE | 2022-09-21 07:37 | PM.IMHP ---
H&P: HPI History of Present Illness Date/Time: 09/21/22 07:37 Chief Complaint: Cirrhosis of the liver perirectal abscess Narrative: Is a 46-year-old female S was asked to see secondary to a 3 week history of vaginal bleeding she is admitted with perirectal abscess and cirrhosis of the liver. She has very irregular periods but 3 cycle a week ago. She has not bled since and her hemoglobin is 11. She has not had gynecologic exam in years. 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 [facility] Past Medical History Medical History Alcohol abuse Alcoholic fatty liver Anorexia Colon cancer screening Confused Diffuse abdominal pain Essential hypertension Marijuana use Portal hypertension Tobacco dependence Surgical History Surgical History History of dilation and curettage History of ear surgery 2002 - Patient reports a surgery to R ear History of esophagogastroduodenoscopy (12/2021) Gastritis, hiatal hernia. Family History Family History Father Hypertension Sibling Diabetes mellitus Grandparent Esophageal cancer Social History Social History Social History: Code status: Full code Surrogate decision maker: Almaz Salamanca, stepmother. Smoking packs per day: 3 Smoking cigarettes per day: 60.0 Years smoked: 30 Smoking pack-years: 90.00 Smoking status: Current every day smoker Tobacco type: cigarettes Alcohol intake: current Alcohol use details: Drinks about a 5th of fireball a day. Substance use: current Substance use type: marijuana Lack of Transportation: No Lack of Food: Never True Current Housing: I Have Housing Concerned About Future Housing: No Difficulty Paying Gas/Electric Bills: No Difficulty Paying for Meds: No Currently Unemployed: No Education: Don't Know Difficulty w/ Childcare or Family Care: No Living arrangements: with family Additional living arrangements comments: Stays with parents most of the time. Occupation/Education: unemployed Additional occupation/education comments: Not currently employed. Spiritual care concerns: No Meds Home Medications and Allergies Home Medications Medication Instructions Recorded Confirmed Type multivitamin with iron (Daily 1 tablet PO DAILY #90 tabs 12/20/21 09/18/22 Rx Multiple Vitamins with Iron tablet) ondansetron 4 mg disintegrating 4 mg PO Q8H PRN nausea and 08/10/22 09/18/22 Rx tablet vomiting 7 days #20 tabs potassium bicarbonate-citric acid 20 meq PO DAILY 5 days #5 ea 08/10/22 09/18/22 Rx 20 mEq effervescent tablet Allergies Allergy/AdvReac Type Severity Reaction Status Date / Time meperidine Allergy Intermediate Hives Verified 08/10/22 11:12 Vital Signs Vital Signs - 24 hr 09/20/22 09:41 09/20/22 09:45 09/20/22 09:45 Temperature Pulse Rate 81 78 Respiratory Rate Blood Pressure Pulse Oximetry Oxygen Delivery Room Air 09/20/22 14:01 09/20/22 12:00 09/20/22 20:29 Temperature 98 F Pulse Rate 67 72 81 Respiratory Rate 18 Blood Pressure 119/67 Pulse Oximetry 96 Oxygen Delivery 09/20/22 20:31 09/20/22 21:48 09/21/22 04:54 Temperature 98 F 98.3 F Pulse Rate 81 77 Respiratory Rate 20 18 Blood Pressure 125/84 122/72 Pulse Oximetry 92 93 95 Oxygen Delivery Room Air Exam Const: General: cooperative and comfortable Nutritional Appearance: average body habitus Orientation/consciousness: oriented to person, oriented to place and oriented to time Resp: Effort & Inspection: normal respiratory effort Cardio: Rate: regular rate Rhythm: regular rhythm Heart sounds: S1 normal heart sound present and S2 normal heart sound present GI: Ins
[2022-09-21 09:20] LABS: IFOB Positive Control Positive; Immunochemical Fecal Occult Bl Negative (N)
[2022-09-21] MEDS: NICOTINE (*PBKC) 21 MG PATCH 1 PATCH TRANSDERM (09:47)
[2022-09-21] MEDS: PANTOPRAZOLE 40 MG TABLET PO (09:47)
[2022-09-21] MEDS: POTASSIUM CHLORIDE 20 MEQ ER TABLET 40 MEQ PO (09:47)
[2022-09-21 09:48] VITALS: PULSE 77
[2022-09-21] MEDS: FOLIC ACID 1 MG TABLET PO (09:48)
[2022-09-21] MEDS: PROPRANOLOL HCL 10 MG TABLET PO (09:48)
[2022-09-21] MEDS: AMOXICILLIN/CLAVULANATE K 875-125 MG TAB 1 TABLET PO (09:48)
[2022-09-21] MEDS: THIAMINE HCL 100 MG TABLET PO (09:48)
--- NOTE | 2022-09-21 13:06 | PM.DS ---
DS: Admitting Diagnosis Discharge Date 09/21/22 Admitting Diagnosis Nausea and vomiting DS: Discharge Diagnosis Discharge Diagnosis (1) Hematemesis: Code(s): K92.0 - Hematemesis Status: Acute (2) N&V (nausea and vomiting): Code(s): R11.2 - Nausea with vomiting, unspecified Status: Acute (3) Abdominal pain: Code(s): R10.9 - Unspecified abdominal pain Status: Acute (4) Abnormal LFTs: Code(s): R79.89 - Other specified abnormal findings of blood chemistry Status: Acute (5) Alcohol dependence: Code(s): F10.20 - Alcohol dependence, uncomplicated Status: Acute (6) Tobacco dependence: Code(s): F17.200 - Nicotine dependence, unspecified, uncomplicated Status: Chronic (7) Cirrhosis: Qualifiers: Ascites presence: without ascites Hepatic cirrhosis type: alcoholic cirrhosis Qualified Code(s): K70.30 - Alcoholic cirrhosis of liver without ascites Code(s): K74.60 - Unspecified cirrhosis of liver Status: Acute (8) Pancytopenia: Code(s): D61.818 - Other pancytopenia Status: Acute (9) Perirectal abscess: Code(s): K61.1 - Rectal abscess Status: Acute (10) Hypokalemia: Code(s): E87.6 - Hypokalemia Status: Acute (11) Hypomagnesemia: Code(s): E83.42 - Hypomagnesemia Status: Acute DS: Summary Hospital Course Reason for hospitalization: 46yo female with severe alcoholic liver disease being seen at [facility] who presents with nausea, vomiting, hematemesis and bright red blood per rectum. Please see H&P for details. Hospital Course: Patient presented with complaints of hematemesis. She was guaiac negative in ED. Hgb was 15.1 (but dropped to 12.9 later in the day). GI was consulted and appreciate their input. She was started on octreotide. No evidence of acute blood loss. EGD showing reflux esophagitis, gastritis and nonbleeding esophageal varices. Hgb dropped to 10-11 range and remained stable. Octreotide stopped. She was treated with PPI and Propranolol was added. Her diet was advanced. Still with nausea but vomiting resolved. Possibly related to narcotics so these was stopped. She does use cannabis but not taking now. Patient also with generalized abdominal pain.? CT scan shows edematous wall thickening of the colon with improvement in the right hemicolon and interval worsening in the distal colon.? This could be related to her cirrhosis.? Consider also infectious colitis or ischemic disease.? White count was elevated on admission but normalized.? In the ED, patient was noted to have a 1.5 cm area of fluctuance to the left glute next to the rectum with surrounding induration and tenderness.? This area was I&D with purulent fluid and blood able to be expressed.? The area softened and the wound is openly draining.? She was continued on antibiotics for the perirectal abscess and this should cover for possible colitis. She did complain of rectal bleeding but was guaiac negative in ED. AST 176, ALT 66, AP [address] scan showing atrophy of the medial segment of the left hepatic lobe and subtle liver surface nodularity c/w cirrhosis. LFTs chronically elevated likely related to alcoholic hepatitis since patient still drinks. Levels trended down. Patient has a hx of alcohol abuse so was started on CIWA protocol with scores running 2-4 mostly. She did have a banana bag. We continued thiamine and folate.? Ativan was available as needed for anxiety or withdrawal. Platelet count was low to 62K before beginning to rise. Half Way related to liver disease and/or ongoing alcohol use. She also was complaining of vaginal bleeding for 3 weeks. She was seen bu Kids Activities Coach for evaluation. Pelvic US showing left ovarian cyst measuring 2.6cm and moderate free pelvic fluid. She has been up walking to the bathroom. She did eat 75% of her meal today. She was provide information from Care Coordination abo
[2022-09-21 14:00] VITALS: BP 131/78; PULSE 79; RESP 16; TEMP 37; O2SAT 93
--- NOTE | 2022-09-26 10:28 | PC.NURSE ---
Cryptospordism and stool cx are both negative. Dr. Cayden robledo.
--- NOTE | 2022-09-29 10:32 | PC.NURSE ---
Genesisardi in stool is negative. Dr. Rodarte aware.
--- NOTE | 2022-10-05 08:38 | PC.NURSE ---
Stool negative for WBC. Ova and parasites are negative. Dr. Cayden robledo.
== END 2022-09-21 16:00 | disposition home or self-care (01) ==
LOC: ANHED 18:57 → ANH3MED 20:25
PROVIDERS: Internal Medicine Gastroenterology; Student in an Organized Health Care Education/Training Program; Admitting Provider Internal Medicine; Emergency Provider Physician Assistant; PCP Family Medicine; Visit Provider Internal Medicine
PROC: 0DJ08ZZ Inspection of Upper Intestinal Tract, Via Natural or Artificial Opening Endoscopic (ICD-10-PCS; CPT 43235; principal; 2022-09-19 16:00)
DX: I85.00 Esophageal varices without bleeding (principal); K21.00 Gastro-esophageal reflux disease with esophagitis, without bleeding; K29.70 Gastritis, unspecified, without bleeding; K92.0 Hematemesis; R10.9 Unspecified abdominal pain; K70.31 Alcoholic cirrhosis of liver with ascites; K52.9 Noninfective gastroenteritis and colitis, unspecified; F10.20 Alcohol dependence, uncomplicated; E87.6 Hypokalemia; D53.9 Nutritional anemia, unspecified; R74.01 Elevation of levels of liver transaminase levels; I10 Essential (primary) hypertension; K80.20 Calculus of gallbladder without cholecystitis without obstruction; K76.6 Portal hypertension; Y90.6 Blood alcohol level of 120-199 mg/100 ml; K70.10 Alcoholic hepatitis without ascites; R30.0 Dysuria; K62.5 Hemorrhage of anus and rectum; E83.42 Hypomagnesemia; R79.89 Other specified abnormal findings of blood chemistry; K70.0 Alcoholic fatty liver; R63.0 Anorexia; Z68.1 Body mass index [BMI] 19.9 or less, adult; R94.31 Abnormal electrocardiogram [ECG] [EKG]; F17.210 Nicotine dependence, cigarettes, uncomplicated; F12.90 Cannabis use, unspecified, uncomplicated; Z79.899 Other long term (current) drug therapy; Z82.49 Family history of ischemic heart disease and other diseases of the circulatory system
CPT/HCPCS: 43235; 36415; 74177; 76856; 80048; 80053; 80307; 81003; 81025; 82140; 82274; 82948; 83605; 83690; 83735; 85014; 85018; 85025; 85055; 85610; 85730; 87045; 87070; 87177; 87205; 87209; 87269; 87272; 87427; 89055; 93005; 96361; 96365; 96366; 96367; 96368; 96375; 96376; 99285; A9270; C9113; G0378; J1170; J1885; J2060; J2270; J2354; J2405; J2543; J2704; J2765; J3370; J3411; J3475; J3480; J7030; J7040; J7120; P9047; Q9967

== ENCOUNTER 2023-01-17 09:03 | Emergency (ER) | payer OTHER, SELFPAY ==
--- NOTE | ~2023-01-17 | XR_ITS ---
EXAMINATION: XR chest 1V portable DATE: 01/17/2023 14:02 INDICATION: Bilateral clavicle pain with bruising at the right clavicle/shoulder TECHNIQUE: frontal view of the chest was obtained. COMPARISON: Chest radiograph dated 08/10/2022 FINDINGS: The lungs remain clear with no focal airspace opacities, pulmonary edema, pleural effusion or pneumot horax. The cardiomediastinal silhouette is normal. Visualized bones and soft tissues are unremarkable . IMPRESSION: 1. No acute cardiopulmonary disease. Reviewed, dictated and finalized at location A.
--- NOTE | ~2023-01-17 | CT_ITS ---
EXAMINATION: CT brain wo con, CT facial bones wo con DATE: 01/17/2023 14:15 INDICATION: Head injury with pain to the right ear post fall TECHNIQUE: 1. Computed tomography (CT) of the head was performed without intravenous contrast. Sagittal and kimberly nal reconstructions were obtained. The mA was adjusted according to patient size. Iterative reconstru ction technique was employed. The dose-length product was 605.33 mGy-cm. 2. CT of the facial bones and maxillofacial region was performed without intravenous contrast. Sagitt al and coronal reconstructions were obtained. Automated exposure control and iterative reconstruction technique were employed. The dose-length product was 296.94 mGy-cm. COMPARISON: None. FINDINGS: Head CT: No calvarial fracture. No acute intracranial hemorrhage, acute infarction or abnormal extra axial flu id collection. Ventricles are normal and symmetric. No mass/mass effect. Maxillofacial CT: No maxillofacial fractures. 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 Mild mucosal thickening at the inferior aspect of t he bilateral maxillary sinuses. Mastoid air cells and middle ear cavities are clear. Asymmetric mild osteoarthritis at the left temporomandibular joint. Orbits are normal. IMPRESSION: 1. Normal brain. No calvarial fracture or acute intracranial process. 2. No maxillofacial fractures. Reviewed, dictated and finalized at location A. IMPRESSION: 1. Normal brain. No calvarial fracture or acute intracranial process. 2. No maxillofacial fractures.
[2023-01-17 10:03] VITALS: BP 136/73; PULSE 78; RESP 18; TEMP 36.9; O2SAT 100
[2023-01-17 12:07] VITALS: BP 136/82; PULSE 77; RESP 16; TEMP 37.1; O2SAT 100
[2023-01-17 12:56] LABS: Basophils Percent Auto 0.4 % (0.2-1.2); Eosinophils Percent Auto 0.2 % (0-4.4); Hematocrit 39.4 % (37.0-47.0); Hemoglobin 12.9 g/dL (12.0-15.0); Immature Granulocyte Absolute 0.01 K/mm3 (0.00-0.031); Immature Granulocyte Percent A 0.2 % (0-0.5); Immature Platelet Fraction Pct 6.6 % (0.9-11.2); Lymphocytes Absolute Auto 0.93 K/mm3 (0.9-3.2); Lymphocytes Percent Auto 16.8 % (18.3-44.2); Mean Corpuscular HGB Conc 32.7 g/dl (32-36); Mean Corpuscular Hemoglobin 32.8 pg (26-34); Mean Corpuscular Volume 100.3 fl (80-100); Mean Platelet Volume 10.8 fl (7.4-10.4); Monocytes Absolute Auto 0.4 K/mm3 (0.1-0.6); Neutrophils Absolute Auto 4.1 K/mm3 (1.3-6.7); Neutrophils Percent Auto 74.4 % (45.5-73.1); Platelet Count Result 77 k/mm3 (150-375); Red Blood Count 3.93 M/mm3 (4.2-5.4); White Blood Count 5.5 K/mm3 (4.5-10.0)
[2023-01-17 13:00] VITALS: BP 119/83; PULSE 78; RESP 18; O2SAT 100
[2023-01-17 13:06] LABS: Alanine Aminotransferase 25 U/L (6-35); Albumin Level 4.5 g/dL (3.5-5.1); Alkaline Phosphatase 122 U/L (38-126); Anion Gap 9 mmol/L (8-16); Aspartate Amino Transferase 93 U/L (14-36); Bilirubin,Total 3.3 mg/dL (0.2-1.3); Blood Urea Nitrogen 12 mg/dL (7-17); Calcium 8.7 mg/dL (8.4-10.2); Carbon Dioxide 24 mmol/L (22-30); Chloride 101 mmol/L (98-107); Estimated CRCL calculation 60 ml/min; Estimated Glomerular Filt Rate > 60; Ethanol < 10 mg/dL (<10); Glucose 100 mg/dL (65-110); Lipase 47 U/L (23-300); Potassium 3.5 mmol/L (3.4-5.0); Sodium 134 mmol/L (137-145)
[2023-01-17 13:15] LABS: INR 1.2; Prothrombin Time 15.6 Seconds (11.1-14.7)
[2023-01-17 13:16] LABS: Partial Thromboplastin Time 30.7 SECONDS (22.3-36.8)
[2023-01-17 13:17] LABS: Lactic Acid Reflex 1.5 mmol/L (0.7-2.0)
--- NOTE | 2023-01-17 13:18 | ED.GENADULT ---
HPI - General Adult General Chief complaint: Alcohol Stated complaint: withdrawals from alcohol, fall Time Seen by Provider: 01/17/23 12:11 History of Present Illness HPI narrative: 47-year-old female presented the emergency department for evaluation of facial pain, headache and clavicle pain with associated nausea and vomiting. Patient states she did have a ground-level fall but is unsure if she had loss of consciousness. Patient states she has been drinking heavily over the last few weeks. Patient states she stopped drinking last night. Patient reports she drinks fireball. Related Data Allergies Allergy/AdvReac Type Severity Reaction Status Date / Time meperidine Allergy Intermediate Hives Verified 01/17/23 13:41 Review of Systems Review of Systems: All systems reviewed & are unremarkable except as noted in HPI and below PMFSH Past Medical History Medical History Alcohol abuse Alcoholic fatty liver Anorexia Colon cancer screening Confused Diffuse abdominal pain Essential hypertension Marijuana use Portal hypertension Tobacco dependence Surgical History Surgical History History of dilation and curettage History of ear surgery 2002 - Patient reports a surgery to R ear History of esophagogastroduodenoscopy (12/2021) Gastritis, hiatal hernia. Family History Family History Father Hypertension Sibling Diabetes mellitus Grandparent Esophageal cancer Social History Social History Social History: Code status: Full code Surrogate decision maker: Almaz Salamanca, stepmother. Smoking packs per day: 3 Smoking cigarettes per day: 60.0 Years smoked: 30 Smoking pack-years: 90.00 Smoking status: Current every day smoker Tobacco type: cigarettes Alcohol intake: current Alcohol use details: Drinks about a 5th of fireball a day. Substance use: current Substance use type: marijuana Lack of Transportation: No Lack of Food: Never True Current Housing: I Have Housing Concerned About Future Housing: No Difficulty Paying Gas/Electric Bills: No Difficulty Paying for Meds: No Currently Unemployed: No Education: Don't Know Difficulty w/ Childcare or Family Care: No Living arrangements: with family Additional living arrangements comments: Stays with parents most of the time. Occupation/Education: unemployed Additional occupation/education comments: Not currently employed. Spiritual care concerns: No Exam Narrative: APPEARANCE: Well appearing, no pain, no distress, well-nourished. HEAD: normocephalic, atraumatic. EYES: PERRLA/EOMI, conjunctivae clear. NOSE: Normal no drainage NECK: Supple. No adenopathy, no masses. RESPIRATORY: Airway patent, respirations nonlabored. Clear to auscultation bilaterally, no rales, rhonchi, wheezing. CARDIOVASCULAR: Regular rate and rhythm without murmurs rubs or gallops. ABDOMINAL: Soft, nontender, nondistended, normal bowel sounds MUSCULOSKELETAL: Bruising to bilateral clavicles NEURO: Alert. Cranial nerves II through XII intact. Good gait. Good coordination SKIN: Warm, dry. Normal Color Course Course Emergency Course: 47-year-old female present emergency department for evaluation after having a fall. Head and face CT were negative. Chest x-ray showed no acute normalities. Patient did feel improved with treatment. Patient is afebrile with no leukocytosis and a stable hemoglobin. No significant abnormalities on her CMP and UA showed some markers infection but was nitrate leuk esterase negative. Patient denied any urinary symptoms. Patient was updated on the results of her work-up. Patient was encouraged to have close follow-up with her primary care physician. All questions and concerns were addressed
[2023-01-17] MEDS: SODIUM CHLORIDE 0.9% IV 1,000 ML 999 ML IV CONT (13:42)
[2023-01-17] MEDS: THIAMINE HCL 200 MG/2 ML VIAL 100 MG IV PUSH (13:42)
[2023-01-17] MEDS: METOCLOPRAMIDE HCL INJ 10 MG/2 ML VIAL IV PUSH (13:43)
[2023-01-17 15:09] LABS: Bacteria Urine Rare /hpf; Non Pathogenic Casts 0-2; Squamous Epithelial Cell Urine Moderate /hpf (Few)
[2023-01-17 15:28] LABS: Appearance Urine Clear (Clear); Bilirubin Urine 2+ (Negative); Blood Urine 3+ (Negative); Color Urine Dark Yellow (Yellow); Glucose Urine UA Negative (Negative); Ketones Urine Trace mg/dL (Negative); Leukocyte Esterase Ur Negative LEU/UL (Negative); Nitrate Urine Negative (Negative); Protein Urine 2+ mg/dL (Negative); Specific Grav Ur >= 1.030 (1.001-1.035); Urobilinogen Urine >=8.0 mg/dL (<2.0); pH Urine 6.5 (5.0-9.0)
[2023-01-17 15:35] LABS: Add Urine Microscopic? YES
[2023-01-17 15:47] VITALS: BP 145/79; PULSE 90; RESP 19; O2SAT 100
== END 2023-01-17 15:49 | disposition home or self-care (01) ==
PROVIDERS: Emergency Provider Emergency Medicine
DX: S09.90XA Unspecified injury of head, initial encounter (principal); R11.2 Nausea with vomiting, unspecified; F17.210 Nicotine dependence, cigarettes, uncomplicated; W18.30XA Fall on same level, unspecified, initial encounter
CPT/HCPCS: 36415; 70450; 70486; 71045; 80053; 80307; 81001; 83605; 83690; 85025; 85055; 85610; 85730; 87086; 87088; 96361; 96374; 96375; 99284; J2765; J3411; J7030

== ENCOUNTER 2023-07-12 00:41 | Day surgery (SDC) | payer OTHER, SELFPAY ==
[2023-06-07 14:04] VITALS: BMI 18.3
--- NOTE | 2023-06-07 14:20 | PC.NURSE ---
Report to the Outpatient Waiting Room, entrance under the green pavilion located off [facility], at time __1100 on date ___[phone] ()____. Planned Procedure Time: ____1300____. Time changes happen often and if your time is changed the preop area will call you the afternoon before. - You and your visitor will be asked to self-screen and do not enter if you have any COVID symptoms. - A mask is optional within the hospital at this time. Patients may have clear liquids (water, carbonated beverages, clear teas, apple juice) until 3 hours prior to surgery with a maximum of 20 ounces. (Stop at 1000am) - No food from midnight until time of surgery - Take the following medications with a SIP of water the morning of surgery: __Nadolol DO NOT STOP ANY OF YOUR OTHER PRESCRIPTION MEDICATIONS PRIOR TO SURGERY ?EXCEPT THE FOLLOWING Medications to discontinue per physician Multivitamin with iron x 3 days. Last dose: 06-10-2023_. Do NOT take Lasix (prn) or Spironalactone (prn) the day of surgery. Do not take Lactulose (prn) the day of surgery. Please no make-up, nail hungarian, hairspray, perfume, deodorant, or body powder the day of surgery. No jewelry (including any body piercings) or valuables the day of surgery, leave them at home. Please take a shower or bath the night before, or the morning of, surgery with an antibacterial soap. Wear comfortable, loose fitting clothing. - Jewelry must be removed prior to entering the operating room. Rings and piercings that are not removed may be cut off. - The hospital will not accept responsibility for valuables. - Please leave all valuables, including medications, at home the day of surgery. If you are going home after surgery, a licensed school bus driver/teacher assistant must drive you home. - NO public transportation without another adult if you receive anesthesia. - We recommend that an adult stay with you for 24 hours following discharge. - We also recommend that you do not drive, make important decision, drink alcoholic beverages, or take any drugs that were not prescribed by your health care provider for at least 24 hours after your discharge time. Follow any additional instructions given to you from your surgeon. If you or anyone in your household have experienced Covid symptoms in the past week, please notify your surgeon or the nurse liaison at the phone number below for possible testing. Telephone instructions given to __Charlybrooklynn Silas (patient) and asked if any additional questions and then verbalized understanding. Patient advised to call surgeon office or pre surgery nurse liaison [phone] if any additional questions.
[2023-07-05 15:04] VITALS: BMI 18.3
--- NOTE | 2023-07-12 07:35 | PM.IMHP ---
H&P: HPI History of Present Illness Date/Time: 07/12/23 07:35 Chief Complaint: MINGO 2 Narrative: 47-year-old female whose Pap smear returned LSIL, positive HPV.? Patient subsequently underwent colposcopy.? ECC and cervical biopsy returned MINGO 2 Review of Systems Cardiovascular: Cardiovascular: Denies chest pain, Denies leg edema, Denies palpitations, Denies dyspnea and Denies dyspnea on exertion Respiratory: Respiratory: Denies cough, Denies dyspnea and Denies dyspnea on exertion Gastrointestinal: Gastrointestinal: Denies abdominal pain, Denies constipation, Denies diarrhea, Denies nausea and Denies vomiting Genitourinary: Genitourinary: Denies hematuria, Denies urinary frequency, Denies dysuria, Denies pelvic pain, Denies urinary incontinence and Denies vaginal discharge Neurologic: Reports system reviewed and no additional complaints, except as documented Psychiatric: Psychiatric: Reports no additional psychiatric complaints Endocrine: Endocrine: Denies palpitations PMFSH Past Medical History Medical History Abnormal Pap smear of cervix Alcohol abuse Alcoholic fatty liver Anorexia Colon cancer screening Confused Diffuse abdominal pain Essential hypertension Marijuana use Portal hypertension Screening mammogram for breast cancer Tobacco dependence Surgical History Surgical History History of dilation and curettage History of ear surgery 2002 - Patient reports a surgery to R ear History of esophagogastroduodenoscopy (12/2021) Gastritis, hiatal hernia. Hx of cholecystectomy Family History Family History Father No problems noted. Sibling Diabetes mellitus Grandparent Esophageal cancer Mother Liver cirrhosis Social History Social History Social History: Code status: Full code Surrogate decision maker: Almaz Salamanca, stepmother. Smoking packs per day: 1 Smoking cigarettes per day: 20.0 Years smoked: 27 Smoking pack-years: 27.00 Smoking status: Current every day smoker Tobacco type: cigarettes Second hand tobacco smoke exposure: No Alcohol intake: current Drinks per week: 1 Alcohol use details: whiskey (states she is trying to quit drinking and has cut down on her whiskey Substance use: former Substance use type: marijuana Other substance usage details: formerly would rarely smoke marijuana Do You Feel Safe in your Home?: Yes Lack of Transportation: No Lack of Food: Never True Current Housing: I Have Housing Concerned About Future Housing: No Difficulty Paying Gas/Electric Bills: No Difficulty Paying for Meds: No Currently Unemployed: No Education: Associate Degree Difficulty w/ Childcare or Family Care: No Living arrangements: with family Additional living arrangements comments: lives with parents Occupation/Education: unemployed Additional occupation/education comments: Not currently employed. Gender identity (if verbalized by the patient): Female Spiritual care concerns: No Meds Home Medications and Allergies Home Medications Medication Instructions Recorded Confirmed Type multivitamin with iron (Daily 1 tablet PO DAILY #90 tabs 12/20/21 07/05/23 Rx Multiple Vitamins with Iron tablet) furosemide 20 mg tablet 20 mg PO DAILY 04/05/23 07/05/23 History lactulose 10 gram/15 mL oral 5 g PO TID 04/05/23 07/05/23 History solution spironolactone 25 mg tablet 25 mg PO DAILY 04/05/23 07/05/23 History nadolol 20 mg tablet 20 mg PO DAILY 07/05/23 07/05/23 History Allergies Allergy/AdvReac Type Severity Reaction Status Date / Time meperidine Allergy Intermediate Hives Verified 07/05/23 15:02 Exam Const: General: no acute distress Eyes: EOM: EOMs intact bilaterally Neck: Nec
[2023-07-12 11:09] VITALS: BP 148/92; PULSE 74; RESP 18; TEMP 36.5; O2SAT 100
--- NOTE | 2023-07-12 11:39 | WPDHPUPDATE1 ---
History and Physical Update Update Date/Time: 07/12/23 11:39 History and Physical has been reviewed, including an updated exam of the patient. There are NO changes in the patient's condition. Risks, benefits, and alternatives have been discussed and questions answered. Patient agrees to proceed with procedure.
[2023-07-12] MEDS: ACETAMINOPHEN 500 MG TABLET 1000 MG PO (11:44)
[2023-07-12] MEDS: LACTATED RINGERS 1,000 ML 30 ML IV CONT (11:45)
--- NOTE | 2023-07-12 13:13 | WPDANESEPPF ---
Anes - Initial Pre Proc Eval Procedure: Operation Date: 07/12/23 13:00 Proposed Procedures p Loop Electrical Excision Procedure - Yves Saleh MD Date/Time: 07/12/23 13:13 Surgeon: Yves Saleh MD Pre Op Diagnosis: Cervical Dysplasia Patient Data Age: 47 Gender: F Height: 1.63 m Weight: 49.4 kg Last Vital Signs Temp 97.7 F 07/12/23 11:09 Pulse 74 07/12/23 11:09 Resp 18 07/12/23 11:09 BP 148/92 H 07/12/23 11:09 Pulse Ox 100 07/12/23 11:09 O2 Del Method Room Air 07/12/23 11:09 Allergies Allergy/AdvReac Type Severity Reaction Status Date / Time meperidine Allergy Intermediate Hives Verified 07/12/23 11:49 Home Medications Medication Instructions Recorded Confirmed Type multivitamin with iron (Daily 1 tablet PO DAILY #90 tabs 12/20/21 07/12/23 Rx Multiple Vitamins with Iron tablet) furosemide 20 mg tablet 20 mg PO DAILY 04/05/23 07/12/23 History lactulose 10 gram/15 mL oral 5 g PO TID 04/05/23 07/12/23 History solution spironolactone 25 mg tablet 25 mg PO DAILY 04/05/23 07/12/23 History nadolol 20 mg tablet 20 mg PO DAILY 07/05/23 07/12/23 History Patient hx anesthesia problems: none Family hx anesthesia problems: none Results Review: All pre-operative results and documents have been reviewed as part of the pre-operative evaluation. [facility] Past Medical History Medical History Abnormal Pap smear of cervix Alcohol abuse Alcoholic fatty liver Anorexia Colon cancer screening Confused Diffuse abdominal pain Essential hypertension Marijuana use Portal hypertension Screening mammogram for breast cancer Tobacco dependence Surgical History Surgical History History of dilation and curettage History of ear surgery 2002 - Patient reports a surgery to R ear History of esophagogastroduodenoscopy (12/2021) Gastritis, hiatal hernia. Hx of cholecystectomy Family History Family History Father No problems noted. Sibling Diabetes mellitus Grandparent Esophageal cancer Mother Liver cirrhosis Social History Social History Social History: Code status: Full code Surrogate decision maker: Almaz Stanislawdanielle, stepmother. Smoking packs per day: 1 Smoking cigarettes per day: 20.0 Years smoked: 27 Smoking pack-years: 27.00 Smoking status: Current every day smoker Tobacco type: cigarettes Second hand tobacco smoke exposure: No Alcohol intake: current Drinks per week: 1 Alcohol use details: whiskey (states she is trying to quit drinking and has cut down on her whiskey Substance use: former Substance use type: marijuana Other substance usage details: formerly would rarely smoke marijuana Do You Feel Safe in your Home?: Yes Lack of Transportation: No Lack of Food: Never True Current Housing: I Have Housing Concerned About Future Housing: No Difficulty Paying Gas/Electric Bills: No Difficulty Paying for Meds: No Currently Unemployed: No Education: Associate Degree Difficulty w/ Childcare or Family Care: No Living arrangements: with family Additional living arrangements comments: lives with parents Occupation/Education: unemployed Additional occupation/education comments: Not currently employed. Gender identity (if verbalized by the patient): Female Spiritual care concerns: No Anes - Eval Final PreProcedure Day of Procedure 07/12/23 13:13 Patient weight: normal Heart: regular rate and rhythm Lungs: clear to auscultation Airway: Mallampati scale class II Neurological: alert and oriented Last oral intake: >/= 8 hours ASA classification: III Emergent: no Anesthetic plan: proceed Anesthesia type and monitoring: general GIVS and standard monitoring Results Review:
[2023-07-12] MEDS: LIDO 1%/EPINEPHRINE 1:100,000 50 ML VIAL 10 ML INFILTRATE (13:42)
--- NOTE | 2023-07-12 13:54 | P.OP_ITS ---
Procedure Note - Detailed Date of Procedure 07/12/23 Pre-op Diagnosis CIN2 Post-op Diagnosis Same Procedure Performed LEEP Surgeon Yves Saleh MD Anesthesia General Indications MINGO 2 on cervical biopsy Description of Procedure After adequate anesthesia was established, the patient was placed in dorsal lithotomy position in yellow fin sitrrups. Insulated speculum was placed to visualize the cervix. Paracervical block was performed with 1% lidocaine with ep inepherine. Lugols solution was then applied with good definition of the transformation zone. A 25 mm loop was used to excise the transformation zone. A total of one pass was made. A single stitch was placed a 12 o'clock on the cervical specimen at 12 o'clock and a double stitch was placed at 6 o'clock. A second pass was made with a 10 mm x 10 mm loop for a endocervical sample. Hemostasis was obtained with ball cautery. Monsels solution was placed in the surgical bed. Power settings cut 35 bocanegra, coagulation 35 bocanegra. Patient tolerated the procedure well. All sponge and instrument counts were correct. The patient was transferred to PACU without complications. Estimated Blood Loss 5 Drains No Packing No Pathology Yes (Ectocervix specimen, endocervical specimen) Complications No immediate complications Condition Stable Disposition PACU [facility] Billing Surgery - Charge Forward: Surgery Billing
[2023-07-12 13:56] VITALS: BP 117/76; PULSE 53; RESP 18; TEMP 36.2; O2SAT 100
[2023-07-12 14:10] VITALS: BP 139/87; PULSE 63; RESP 20; O2SAT 100
[2023-07-12] MEDS: ONDANSETRON INJ 4 MG/2 ML VIAL IV PUSH (14:10)
[2023-07-12] MEDS: fentaNYL CITRATE INJ (*CRX) 100 MCG/2 ML VIAL 25 MCG IV PUSH (14:20)
[2023-07-12 14:27] VITALS: BP 134/81; PULSE 69; RESP 16; O2SAT 100
[2023-07-12 14:34] VITALS: BP 111/66; PULSE 72; RESP 16
[2023-07-12 14:50] VITALS: BP 114/69; PULSE 66; RESP 16
== END 2023-07-12 14:56 | disposition home or self-care (01) ==
PROVIDERS: PCP Family Medicine; Visit Provider Student in an Organized Health Care Education/Training Program
PROC: 0UBC7ZZ Excision of Cervix, Via Natural or Artificial Opening (ICD-10-PCS; CPT 57522; principal; 2023-07-12 13:00)
DX: D06.1 Carcinoma in situ of exocervix (principal); D06.0 Carcinoma in situ of endocervix; N72 Inflammatory disease of cervix uteri; I10 Essential (primary) hypertension; K70.0 Alcoholic fatty liver; F17.210 Nicotine dependence, cigarettes, uncomplicated; F12.90 Cannabis use, unspecified, uncomplicated; Z90.49 Acquired absence of other specified parts of digestive tract; Z98.890 Other specified postprocedural states; Z80.0 Family history of malignant neoplasm of digestive organs
CPT/HCPCS: 57522; 36415; 80048; 85014; 85018; 85610; 85730; 88307; A9270; J1100; J2250; J2405; J2704; J3010; J7120

== ENCOUNTER 2023-07-12 09:54 | Outpatient (CLI) | payer OTHER, SELFPAY ==
[2023-07-12 10:47] LABS: Hematocrit 37.3 % (37.0-47.0)
[2023-07-12 10:57] LABS: Prothrombin Time 13.4 Seconds (11.1-14.7)
[2023-07-12 10:58] LABS: Partial Thromboplastin Time 27.5 Seconds (22.3-36.8)
[2023-07-12 10:59] LABS: Anion Gap 6 mmol/L (4-12); Blood Urea Nitrogen 8 mg/dL (7-17); Carbon Dioxide 28 mmol/L (22-30); Chloride 104 mmol/L (98-107); Estimated Glomerular Filt Rate > 60; Glucose 82 mg/dL (65-110); Potassium 4.5 mmol/L (3.4-5.0); Sodium 138 mmol/L (137-145)
== END 2023-07-12 09:55 | disposition home or self-care (01) ==
LOC: ANHLAB 09:55
PROVIDERS: PCP Family Medicine; Visit Provider Anesthesiology
DX: N87.9 Dysplasia of cervix uteri, unspecified (principal); K70.0 Alcoholic fatty liver; T50.2X5A Adverse effect of carbonic-anhydrase inhibitors, benzothiadiazides and other diuretics, initial encounter
CPT/HCPCS: 36415; 80048; 85014; 85018; 85610; 85730